=== PATIENT | female | born 1940 | race Caucasian/White ===

== ENCOUNTER 2021-05-23 19:01 | Inpatient (IN) | payer MEDICARE ==
[~2021-05-23] VITALS: Ht 166.3 cm; Wt 116.4 kg
[~2021-05-23 19:01] MED LIST: AMLO5TAB2 PO; ATEN-156 PO; ATR20T PO; ESCT10T PO; HYDR-2889 PO; LEVO500T69 PO; MELO-195 PO; POTA10CA43 PO; PRED5DRO OU; TRIA16.5 NS; TRIA1TAB5 PO; WRF5T PO; ZYMAR OU
[2021-05-23 19:40] LABS: BASOPHILS % (AUTO) 0 % (0-10); EOSINOPHILS # (AUTO) 0.1 10^3/uL (0.0-0.3); EOSINOPHILS % (AUTO) 1 % (0-10); HEMATOCRIT 31 % (35-52); LYMPHOCYTES # (AUTO) 1.1 10^3/uL (1.0-4.0); LYMPHOCYTES % (AUTO) 21 % (12-44); MEAN CORPUSCULAR HEMOGLOBIN 31 pg (25-34); MEAN CORPUSCULAR HGB CONC 33 g/dL (32-36); MEAN CORPUSCULAR VOLUME 96 fL (80-99); MEAN PLATELET VOLUME 9.5 fL (9.0-12.2); MONOCYTES # (AUTO) 0.6 10^3/uL (0.0-1.0); MONOCYTES % (AUTO) 11 % (0-12); NEUTROPHILS # (AUTO) 3.5 10^3/uL (1.8-7.8); NEUTROPHILS % (AUTO) 66 % (42-75); PLATELET COUNT 172 10^3/uL (130-400); WHITE BLOOD COUNT 5.2 10^3/uL (4.3-11.0)
[2021-05-23 19:45] LABS: ALBUMIN 3.6 GM/DL (3.2-4.5); POTASSIUM 3.6 MMOL/L (3.6-5.0)
[2021-05-23] MEDS ORDERED: ASPIRIN 81 MG CHEW (CHILDREN'S ASA) PO ONE (19:45)
[2021-05-23 19:47] LABS: CALCIUM 8.9 MG/DL (8.5-10.1)
--- NOTE | 2021-05-23 19:47 | ED General ---
General Chief Complaint: Cardiac/General Problems Nursing Triage Note: TO ED [facility]IA [facility] FROM HOME. PT STATES SHE IS WEAK, CANNOT GET UP BY HERSELF. Source of Information: Patient Exam Limitations: No Limitations History of Present Illness Date Seen by Provider: May 23, 2021 Time Seen by Provider: 19:45 Initial Comments to ER by EMS from home at her daughter's house where she is currently residing with general weakness, bowel and bladder incontinence. Daughter is unable to take care of her at home. She is from [facility], just moved to the area to stay with her daughter. Was recently at [facility] emergency room and had a questionable diagnosis of new onset A. fib. Timing/Duration: 1 Week Severity: Moderate Associated Systoms: Denies Symptoms Allergies and Home Medications Allergies Coded Allergies: Penicillins (Verified Allergy, Unknown, 05/23/21) procaine (Verified Allergy, Unknown, 05/23/21) Patient Home Medication List Home Medication List Reviewed: Yes Amlodipine Besylate (Amlodipine Besylate) 5 Mg Tablet, 5 MG PO DAILY, (Reported) Entered as Reported by: KIM STRONG on 07/03/101702 Atenolol (Tenormin) 50 Mg Tablet, 50 MG PO DAILY, (Reported) Entered as Reported by: KIM STRONG on 07/03/101702 Atorvastatin (Lipitor 20MG) 20 Mg Tablet, 1 EACH PO DAILY, (Reported) Entered as Reported by: KIM STRONG on 07/03/101702 Escitalopram Oxalate (Lexapro) 10 Mg Tablet, 1 EACH PO DAILY, (Reported) Entered as Reported by: KIM STRONG on 07/03/101702 Hydrocodone Bit/Acetaminophen (Hydrocodon-Acetaminoph 7.5-500) 1 Each Tablet, 1 EACH PO Q6H PRN, (Reported) Entered as Reported by: KIM STRONG on 07/03/101702 Levofloxacin (Levaquin 500 Mg) 500 Mg Tab, 1 EACH PO DAILY, (Reported) Entered as Reported by: QUIRINO VASQUEZ on 07/09/10 101 Meloxicam (Meloxicam) 15 Mg Tablet, 1 EACH PO DAILY, (Reported) Entered as Reported by: KIM STRONG on 07/03/101702 Potassium Chloride (Potassium Chloride) 10 Meq Capsule.sa, 10 MEQ PO DAILY, (Reported) Entered as Reported by: KIM STRONG on 07/03/101702 Prednisolone Acetate (Rx-Pred Forte 1%) 5 Ml Drops.susp, 5 ML OU DAILY PRN, (Reported) Entered as Reported by: KIM STRONG on 07/03/101702 Triamcinolone Acetonide (Nasacort Aq) 16.5 Gm [place], 55 MCG NS DAILY PRN, ( Reported) Entered as Reported by: KIM STRONG on 07/03/101702 Triamterene/Hydrochlorothiazid (Triamterene-Hctz 75-50 Mg Tab) 1 Each Tablet, 1 EACH PO DAILY, (Reported) Entered as Reported by: KIM STRONG on 07/03/101702 Warfarin Sod (Coumadin 5 Mg) 5 Mg Tab, 5 MG PO DAILY, (Reported) Entered as Reported by: QUIRINO VASQUEZ on 07/09/10 1012 Review of Systems Review of Systems Constitutional: see HPI, other (Obese, incontinent of both bowel and bladder within her brief. She is in normal sinus rhythm on telemetry here rate of 68 blood pressure 180/74. 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 oz. [phone]; BMI Method: General Appearance: No Apparent Distress, WD/WN, Chronically ill, Obese HEENT: PERRL/EOMI Neck: Full Range of Motion, Normal Inspection Respiratory: No Accessory Muscle Use, No Respiratory Distress Cardiovascular: Regular Rate, Rhythm, Normal Peripheral Pulses Gastrointestinal: Normal Bowel Sounds, Non Tender, Soft Extremity: Normal Capillary Refill, Normal Inspection Neurologic/Psychiatric: Alert, Oriented x3 Skin: Normal Color, Warm/Dry, Ecchymosis (multiple ecchymoses to bilat forearms) Progress/Results/Core Measures Suspected Sepsis SIRS Temperature: Pulse: 80 Respiratory Rate: 16 Laboratory Tests 05/23/21 19:12: White Blood Count 5.2 Blood Pressure 198 /92 Mean: 127 Laboratory Tests 05/23/21 19:12: Creatinine 0.74, INR Comment 9.4*H, Platelet Count 172, Total Bilirubin 0.7 Results/Orders Lab Results Laboratory Tests Test 05/23/21 19:12 05/23/21 19:38 05/23/21 19:50 Range/Units White Blood Count 5.2 4.3-11.0 10^3/uL Red Blood Count 3.21 L 3.80-5.11 10^6/uL Hemoglobin 10.0 L 11.5-16.0 g/dL Hematocrit 31 L 35-52 % Mean Corpuscular Volume 96 80-99 fL Mean Corpuscular Hemoglobin 31 25-34 pg Mean Corpuscular Hemoglobin Concent 33 32-36 g/dL Red Cell Distribution Width 12.8 10.0-14.5 % Platelet Count 172 130-400 10^3/uL Mean Platelet Volume 9.5 9.0-12.2 fL Immature Granulocyte % (Auto) 1 % Neutrophils (%) (Auto) 66 42-75 % Lymphocytes (%) (Auto) 21 12-44 % Monocytes (%) (Auto) 11 0-12 % Eosinophils (%) (Auto) 1 0-10 % Basophils (%) (Auto) 0 0-10 % Neutrophils # (Auto) 3.5 1.8-7.8 10^3/uL Lymphocytes # (Auto) 1.1 1.0-4.0 10^3/uL Monocytes # (Auto) 0.6 0.0-1.0 10^3/uL Eosinophils # (Auto) 0.1 0.0-0.3 10^3/uL Basophils # (Auto) 0.0 0.0-0.1 10^3/uL Immature Granulocyte # (Auto) 0.0 0.0-0.1 10^3/uL Prothrombin Time 76.1 *H 12.2-14.7 SEC INR Comment 9.4 *H 0.8-1.4 Activated Partial Thromboplast Time 114 *H 24-35 SEC Sodium Level 141 135-145 MMOL/L Potassium Level 3.6 3.6-5.0 MMOL/L Chloride Level 106 98-107 MMOL/L Carbon Dioxide Level 23 21-32 MMOL/L Anion Gap 12 5-14 MMOL/L Blood Urea Nitrogen 12 7-18 MG/DL Creatinine 0.74 0.60-1.30 MG/DL Estimat Glomerular Filtration Rate 82 BUN/Creatinine Ratio 16 Glucose Level 116 H 70-105 MG/DL Calcium Level 8.9 8.5-10.1 MG/DL Corrected Calcium 9.2 8.5-10.1 MG/DL Magnesium Level 1.7 1.6-2.4 MG/DL Total Bilirubin 0.7 0.1-1.0 MG/DL Aspartate Amino Transf (AST/SGOT) 25 5-34 U/L Alanine Aminotransferase (ALT/SGPT) 32 0-55 U/L Alkaline Phosphatase 55 40-136 U/L Myoglobin 56.7 10.0-92.0 NG/ML Troponin I < 0.028 <0.028 NG/ML B-Type Natriuretic Peptide 75.7 <100.0 PG/ML Total Protein 6.1 L 6.4-8.2 GM/DL Albumin 3.6 3.2-4.5 GM/DL Urine Color YELLOW Urine Clarity CLOUDY Urine pH 6.0 5-9 Urine Specific [place] 1.025 H 1.016-1.022 Urine Protein NEGATIVE NEGATIVE Urine Glucose (UA) NEGATIVE NEGATIVE Urine Ketones NEGATIVE NEGATIVE Urine Nitrite POSITIVE H NEGATIVE Urine Bilirubin NEGATIVE NEGATIVE Urine Urobilinogen 0.2 < = 1.0 MG/DL Urine Leukocyte Esterase 1+ H NEGATIVE Urine RBC (Auto) TRACE-I H NEGATIVE Urine RBC 0-2 /HPF Urine WBC 5-10 H /HPF Urine Squamous Epithelial Cells NONE /HPF Urine Renal Epithelial Cells NONE /HPF Urine Crystals NONE /LPF Urine Bacteria LARGE H /HPF Urine Casts NONE /LPF Urine Mucus NEGATIVE /LPF Urine Culture Indicated YES Influenza Type A (RT-PCR) Not Detected Not Detecte Influenza Type B (RT-PCR) Not Detected Not Detecte SARS-CoV-2 RNA (RT-PCR) Not Detected Not Detecte My Orders Orders - [facility] [employer] Cbc With Automated Diff (05/23/21 19:31) Magnesium (05/23/21 19:31) Chest 1 View, Ap/Pa Only (05/23/21 19:31) Ekg Tracing (05/23/21 19:31) Comprehensive Metabolic Panel (05/23/21 19:31) Myoglobin Serum (05/23/21 19:31) Protime With Inr (05/23/21 19:31) Partial Thromboplastin Time (05/23/21 19:31) O2 (05/23/21 19:31) Monitor-Rhythm Ecg Trace Only (05/23/21 19:31) Lipid Panel (05/24/21 06:00) Ed Iv/Invasive Line Start (05/23/21 19:31) Bnp [place] (05/23/21 19:31) Troponin I [place] (05/23/21 19:31) Aspirin Chewable Tablet (Baby Aspirin Ch (05/23/21 19:45) Ua Culture If Indicated (05/23/21 19:47) Straight Cath (Urinary) (05/23/21 19:47) Covid 19 Inhouse Test (05/23/21 19:47) Influenza A And B By Pcr (05/23/21 19:47) Urine Culture (05/23/21 19:38) Ceftriaxone 1 Gm Pre-Mix (Rocephin 1 Gm (05/23/21 20:15) Phytonadione Oral Solution (Mephyton Ora (05/23/21 21:00) Medications Given in ED Current Medications Medications Dose Ordered Sig/[place] Route Start Time Stop Time Status Last Admin Dose Admin Aspirin 324 mg ONCE ONCE PO 05/23/21 19:45 05/23/21 19:47 DC 05/23/21 19:51 324 MG Ceftriaxone Sodium/Dextrose 50 ml @ 100 mls/hr ONCE ONCE IV 05/23/21 20:15 05/23/21 20:44 DC 05/23/21 20:33 100 MLS/HR Vital Signs/I&O 05/23/21 19:08 Temp 36.5 Pulse 80 Resp 16 B/P (MAP) 198/92 (127) Pulse Ox 96 O2 Delivery Room Air Capillary Refill : Less Than 3 Seconds Blood Pressure Mean: 127 Departure Impression Primary Impression: UTI (urinary tract infection) Additional Impression: General weakness Disposition: ADMITTED INPATIENT Condition: Stable Admissions Decision to Admit Reason: Admit from ER (General) Decision to Admit/Date: May 23, 2021 Time/Decision to Admit Time: 20:07 Departure-Patient Inst. Referrals: NU DU MD (PCP/Family) Primary Care Physician CH[facility] RED APRN May 23, 2021 19:46
[2021-05-23 19:48] LABS: TOTAL PROTEIN 6.1 GM/DL (6.4-8.2)
[2021-05-23 19:50] LABS: BILIRUBIN,TOTAL 0.7 MG/DL (0.1-1.0)
[2021-05-23 19:51] LABS: CREATININE SERUM 0.74 MG/DL (0.60-1.30)
[2021-05-23 19:54] LABS: BILIRUBIN,URINE NEGATIVE (NEGATIVE); CLARITY,URINE CLOUDY; COLOR,URINE YELLOW; GLUCOSE, URINE (UA) NEGATIVE (NEGATIVE); KETONES,URINE NEGATIVE (NEGATIVE); LEUKOCYTE ESTERASE ,URINE 1+ (NEGATIVE); NITRITE,URINE POSITIVE (NEGATIVE); PROTEIN,URINE NEGATIVE (NEGATIVE)
[2021-05-23 19:55] LABS: MAGNESIUM 1.7 MG/DL (1.6-2.4); PROTHROMBIN TIME PATIENT 76.1 SEC (12.2-14.7)
[2021-05-23 19:56] LABS: INR 9.4 (0.8-1.4)
[2021-05-23 20:04] LABS: BACTERIA,URINE LARGE /HPF; RBC,URINE 0-2 /HPF
--- NOTE | 2021-05-23 20:13 | Diagnostic Imaging Report ---
INDICATION: Weakness. COMPARISON: 11/04/2014. EXAMINATION: Single view of the chest. FINDINGS: Lordotic projection obscuring some detail. There is no infiltrate, pneumothorax or effusion. There is some density in the upper chest region which is likely normal vascular structures. The heart size is normal. Osseous structures are age-appropriate. IMPRESSION: Limited but unremarkable chest. Dictated by: Dictated on workstation # [id number]
[2021-05-23] MEDS ORDERED: cefTRIAXone 1 GM PRE-MIX 50 ML IV ONE (20:15)
[2021-05-23] MEDS ORDERED: VITAMIN K 1 MG/ML ORAL SOLN 1 ML SYRINGE PO ONE (21:00)
[2021-05-23 22:05] VITALS: BP 191/76
[2021-05-23] MEDS ORDERED: CATHETER FLUSH 10 ML SYR IV PRN (23:00)
[2021-05-23 23:27] VITALS: BP 148/79
[2021-05-24 03:51] VITALS: BP 132/71
[2021-05-24] MEDS: CATHETER FLUSH 10 ML SYR IV SCH ×3 (05:22→19:33)
[2021-05-24 06:13] LABS: BASOPHILS % (AUTO) 0 % (0-10); EOSINOPHILS # (AUTO) 0.1 10^3/uL (0.0-0.3); EOSINOPHILS % (AUTO) 1 % (0-10); HEMATOCRIT 26 % (35-52); HEMOGLOBIN 8.6 g/dL (11.5-16.0); LYMPHOCYTES # (AUTO) 0.7 10^3/uL (1.0-4.0); LYMPHOCYTES % (AUTO) 13 % (12-44); MEAN CORPUSCULAR HEMOGLOBIN 32 pg (25-34); MEAN CORPUSCULAR HGB CONC 34 g/dL (32-36); MEAN CORPUSCULAR VOLUME 95 fL (80-99); MEAN PLATELET VOLUME 9.6 fL (9.0-12.2); MONOCYTES # (AUTO) 0.6 10^3/uL (0.0-1.0); MONOCYTES % (AUTO) 11 % (0-12); NEUTROPHILS # (AUTO) 4.3 10^3/uL (1.8-7.8); NEUTROPHILS % (AUTO) 75 % (42-75); PLATELET COUNT 157 10^3/uL (130-400); WHITE BLOOD COUNT 5.8 10^3/uL (4.3-11.0)
[2021-05-24 06:31] LABS: POTASSIUM 3.8 MMOL/L (3.6-5.0)
[2021-05-24 06:32] LABS: CALCIUM 8.4 MG/DL (8.5-10.1)
[2021-05-24 06:37] LABS: CREATININE SERUM 0.68 MG/DL (0.60-1.30); INR 7.4 (0.8-1.4); PROTHROMBIN TIME PATIENT 63.2 SEC (12.2-14.7)
[2021-05-24 07:57] VITALS: BP 124/57
--- NOTE | 2021-05-24 08:59 | Physical Therapy Evaluation ---
PT Evaluation-General Medical Diagnosis Admission Date May 23, 2021 at 20:50 Medical Diagnosis: Weakness/UTI Onset Date: May 19, 2021 Therapy Diagnosis Therapy Diagnosis: Weakness, debility Height/Weight Height (Feet): 5 Height (Inches): 7.00 Weight (Pounds): 300 Precautions Precautions/Isolations: Fall Prevention, Standard Precautions Referral Physician: Shyanne Reason for Referral: Evaluation/Treatment Medical History Additional Medical History Obesity Current History Patient was brought to ER via her daughter. Patient went to ER in [place] but sent her home but patient was declining and her daughter brought her [facility]. Reviewed History: Yes Social History Home: Single Level Current Living Status: Alone Entry Into Home: Ramp Prior Prior Level of Function SCALE: Activities may be completed with or without assistive devices. 9-Zdowwrnzhz-nenagza completes the activity by him/herself with no assistance from a helper. 5-Set-up or Clean-up Assistance-helper sets up or cleans up; patient completes activity. [place] assists only prior to or following the activity. 4-Supervision or Touching Assistance-helper provides verbal cues and/or touching/steadying and/or contact guard assistance as patient completes activity. Assistance may be provided throughout the activity or intermittently. 3-Partial/Moderate Assistance-helper does LESS THAN HALF the effort. [place] lifts, holds or supports trunk or limbs, but provides less than half the effort. 2-Substantial/Maximal Assistance-helper does MORE THAN HALF the effort. [place] l ifts or holds trunk or limbs and provides more than half the effort. 9-Aeywsrnlt-aoypfl does ALL the effort. Patient does none of the effort to complete the activity. Or, the assistance of 2 or more helpers is required for the patient to complete the activity. If activity was not attempted, code reason: 7-Patient Refused. 9-Not Applicable-not attempted and the patient did not perform the activity before the current illness, exacerbation or injury. 10-Not Attempted due to Environmental Limitations-(lack of equipment, weather restraints, etc.). 88-Not Attempted due to Medical Conditions or Safety Concerns. Bed Mobility: 6 Transfers (B,C,W/C): 6 Gait: 6 Indoor Mobility (Ambulation): Independent Prior Devices Use: Walker Patient reported that she slept in her lift chair at home and used the lift function to help her get up from the chair. Patient reports that the head of her bed also lifts up and she uses it to help her get out of bed. PT Evaluation-Current Subjective Patient presented laying in bed with daughter sitting beside her. Patient reports that she has not got out of bed in a couple days and wants to attempt to get up. Objective Patient Orientation: Person, Confused ROM/Strength ROM Lower Extremities WFL, decreased due to obesity Strength Lower Extremities 4/5 strength bilaterally grossly Sensory Vision: Functional Hearing: Functional Transfers Lying to Sitting/Side of Bed(Q: 3 Sit to Stand (QC): 3 Chair/Jbs-fc-Ivrfd Xfer(QC): 3 Patient required min/mod assist for all transfers. Patient required multiple cues to perform transfers safely and correctly Gait Does the Patient Walk?: Yes Mode of Locomotion: Walk Anticipated Mode of Locomotion: Walk Distance: 5 steps Gait Assistive Device: FWW Comments/Gait Description Patient ambulated 5 steps with min-mod assistance from EOB to recliner. Patient required cues to push the walker forward while ambulating. Balance Sitting Static: Normal Sitting Dynamic: Normal Standing Static: Fair Standing Dynamic: Poor Assessment/Needs Patient completed ambulation and bed mobility with min-mod assist. Patient reported that she was very tired after transferring to the chair. Patient is very confused about the order of events that brought her to the hospital and why she needs to move. Patient reports that she wants to go back to living at home. Patient requires skilled therapy to return gain strength and endurance to return to prior level of function. 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 Half-Way Goals PT Half-Way Goals Time Frame: Jun 02, 2021 Roll Left & Right (QC): 6 Sit to Lying (QC): 6 Lying-Sitting on Side/Bed(QC): 6 Sit to Stand (QC): 6 Chair/Rwt-va-Avvlv Xfer(QC): 6 Toilet Transfer (QC): 6 Does the Patient Walk: Yes Walk 10 feet (QC): 6 Walk 50ft with 2 Turns (QC): 6 Walk 150 ft (QC): 6 PT Plan Problem List Problem List: Activity Tolerance, Functional Strength, Safety, Balance, Gait, Transfer, Bed Mobility, ROM Treatment/Plan Treatment Plan: Continue Plan of Care Treatment Plan: Bed Mobility, Education, Functional Activity Max, Functional Strength, Gait, Safety, Therapeutic Exercise, Transfers Treatment Duration: Jun 02, 2021 Frequency: 6 times per week Estimated Hrs Per Day: .25 hour per day Time/GCodes Time In: 755 Time Out: 812 Total Billed Treatment Time: 17 [facility] JAB[facility] TAP[facility] May 24, 2021 08:59
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
[2021-05-24 11:59] VITALS: BP 121/56
--- NOTE | 2021-05-24 12:43 | History & Physical-Hospitalist ---
SUE REID A MED STUDENT 05/24/21 1242: History of Present Illness HPI/Chief Complaint This is an 81 yo female who presented with weakness, confusion and urinary incontinence for the last week. Pt has past medical hx of HTN, DVT and Afib. Pt reports she lives at home alone and on Friday she was taken to [place] ED for weakness and confusion. She was sent home, but continued to have worsening confusion and urinary incontinence, so she sought treatment at ED. Pt states she has had some urinary frequency and burning with urination for the past week. Pt reports she takes warfarin, but is unsure of why she takes this. She is unaware of having Afib. Pt denies fever, chills, fatigue, headache, blurry vision, cough, dyspnea, chest pain, palpitations, N/V/D, dizziness or fainting. Pt reports her daughter helps her at home and she denies any recent falls. She has complaints of pain in her hands and forearms where she has extensive bruising. Source: patient Date Seen 05/24/21 Time Seen by a Provider: 07:50 Attending Physician Francois Kimble MD PCP Da Thompson MD Referring Physician Date of Admission May 23, 2021 at 20:50 Home Medications & Allergies Home Medications Reviewed patient Home Medication Reconciliation performed by pharmacy medication reconciliations pet care technician and/or nursing. Patients Allergies have been reviewed. Allergies Allergies Coded Allergies Penicillins (Verified Allergy, Unknown, 05/23/21) procaine (Verified Allergy, Unknown, 05/23/21) Past Jnolybk-Beiniy-Zrzbpu Hx Patient Social History Tobacco Use?: No Smoking Status: Never a Smoker Smokeless Tobacco Frequency: Never a User Use of E-Cig and/or Vaping dev: No Substance use?: No Alcohol Use?: No Pt feels they are or have been: No Current Status status: No status: No Advance Directives: Unable to obtain Communicates: Verbally Primary Language: Martiniquais Preferred Spoken Language: Martiniquais Is interpretation needed?: No Past Medical History Atrial Fibrillation, Deep Vein Thrombosis, Hypertension Rheumatoid Arthritis Review of Systems Constitutional: No chills, No dizziness, No fever EENTM: No blurred vision, No double vision Respiratory: No cough, No dyspnea on exertion Cardiovascular: No chest pain, No palpitations Gastrointestinal: No abdominal pain, No constipation, No diarrhea, No nausea, No vomiting Genitourinary: dysuria, frequency Musculoskeletal: No joint pain, No joint swelling, No muscle stiffness Skin: no symptoms reported, other (bruising on arms) Physical Exam Physical Exam Vital Signs Vital Signs - First Documented 05/23/21 19:08 Temp 36.5 Pulse 80 Resp 16 B/P (MAP) 198/92 (127) Pulse Ox 96 O2 Delivery Room Air Capillary Refill : Less Than 3 Seconds Height, Weight, BMI Height: 5'7.00" Weight: 300lbs. oz. 136.566637fx; 54.88 BMI Method: General Appearance: No Apparent Distress, Obese HEENT: PERRL/EOMI Respiratory: Chest Non Tender, Lungs Clear, Normal Breath Sounds Cardiovascular: Regular Rate, Rhythm, Systolic Murmur Gastrointestinal: Normal Bowel Sounds, Non Tender, Soft Extremity: Normal Capillary Refill, Pedal Edema (trace pitting edema in LE bilaterally) Neurologic/Psychiatric: Alert, Oriented x3 Skin: Warm/Dry, Ecchymosis (bilateral hands and forearms) Results Results/Procedures Labs Laboratory Tests 05/23/21 19:12 05/24/21 05:50 Patient resulted labs reviewed. Assessment/Plan Admission Diagnosis UTI and supratherapeutic INR Reason for Inpatient Admission: UTI and supratherapeutic INR Assessment and Plan Supratherapeutic INR UTI Anemia Hx of DVT Afib HTN Weakness and AMS Supratherapeutic INR -Currently 7.4 -Hold warfarin -Vit K 2.5mg given orally -Will continue to monitor as there is no active bleeding UTI -Ceftriaxone started, will switch to Nitrofurantoin -Culture pending Anemia -Likely dilutional as platelets decreased as well Hx of DVT Afib HTN -Controlled Weakness and AMS -PT/OT ordered -Pt will likely need facility placement upon d/c to regain strength as she lives at home alone Clinical Quality Measures AMI/AHF: ASA po Prior to arrival: No TRISTEN ALANIS MD 05/24/21 2025: History of Present Illness Exam Limitations: no limitations Time Seen by a Provider: 11:05 Past Wkjlvcu-Fenrah-Vkjxri Hx Family Medical History No Pertinent Family Hx Physical Exam Physical Exam General Appearance: No Apparent Distress, Obese HEENT: PERRL/EOMI, Pharynx Normal Neck: Normal Inspection, Supple Respiratory: Lungs Clear, Normal Breath Sounds, No Respiratory Distress Cardiovascular: Regular Rate, Rhythm, Systolic Murmur Gastrointestinal: Normal Bowel Sounds, Non Tender, Soft Extremity: Normal Capillary Refill, Normal Inspection, Pedal Edema (trace pitting edema in LE bilaterally) Neurologic/Psychiatric: Alert, Oriented x3 Skin: Warm/Dry, Ecchymosis (bilateral hands and forearms) Results Results/Procedures Imaging: Reviewed Imaging Report Assessment/Plan Admission Diagnosis Admission Status: Inpatient Order (span 2 midnights) Reason for Inpatient Admission: IV antibiotics Assessment and Plan Admitted with UTI. Continue Rocephin, await culture results. INR remains elevated, continue to monitor. PT/OT, may need rehab vs skilled therapy on discharge. Diagnosis/Problems Diagnosis/Problems (1) UTI (urinary tract infection) Status: Acute (2) Supratherapeutic INR Status: Acute (3) General weakness Status: Acute Supervisory-Addendum Brief Verification & Attestation Participated in pt care: history, MDM, physical Personally performed: exam, history, MDM, supervision of care Care discussed with: Medical Student Procedures: n/a Results interpretation: Verified all documentation A medical student performed and documented this service in my presence. I reviewed and verified all information documented by the medical student and made modifications to such information, when appropriate. I personally performed the physical exam and medical decision making. SUE REID MED STUDENT May 24, 2021 12:42 TRISTEN ALANIS MD May 24, 2021 17:45
[2021-05-24 15:30] VITALS: BP 106/49
[2021-05-24] MEDS ORDERED: LOVA20TA2 PO (16:22)
[2021-05-24] MEDS ORDERED: OXYB10TA29 PO (16:22)
[2021-05-24] MEDS ORDERED: GABA300C PO (16:22)
[2021-05-24] MEDS ORDERED: DULO60CA59 PO (16:22)
[2021-05-24] MEDS ORDERED: LOSA100T57 PO (16:22)
[2021-05-24] MEDS ORDERED: WRF5T PO (16:22)
[2021-05-24] MEDS ORDERED: NFBIOT1000 PO (16:23)
[2021-05-24] MEDS ORDERED: VITA1TAB17 PO (16:23)
[2021-05-24] MEDS ORDERED: VIT1TABL26 PO (16:23)
[2021-05-24] MEDS ORDERED: KRIL1CAP35 PO (16:23)
[2021-05-24] MEDS ORDERED: UBID100C44 PO (16:23)
[2021-05-24] MEDS ORDERED: FOLI1TAB33 PO (16:23)
[2021-05-24] MEDS ORDERED: CHOL20003 PO (16:23)
[2021-05-24 20:00] VITALS: BP 158/63
[2021-05-24] MEDS ORDERED: cefTRIAXone 1 GM IV (PRE-MIX) 50 ML IV SCH (21:00)
[2021-05-24 23:32] VITALS: BP 138/75
[2021-05-25 03:55] VITALS: BP 143/75
[2021-05-25] MEDS: CATHETER FLUSH 10 ML SYR IV SCH (05:19)
[2021-05-25 06:19] LABS: HEMOGLOBIN 7.5 g/dL (11.5-16.0)
[2021-05-25 06:32] LABS: INR 2.6 (0.8-1.4); PROTHROMBIN TIME PATIENT 28.1 SEC (12.2-14.7)
[2021-05-25 08:00] VITALS: BP 161/69
--- NOTE | 2021-05-25 09:26 | Physical Therapy Daily Note ---
PT Daily Note-Current Subjective Patient presented laying in bed. Patient seemed to be confused and continues to talk about all of the bruises she has on her arms. Mental Status Patient Orientation: Person, Time Transfers SCALE: Activities may be completed with or without assistive devices. 7-Osjjcljwgr-yihozap completes the activity by him/herself with no assistance from a helper. 5-Set-up or Clean-up Assistance-helper sets up or cleans up; patient completes activity. [place] assists only prior to or following the activity. 4-Supervision or Touching Assistance-helper provides verbal cues and/or touching/steadying and/or contact guard assistance as patient completes activity. Assistance may be provided throughout the activity or intermittently. 3-Partial/Moderate Assistance-helper does LESS THAN HALF the effort. [place] lifts, holds or supports trunk or limbs, but provides less than half the effort. 2-Substantial/Maximal Assistance-helper does MORE THAN HALF the effort. [place] lifts or holds trunk or limbs and provides more than half the effort. 7-Gcbsebfqi-weoati does ALL the effort. Patient does none of the effort to complete the activity. Or, the assistance of 2 or more helpers is required for the patient to complete the activity. If activity was not attempted, code reason: 7-Patient Refused. 9-Not Applicable-not attempted and the patient did not perform the activity before the current illness, exacerbation or injury. 10-Not Attempted due to Environmental Limitations-(lack of equipment, weather restraints, etc.). 88-Not Attempted due to Medical Conditions or Safety Concerns. Lying to Sitting/Side of Bed(Q: 3 Sit to Stand (QC): 3 Chair/Rtx-gn-Uanpo Xfer(QC): 3 Patient required min/mod for all transfers. Patient did not sit safely in chair and did not lower herself slowly in the chair. Patient was reminded about how unsafe sitting like that is. Gait Training Does the Patient Walk?: Yes Distance: 75' Walk 10 feet (QC): 3 Walk 50 ft with 2 Turns(QC): 3 Gait Assistive Device: FWW Patient required mod assist with FWW for ambulation. Patient required cues for safety to stay within her walker while ambulating but continued to not stand within her walker. Assessment Patient required min/mod assist for all transfers and min assist for ambulation with FWW. Patient safety awareness was not good due to standing to sit transfer. Patient required frequent cues for safety during ambulation, and transfers. PT Processing Manager Goals Halfway Goals PT Halfway Goals Time Frame: Jun 02, 2021 Roll Left & Right (QC): 6 Sit to Lying (QC): 6 Lying-Sitting on Side/Bed(QC): 6 Sit to Stand (QC): 6 Chair/Sdi-hq-Ndcex Xfer(QC): 6 Toilet Transfer (QC): 6 Does the Patient Walk: Yes Walk 10 feet (QC): 6 Walk 50ft with 2 Turns (QC): 6 Walk 150 ft (QC): 6 PT Plan Problem List Problem List: Activity Tolerance, Functional Strength, Safety, Balance, Gait, Transfer, Bed Mobility, ROM Treatment/Plan Treatment Plan: Continue Plan of Care Treatment Plan: Bed Mobility, Education, Functional Activity Max, Functional Strength, Gait, Safety, Therapeutic Exercise, Transfers Treatment Duration: Jun 02, 2021 Frequency: 6 times per week Estimated Hrs Per Day: .25 hour per day Time/GCodes Time In: 805 Time Out: 819 Total Billed Treatment Time: 14 Total Billed Treatment 1 Visit FA 14 min JABIER TAPIA PT May 25, 2021 09:26
[2021-05-25 12:00] VITALS: BP 149/84
--- NOTE | 2021-05-25 12:45 | Discharge Summary ---
JEANETTESUE A MED STUDENT 05/25/21 1245: Diagnosis/Chief Complaint Date of Admission May 23, 2021 at 20:50 Date of Discharge 05/25/2021 Discharge Date: May 25, 2021 Admission Diagnosis Supratherapeutic INR and UTI Primary Care Da Thompson MD Discharge Diagnosis Supratherapeutic INR and UTI (1) UTI (urinary tract infection) Status: Acute Assessment & Plan: Will switch Ceftriaxone to Nitrofurantoin (2) Supratherapeutic INR Status: Acute Assessment & Plan: INR improving at 2.4 today. Pt will need to f/u with PCP within one week for repeat labs Will restart Warfarin at lower dose than taking prior to admission (3) General weakness Status: Acute Assessment & Plan: D/C to rehabilitation facility to regain strength and assisted living placement after that Discharge Summary Discharge Physical Exam Allergies: Coded Allergies: Penicillins (Verified Allergy, Unknown, 05/23/21) procaine (Verified Allergy, Unknown, 05/23/21) Vitals & I&Os Vital Signs Date Time Temp Pulse Resp B/P (MAP) Pulse Ox O2 Delivery O2 Flow Rate FiO2 05/25/21 08:00 36.6 74 16 161/69 (99) 92 Room Air General Appearance: No Apparent Distress, Obese HEENT: PERRL/EOMI Respiratory: Chest Non Tender, Normal Breath Sounds Cardiovascular: Regular Rate, Rhythm, Systolic Murmur Gastrointestinal: Normal Bowel Sounds, Non Tender, Soft Extremity: Normal Capillary Refill, Pedal Edema (1+ pitting bilaterally) Skin: Warm/Dry, Ecchymosis (bilateral forearms and hands) Neurologic/Psychiatric: Alert, Oriented x3 Hospital Course This is an 81 yo female who presented with weakness, confusion and urinary incontinence for the last week. Pt has past medical hx of HTN, DVT and Afib. Pt reported she lives at home alone and on Friday she was taken to [place] ED for weakness and confusion. She was sent home, but continued to have worsening confusion and urinary incontinence, so she sought treatment at ED. Pt stated she has had some urinary frequency and burning with urination for the past week. Pt also reported she takes warfarin, but is unsure of why she takes this. She was unaware of having Afib. Pt was found to have UTI and supratherapeutic INR of 7.4, so she was admitted to general medical floor. Vit K 2.5mg oral was given and INR came down to 2.6. Ceftriaxone was started for UTI. Pt reports no fever, chills, SOA, cough, chest pain, palpitations, urinary frequency or burning, N/V/D or abdominal pain. PT/OT evaluation was performed and it was determined that patient would benefit from placement in rehabilitation facility upon d/c. Pt reported that she lived at home alone prior to hospital admission, but her daughter would come help her once a week. Pt is aware of plan to place in [facility] and agrees that it is whats best for her. Labs (last 24 hrs) Laboratory Tests 05/25/21 06:10: Hemoglobin 7.5L, Hematocrit 23L, Prothrombin Time 28.1H, INR Comment 2.6H 05/25/21 06:20: Microbiology 05/23/21 Urine Culture - Final, Complete Escherichia coli Patient resulted labs reviewed. Pending Labs Laboratory Tests 05/25/21 06:10: Hemoglobin 7.5, Hematocrit 23, Prothrombin Time 28.1, INR Comment 2.6 05/25/21 06:20: Iron Level [Pending], Total Iron Binding Capacity [Pending], Unsaturated Iron Binding Capacity [Pending], Transferrin % Saturation [Pending], Ferritin [Pe nding], Vitamin B12 Level [Pending], Folate [Pending] Imaging: Reviewed Imaging Report Discharge Home Medications: Active Scripts Active Reported Vitamin D3 (Cholecalciferol (Vitamin D3)) 50 Mcg Capsule 50 Mcg PO HS Ocuvite with Lutein Tablet (Vit A,C & E/Lutein/Minerals) 1 Each Tablet 1 Each PO HS Megared Letts[place]-3 Krill 350 mg (Krill/Om-3/Dha/Epa/Phospho/Ast) 1 Each Capsule 1 Each PO HS Co Q-10 (Ubidecarenone) 100 Mg Capsule 100 Mg PO HS Biotin 1,000 Mcg Tablet 1,000 Mcg PO HS Vitamin B Complex 1 Each Tablet 1 Each PO HS Folic Acid 1 Mg Tablet 1 Mg PO BID Duloxetine HCl 60 Mg Capsule.dr 60 Mg PO BID Oxybutynin Chloride ER (Oxybutynin Chloride) 10 Mg Tab.er.24 10 Mg PO HS Losartan Potassium 100 Mg Tablet 100 Mg PO HS Jantoven (Warfarin Sodium) Unknown Strength Tablet Unknown Dose PO DAILY Lovastatin 20 Mg Tablet 20 Mg PO HS Neurontin (Gabapentin) 300 Mg Capsule 300 Mg PO TID Instructions to patient/family Please see electronic discharge instructions given to patient. Clinical Quality Measures AMI/AHF: ASA po Prior to arrival: No TRISTEN ALANIS MD 05/25/21 1608: Diagnosis/Chief Complaint Discharge Time: 13:30 Discharge Diagnosis (1) UTI (urinary tract infection) Status: Acute (2) Supratherapeutic INR Status: Acute (3) General weakness Status: Acute (4) Anemia Status: Acute Discharge Summary Discharge Physical Exam Allergies: Coded Allergies: Penicillins (Verified Allergy, Unknown, 05/23/21) procaine (Verified Allergy, Unknown, 05/23/21) Hospital Course Admitted with UTI and supratherpeutic INR. Started on Rocephin for UTI and transitioned to Macrobid once sensitivities returned. She was given a small dose of Vitamin K and her INR improved. She was restarted on a lower dose of Coumadin. She had anemia and had iron, B12, and folate labs pending at the time of discharge. She did not have any evidence of bleeding. She was debilitated and was discharged to the inpatient rehab unit for ongoing therapy needs. Discussion & Recommendations Discharge Planning: >30 minutes discharge planning Supervisory-Addendum Brief Verification & Attestation Participated in pt care: history, MDM, physical Personally performed: exam, history, MDM, supervision of care Care discussed with: Medical Student Procedures: n/a Results interpretation: Verified all documentation A medical student performed and documented this service in my presence. I reviewed and verified all information documented by the medical student and made modifications to such information, when appropriate. I personally performed the physical exam and medical decision making. SUE REID A MED STUDENT May 25, 2021 12:45 TRISTEN ALANIS MD May 25, 2021 16:08
[2021-05-25] MEDS ORDERED: ACETAMINOPHEN 325 MG TABLET PO PRN (13:15)
[2021-05-25] MEDS ORDERED: ONDANSETRON 4 MG (ZOFRAN) ORAL DISSOLVE TAB PO PRN (13:15)
[2021-05-25] MEDS ORDERED: polyethylene glycoL POWDER 17 GM (MIRALAX) PACK PO PRN (13:15)
[2021-05-25] MEDS ORDERED: ANTACID SUSP 30 ML UDC (MYLANTA) PO PRN (13:15)
[2021-05-25] MEDS ORDERED: ONDANSETRON 4 MG/2 ML (SDV) Z0FRAN IV PRN (13:15)
[2021-05-25] MEDS ORDERED: NITROFURANTOIN 100 MG (MACROBID) CAPSULE PO NR (13:15)
[2021-05-25] MEDS ORDERED: MELATONIN 3 MG TABLET PO PRN (13:15)
[2021-05-25] MEDS ORDERED: UPAD15TA PO (16:39)
[2021-05-25] MEDS ORDERED: warFARin 3 MG (COUMADIN) TAB PO SCH (18:00)
[2021-05-25] MEDS ORDERED: DOCUSATE SODIUM 100 MG (COLACE) CAP PO SCH (21:00)
[2021-05-25] MEDS ORDERED: DULoxetine 30 MG (CYMBALTA) CAP PO SCH (21:00)
[2021-05-25] MEDS ORDERED: GABAPENTIN 300 MG (NEURONTIN) CAP PO SCH (21:00)
[2021-05-25] MEDS ORDERED: SENNOSIDES 8.6 MG (SENOKOT) TAB PO SCH (21:00)
[2021-05-25] MEDS ORDERED: LOSARTAN 100 MG (COZAAR) TABLET PO SCH (21:00)
[2021-05-25] MEDS ORDERED: NITROFURANTOIN 100 MG (MACROBID) CAPSULE PO SCH (21:00)
[2021-05-25] MEDS ORDERED: OXYBUTYNIN (DITROPAN) 5 MG TAB PO SCH ×2 (21:00)
== END 2021-05-25 13:53 | DRG 690 ==
LOC: EDUNIT# 19:01 → ER 19:02 → 4TH 20:50
PROVIDERS: ADMIT Internal Medicine; ATTEND Internal Medicine
DX: N39.0 Urinary tract infection, site not specified (principal); R79.1 Abnormal coagulation profile; I48.91 Unspecified atrial fibrillation; Z20.822 Contact with and (suspected) exposure to COVID-19; R32 Unspecified urinary incontinence; I10 Essential (primary) hypertension; Z86.718 Personal history of other venous thrombosis and embolism; D64.9 Anemia, unspecified; R53.1 Weakness; R41.82 Altered mental status, unspecified
CPT/HCPCS: 36415; 71045; 80048; 80053; 80061; 81000; 82607; 82728; 82746; 83540; 83550; 83735; 83874; 83880; 84484; 85014; 85018; 85025; 85610; 85730; 87077; 87088; 87186; 87636; 93005; 93041

== ENCOUNTER 2021-05-25 12:03 | Inpatient (IN) | payer MEDICARE ==
[~2021-05-25] VITALS: Ht 170.2 cm; Wt 134.2 kg
[~2021-05-25 12:03] MED LIST changes: +CHOL20003 PO; +DULO60CA59 PO; +FOLI1TAB33 PO; +GABA300C PO; +KRIL1CAP35 PO; +LOSA100T57 PO; +LOVA20TA2 PO; +NFBIOT1000 PO; +OXYB10TA29 PO; +UBID100C44 PO; +VIT1TABL26 PO; +VITA1TAB17 PO
[2021-05-25] MEDS ORDERED: BISACODYL 10 MG SUPP (DULCOLAX) PR PRN (14:45)
[2021-05-25] MEDS ORDERED: DOCUSATE SODIUM 100 MG (COLACE) CAP PO PRN (14:45)
[2021-05-25] MEDS ORDERED: ONDANSETRON 4 MG (ZOFRAN) ORAL DISSOLVE TAB PO PRN ×2 (14:45→18:30)
[2021-05-25] MEDS ORDERED: diphenhydrAMINE 25 MG TAB (BENADRYL) PO PRN (14:45)
[2021-05-25] MEDS ORDERED: LACTULOSE SYRUP 10GM/15ML (ENULOSE) 30ML UDC PO PRN (14:45)
[2021-05-25] MEDS ORDERED: MELATONIN 3 MG TABLET PO PRN ×2 (14:45→18:30)
[2021-05-25] MEDS ORDERED: guaiFENesin/CODEINE (ROBITUSSIN AC) 10ML UDC PO PRN (14:45)
[2021-05-25] MEDS ORDERED: LOPERAMIDE 2 MG (IMODIUM) TABLET PO PRN (14:45)
[2021-05-25] MEDS ORDERED: ACETAMINOPHEN 325 MG TABLET PO PRN (14:45)
[2021-05-25] MEDS ORDERED: FLEET ENEMA ADULT 1 EA BTL PR PRN (14:45)
[2021-05-25] MEDS ORDERED: ALPRAZolam 0.25 MG (XANAX) TAB PO PRN (14:45)
--- NOTE | 2021-05-25 15:02 | Physical Therapy Evaluation ---
PT Evaluation-General Medical Diagnosis Admission Date May 25, 2021 at 13:30 Medical Diagnosis: Weakness/UTI Onset Date: May 19, 2021 Therapy Diagnosis Therapy Diagnosis: impaired mobility, strength, endurance Height/Weight Height (Feet): 5 Height (Inches): 7.00 Weight (Pounds): 300 Referral Physician: Tonya Dumont DO Reason for Referral: Evaluation/Treatment Medical History Additional Medical History Past Medical History Atrial Fibrillation, Deep Vein Thrombosis, Hypertension Rheumatoid Arthritis Reviewed History: Yes Social History Home: Single Level Current Living Status: Alone Entry Into Home: Ramp Prior Prior Level of Function SCALE: Activities may be completed with or without assistive devices. 3-Yxlmoftryk-oufuhuy completes the activity by him/herself with no assistance from a helper. 5-Set-up or Clean-up Assistance-helper sets up or cleans up; patient completes activity. [place] assists only prior to or following the activity. 4-Supervision or Touching Assistance-helper provides verbal cues and/or touching/steadying and/or contact guard assistance as patient completes activity. Assistance may be provided throughout the activity or intermittently. 3-Partial/Moderate Assistance-helper does LESS THAN HALF the effort. [place] lifts, holds or supports trunk or limbs, but provides less than half the effort. 2-Substantial/Maximal Assistance-helper does MORE THAN HALF the effort. [place] lifts or holds trunk or limbs and provides more than half the effort. 7-Ozwfeojzr-uojizx does ALL the effort. Patient does none of the effort to complete the activity. Or, the assistance of 2 or more helpers is required for the patient to complete the activity. If activity was not attempted, code reason: 7-Patient Refused. 9-Not Applicable-not attempted and the patient did not perform the activity before the current illness, exacerbation or injury. 10-Not Attempted due to Environmental Limitations-(lack of equipment, weather restraints, etc.). 88-Not Attempted due to Medical Conditions or Safety Concerns. Bed Mobility: 6 Transfers (B,C,W/C): 6 Gait: 6 Indoor Mobility (Ambulation): Independent Prior Devices Use: Walker Patient reported that she slept in her lift chair at home and used the lift function to help her get up from the chair PT Evaluation-Current Subjective Patient in recliner pre tx, agrees to PT, states she has some minor back pain. Will be co-treating with OT due to poor patient mobility, strength, endurance, severe debility, coordinate UE and LE with activity, safety and reduce risk of falls. Pt/Family Goals to be independent at home Objective Patient Orientation: Person, Place, Situation ROM/Strength ROM Lower Extremities Patient has limited knee flexion bilaterally to about 70 degrees Strength Lower Extremities grossly 3+/5 BLE Sensory Vision: Wears Glasses Hearing: Functional Sensation Right Lower Extremit: Intact Sensation Left Lower Extremity: Intact Transfers Roll Left & Right (QC): 1 Sit to Lying (QC): 1 Lying to Sitting/Side of Bed(Q: 1 Sit to Stand (QC): 1 Chair/Vhg-tv-Mrkwn Xfer(QC): 1 Toilet Transfer (QC): 1 Car Transfer (QC): 88 Patient performs rolling and supine <-> with dependence, dependent for transfers and car transfer and sit <-> stand. Patient requires assist of 2 for all aspects of bed mobility and transfers. She has knee flexion limitations making sit to stand very difficult. Gait Does the Patient Walk?: Yes Mode of Locomotion: Both Anticipated Mode of Locomotion: Both Walk 10 feet (QC): 88 Walk 50 ft with 2 Turns(QC): 88 Walk 150 ft (QC): 88 Walking 10ft/uneven surface-QC: 88 Distance: 5' Gait Assistive Device: FWW Comments/Gait Description Patient can ambulate 5' with a rolling walker with min assist, she needs assist to help guide the walker and careful cues for safety and positioning Wheelchair Training Does the Pt Use a Wheelchair?: Yes Wheel 50 ft with 2 turns (QC): 1 Wheel 150 ft (QC): 1 Stairs 1 Step (curb) (QC): 88 4 Steps (QC): 88 12 Steps (QC): 88 Balance Sitting Static: Good Sitting Dynamic: Good Standing Static: Poor Standing Dynamic: Poor Picking up an Object (QC): 88 Treatment PT performed bed mobility and transfers, ambulation, LE strengthening supine BLE x20 (AP, QS, HS, SAQ, GS, hip abd/add, SLR), positioning and safety during bathing and dressing, OT performed bathing and dressing, UE positioning and safety during activity, cleaning patient BM and assisting nurse with positioning during wound dressing Assessment/Needs Patient in bed post tx with nurse call, phone, tray, all needs met. Patient has impaired mobility, strength, endurance. Patient at this time needs assist of 2 for bed mobility and transfers. Rehab Potential: Guarded PT Short Term Goals Short Term Goals Time Frame: Jun 01, 2021 Roll Left & Right: 3 Sit to lyin Lying to sitting on side of be: 3 Sit to stand: 3 Chair/tvn-hw-wjlff transfer: 3 Walk 10 feet: 3 Walk 50 feet with two turns: 3 PT Asbestos Brake Lining Finisher Helper Goals Asbestos Brake Lining Finisher Helper Goals PT Halfway Goals Time Frame: Jun 15, 2021 Roll Left & Right (QC): 4 Sit to Lying (QC): 4 Lying-Sitting on Side/Bed(QC): 4 Sit to Stand (QC): 4 Chair/Esb-bl-Eegyq Xfer(QC): 4 Toilet Transfer (QC): 4 Car Transfer (QC): 3 Does the Patient Walk: Yes Walk 10 feet (QC): 4 Walk 50ft with 2 Turns (QC): 4 Walk 150 ft (QC): 4 Walking 10ft on Uneven Surface: 4 1 Step (curb) (QC): 4 4 Steps (QC): 88 12 Steps (QC): 88 Picking up an Object (QC): 4 Wheel 50 feet with 2 turns (QC: 4 Wheel 150 feet: 4 PT Plan Problem List Problem List: Activity Tolerance, Functional Strength, Safety, Balance, Gait, Transfer, Bed Mobility, ROM Treatment/Plan Treatment Plan: Continue Plan of Care Treatment Plan: Bed Mobility, Education, Functional Activity Max, Functional Strength, Group Therapy, Gait, Safety, Therapeutic Exercise, Transfers Treatment Duration: Jun 01, 2021 Frequency: At least 5 of 7 days/Wk (IRF) Estimated Hrs Per Day: 1.5 hours per day Patient and/or Family Agrees t: Yes Safety Risks/Education Patient Education: Gait Training, Transfer Techniques, Correct Positioning, W/C Management, Safety Issues Teaching Recipient: Patient Teaching Methods: Demonstration, Discussion Response to Teaching: Reinforcement Needed Discharge Recommendations Plan Patient will perform bed mobility and transfer training, balance and endurance training, functional strengthening, stair training, gait training, and education, to improve functional mobility and independence at home. Therapy Discharge Recommendati: 24 Hour Supervision Time/GCodes Time In: 1330 Time Out: 1510 Total Billed Treatment Time: 90 Total Billed Treatment 1 visit EVM 10' EX 15' FA 65' PT eval from [id number], OT eval from [id number], co-treat from [id number] MARTITA MARK PT May 25, 2021 15:02
--- NOTE | 2021-05-25 15:03 | Occupational Therapy Eval ---
OT Evaluation-General/PLF Medical Diagnosis Admission Date May 25, 2021 at 13:30 Medical Diagnosis: weakness/uti Onset Date: May 19, 2021 Therapy Diagnosis Therapy Diagnosis: Reduced adl status, weakness, UE rom, balance Height/Weight Height (Feet): 5 Height (Inches): 7.00 Weight (Pounds): 300 Precautions Precautions/Isolations: Fall Prevention, Standard Precautions Referral Physician: Julia Referral Reason: Evaluation/Treatment Medical History Additional Medical History Obesity, UTI Current History Pt presents to ER with increased weakness and bowel/bladder incontinence. Diagnosed with UTI, generalized weakness and supratherapeutic INR. Reviewed History: Yes Social History Home: Single Level Current Living Status: Alone Entry Into Home: Ramp Per patient, she lives alone in a single story home with ramp entrance. She states she was indep with adls, yet according to daughter pt requires assist with all adls. Her daughter reports pt usually sits in her lift chair and will urinate/defecate all over self. Per patient she was using a cane but also owns a walker. Pt and daughter report that the plan is for her to return to the daughters home post d/c. ADL-Prior Level of Function SCALE: Activities may be completed with or without assistive devices. 5-Frqwkzmzol-ycjazlr completes the activity by him/herself with no assistance from a helper. 5-Set-up or Clean-up Assistance-helper sets up or cleans up; patient completes activity. [place] assists only prior to or following the activity. 4-Supervision or Touching Assistance-helper provides verbal cues and/or touching/steadying and/or contact guard assistance as patient completes activity. Assistance may be provided throughout the activity or intermittently. 3-Partial/Moderate Assistance-helper does LESS THAN HALF the effort. [place] lifts, holds or supports trunk or limbs, but provides less than half the effort. 2-Substantial/Maximal Assistance-helper does MORE THAN HALF the effort. [place] lifts or holds trunk or limbs and provides more than half the effort. 7-Qkudnmlrz-zlezhb does ALL the effort. Patient does none of the effort to complete the activity. Or, the assistance of 2 or more helpers is required for the patient to complete the activity. If activity was not attempted, code reason: 7-Patient Refused. 9-Not Applicable-not attempted and the patient did not perform the activity before the current illness, exacerbation or injury. 10-Not Attempted due to Environmental Limitations-(lack of equipment, weather restraints, etc.). 88-Not Attempted due to Medical Conditions or Safety Concerns. Self Care: Needed Some Help Functional Cognition: Needed Some Help DME/Equipment: Bath Bench, Grab Bars, Tub/Shower Drive Self: No OT Current Status Subjective Pt reports pain in neck as 8/10. Co-treat with PT for part of session due to needing 2 skilled clinicians to progress mobility and adls. Appearance Left supine in bed, all needs within reach at therapy departure. Mental Status/Objective Patient Orientation: Person, Confused Attachments: IV Current Glasses/Contacts: Yes Hearing Aids: No Dentures/Partials: No Hand Dominance: Right Upper Extremity ROM Bilateral shoulder AROM ~90 degrees. AAROM: ~110 degrees. Elbow-distally WNL Upper Extremity Strength not tested due to c/o neck/arm pain ADL-Treatment Eating (QC): 4 Oral Hygiene (QC): 4 Shower/Bathe Self (QC): 1 Upper Body Dressing (QC): 1 Lower Body Dressing (QC): 1 On/Off Footwear (QC): 1 Toileting Hygiene (QC): 1 Pt sitting in recliner at therapy arrival. Dep x2 to stand from low surface. Once upright, LE's very shaky. Appears to have bilateral knee instability. Pt only able to ambulate ~5 feet during session with max a x2. Sponge bath performed at bed level. Dependent to wash sarath area, buttocks, under bilateral arms, under breasts, feet, below knees, and under abdominal pannus. Pt able to wash chest, stomach, upper thighs, and arms. Pt with multiple open wounds and skin irritation under pannus, groin, axillas, and buttocks. RN notified and dressings applied as pt was in sidelying. Max a to roll R/L in bed. Pt able to doff socks with extra effort and sliding foot across floor as she sat in w/c. Dependent to re-don. Pt only able to reach just below knees in sitting and likely requires assist to thread feet into LB clothing. Dependent to stand and manage clothing over hips. New gown donned with max a to thread BUE's due to pain and limited shoulder ROM. Family to bring in clothing this weekend. Pt requires step by step cues for all transfers. Education OT Patient Education: Correct positioning, Modified ADL techniques, Purpose of tx/functional activities, Reviewed precautions, Rehab process, Safety issues, Transfer techniques Teaching Recipient: Patient Teaching Methods: Demonstration, Discussion Response to Teaching: Verbalize Understanding, Unable to Return Demonstration, Reinforcement Needed OT Short Term Goals Short Term Goals Time Frame: Jun 02, 2021 Eatin Oral hygiene: 5 Toileting hygiene: 2 Shower/bathe self: 2 Upper body dressin Lower body dressin Putting on/taking off footwear: 2 OT Pattern Perforating Machine Operator Goals Detention Goals Time Frame: Jun 23, 2021 Eating (QC): 6 Oral Hygiene (QC): 5 Toileting Hygiene (QC): 4 Shower/Bathe Self (QC): 3 Upper Body Dressing (QC): 4 Lower Body Dressing (QC): 4 On/Off Footwear (QC): 3 1=Demonstrate adherence to instructed precautions during ADL tasks. 2=Patient will verbalize/demonstrate understanding of assistive devices/modifications for ADL. 3=Patient will improve strength/tolerance for activity to enable patient to perform ADL's. OT Education/Plan Problem List/Assessment Assessment: Decreased Activ Tolerance, Decreased Safety Aware, Decreased UE Strength, Dependent Transfers, Impaired Bed Mobility, Impaired Cognition, Impaired Funct Balance, Impaired I ADL's, Impaired Self-Care Skills, Restricted Funct UE ROM Discharge Recommendations Plan/Recommendations: Continue POC Therapy Discharge Recommendati: Scheduled Assistance, Assisted Living, Homemaker Support, Post Acute OT Treatment Plan/Plan of Care Treatment,Training & Education: Yes Patient would benefit from OT for education, treatment and training to promote independence in ADL's, mobility, safety and/or upper extremity function for ADL's. Plan of Care: ADL Retraining, Functional Mobility, Group Exercise/Act as Ind, UE Funct Exercise/Act Treatment Duration: Jun 23, 2021 Frequency: At least 5 of 7 days/Wk (IRF) Estimated Hrs Per Day: 1.5 hours per day Agreement: Yes Time/GCodes Start Time: 13:40 Stop Time: 15:10 Total Time Billed (hr/min): 90 Billed Treatment Time 1 visit EVH (10 min) ADL x3 (45 min) FA x2 (35 min) Monie Delcid OT May 25, 2021 15:03
[2021-05-25] MEDS ORDERED: FLU QUAD HIGH DOSE 240 MCG/0.7 ML 2021-22 (FLUZONE) IM ONE (15:30)
[2021-05-25] MEDS ORDERED: UPAD15TA PO (16:39)
--- NOTE | 2021-05-25 18:20 | PM&R Post Admission Assessment ---
PM&R HP Date of Visit: May 25, 2021 Time of Visit: 14:00 History of Present Illness Chief Complaint: Debility HPI: This is a patient of Dr. Thompson who presents to the Inpatient Rehab following a fall. She has become quite debilitated. The goal will be to rehab and gain strength and then go live with her daughter. Checked meds and labs and the patient reports her bowels are moving. We will work hard to get her back to baseline. [facility] course: This is an 81 yo female who presented with weakness, confusion and urinary incontinence for the last week. Pt has past medical hx of HTN, DVT and Afib. Pt reported she lives at home alone and on Friday she was taken to [facility] for weakness and confusion. She was sent home, but continued to have worsening confusion and urinary incontinence, so she sought treatment at ED. Pt stated she has had some urinary frequency and burning with urination for the past week. Pt also reported she takes warfarin, but is unsure of why she takes this. She was unaware of having Afib. Pt was found to have UTI and supratherapeutic INR of 7.4, so she was admitted to general medical floor. Vit K 2.5mg oral was given and INR came down to 2.6. Ceftriaxone was started for UTI. Pt reports no fever, chills, SOA, cough, chest pain, palpitations, urinary frequency or burning, N/V/D or abdominal pain. PT/OT evaluation was performed and it was determined that patient would benefit from placement in rehabilitation facility upon d/c. Pt reported that she lived at home alone prior to hospital admission, but her daughter would come help her once a week. Pt is aware of plan to place in facility and agrees that it is whats best for her. Past Mnqxjvk-Sfyrfp-Ebgpwl Hx Past Med/Social Hx: Reviewed Nursing Past Med/Soc Hx, Reviewed and Corrections made Patient Social History Marrital Status: single Employed/Student: retired Alcohol Use: Denies Use Smoking Status: Never a Smoker Past Medical History Cardiac: Atrial Fibrillation, Deep Vein Thrombosis, Hypertension Neurological: Dementia Reproductive: Yes Genitourinary: Bladder Infection Musculoskeletal: Rheumatoid Arthritis Family History No Pertinent Family Hx Prior Level of Function Bed Mobility: 6 Transfers: 6 Gait: 6 Indoor Mobility (Ambulation): Independent Prior Devices Use: Walker Self Care: Needed Some Help Functional Cognition: Needed Some Help Drive Self: No Current Level of Fuctioning Roll Left to Right: 1 Sit to Lyin Lying to Sitting/Side of Bed: 1 Sit to Stand: 1 Chair/Gxq-jv-Ubdub Xfer: 1 Car Transfer: 88 Does the Patient Walk: Yes Mode of Locomotion: Both Anticipated Mode of Locomotion: Both Walk 10 feet: 88 Walk 50 ft with 2 Turns: 88 Walk 150 ft: 88 Walking 10ft on uneven surface: 88 Gait Assistive Device: FWW Does the Pt Use a Wheelchair: Yes Wheel 50 ft with 2 turns: 1 Wheel 150 ft: 1 1 Step (curb): 88 4 Steps: 88 12 Steps: 88 Picking up an Object: 88 Eatin Oral Hygiene: 4 Shower/Bathe Self: 1 Upper Body Dressin Lower Body Dressin On/Off Footwear: 1 Toileting Hygiene: 1 PM&R Allergy/Meds/Data Review Allergies Coded Allergies: Penicillins (Verified Allergy, Unknown, 05/23/21) procaine (Verified Allergy, Unknown, 05/23/21) Home Medications Scheduled Biotin (Biotin), 1,000 MCG PO HS, (Reported) Cholecalciferol (Vitamin D3) (Vitamin D3), 50 MCG PO HS, (Reported) Duloxetine HCl (Duloxetine HCl), 60 MG PO BID, (Reported) Folic Acid (Folic Acid), 1 MG PO BID, (Reported) Gabapentin (Neurontin), 300 MG PO TID, (Reported) Krill/Om-3/Dha/Epa/Phospho/Ast (Megared [place]-3 Krill 350 mg), 1 EACH PO HS, (Reported) Losartan Potassium (Losartan Potassium), 100 MG PO HS, (Reported) Lovastatin (Lovastatin), 20 MG PO HS, (Reported) Oxybutynin Chloride (Oxybutynin Chloride ER), 10 MG PO HS, (Reported) Ubidecarenone (Co Q-10), 100 MG PO HS, (Reported) Upadacitinib (Rinvoq ER), 15 MG PO HS Vit A,C & E/Lutein/Minerals (Ocuvite with Lutein Tablet), 1 EACH PO HS, (Reported) Vitamin B Complex (Vitamin B Complex), 1 EACH PO HS, (Reported) Warfarin Sodium (Jantoven), Unknown Dose PO DAILY, (Reported) Discontinued Medications Amlodipine Besylate (Amlodipine Besylate), 5 MG PO DAILY, (Reported) Discontinued Reason: No Longer Taking Atenolol (Tenormin), 50 MG PO DAILY, (Reported) Discontinued Reason: No Longer Taking Atorvastatin (Lipitor 20MG), 1 EACH PO DAILY, (Reported) Discontinued Reason: No Longer Taking Escitalopram Oxalate (Lexapro), 1 EACH PO DAILY, (Reported) Discontinued Reason: No Longer Taking Hydrocodone Bit/Acetaminophen (Hydrocodon-Acetaminoph 7.5-500), 1 EACH PO Q6H PRN, (Reported) Discontinued Reason: No Longer Taking Levofloxacin (Levaquin 500 Mg), 1 EACH PO DAILY, (Reported) Discontinued Reason: No Longer Taking Meloxicam (Meloxicam), 1 EACH PO DAILY, (Reported) Discontinued Reason: No Longer Taking Potassium Chloride (Potassium Chloride), 10 MEQ PO DAILY, (Reported) Discontinued Reason: No Longer Taking Prednisolone Acetate (Rx-Pred Forte 1%), 5 ML OU DAILY PRN, (Reported) Discontinued Reason: No Longer Taking Triamcinolone Acetonide (Nasacort Aq), 55 MCG NS DAILY PRN, (Reported) Discontinued Reason: No Longer Taking Triamterene/Hydrochlorothiazid (Triamterene-Hctz 75-50 Mg Tab), 1 EACH PO DAILY, (Reported) Discontinued Reason: No Longer Taking Warfarin Sod (Coumadin 5 Mg), 5 MG PO DAILY, (Reported) Discontinued Reason: No Longer Taking Current Medications Current Medications Reviewed Review of Systems Constitutional: see HPI, malaise, weakness EENTM: no symptoms reported Respiratory: dyspnea on exertion Cardiovascular: no symptoms reported Gastrointestinal: no symptoms reported Genitourinary: dysuria Musculoskeletal: back pain, joint pain Skin: no symptoms reported Psychiatric/Neurological: Anxiety, Depressed All Other Systems Reviewed Negative Unless Noted: Yes Physical Exam Physical Exam Vital Signs Vital Signs - First Documented 05/25/21 17:29 O2 Delivery Room Air Capillary Refill : Height, Weight, BMI Height: 5'7.00" Weight: 300lbs. oz. [id number]; 46.60 BMI Method: General Appearance: No Apparent Distress, WD/WN, Anxious, Chronically ill, Obese Eyes: Bilateral Eye Normal Inspection, Bilateral Eye PERRL HEENT: PERRL/EOMI, Normal ENT Inspection, Pharynx Normal Neck: Full Range of Motion, Normal Inspection, Non Tender, Supple, Carotid Bruit Respiratory: Chest Non Tender, Lungs Clear, Normal Breath Sounds, No Accessory Muscle Use, No Respiratory Distress Cardiovascular: Regular Rate, Rhythm, No Edema, No Gallop, No JVD, No Murmur, Normal Peripheral Pulses Gastrointestinal: Normal Bowel Sounds, No Organomegaly, No Pulsatile Mass, Non Tender, Soft Back: Normal Inspection, No CVA Tenderness, No Vertebral Tenderness Extremity: Normal Capillary Refill, Normal Inspection, Normal Range of Motion, Non Tender, No Calf Tenderness, No Pedal Edema Neurologic/Psychiatric: Alert, Oriented x3, No Motor/Sensory Deficits, Normal Mood/Affect, Abnormal Gait, Disoriented, Motor Weakness (Generalized) Skin: Normal Color, Warm/Dry Lymphatic: No Adenopathy PM&R Medical Assessment & Plan REHAB/MEDICAL ASSESSMENT AND PLAN: REHAB IMPAIRMENT GROUP: Debility ETIOLOGIC DIAGNOSIS: Debility The comorbidities that impact the patients function and/or functional outcome by: Morbid obesity BMI 46, dementia, UTI, incontinence REHAB PLAN: The patient is being admitted to our comprehensive inpatient rehabilitation facility and can tolerate the intensity of service consisting of at least: 180 minutes of therapy a day, 5 out of 7 days a week Rehab treatment will consist of: PT and OT will focus on regaining enough function with use of assistive devices to return to independent living to live with her daughter The patient/family has a good understanding of our discharge process and will benefit from an interdisciplinary inpatient rehabilitation program. The patient has potential to make improvement and is in need of at least two of the following multidisciplinary therapies including but not limited to physical, occupational, speech, and prosthetics and orthotics. Additionally the patient will need services from respiratory, nutritional services, wound care, psychology, etc. (Customize this to each patient). Given the patients complex condition and risk of further medical complications, rehabilitation services cannot be safely or effectively provided at a lower level of care such as a fpc facility. BARRIERS TO DISCHARGE: Obesity and cognitive deficit ESTIMATED LOS: 10 days DISPOSITION: Home with daughter RELEVANT CHANGES SINCE PREADMISSION SCREENING: I have compared the patients medical and functional status at the time of the preadmission screening and there are: No changes PROGNOSIS: Fair REHABILITATION GOALS: 1. PT and OT will focus on regaining enough function with use of assistive devices to return to independent living to live with her daughter All the above goals were reviewed with the patient and he/she is in agreement. By signing this document, I acknowledge that I have personally performed a full physical examination on this patient within 24 hours of admission to this inpatient rehabilitation facility and have determined the patient to be able to tolerate the above course of treatment at an intensive level for a reasonable period of time. I will be completing a detailed individualized Plan of Care for this patient by day #4 of the patients stay based upon the Preadmission Screen, the Post-Admission Evaluation, and the therapy evaluations. Admission Dx/Comorbidities: (1) General weakness Status: Acute ICD Codes: R53.1 - Weakness (2) BMI 45.0-49.9, adult ICD Codes: Z68.42 - Body mass index [BMI] 45.0-49.9, adult (3) Lobo catheter in place ICD Codes: Z97.8 - Presence of other specified devices (4) Atrial fibrillation ICD Codes: I48.91 - Unspecified atrial fibrillation (5) Warfarin anticoagulation ICD Codes: Z79.01 - snf (current) use of anticoagulants (6) Confusion ICD Codes: R41.0 - Disorientation, unspecified (7) Supratherapeutic INR Status: Acute ICD Codes: R79.1 - Abnormal coagulation profile (8) UTI (urinary tract infection) Status: Acute ICD Codes: N39.0 - Urinary tract infection, site not specified (9) Anemia Status: Acute ICD Codes: D64.9 - Anemia, unspecified Assessment/Plan Assessment and Plan Assess & Plan/Chief Complaint Assessment: Debility BMI 46 Supra therapeutic INR UTI Lobo catheter Urinary incontinence Atrial fibrillation? DVT? Plan: Supportive care UTI treatment DC Lobo catheter Aggressive rehab TAMARA DE LEON DO May 25, 2021 18:20
[2021-05-25] MEDS ORDERED: polyethylene glycoL POWDER 17 GM (MIRALAX) PACK PO PRN (18:30)
[2021-05-25] MEDS ORDERED: ONDANSETRON 4 MG/2 ML (SDV) Z0FRAN IV PRN (18:30)
[2021-05-25] MEDS ORDERED: ANTACID SUSP 30 ML UDC (MYLANTA) PO PRN (18:30)
[2021-05-25] MEDS: warFARin 3 MG (COUMADIN) TAB PO SCH (19:29)
[2021-05-25 20:02] VITALS: BP 175/70
[2021-05-25] MEDS: DULoxetine 30 MG (CYMBALTA) CAP PO SCH (20:13)
[2021-05-25] MEDS: OXYBUTYNIN (DITROPAN) 5 MG TAB PO SCH (20:13)
[2021-05-25] MEDS: GABAPENTIN 300 MG (NEURONTIN) CAP PO SCH (20:13)
[2021-05-25] MEDS: ACETAMINOPHEN 325 MG TABLET PO PRN (20:13)
[2021-05-25] MEDS: LOSARTAN 100 MG (COZAAR) TABLET PO SCH (20:14)
[2021-05-25] MEDS: DOCUSATE SODIUM 100 MG (COLACE) CAP PO SCH (20:17)
[2021-05-25] MEDS: SENNOSIDES 8.6 MG (SENOKOT) TAB PO SCH (20:17)
[2021-05-25] MEDS: polyethylene glycoL POWDER 17 GM (MIRALAX) PACK PO SCH (20:17)
[2021-05-25] MEDS: NITROFURANTOIN 100 MG (MACROBID) CAPSULE PO SCH (20:17)
[2021-05-25] MEDS: MICONAZOLE 2% POWDER (DESENEX AF) 90 GM TOP SCH (20:18)
[2021-05-25] MEDS ORDERED: DOCUSATE SODIUM 100 MG (COLACE) CAP PO SCH (21:00)
[2021-05-25] MEDS ORDERED: SENNA W/DOCUSATE (SENOKOT S) TABLET PO SCH (21:00)
[2021-05-25] MEDS: CATHETER FLUSH 10 ML SYR IV SCH (21:02)
[2021-05-26] MEDS: CATHETER FLUSH 10 ML SYR IV SCH ×3 (06:26→20:50)
--- NOTE | 2021-05-26 06:57 | PM&R Progress Note ---
Subjective HPI/CC On Admission Date Seen by Provider: May 26, 2021 Time Seen by Provider: 13:00 Subjective/Events-last exam 05/26/2021: Patient settling in well Daughter at bedside Dysphagia reported so we will consult Dr. SANCHEZ for EGD with dilatation Checked meds and labs Incontinence is an issue because it is constant INR 1.9 Review of Systems General: Fatigue, Malaise Genitourinary: Incontinence Objective Exam Vital Signs Vital Signs Date Time Temp Pulse Resp B/P (MAP) Pulse Ox O2 Delivery O2 Flow Rate FiO2 05/26/21 21:20 Room Air 05/26/21 19:46 37.0 73 20 173/65 (101) 96 Capillary Refill : General Appearance: No Apparent Distress, WD/WN, Anxious, Chronically ill, Obese HEENT: PERRL/EOMI, Normal ENT Inspection, Pharynx Normal Neck: Full Range of Motion, Normal Inspection, Non Tender, Supple, Carotid Bruit Respiratory: Chest Non Tender, Lungs Clear, Normal Breath Sounds, No Accessory Muscle Use, No Respiratory Distress Cardiovascular: Regular Rate, Rhythm, No Edema, No Gallop, No JVD, No Murmur, Normal Peripheral Pulses Gastrointestinal: Normal Bowel Sounds, No Organomegaly, No Pulsatile Mass, Non Tender, Soft Back: Normal Inspection, No CVA Tenderness, No Vertebral Tenderness Extremity: Normal Capillary Refill, Normal Inspection, Normal Range of Motion, Non Tender, No Calf Tenderness, No Pedal Edema Neurologic/Psychiatric: Alert, Oriented x3, No Motor/Sensory Deficits, Normal Mood/Affect, Abnormal Gait, Disoriented, Motor Weakness (Generalized) Skin: Normal Color, Warm/Dry Lymphatic: No Adenopathy Results/Procedures Lab Patient resulted labs reviewed. FIM Transfers Therapy Code Descriptions/Definitions Functional [place] Measure: 0=Not Assessed/NA 4=Minimal Assistance 1=Total Assistance 5=Supervision or Setup 2=Maximal Assistance 6=Modified [place] 3=Moderate Assistance 7=Complete IndependenceSCALE: Activities may be completed with or without assistive devices. 8-Pekpsdaprn-gsiounk completes the activity by him/herself with no assistance from a helper. 5-Set-up or Clean-up Assistance-helper sets up or cleans up; patient completes activity. [place] assists only prior to or following the activity. 4-Supervision or Touching Assistance-helper provides verbal cues and/or touching/steadying and/or contact guard assistance as patient completes activity. Assistance may be provided throughout the activity or intermittently. 3-Partial/Moderate Assistance-helper does LESS THAN HALF the effort. [place] lifts, holds or supports trunk or limbs, but provides less than half the effort. 2-Substantial/Maximal Assistance-helper does MORE THAN HALF the effort. [place] lifts or holds trunk or limbs and provides more than half the effort. 0-Gettjwqjs-rakrlz does ALL the effort. Patient does none of the effort to complete the activity. Or, the assistance of 2 or more helpers is required for the patient to complete the activity. If activity was not attempted, code reason: 7-Patient Refused. 9-Not Applicable-not attempted and the patient did not perform the activity before the current illness, exacerbation or injury. 10-Not Attempted due to Environmental Limitations-(lack of equipment, weather restraints, etc.). 88-Not Attempted due to Medical Conditions or Safety Concerns. Roll Left to Right (QC): 1 Sit to Lying (QC): 1 Sit to Stand (QC): 1 Chair/Gtp-wr-Yorqi Xfer(QC): 1 Car Transfer (QC): 88 Gait Training Does the Patient Walk?: Yes Walk 10 feet (QC): 88 Walk 50 ft with 2 Turns(QC): 88 Walk 150 ft (QC): 88 Walking 10ft/uneven surface-QC: 88 Gait Assistive Device: FWW Wheelchair Training Does the Pt Use a Wheelchair?: Yes Wheel 50 ft with 2 turns (QC): 1 Wheel 150 ft (QC): 1 Stair Training 1 Step (curb) (QC): 88 4 Steps (QC): 88 12 Steps (QC): 88 Balance Picking up an Object (QC): 88 ADL-Treatment Eating (QC): 4 Oral Hygiene (QC): 4 Shower/Bathe Self (QC): 1 Upper Body Dressing (QC): 1 Lower Body Dressing (QC): 1 On/Off Footwear (QC): 1 Toileting Hygiene (QC): 1 Assessment/Plan Assessment and Plan Assess & Plan/Chief Complaint Assessment: Debility BMI 46 Supratherapeutic INR UTI completed treatment Lobo catheter discontinued now Urinary incontinence Atrial fibrillation? DVT? Dysphagia Urinary incontinence Plan: Supportive care UTI treatment DC Lobo catheter Aggressive rehab 05/26/2021: Aggressive rehab Incontinence care Maintain Coumadin EGD with dilatation (1) General weakness Status: Acute (2) BMI 45.0-49.9, adult (3) Lobo catheter in place (4) Atrial fibrillation (5) Warfarin anticoagulation (6) Confusion (7) Supratherapeutic INR Status: Acute (8) UTI (urinary tract infection) Status: Acute (9) Anemia Status: Acute TAMARA DE LEON DO May 26, 2021 06:57
--- NOTE | 2021-05-26 06:57 | Individualized Plan of Care ---
Individualized Plan of Care Rehab Nursing IPOC Order Admission Date May 25, 2021 at 13:30 Current Orders Orders Admission Arrival Bed Request (05/25/21 14:23) Admission Order(Inpt,Obs,Sdc) (05/25/21 14:43) Vital Signs: Per Unit Policy ( 08,16,00 (05/25/21 14:43) [place] (05/25/21 14:43) Sequential Compression Device (05/25/21 14:43) Cardroom Attendant-Inpt Rehab Con (05/25/21 14:43) Rehab Nursing Orders-Ipoc (05/25/21 14:43) Physical Therapy Rehab Orders (05/25/21 14:43) Occupational Therapy Rehab Ord (05/25/21 14:43) Speech Therapy Rehab Orders (05/25/21 14:43) Cbc With Automated Diff (05/26/21 06:00) Comprehensive Metabolic Panel (05/26/21 06:00) Precautions (Aru) (05/25/21 14:43) Weekly Weight WEEK (05/25/21 14:43) Rehab-Intensity Of Therapy (05/25/21 14:43) Initiate Admission Nursing Pro .admission (05/25/21 14:43) Alprazolam Tablet (Xanax Tablet) (05/25/21 14:45) Calcium Carbonate Chew Tablet (Antacid C (05/25/21 14:45) Diphenhydramine Tablet (Benadryl Tablet) (05/25/21 14:45) Docusate Sodium Capsule (Colace Capsule) (05/25/21 21:00) Docusate Sodium Capsule (Colace Capsule) (05/25/21 14:45) Bisacodyl Suppository (Dulcolax Supposit (05/25/21 14:45) Lactulose Oral Solution (Enulose Oral So (05/25/21 14:45) Na Phos/Na Biphos Enema (Fleet Enema Orion (05/25/21 14:45) Guaifenesin/Codeine Syrup (Robitussin Ac (05/25/21 14:45) Loperamide Tablet (Imodium Tablet) (05/25/21 14:45) Melatonin Tablet (Melatonin Tablet) (05/25/21 14:45) Polyethylene Glycol Powder Pkt (Miralax (05/25/21 21:00) Ondansetron Oral Dissolve Tab (Zofran (05/25/21 14:45) Senna S Tablet (Senokot S Tablet) (05/25/21 21:00) Acetaminophen Tablet/Caplet (Tylenol T (05/25/21 14:45) Code/Resuscitation (05/25/21 14:43) Sequential Compression Device ONCE (05/25/21 14:43) Miconazole 2% Powder (Phytoplex Af 2% Po (05/25/21 21:00) Flu Quad High Dose [id number] (Fluzone Hi (05/25/21 15:30) Code/Resuscitation (05/25/21 18:19) Cho 60g/M 3snack (16-2000 Carlos) (05/25/21 Dinner) Docusate Sodium Capsule (Colace Capsule) (05/25/21 21:00) Duloxetine Capsule (Cymbalta Capsule) (05/25/21 21:00) Gabapentin Capsule/Tablet (Neurontin Cap (05/25/21 21:00) Losartan Tablet (Cozaar Tablet) (05/25/21 21:00) Melatonin Tablet (Melatonin Tablet) (05/25/21 18:30) Polyethylene Glycol Powder Pkt (Miralax (05/25/21 18:30) Antacid Suspension (Mylanta Suspension (05/25/21 18:30) Nitrofurantoin Capsule,Macro (Macrobid C (05/25/21 21:00) Oxybutynin Tablet (Ditropan Tablet) (05/25/21 21:00) Sennosides Tablet (Senokot Tablet) (05/25/21 21:00) Sodium Chloride Flush (Catheter Flush Sy (05/25/21 22:00) Acetaminophen Tablet/Caplet (Tylenol T (05/25/21 18:30) Ondansetron Injection (Zofran Injectio (05/25/21 18:30) Ondansetron Oral Dissolve Tab (Zofran (05/25/21 18:30) Protime With Inr (05/26/21 06:00) Warfarin Tablet (Coumadin Tablet) (05/25/21 18:45) Iron Test (Fe) (05/26/21 09:13) Iron Sucrose Injection (Venofer Injectio (05/26/21 09:15) Patient Visit (05/25/21 ) Pt Eval Moderate Complexity (05/25/21 ) Exercise Therap, Ea 15 Min (05/25/21 ) Functional Activities, Ea 15 (05/25/21 ) Patient Visit (05/26/21 ) Exercise Therap, Ea 15 Min (05/26/21 ) Consult General Surgery (05/26/21 13:27) Consent-Obtain Consent For (05/26/21 16:01) Preop Checklist (05/26/21 16:01) Nothing By Mouth (05/28/21 Breakfast) Anesthesia Consult (05/27/21 11:00) Rehab Nursing Orders: Ongoing Assess. of Cognitive Status, Ongoing Assess. of Function Status, Bladder Management, Bladder Scan, Bladder Training, Bowel Management, Bowel Training, Disease Management & Educaiton, DVT Prophylaxis, Fall Prevention, Fluid/Electrolyte/Nutrition Mgmt, Infection Prevention, Medication Management & Education, Management of Risks & Complications, Management of Skin Intergrity, Nutrition Management, Pain Management, Patient/Family Support, Safety Management Intensity of Therapy to be met Patient to be seen: Min.3h per day/5 of 7d PT IPOC Problem List: Activity Tolerance, Functional Strength, Safety, Balance, Gait, Transfer, Bed Mobility, ROM Treatment Plan: Continue Plan of Care Bed Mobility, Education, Functional Activity Max, Functional Strength, Group Therapy, Gait, Safety, Therapeutic Exercise, Transfers Treatment Duration: Jun 01, 2021 Frequency: At least 5 of 7 days/Wk (IRF) Estimated Hrs Per Day: 1.5 hours per day OT IPOC Problems: Decreased Activ Tolerance, Decreased Safety Aware, Decreased UE Strength, Dependent Transfers, Impaired Bed Mobility, Impaired Cognition, Impaired Funct Balance, Impaired I ADL's, Impaired Self-Care Skills, Restricted Funct UE ROM OT Treatment, Training and Edu: Yes Plan of Care: ADL Retraining, Functional Mobility, Group Exercise/Act as Ind, UE Funct Exercise/Act Treatment Duration: Jun 23, 2021 Frequency: At least 5 of 7 days/Wk (IRF) Estimated Hrs Per Day: 1.[address] IPOC Speech Therapy Treatment Plan: Continue Plan of Care Treatment Duration: May 25, 2021 Frequency: Modified Program (IRF) Estimated Hrs Per Day: Other Cardroom Attendant/Case Mgmt Cardroom Attendant/Case Managemen: Discharge Planning Dietitian/Arterial Embalmer Dietitian/Arterial Embalmer to monitor nutritional status and make changes and/or recommendations as needed and work with speech pathology on dietary upgrades as the occur. Physician IPOC Medical Issues being managed closely and that require the 24 hour availability of a physician: Recent fall with supratherapeutic INR and continued debility will require close monitoring for any decompensation signs Medical Issues: Bowel/Bladder Function, DVT Prophylaxis, Falls Precautions, Fluid/Electrolyte/Nutrition Balance, Infection Protection, Pain Management Brief Synthesis of Preadmission Screen, Post-Admission Evaluation, and Therapy Evaluations: PT and OT will focus on regaining function in order to return to independent living with the use of assistive devices and work on fall risk prevention Medical Prognosis: Fair Anticipated Length of Stay: 7 days TAMARA DE LEON DO May 26, 2021 06:57
[2021-05-26 07:00] LABS: BASOPHILS % (AUTO) 0 % (0-10); EOSINOPHILS # (AUTO) 0.1 10^3/uL (0.0-0.3); EOSINOPHILS % (AUTO) 3 % (0-10); HEMATOCRIT 22 % (35-52); HEMOGLOBIN 7.3 g/dL (11.5-16.0); LYMPHOCYTES # (AUTO) 1.1 10^3/uL (1.0-4.0); LYMPHOCYTES % (AUTO) 28 % (12-44); MEAN CORPUSCULAR HEMOGLOBIN 32 pg (25-34); MEAN CORPUSCULAR HGB CONC 33 g/dL (32-36); MEAN CORPUSCULAR VOLUME 96 fL (80-99); MEAN PLATELET VOLUME 9.7 fL (9.0-12.2); MONOCYTES # (AUTO) 0.5 10^3/uL (0.0-1.0); MONOCYTES % (AUTO) 12 % (0-12); NEUTROPHILS # (AUTO) 2.1 10^3/uL (1.8-7.8); NEUTROPHILS % (AUTO) 54 % (42-75); PLATELET COUNT 141 10^3/uL (130-400)
[2021-05-26 07:09] LABS: POTASSIUM 3.6 MMOL/L (3.6-5.0)
[2021-05-26 07:11] LABS: CALCIUM 8.4 MG/DL (8.5-10.1); INR 1.9 (0.8-1.4); PROTHROMBIN TIME PATIENT 22.6 SEC (12.2-14.7)
[2021-05-26 07:12] LABS: TOTAL PROTEIN 5.4 GM/DL (6.4-8.2)
[2021-05-26 07:16] LABS: CREATININE SERUM 0.65 MG/DL (0.60-1.30)
[2021-05-26 08:00] VITALS: BP 140/61
--- NOTE | 2021-05-26 09:01 | Physical Therapy Daily Note ---
PT Daily Note-Current Subjective Pt in bed upon arrival and agrees to tx. Pt has no reports of pain at this time Mental Status Patient Orientation: Person, Confused, Place, Time Transfers SCALE: Activities may be completed with or without assistive devices. 7-Fqlqweicdv-dizgwtg completes the activity by him/herself with no assistance from a helper. 5-Set-up or Clean-up Assistance-helper sets up or cleans up; patient completes activity. [place] assists only prior to or following the activity. 4-Supervision or Touching Assistance-helper provides verbal cues and/or touching/steadying and/or contact guard assistance as patient completes activity. Assistance may be provided throughout the activity or intermittently. 3-Partial/Moderate Assistance-helper does LESS THAN HALF the effort. [place] lifts, holds or supports trunk or limbs, but provides less than half the effort. 2-Substantial/Maximal Assistance-helper does MORE THAN HALF the effort. [place] lifts or holds trunk or limbs and provides more than half the effort. 2-Jytopnxlb-bfcuqr does ALL the effort. Patient does none of the effort to complete the activity. Or, the assistance of 2 or more helpers is required for the patient to complete the activity. If activity was not attempted, code reason: 7-Patient Refused. 9-Not Applicable-not attempted and the patient did not perform the activity before the current illness, exacerbation or injury. 10-Not Attempted due to Environmental Limitations-(lack of equipment, weather restraints, etc.). 88-Not Attempted due to Medical Conditions or Safety Concerns. Exercises Supine Ex: Ankle pumps, Quad Set, Heel Slides, Short Arc Quads, Straight leg raise, Hip abd/add Supine Reps: 10 Treatments Pt completes supine exercises x10 on B LE. Remains in bed with all needs met and call light in hand Assessment Current Status: Fair Progress Pt required frequent breaks d/t weakness and fatigue. Pt confused and repeatedly stated she forgot how many reps of each exercise she has completed PT Short Term Goals Short Term Goals Time Frame: Jun 01, 2021 Roll Left & Right: 3 Sit to lyin Lying to sitting on side of be: 3 Sit to stand: 3 Chair/uxy-ns-nvqxn transfer: 3 Walk 10 feet: 3 Walk 50 feet with two turns: 3 PT Certified [employer] Goals Certified [employer] Goals PT Jail Goals Time Frame: Jun 15, 2021 Roll Left & Right (QC): 4 Sit to Lying (QC): 4 Lying-Sitting on Side/Bed(QC): 4 Sit to Stand (QC): 4 Chair/Cla-fb-Dlwkt Xfer(QC): 4 Toilet Transfer (QC): 4 Car Transfer (QC): 3 Does the Patient Walk: Yes Walk 10 feet (QC): 4 Walk 50ft with 2 Turns (QC): 4 Walk 150 ft (QC): 4 Walking 10ft on Uneven Surface: 4 1 Step (curb) (QC): 4 4 Steps (QC): 88 12 Steps (QC): 88 Picking up an Object (QC): 4 Wheel 50 feet with 2 turns (QC: 4 Wheel 150 feet: 4 PT Plan Treatment/Plan Treatment Plan: Continue Plan of Care Treatment Plan: Bed Mobility, Education, Functional Activity Max, Functional Strength, Group Therapy, Gait, Safety, Therapeutic Exercise, Transfers Treatment Duration: Jun 01, 2021 Frequency: At least 5 of 7 days/Wk (IRF) Estimated Hrs Per Day: 1.5 hours per day Patient and/or Family Agrees t: Yes Time/GCodes Time In: 840 Time Out: 852 Total Billed Treatment Time: 12 Total Billed Treatment 1, EX ZOYAJUAN [employer] ACTIVITIES CLERK May 26, 2021 09:01
[2021-05-26] MEDS: SENNOSIDES 8.6 MG (SENOKOT) TAB PO SCH ×2 (09:21→20:55)
[2021-05-26] MEDS: DOCUSATE SODIUM 100 MG (COLACE) CAP PO SCH ×2 (09:21→20:50)
[2021-05-26] MEDS: polyethylene glycoL POWDER 17 GM (MIRALAX) PACK PO SCH ×2 (09:21→20:51)
[2021-05-26] MEDS: DULoxetine 30 MG (CYMBALTA) CAP PO SCH ×2 (09:22→20:52)
[2021-05-26] MEDS: OXYBUTYNIN (DITROPAN) 5 MG TAB PO SCH ×2 (09:22→20:54)
[2021-05-26] MEDS: GABAPENTIN 300 MG (NEURONTIN) CAP PO SCH ×3 (09:22→20:52)
[2021-05-26] MEDS: NITROFURANTOIN 100 MG (MACROBID) CAPSULE PO SCH ×2 (09:22→20:52)
[2021-05-26] MEDS: IRON SUCROSE 200 MG/10 ML (VENOFER) VIAL IV SCH (09:26)
[2021-05-26] MEDS: MICONAZOLE 2% POWDER (DESENEX AF) 90 GM TOP SCH ×2 (09:28→20:56)
--- NOTE | 2021-05-26 16:20 | CONSULTATION REPORT ---
DATE OF SERVICE: 05/26/2021 ADMITTING PHYSICIAN: Dr. Dumont. HISTORY OF PRESENT ILLNESS: The patient is an 81-year-old female, who had issues with weakness, confusion as well as urinary incontinence for the past several weeks. She also does have an extensive past medical history including morbid obesity, hypertension, history of DVT as well as atrial fibrillation. She is also on Coumadin and was found to be supratherapeutic and also found to have urinary tract infection. She has a poor functional capacity due to her body habitus and she was admitted to inpatient rehabilitation. The patient reports that she has had issues with gastroesophageal reflux disease, which has worsened in the past and this has also progressed to dysphagia for some types of solids. When this does occur, she does have regurgitation. She does not report any hematemesis nor coffee ground emesis. She does not know of any red blood per rectum nor any dark tarry stools. No fever, chills, and no recent inadvertent weight loss. PAST MEDICAL HISTORY: Atrial fibrillation, history of deep vein thrombosis, hypertension, dementia, chronic urinary tract infection, and rheumatoid arthritis. PAST SURGICAL HISTORY: Unknown. ALLERGIES: PENICILLIN and PROCAINE. MEDICATIONS: Amlodipine 5 mg daily, atenolol 50 mg daily, atorvastatin 20 mg daily, escitalopram daily, hydrocodone p.r.n., levofloxacin 500 mg daily, meloxicam daily, potassium 10 mEq daily, prednisolone eyedrops p.r.n., triamcinolone acetonide 55 mcg daily p.r.n., triamterene/hydrochlorothiazide 75/50 mg daily, and Coumadin 5 mg daily. SOCIAL HISTORY: Negative smoke and negative alcohol. FAMILY HISTORY: Noncontributory. REVIEW OF SYSTEMS: This is a well-nourished female, currently in no acute distress. She is not experiencing any shortness of breath or difficulty breathing. No chest pain, palpitations or diaphoresis. Dysphagia for some types of solids and with this, she does have intermittent episodes of regurgitation. No hematemesis and no coffee ground emesis. She does also have stool incontinence; however, does not know of any red blood per rectum nor any dark tarry stools. She also does not report any fever, chills, no recent inadvertent weight loss. PHYSICAL EXAMINATION: VITAL SIGNS: Temperature 36.2, blood pressure 140/61, pulse 64, respirations 18, and pulse ox 94% on room air. CHEST: A few scattered rales and rhonchi bilaterally. HEART: Regular, no murmurs. EXTREMITIES: +1/3 bilateral lower extremity edema and negative Homans sign. HEENT: No scleral icterus. NECK: No cervical lymphadenopathy. ABDOMEN: Soft and nondistended. There is mild discomfort upon deep palpation in the epigastric region. No peritoneal signs. No hernias. LABORATORY DATA: WBC 4.0, hemoglobin 7.3, hematocrit 22, and platelets 141. BUN 10 and creatinine 0.65. INR 1.9. ASSESSMENT AND PLAN: An 81-year-old female with weakness, fatigue, confusion and urinary tract infection as well as extensive past medical history including hypertension, history of DVT, and atrial fibrillation with a supratherapeutic INR. Due to her body habitus and ambulatory status, she was placed in the acute rehabilitation unit. Due to her gastroesophageal reflux disease and worsening symptoms to dysphagia, we will proceed with an EGD as well as biopsies on this admission as well as a possible balloon dilatation. Job ID: [id number] DocumentID: [id number] Dictated Date: 05/26/2021 16:02:53 Production Lead Date: 05/26/2021 16:18:29 Dictated By: SAMANTHA SANCHEZ MD
[2021-05-26] MEDS: warFARin 3 MG (COUMADIN) TAB PO SCH (17:40)
[2021-05-26 19:46] VITALS: BP 173/65
[2021-05-26] MEDS: CALCIUM CARBONATE 500 MG (TUMS) TAB.CHEW PO PRN ×2 (20:34→20:52)
[2021-05-26] MEDS: ACETAMINOPHEN 325 MG TABLET PO PRN ×3 (20:34→21:04)
[2021-05-26] MEDS: LOSARTAN 100 MG (COZAAR) TABLET PO SCH (20:54)
[2021-05-27] MEDS: CATHETER FLUSH 10 ML SYR IV SCH ×3 (06:14→20:29)
--- NOTE | 2021-05-27 07:07 | PM&R Progress Note ---
Subjective HPI/CC On Admission Date Seen by Provider: May 27, 2021 Time Seen by Provider: 13:00 Subjective/Events-last exam 05/27/2021: Patient doing about the same Requires two-person transfer to side of bed Unsure if she is clinically capable of regaining enough function to go to daughter's house EGD will be performed tomorrow due to dysphagia Appreciate Dr. SANCHEZ Urine is very dark 05/26/2021: Patient settling in well Daughter at bedside Dysphagia reported so we will consult Dr. SANCHEZ for EGD with dilatation Checked meds and labs Incontinence is an issue because it is constant INR 1.9 Review of Systems General: Fatigue, Malaise Musculoskeletal: arm pain, leg pain Objective Exam Vital Signs Vital Signs Date Time Temp Pulse Resp B/P (MAP) Pulse Ox O2 Delivery O2 Flow Rate FiO2 05/27/21 20:50 Room Air 05/27/21 19:29 36.6 71 20 187/68 (107) 98 Capillary Refill : General Appearance: No Apparent Distress, WD/WN, Anxious, Chronically ill, Obese HEENT: PERRL/EOMI, Normal ENT Inspection, Pharynx Normal Neck: Full Range of Motion, Normal Inspection, Non Tender, Supple, Carotid Bruit Respiratory: Chest Non Tender, Lungs Clear, Normal Breath Sounds, No Accessory Muscle Use, No Respiratory Distress Cardiovascular: Regular Rate, Rhythm, No Edema, No Gallop, No JVD, No Murmur, Normal Peripheral Pulses Gastrointestinal: Normal Bowel Sounds, No Organomegaly, No Pulsatile Mass, Non Tender, Soft Back: Normal Inspection, No CVA Tenderness, No Vertebral Tenderness Extremity: Normal Capillary Refill, Normal Inspection, Normal Range of Motion, Non Tender, No Calf Tenderness, No Pedal Edema Neurologic/Psychiatric: Alert, Oriented x3, No Motor/Sensory Deficits, Normal Mood/Affect, Abnormal Gait, Disoriented, Motor Weakness (Generalized) Skin: Normal Color, Warm/Dry Lymphatic: No Adenopathy Results/Procedures Lab Patient resulted labs reviewed. FIM Transfers Therapy Code Descriptions/Definitions Functional [place] Measure: 0=Not Assessed/NA 4=Minimal Assistance 1=Total Assistance 5=Supervision or Setup 2=Maximal Assistance 6=Modified [place] 3=Moderate Assistance 7=Complete IndependenceSCALE: Activities may be completed with or without assistive devices. 7-Bprkzpsfnq-yjszofq completes the activity by him/herself with no assistance from a helper. 5-Set-up or Clean-up Assistance-helper sets up or cleans up; patient completes activity. [place] assists only prior to or following the activity. 4-Supervision or Touching Assistance-helper provides verbal cues and/or touching/steadying and/or contact guard assistance as patient completes activity. Assistance may be provided throughout the activity or intermittently. 3-Partial/Moderate Assistance-helper does LESS THAN HALF the effort. [place] lifts, holds or supports trunk or limbs, but provides less than half the effort. 2-Substantial/Maximal Assistance-helper does MORE THAN HALF the effort. [place] lifts or holds trunk or limbs and provides more than half the effort. 1-Aibfbdmlx-hqmqgf does ALL the effort. Patient does none of the effort to complete the activity. Or, the assistance of 2 or more helpers is required for the patient to complete the activity. If activity was not attempted, code reason: 7-Patient Refused. 9-Not Applicable-not attempted and the patient did not perform the activity before the current illness, exacerbation or injury. 10-Not Attempted due to Environmental Limitations-(lack of equipment, weather restraints, etc.). 88-Not Attempted due to Medical Conditions or Safety Concerns. Roll Left to Right (QC): 1 Sit to Lying (QC): 1 Sit to Stand (QC): 1 Chair/Cts-iy-Ffuaw Xfer(QC): 1 Car Transfer (QC): 88 Gait Training Does the Patient Walk?: Yes Walk 10 feet (QC): 88 Walk 50 ft with 2 Turns(QC): 88 Walk 150 ft (QC): 88 Walking 10ft/uneven surface-QC: 88 Gait Assistive Device: FWW Wheelchair Training Does the Pt Use a Wheelchair?: Yes Wheel 50 ft with 2 turns (QC): 1 Wheel 150 ft (QC): 1 Stair Training 1 Step (curb) (QC): 88 4 Steps (QC): 88 12 Steps (QC): 88 Balance Picking up an Object (QC): 88 ADL-Treatment Eating (QC): 4 Oral Hygiene (QC): 4 Shower/Bathe Self (QC): 1 Upper Body Dressing (QC): 1 Lower Body Dressing (QC): 1 On/Off Footwear (QC): 1 Toileting Hygiene (QC): 1 Assessment/Plan Assessment and Plan Assess & Plan/Chief Complaint Assessment: Debility BMI 46 Supratherapeutic INR UTI completed treatment Lobo catheter discontinued now Urinary incontinence Atrial fibrillation? DVT? Dysphagia Urinary incontinence Plan: Supportive care UTI treatment DC Lobo catheter Aggressive rehab 05/26/2021: Aggressive rehab Incontinence care Maintain Coumadin EGD with dilatation 05/27/2021: EGD tomorrow Supportive care (1) General weakness Status: Acute (2) BMI 45.0-49.9, adult (3) Lobo catheter in place (4) Atrial fibrillation (5) Warfarin anticoagulation (6) Confusion (7) Supratherapeutic INR Status: Acute (8) UTI (urinary tract infection) Status: Acute (9) Anemia Status: Acute TAMARA DE LEON DO May 27, 2021 07:07
[2021-05-27 08:00] VITALS: BP 133/65
[2021-05-27] MEDS: OXYBUTYNIN (DITROPAN) 5 MG TAB PO SCH ×2 (08:55→20:17)
[2021-05-27] MEDS: GABAPENTIN 300 MG (NEURONTIN) CAP PO SCH ×3 (08:55→20:17)
[2021-05-27] MEDS: DOCUSATE SODIUM 100 MG (COLACE) CAP PO SCH ×2 (08:55→20:19)
[2021-05-27] MEDS: NITROFURANTOIN 100 MG (MACROBID) CAPSULE PO SCH ×2 (08:55→20:17)
[2021-05-27] MEDS: SENNOSIDES 8.6 MG (SENOKOT) TAB PO SCH ×2 (08:55→20:20)
[2021-05-27] MEDS: polyethylene glycoL POWDER 17 GM (MIRALAX) PACK PO SCH ×2 (08:56→20:19)
[2021-05-27] MEDS: MICONAZOLE 2% POWDER (DESENEX AF) 90 GM TOP SCH ×2 (08:56→20:20)
--- NOTE | 2021-05-27 09:00 | Progress Note ---
Subjective Date Seen by a Provider: May 27, 2021 Time Seen by a Provider: 08:20 Subjective/Events-last exam Patient seen with Dr. Marquez. Patient reports doing well. Lying in bed resting. Denies any issues. Objective Exam Vital Signs Date Time Temp Pulse Resp B/P (MAP) Pulse Ox O2 Delivery O2 Flow Rate FiO2 05/26/21 21:20 Room Air 05/26/21 19:46 37.0 73 20 173/65 (101) 96 Room Air 05/26/21 09:00 Room Air Capillary Refill : General Appearance: No Apparent Distress, WD/WN, Obese Neck: Normal Inspection, Supple Respiratory: No Accessory Muscle Use, No Respiratory Distress Cardiovascular: Regular Rate, Rhythm, No Edema Gastrointestinal: normal bowel sounds, non tender, soft Extremity: Normal Capillary Refill, Normal Inspection Neurologic/Psychiatric: Alert, Oriented x3 Skin: Normal Color, Warm/Dry, Other (Multiple bruising over upper extremitites) Assessment/Plan Assessment/Plan Assess & Plan/Chief Complaint An 81 year old female with anemia, weakness, fatigue, confusion, UTI VSS Continue with PT/OT rehab May proceed with clear liquid diet in AM tomorrow and then NPO Will proceed with scheduling the patient for EGD tomorrow CAMPBELL SCHUMACHER APRN May 27, 2021 09:00
[2021-05-27] MEDS: DULoxetine 30 MG (CYMBALTA) CAP PO SCH ×2 (09:10→20:16)
[2021-05-27] MEDS: ACETAMINOPHEN 325 MG TABLET PO PRN ×2 (09:10→19:26)
--- NOTE | 2021-05-27 16:04 | Progress Note-Pre Operative ---
Pre-Operative Progress Note H&P Reviewed The H&P was reviewed, patient examined and no changes noted. Date Seen by Provider: May 27, 2021 Time Seen by Provider: 17:00 Date H&P Reviewed: May 27, 2021 Time H&P Reviewed: 17:00 Pre-Operative Diagnosis: anemia, GERD SAMANTHA SANCHEZ MD May 27, 2021 16:04
[2021-05-27] MEDS: warFARin 3 MG (COUMADIN) TAB PO SCH (17:28)
[2021-05-27 19:29] VITALS: BP 187/68
[2021-05-27] MEDS: RINVOQ 15 MG PO SCH (20:14)
[2021-05-27] MEDS: LOSARTAN 100 MG (COZAAR) TABLET PO SCH (20:15)
[2021-05-27] MEDS ORDERED: PATIENT MAY USE OWN MED,SINGLE MED PO SCH (21:00)
[2021-05-28] MEDS: CATHETER FLUSH 10 ML SYR IV SCH ×3 (05:40→21:30)
--- NOTE | 2021-05-28 05:41 | PM&R Progress Note ---
Subjective HPI/CC On Admission Date Seen by Provider: May 28, 2021 Time Seen by Provider: 09:00 Subjective/Events-last exam 05/28/2021: Pt is doing pretty well Midline will be placed for Venofer EGD will be done today at 2 PM Bowels moved 05/24/21 05/27/2021: Patient doing about the same Requires two-person transfer to side of bed Unsure if she is clinically capable of regaining enough function to go to [facility]'s house EGD will be performed tomorrow due to dysphagia Appreciate Dr. SANCHEZ Urine is very dark 05/26/2021: Patient settling in well Daughter at bedside Dysphagia reported so we will consult Dr. SANCHEZ for EGD with dilatation Checked meds and labs Incontinence is an issue because it is constant INR 1.9 Review of Systems General: Fatigue, Malaise Objective Exam Vital Signs Vital Signs Date Time Temp Pulse Resp B/P (MAP) Pulse Ox O2 Delivery O2 Flow Rate FiO2 05/28/21 21:00 Room Air 05/28/21 19:54 36.8 67 16 129/73 (91) 97 Capillary Refill : General Appearance: No Apparent Distress, WD/WN, Anxious, Chronically ill, Obese HEENT: PERRL/EOMI, Normal ENT Inspection, Pharynx Normal Neck: Full Range of Motion, Normal Inspection, Non Tender, Supple, Carotid Bruit Respiratory: Chest Non Tender, Lungs Clear, Normal Breath Sounds, No Accessory Muscle Use, No Respiratory Distress Cardiovascular: Regular Rate, Rhythm, No Edema, No Gallop, No JVD, No Murmur, Normal Peripheral Pulses Gastrointestinal: Normal Bowel Sounds, No Organomegaly, No Pulsatile Mass, Non Tender, Soft Back: Normal Inspection, No CVA Tenderness, No Vertebral Tenderness Extremity: Normal Capillary Refill, Normal Inspection, Normal Range of Motion, Non Tender, No Calf Tenderness, No Pedal Edema Neurologic/Psychiatric: Alert, Oriented x3, No Motor/Sensory Deficits, Normal Mood/Affect, Abnormal Gait, Disoriented, Motor Weakness (Generalized) Skin: Normal Color, Warm/Dry Lymphatic: No Adenopathy Results/Procedures Lab Laboratory Tests 05/28/21 06:20 Patient resulted labs reviewed. FIM Transfers Therapy Code Descriptions/Definitions Functional [place] Measure: 0=Not Assessed/NA 4=Minimal Assistance 1=Total Assistance 5=Supervision or Setup 2=Maximal Assistance 6=Modified [place] 3=Moderate Assistance 7=Complete IndependenceSCALE: Activities may be completed with or without assistive devices. 3-Nryoqhsdiv-mnpgkbp completes the activity by him/herself with no assistance from a helper. 5-Set-up or Clean-up Assistance-helper sets up or cleans up; patient completes activity. [place] assists only prior to or following the activity. 4-Supervision or Touching Assistance-helper provides verbal cues and/or touching/steadying and/or contact guard assistance as patient completes activity. Assistance may be provided throughout the activity or intermittently. 3-Partial/Moderate Assistance-helper does LESS THAN HALF the effort. [place] lifts, holds or supports trunk or limbs, but provides less than half the effort. 2-Substantial/Maximal Assistance-helper does MORE THAN HALF the effort. [place] lifts or holds trunk or limbs and provides more than half the effort. 3-Qhixrsyac-zmcmxf does ALL the effort. Patient does none of the effort to complete the activity. Or, the assistance of 2 or more helpers is required for the patient to complete the activity. If activity was not attempted, code reason: 7-Patient Refused. 9-Not Applicable-not attempted and the patient did not perform the activity before the current illness, exacerbation or injury. 10-Not Attempted due to Environmental Limitations-(lack of equipment, weather restraints, etc.). 88-Not Attempted due to Medical Conditions or Safety Concerns. Roll Left to Right (QC): 1 Sit to Lying (QC): 1 Sit to Stand (QC): 1 Chair/Vcs-xu-Kafrb Xfer(QC): 1 Car Transfer (QC): 88 Gait Training Does the Patient Walk?: Yes Walk 10 feet (QC): 88 Walk 50 ft with 2 Turns(QC): 88 Walk 150 ft (QC): 88 Walking 10ft/uneven surface-QC: 88 Gait Assistive Device: FWW Wheelchair Training Does the Pt Use a Wheelchair?: Yes Wheel 50 ft with 2 turns (QC): 1 Wheel 150 ft (QC): 1 Stair Training 1 Step (curb) (QC): 88 4 Steps (QC): 88 12 Steps (QC): 88 Balance Picking up an Object (QC): 88 ADL-Treatment Eating (QC): 4 Oral Hygiene (QC): 4 Shower/Bathe Self (QC): 1 Upper Body Dressing (QC): 1 Lower Body Dressing (QC): 1 On/Off Footwear (QC): 1 Toileting Hygiene (QC): 1 Assessment/Plan Assessment and Plan Assess & Plan/Chief Complaint Assessment: Debility BMI 46 Supratherapeutic INR UTI completed treatment Lobo catheter discontinued now Urinary incontinence Atrial fibrillation? DVT? Dysphagia Urinary incontinence Antral ulcer on EGD with recent bleed Plan: Supportive care UTI treatment DC Lobo catheter Aggressive rehab 05/26/2021: Aggressive rehab Incontinence care Maintain Coumadin EGD with dilatation 05/27/2021: EGD tomorrow Supportive care 05/28/2021: Appreciate Dr. SANCHEZ Monitor closely (1) General weakness Status: Acute (2) BMI 45.0-49.9, adult (3) Lobo catheter in place (4) Atrial fibrillation (5) Warfarin anticoagulation (6) Confusion (7) Supratherapeutic INR Status: Acute (8) UTI (urinary tract infection) Status: Acute (9) Anemia Status: Acute TAMARA DE LEON DO May 28, 2021 05:41
[2021-05-28 06:42] LABS: BASOPHILS % (AUTO) 1 % (0-10); EOSINOPHILS # (AUTO) 0.1 10^3/uL (0.0-0.3); EOSINOPHILS % (AUTO) 4 % (0-10); HEMATOCRIT 22 % (35-52); HEMOGLOBIN 7.3 g/dL (11.5-16.0); LYMPHOCYTES % (AUTO) 29 % (12-44); MEAN CORPUSCULAR HEMOGLOBIN 31 pg (25-34); MEAN CORPUSCULAR HGB CONC 33 g/dL (32-36); MEAN CORPUSCULAR VOLUME 96 fL (80-99); MEAN PLATELET VOLUME 9.8 fL (9.0-12.2); MONOCYTES # (AUTO) 0.5 10^3/uL (0.0-1.0); MONOCYTES % (AUTO) 14 % (0-12); NEUTROPHILS # (AUTO) 1.7 10^3/uL (1.8-7.8); NEUTROPHILS % (AUTO) 48 % (42-75); PLATELET COUNT 171 10^3/uL (130-400); WHITE BLOOD COUNT 3.6 10^3/uL (4.3-11.0)
[2021-05-28 06:52] LABS: INR 1.4 (0.8-1.4); PROTHROMBIN TIME PATIENT 17.3 SEC (12.2-14.7)
[2021-05-28 07:11] LABS: BILIRUBIN,TOTAL 1.2 MG/DL (0.1-1.0); CALCIUM 8.4 MG/DL (8.5-10.1); CREATININE SERUM 0.71 MG/DL (0.60-1.30); POTASSIUM 3.7 MMOL/L (3.6-5.0); TOTAL PROTEIN 5.4 GM/DL (6.4-8.2)
[2021-05-28] MEDS: DULoxetine 30 MG (CYMBALTA) CAP PO SCH ×2 (07:30→21:29)
[2021-05-28] MEDS: IRON SUCROSE 200 MG/10 ML (VENOFER) VIAL IV SCH (07:30)
[2021-05-28] MEDS: GABAPENTIN 300 MG (NEURONTIN) CAP PO SCH ×3 (07:30→21:29)
[2021-05-28] MEDS: OXYBUTYNIN (DITROPAN) 5 MG TAB PO SCH ×2 (07:30→21:29)
[2021-05-28] MEDS: NITROFURANTOIN 100 MG (MACROBID) CAPSULE PO SCH ×2 (07:30→21:29)
[2021-05-28] MEDS: MICONAZOLE 2% POWDER (DESENEX AF) 90 GM TOP SCH ×2 (07:31→21:31)
[2021-05-28] MEDS: ACETAMINOPHEN 325 MG TABLET PO PRN ×2 (07:32→21:30)
[2021-05-28 07:46] VITALS: BP 166/71
[2021-05-28] MEDS: SENNOSIDES 8.6 MG (SENOKOT) TAB PO SCH ×2 (08:01→21:29)
[2021-05-28] MEDS: DOCUSATE SODIUM 100 MG (COLACE) CAP PO SCH ×2 (08:01→21:29)
[2021-05-28] MEDS: polyethylene glycoL POWDER 17 GM (MIRALAX) PACK PO SCH ×2 (08:01→21:46)
--- NOTE | 2021-05-28 08:59 | Physical Therapy Daily Note ---
PT Daily Note-Current Subjective Patient in bed pre tx, agrees to PT,has no complaints of pain, will be co- treating with OT due to poor patient mobility, strength, endurance, severe debility, coordinate UE and LE with activity, safety and reduce risk of falls. Patient has a purewick, she cannot remove it herself, nurse is in room and she does it. Appearance Patient in WC post tx, will continue with OT Mental Status Patient Orientation: Person, Place, Situation Transfers SCALE: Activities may be completed with or without assistive devices. 8-Riwfpalkar-xahrxom completes the activity by him/herself with no assistance from a helper. 5-Set-up or Clean-up Assistance-helper sets up or cleans up; patient completes activity. [place] assists only prior to or following the activity. 4-Supervision or Touching Assistance-helper provides verbal cues and/or touching/steadying and/or contact guard assistance as patient completes activity. Assistance may be provided throughout the activity or intermittently. 3-Partial/Moderate Assistance-helper does LESS THAN HALF the effort. [place] lifts, holds or supports trunk or limbs, but provides less than half the effort. 2-Substantial/Maximal Assistance-helper does MORE THAN HALF the effort. [place] lifts or holds trunk or limbs and provides more than half the effort. 3-Pyweaomrq-dksggl does ALL the effort. Patient does none of the effort to complete the activity. Or, the assistance of 2 or more helpers is required for the patient to complete the activity. If activity was not attempted, code reason: 7-Patient Refused. 9-Not Applicable-not attempted and the patient did not perform the activity before the current illness, exacerbation or injury. 10-Not Attempted due to Environmental Limitations-(lack of equipment, weather restraints, etc.). 88-Not Attempted due to Medical Conditions or Safety Concerns. Roll Left & Right (QC): 3 Lying to Sitting/Side of Bed(Q: 3 (mod assist) Sit to Stand (QC): 1 Chair/Mlq-zf-Pzgmj Xfer(QC): 3 Patient needs assist of 2 people to stand from lower surfaces and assist of 1 to stand from higher surfaces. Patient also dresses from level, PT assists with standing and positioning. Wheelchair Training Does the Pt Use a Wheelchair?: Yes Wheel 50 ft with 2 turns (QC): 3 Wheel 150 ft (QC): 3 Type of Wheelchair: Manual 150' Exercises Seated Therapy Exercises: Ankle pumps, Long arc quads, Hip flexion, Hip abd/add Seated Reps: 20 Treatments PT performed bed mobility and transfers, WC mobility, standing and positioning during dressing, OT performed dressing, UE positioning and safety during activity. Assessment Current Status: Poor Progress poor motivation PT Short Term Goals Short Term Goals Time Frame: Jun 01, 2021 Roll Left & Right: 3 Sit to lyin Lying to sitting on side of be: 3 Sit to stand: 3 Chair/ppd-jz-okwby transfer: 3 Walk 10 feet: 3 Walk 50 feet with two turns: 3 PT Residential Goals Residential Goals PT Residential Goals Time Frame: Jun 15, 2021 Roll Left & Right (QC): 4 Sit to Lying (QC): 4 Lying-Sitting on Side/Bed(QC): 4 Sit to Stand (QC): 4 Chair/Rmy-bz-Xgqwp Xfer(QC): 4 Toilet Transfer (QC): 4 Car Transfer (QC): 3 Does the Patient Walk: Yes Walk 10 feet (QC): 4 Walk 50ft with 2 Turns (QC): 4 Walk 150 ft (QC): 4 Walking 10ft on Uneven Surface: 4 1 Step (curb) (QC): 4 4 Steps (QC): 88 12 Steps (QC): 88 Picking up an Object (QC): 4 Wheel 50 feet with 2 turns (QC: 4 Wheel 150 feet: 4 PT Plan Problem List Problem List: Activity Tolerance, Functional Strength, Safety, Balance, Gait, Transfer, Bed Mobility, ROM Treatment/Plan Treatment Plan: Continue Plan of Care Treatment Plan: Bed Mobility, Education, Functional Activity Max, Functional Strength, Group Therapy, Gait, Safety, Therapeutic Exercise, Transfers Treatment Duration: Jun 01, 2021 Frequency: At least 5 of 7 days/Wk (IRF) Estimated Hrs Per Day: 1.5 hours per day Patient and/or Family Agrees t: Yes Safety Risks/Education Patient Education: Transfer Techniques, Correct Positioning, W/C Management, Safety Issues Teaching Recipient: Patient Teaching Methods: Demonstration, Discussion Response to Teaching: Reinforcement Needed Time/GCodes Time In: 0800 Time Out: 0900 Total Billed Treatment Time: 60 Total Billed Treatment 1 visit EX 15' FA 45' co-treated from [id number] MARTITA MARK PT May 28, 2021 08:59
--- NOTE | 2021-05-28 09:40 | Occupational Ther Daily Note ---
OT Current Status-Daily Note Subjective Pt rates pain as 5/10 in bilateral arms (from bruises) Mental Status/Objective Patient Orientation: Person, Confused Attachments: IV ADL-Treatment Therapy Code Descriptions/Definitions Functional [place] Measure: 0=Not Assessed/NA 4=Minimal Assistance 1=Total Assistance 5=Supervision or Setup 2=Maximal Assistance 6=Modified [place] 3=Moderate Assistance 7=Complete IndependenceSCALE: Activities may be completed with or without assistive devices. 4-Fwlsosxnul-khhthxg completes the activity by him/herself with no assistance from a helper. 5-Set-up or Clean-up Assistance-helper sets up or cleans up; patient completes activity. [place] assists only prior to or following the activity. 4-Supervision or Touching Assistance-helper provides verbal cues and/or touching /steadying and/or contact guard assistance as patient completes activity. Assistance may be provided throughout the activity or intermittently. 3-Partial/Moderate Assistance-helper does LESS THAN HALF the effort. [place] lifts, holds or supports trunk or limbs, but provides less than half the effort. 2-Substantial/Maximal Assistance-helper does MORE THAN HALF the effort. [place] lifts or holds trunk or limbs and provides more than half the effort. 8-Mcczgxbtd-wlwexz does ALL the effort. Patient does none of the effort to complete the activity. Or, the assistance of 2 or more helpers is required for the patient to complete the activity. If activity was not attempted, code reason: 7-Patient Refused. 9-Not Applicable-not attempted and the patient did not perform the activity before the current illness, exacerbation or injury. 10-Not Attempted due to Environmental Limitations-(lack of equipment, weather restraints, etc.). 88-Not Attempted due to Medical Conditions or Safety Concerns. Oral Hygiene (QC): 5 Upper Body Dressing (QC): 2 Lower Body Dressing (QC): 1 On/Off Footwear: 1 Toileting Hygiene (QC): 1 Toilet Transfer (QC): 1 Clothing donned seated in w/c. Pt unable to reach feet after multiple attempts. OT introduced and instructed pt on use of medical language specialist. Mod verbal and tactile cues for preferred use. Dependent x2 to stand from low surface. Incontinent of bowels. Dependent for sarath care and clothing management in standing. Pt unable to come to full upright, often rests arms on walker. Cues for upright posture. Pt able to initiate threading UE's into sleeves but requires assist to bring up over elbow. Due to limited shoulder ROM, assist needed to pull shirt over head and pull down around back of torso. Pt sat at sink to complete grooming tasks with set up assist. Other Treatment Pt performed 1 sit<>stand and 3 partial sit<>stands with heavy reliance on grab bar and max lifting assist. Simple 1 step cues for correct placement of hands/feet and sequencing order. Audible crepitus with all transfers. Fatigues with limited activity and requires rest in between each standing/partial standing bout. OT wheeled pt to therapy gym in w/c. She performed shoulder pulleys x3 with goal to improve ROM. R shoulder slightly better than Left. R ~120 degrees, L ~90 degrees. Education OT Patient Education: Correct positioning, Energy conservation, Exercise program, Modified ADL techniques, Progress toward Goal/Update tx plan, Purpose of tx/functional activities, Rehab process, Safety issues, Transfer techniques, Use of adapted equipment Teaching Recipient: Patient Teaching Methods: Demonstration, Discussion Response to Teaching: Verbalize Understanding, Reinforcement Needed OT Short Term Goals Short Term Goals Time Frame: Jun 02, 2021 Eatin Oral hygiene: 5 Toileting hygiene: 2 Shower/bathe self: 2 Upper body dressin Lower body dressin Putting on/taking off footwear: 2 OT Top Coater Goals Detention Goals Time Frame: Jun 23, 2021 Eating (QC): 6 Oral Hygiene (QC): 5 Toileting Hygiene (QC): 4 Shower/Bathe Self (QC): 3 Upper Body Dressing (QC): 4 Lower Body Dressing (QC): 4 On/Off Footwear (QC): 3 1=Demonstrate adherence to instructed precautions during ADL tasks. 2=Patient will verbalize/demonstrate understanding of assistive devices/modifications for ADL. 3=Patient will improve strength/tolerance for activity to enable patient to perform ADL's. OT Education/Plan Problem List/Assessment Assessment: Decreased Activ Tolerance, Decreased Safety Aware, Decreased UE Strength, Dependent Transfers, Impaired Bed Mobility, Impaired Cognition, Impaired Funct Balance, Impaired Self-Care Skills, Restricted Funct UE ROM Discharge Recommendations Plan/Recommendations: Continue POC Therapy Discharge Recommendati: Scheduled Assistance, Bath Aide, Homemaker Support, Post Acute OT Treatment Plan/Plan of Care Treatment,Training & Education: Yes Patient would benefit from OT for education, treatment and training to promote independence in ADL's, mobility, safety and/or upper extremity function for ADL's. Plan of Care: ADL Retraining, Functional Mobility, Group Exercise/Act as Ind, UE Funct Exercise/Act Treatment Duration: Jun 23, 2021 Frequency: At least 5 of 7 days/Wk (IRF) Estimated Hrs Per Day: 1.5 hours per day Agreement: Yes Rehab Potential: Guarded Time/GCodes Start Time: 08:30 Stop Time: 09:45 Total Time Billed (hr/min): 75 Billed Treatment Time 1 visit ADL x3 (45 min) FA x2 (30 min) Monie Delcid OT May 28, 2021 09:40
--- NOTE | 2021-05-28 11:40 | Physical Therapy Daily Note ---
PT Daily Note-Current Subjective Patient in bed pre tx, agrees to PT, has no complaints of pain at rest. Appearance Patient in bed post tx with nurse call, phone, tray, all needs met. Mental Status Patient Orientation: Person, Place, Situation Transfers SCALE: Activities may be completed with or without assistive devices. 1-Fkymzyudac-skeogkh completes the activity by him/herself with no assistance from a helper. 5-Set-up or Clean-up Assistance-helper sets up or cleans up; patient completes activity. [place] assists only prior to or following the activity. 4-Supervision or Touching Assistance-helper provides verbal cues and/or touch ing/steadying and/or contact guard assistance as patient completes activity. Assistance may be provided throughout the activity or intermittently. 3-Partial/Moderate Assistance-helper does LESS THAN HALF the effort. [place] lifts, holds or supports trunk or limbs, but provides less than half the effort. 2-Substantial/Maximal Assistance-helper does MORE THAN HALF the effort. [place] lifts or holds trunk or limbs and provides more than half the effort. 1-Tnkntannp-ouopyt does ALL the effort. Patient does none of the effort to complete the activity. Or, the assistance of 2 or more helpers is required for the patient to complete the activity. If activity was not attempted, code reason: 7-Patient Refused. 9-Not Applicable-not attempted and the patient did not perform the activity before the current illness, exacerbation or injury. 10-Not Attempted due to Environmental Limitations-(lack of equipment, weather restraints, etc.). 88-Not Attempted due to Medical Conditions or Safety Concerns. Exercises Supine Ex: Ankle pumps, Quad Set, Glut sets, Heel Slides, Short Arc Quads, Straight leg raise, Hip abd/add Supine Reps: 20 (AAROM with SLR) Treatments LE strengthening Assessment Current Status: Poor Progress poor motivation, patient needed several rest breaks PT Short Term Goals Short Term Goals Time Frame: Jun 01, 2021 Roll Left & Right: 3 Sit to lyin Lying to sitting on side of be: 3 Sit to stand: 3 Chair/gfl-qp-bpkng transfer: 3 Walk 10 feet: 3 Walk 50 feet with two turns: 3 PT Jail Goals Shot Examiner Goals PT Shot Examiner Goals Time Frame: Jun 15, 2021 Roll Left & Right (QC): 4 Sit to Lying (QC): 4 Lying-Sitting on Side/Bed(QC): 4 Sit to Stand (QC): 4 Chair/Ajm-by-Wdqbm Xfer(QC): 4 Toilet Transfer (QC): 4 Car Transfer (QC): 3 Does the Patient Walk: Yes Walk 10 feet (QC): 4 Walk 50ft with 2 Turns (QC): 4 Walk 150 ft (QC): 4 Walking 10ft on Uneven Surface: 4 1 Step (curb) (QC): 4 4 Steps (QC): 88 12 Steps (QC): 88 Picking up an Object (QC): 4 Wheel 50 feet with 2 turns (QC: 4 Wheel 150 feet: 4 PT Plan Problem List Problem List: Activity Tolerance, Functional Strength, Safety, Balance, Gait, Transfer, Bed Mobility, ROM Treatment/Plan Treatment Plan: Continue Plan of Care Treatment Plan: Bed Mobility, Education, Functional Activity Max, Functional Strength, Group Therapy, Gait, Safety, Therapeutic Exercise, Transfers Treatment Duration: Jun 01, 2021 Frequency: At least 5 of 7 days/Wk (IRF) Estimated Hrs Per Day: 1.5 hours per day Patient and/or Family Agrees t: Yes Safety Risks/Education Patient Education: Correct Positioning, Safety Issues Teaching Recipient: Patient Teaching Methods: Demonstration, Discussion Response to Teaching: Reinforcement Needed Time/GCodes Time In: 1125 Time Out: 1140 Total Billed Treatment Time: 15 Total Billed Treatment 1 visit EX MARTITA EARLY PT May 28, 2021 11:40
--- NOTE | 2021-05-28 12:03 | ST Cognitive Linguistic Eval ---
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 Tonya Dumont Reason for Referral: Evaluation/Treatment Medical History Current History The patient is an 81 year-old female with a past medical history of atrial fibrillation, HTN, dementia, rheumatoid arthritis, and chronic UTI, who was admitted to [facility] with a diagnosis of weakness, UTI, and confusion. Reviewed History: Yes Social History Current Living Status: Alone Speech PLF-Current Status Prior Level of Function The patient reported she completed tasks independently (at her home, alone) prior to admission. The patient did report the use of a walker and wheelchair. Subjective The patient was seated upright in her wheelchair upon entrance to the room. The patient greeted the clinician appropriately and was agreeable to participation in the cognitive linguistic evaluation. The patient denied recent changes or concerns with her speech, language, or cognition. Language Eval: Auditory Comprehends Simple Yes/No Ques: Functional Indent/Objects Multiple [place]: Functional Ident/Pics in Multiple [place]: Functional Follows 1-Step Commands: Functional Follows Complex Directions: Functional Follows General Conversations: Functional Language Eval: Verbal Language Completes Spontaneous Greeting: Functional Produces Auto, Serial Info: Functional Imitates Simple Words/Phrases: Functional Word Finding: Mild Requests Basic Needs: Functional States Basic Personal Info: Functional Expresses Complex Ideas: Mild Language Evaluation: Reading Follows Simple Written Direct: Functional Language Evaluation: Writing Writes to Simple Dictation: Functional Cognitive Patient Orientation The patient was independently oriented to self, location, month, day of week, date, and year. Objective Cognitive Domain Attention: Mild Memory: Mild Problem Solving: Mild Executive Functions: Mild Visuospatial Skills: WNL Clock Drawing Severity Rating: WNL Objective Formal/Standardized Tests [place] Mental Status ([facility]) Results The patient completed the UMS with a result of + which correlated to "mild neurocognitive disorder." Oral Motor/Speech Production The patient did not present with dysarthria or apraxia of speech. The patient remained 100% intelligible in known and unknown contexts. Impression The patient is an 81 year old female, who presents with a diagnosis of a mild neurocognitive impairment. The patient displayed difficulties in word-finding and delayed recall. Speech Patient Assess Expression of Ideas/Wants: Exhibits (3) Understanding Verbal Content: Usually Understands (3) Brief Interview-Mental Status: Yes Repetition of Three Words: Three (3) Temporal Orientation: Year: Correct (3) Temporal Orientation: Month: Accurate within 5 days(2) Temporal Orientation: Day: Correct (1) Recall : Wear to say "Sock": Yes, no cue required (2) Recall : Color: Yes, no cue required (2) Recall : Bed: Yes,after cueing (1) Memory/Recall Ability: Current season, That he or she is in a hsp/hsp unit Speech Short Term Goals Short Term Goals Short Term Goals 1. The patient will demonstrated 90% accuracy with functional memory and executive functioning tasks with mild clinician verbal cueing. Speech Teaching Assistant Goals Teaching Assistant Goals 1. The patient will demonstrate increased cognitive linguistic skills for safe return to the least restricted environment. Speech-Plan Patient/Family Goals Patient/Family Goals: The patient wishes to return home independently. Treatment Plan Speech Therapy Treatment Plan: Continue Plan of Care Treatment Duration: May 25, 2021 Frequency: 4 times per week (Four to five times per week.) Estimated Hrs Per Day: .5 hour per day Rehab Potential: Guarded Pt/Family Agrees to Plan: Yes Safety Risks/Education Teaching Recipient: Patient Teaching Methods: Discussion Response to Teaching: Verbalize Understanding, Reinforcement Needed Education Topics Provided: MOSESUMS Results, Plan of Care, Role of Speech Language Pathology Time Speech Therapy Time In: 10:00 Speech Therapy Time Out: 10:30 Total Billed Time: 30 Billed Treatment Time 1, ANEUDY FATIMA ELIZABETH ST May 28, 2021 12:03
--- NOTE | 2021-05-28 15:13 | Progress Note-Post Operative ---
Post-Operative Progess Note Surgeon (s)/Law Office Assistant (s) Surgeon SAMANTHA SANCHEZ MD Law Office Assistant: none Pre-Operative Diagnosis anemia, GERD Post-Operative Diagnosis reflux esophagitis(b-c), moderate HH(3cm), mod gastritis with antral ulcer and overlying clot. Procedure & Operative Findings Date of Procedure 05/28/21 Procedure Performed/Findings EGD with bx. Anesthesia Type mac Estimated Blood Loss Estimated blood loss (mL): minimal Specimens/Packing Specimens Removed ge jxn, antral ulcer SAMANTHA SANCHEZ MD May 28, 2021 15:13
[2021-05-28 15:49] VITALS: BP 151/67
[2021-05-28] MEDS: warFARin 3 MG (COUMADIN) TAB PO SCH (18:07)
[2021-05-28 19:54] VITALS: BP 129/73
[2021-05-28] MEDS: LOSARTAN 100 MG (COZAAR) TABLET PO SCH (21:29)
[2021-05-28] MEDS: PANTOPRAZOLE 40 MG (PROTONIX) VIAL IV SCH (21:30)
[2021-05-28] MEDS: RINVOQ 15 MG PO SCH (21:31)
--- NOTE | 2021-05-28 23:05 | OPERATIVE REPORT ---
DATE OF SERVICE: 05/28/2021 ADMITTING PHYSICIAN: Dr. Dumont. PREOPERATIVE DIAGNOSES: Dysphagia, gastroesophageal reflux disease. POSTOPERATIVE DIAGNOSES: Mild to moderate amount of phlegm in the hypopharyngeal region consistent with incomplete swallowing, reflux esophagitis between Brawley stage II and III, moderate size hiatal hernia 3 cm in size, antral ulcer with overlying fibrin clot, no active bleeding. No distal obstructions. PROCEDURE: EGD with biopsy. SURGEON: Samantha Sanchez MD. ANESTHESIA: Monitored anesthesia care. ESTIMATED BLOOD LOSS: Minimal. FINDINGS: Mild to moderate amount of phlegm in the hypopharyngeal region consistent with incomplete swallowing, reflux esophagitis between Brawley stage II and III, moderate size hiatal hernia 3 cm in size, antral ulcer with overlying fibrin clot, no active bleeding. No distal obstructions. DISPOSITION: The patient tolerated the procedure well. INDICATIONS: The patient is an 81-year-old female, who has had a longstanding issues with weakness, confusion and urinary incontinence for the past several weeks to months. She has an extensive past medical history including morbid obesity, hypertension, history of DVT as well as atrial fibrillation. She was on Coumadin and found to be supratherapeutic and also found to have urinary tract infection and also has a very poor functional capacity and is in acute inpatient rehabilitation. She was also found to be anemic and states that she also does have issues with dysphagia. DESCRIPTION OF PROCEDURE: The patient was brought to the endoscopy suite, laid in the left lateral decubitus position. After adequate IV pain and sedative medications and monitored anesthesia care, the mouthpiece was applied. The endoscope was then placed in the mouth, visualizing the pharynx and hypopharyngeal region. Vocal cords, epiglottis and vallecula identified and appeared to be normal. At the level of the hypopharynx, there was a thick phlegm as well as small food particulate matter, likely indicating some level of weakening swallowing function. The endoscope was then gently abated esophageal opening and esophagus insufflated. The endoscope was then advanced to the first, second, and third portion of esophagus at the level of the GE junction, a reflux esophagitis between Brawley grade B to C identified. There were no strictures identified. A biopsy was taken with forceps with visualization of good hemostasis. The endoscope was then advanced in the stomach and endoscope retroflexed, visualizing a moderate size hiatal hernia approximately 3 cm in size. There was a moderate severity gastritis with a gastric antral ulcer approximately 5 mm in size with an overlying fibrin clot, no active bleeding. A biopsy was taken of the edge of the ulcer with forceps with visualization of good hemostasis. The endoscope was then advanced to the pylorus and the first and second portion of the duodenum, which appeared normal with no distal obstructions. The endoscope was then slowly withdrawn while taking a second look and suctioning of residual air with no additional findings. The patient tolerated the procedure well. We will recommend the necessary lifestyle and dietary accommodation including small and more frequent meals, avoiding to eating at night as well as head elevation while lying supine. She also needs to avoid caffeinated beverages, spicy, greasy and acidic foods. We will also start her on Protonix 40 mg daily. Job ID: [id number] DocumentID: [id number] Dictated Date: 05/28/2021 15:19:18 Wire Loop Machine Operator Date: 05/28/2021 23:05:24 Dictated By: SAMANTHA SANCHEZ MD
--- NOTE | 2021-05-29 06:51 | PM&R Progress Note ---
Subjective HPI/CC On Admission Date Seen by Provider: May 29, 2021 Time Seen by Provider: 09:00 Subjective/Events-last exam 05/29/2021: Pt doing a lot better Midline in the right arm Flu vaccine was given EGD showed ulcer IV iron infusion maintained Warfarin restarted 05/28/2021: Pt is doing pretty well Midline will be placed for Venofer EGD will be done today at 2 PM Bowels moved 05/24/21 05/27/2021: Patient doing about the same Requires two-person transfer to side of bed Unsure if she is clinically capable of regaining enough function to go to daughter's house EGD will be performed tomorrow due to dysphagia Appreciate Dr. SANCHEZ Urine is very dark 05/26/2021: Patient settling in well Daughter at bedside Dysphagia reported so we will consult Dr. SANCHEZ for EGD with dilatation Checked meds and labs Incontinence is an issue because it is constant INR 1.9 Review of Systems General: Fatigue, Malaise Objective Exam Vital Signs Vital Signs Date Time Temp Pulse Resp B/P (MAP) Pulse Ox O2 Delivery O2 Flow Rate FiO2 05/29/21 21:00 Room Air 05/29/21 20:00 36.4 60 18 155/64 (94) 97 Capillary Refill : General Appearance: No Apparent Distress, WD/WN, Anxious, Chronically ill, Obese HEENT: PERRL/EOMI, Normal ENT Inspection, Pharynx Normal Neck: Full Range of Motion, Normal Inspection, Non Tender, Supple, Carotid Bruit Respiratory: Chest Non Tender, Lungs Clear, Normal Breath Sounds, No Accessory Muscle Use, No Respiratory Distress Cardiovascular: Regular Rate, Rhythm, No Edema, No Gallop, No JVD, No Murmur, Normal Peripheral Pulses Gastrointestinal: Normal Bowel Sounds, No Organomegaly, No Pulsatile Mass, Non Tender, Soft Back: Normal Inspection, No CVA Tenderness, No Vertebral Tenderness Extremity: Normal Capillary Refill, Normal Inspection, Normal Range of Motion, Non Tender, No Calf Tenderness, No Pedal Edema Neurologic/Psychiatric: Alert, Oriented x3, No Motor/Sensory Deficits, Normal Mood/Affect, Abnormal Gait, Disoriented, Motor Weakness (Generalized) Skin: Normal Color, Warm/Dry Lymphatic: No Adenopathy Results/Procedures Lab Patient resulted labs reviewed. FIM Transfers Therapy Code Descriptions/Definitions Functional [place] Measure: 0=Not Assessed/NA 4=Minimal Assistance 1=Total Assistance 5=Supervision or Setup 2=Maximal Assistance 6=Modified [place] 3=Moderate Assistance 7=Complete IndependenceSCALE: Activities may be completed with or without assistive devices. 2-Bzdupfphqw-tidtawl completes the activity by him/herself with no assistance from a helper. 5-Set-up or Clean-up Assistance-helper sets up or cleans up; patient completes activity. [place] assists only prior to or following the activity. 4-Supervision or Touching Assistance-helper provides verbal cues and/or to uching/steadying and/or contact guard assistance as patient completes activity. Assistance may be provided throughout the activity or intermittently. 3-Partial/Moderate Assistance-helper does LESS THAN HALF the effort. [place] lifts, holds or supports trunk or limbs, but provides less than half the effort. 2-Substantial/Maximal Assistance-helper does MORE THAN HALF the effort. [place] lifts or holds trunk or limbs and provides more than half the effort. 3-Atmffxmuv-xeqrjo does ALL the effort. Patient does none of the effort to complete the activity. Or, the assistance of 2 or more helpers is required for the patient to complete the activity. If activity was not attempted, code reason: 7-Patient Refused. 9-Not Applicable-not attempted and the patient did not perform the activity before the current illness, exacerbation or injury. 10-Not Attempted due to Environmental Limitations-(lack of equipment, weather restraints, etc.). 88-Not Attempted due to Medical Conditions or Safety Concerns. Roll Left to Right (QC): 3 Sit to Lying (QC): 1 Sit to Stand (QC): 1 Chair/Zyp-lh-Thzvk Xfer(QC): 3 Car Transfer (QC): 88 Gait Training Does the Patient Walk?: Yes Walk 10 feet (QC): 88 Walk 50 ft with 2 Turns(QC): 88 Walk 150 ft (QC): 88 Walking 10ft/uneven surface-QC: 88 Gait Assistive Device: FWW Wheelchair Training Does the Pt Use a Wheelchair?: Yes Wheel 50 ft with 2 turns (QC): 3 Wheel 150 ft (QC): 3 Type of Wheelchair: Manual Stair Training 1 Step (curb) (QC): 88 4 Steps (QC): 88 12 Steps (QC): 88 Balance Picking up an Object (QC): 88 ADL-Treatment Eating (QC): 4 Oral Hygiene (QC): 5 Shower/Bathe Self (QC): 1 Upper Body Dressing (QC): 2 Lower Body Dressing (QC): 1 On/Off Footwear (QC): 1 Toileting Hygiene (QC): 1 Toilet Transfer (QC): 1 Assessment/Plan Assessment and Plan Assess & Plan/Chief Complaint Assessment: Debility BMI 46 Supratherapeutic INR UTI completed treatment Lobo catheter discontinued now Urinary incontinence Atrial fibrillation? DVT? Dysphagia Urinary incontinence Antral ulcer on EGD with recent bleed Acute blood loss anemia with severe iron deficiency Plan: Supportive care UTI treatment DC Lobo catheter Aggressive rehab 05/26/2021: Aggressive rehab Incontinence care Maintain Coumadin EGD with dilatation 05/27/2021: EGD tomorrow Supportive care 05/28/2021: Appreciate Dr. SANCHEZ Monitor closely 05/29/2021: Iron infusions Supportive care (1) General weakness Status: Acute (2) BMI 45.0-49.9, adult (3) Lobo catheter in place (4) Atrial fibrillation (5) Warfarin anticoagulation (6) Confusion (7) Supratherapeutic INR Status: Acute (8) UTI (urinary tract infection) Status: Acute (9) Anemia Status: Acute TAMARA DE LEON DO May 29, 2021 06:51
[2021-05-29] MEDS: CATHETER FLUSH 10 ML SYR IV SCH ×3 (07:08→22:55)
[2021-05-29] MEDS: PANTOPRAZOLE 40 MG (PROTONIX) VIAL IV SCH ×2 (07:47→22:54)
[2021-05-29] MEDS: ACETAMINOPHEN 325 MG TABLET PO PRN ×3 (07:47→22:56)
[2021-05-29] MEDS: SENNOSIDES 8.6 MG (SENOKOT) TAB PO SCH ×2 (07:48→23:10)
[2021-05-29] MEDS: DOCUSATE SODIUM 100 MG (COLACE) CAP PO SCH ×2 (07:48→22:55)
[2021-05-29] MEDS: MICONAZOLE 2% POWDER (DESENEX AF) 90 GM TOP SCH ×2 (07:48→22:56)
[2021-05-29] MEDS: NITROFURANTOIN 100 MG (MACROBID) CAPSULE PO SCH ×2 (07:48→22:56)
[2021-05-29] MEDS: OXYBUTYNIN (DITROPAN) 5 MG TAB PO SCH ×2 (07:48→22:55)
[2021-05-29] MEDS: GABAPENTIN 300 MG (NEURONTIN) CAP PO SCH ×3 (07:48→22:56)
[2021-05-29] MEDS: DULoxetine 30 MG (CYMBALTA) CAP PO SCH ×2 (07:48→22:55)
[2021-05-29 07:57] VITALS: BP 144/61
[2021-05-29] MEDS: polyethylene glycoL POWDER 17 GM (MIRALAX) PACK PO SCH ×2 (08:00→23:09)
--- NOTE | 2021-05-29 08:59 | Physical Therapy Daily Note ---
PT Daily Note-Current Subjective Patient in bed pre tx, agrees to PT, has unrated pain where her bruises are on her arms. Will be co-treating with OT due to poor patient mobility, strength, endurance, severe debility, coordinate UE and LE during activity, safety and reduce risk of falls. Appearance Patient in recliner post tx to continue with OT. Mental Status Patient Orientation: Person, Place, Situation Transfers SCALE: Activities may be completed with or without assistive devices. 8-Ahvqortjeg-flbmfly completes the activity by him/herself with no assistance from a helper. 5-Set-up or Clean-up Assistance-helper sets up or cleans up; patient completes activity. [place] assists only prior to or following the activity. 4-Supervision or Touching Assistance-helper provides verbal cues and/or touching/steadying and/or contact guard assistance as patient completes activity. Assistance may be provided throughout the activity or intermittently. 3-Partial/Moderate Assistance-helper does LESS THAN HALF the effort. [place] lifts, holds or supports trunk or limbs, but provides less than half the effort. 2-Substantial/Maximal Assistance-helper does MORE THAN HALF the effort. [place] lifts or holds trunk or limbs and provides more than half the effort. 9-Echwpdrwi-eloosf does ALL the effort. Patient does none of the effort to complete the activity. Or, the assistance of 2 or more helpers is required for the patient to complete the activity. If activity was not attempted, code reason: 7-Patient Refused. 9-Not Applicable-not attempted and the patient did not perform the activity before the current illness, exacerbation or injury. 10-Not Attempted due to Environmental Limitations-(lack of equipment, weather restraints, etc.). 88-Not Attempted due to Medical Conditions or Safety Concerns. Roll Left & Right (QC): 3 Lying to Sitting/Side of Bed(Q: 3 Sit to Stand (QC): 3 Chair/Lbj-to-Fdzxv Xfer(QC): 3 Patient sits to the side of the bed with mod assist, stands using a rolling walker with min assist (from an elevated bed), and transfers to shower chair (this whole process is very slow, takes about 15 min). Taken to shower room, showers, taken back to room and transfers to electric lift recliner, finishes dressing, has to stand again to get her brief up and sits back down. Treatments PT performed bed mobility and transfers, standing, positioning and safety during activity, OT performed dressing, bathing, UE positioning and safety during activity. Assessment Current Status: Poor Progress Patient has poor motivation, doesn't participate with full effort PT Short Term Goals Short Term Goals Time Frame: Jun 01, 2021 Roll Left & Right: 3 Sit to lyin Lying to sitting on side of be: 3 Sit to stand: 3 Chair/tvn-de-irfui transfer: 3 Walk 10 feet: 3 Walk 50 feet with two turns: 3 PT Crm Architect Goals Correction Goals PT Correction Goals Time Frame: Jun 15, 2021 Roll Left & Right (QC): 4 Sit to Lying (QC): 4 Lying-Sitting on Side/Bed(QC): 4 Sit to Stand (QC): 4 Chair/Aqy-th-Noeog Xfer(QC): 4 Toilet Transfer (QC): 4 Car Transfer (QC): 3 Does the Patient Walk: Yes Walk 10 feet (QC): 4 Walk 50ft with 2 Turns (QC): 4 Walk 150 ft (QC): 4 Walking 10ft on Uneven Surface: 4 1 Step (curb) (QC): 4 4 Steps (QC): 88 12 Steps (QC): 88 Picking up an Object (QC): 4 Wheel 50 feet with 2 turns (QC: 4 Wheel 150 feet: 4 PT Plan Problem List Problem List: Activity Tolerance, Functional Strength, Safety, Balance, Gait, Transfer, Bed Mobility, ROM Treatment/Plan Treatment Plan: Continue Plan of Care Treatment Plan: Bed Mobility, Education, Functional Activity Max, Functional Strength, Group Therapy, Gait, Safety, Therapeutic Exercise, Transfers Treatment Duration: Jun 01, 2021 Frequency: At least 5 of 7 days/Wk (IRF) Estimated Hrs Per Day: 1.5 hours per day Patient and/or Family Agrees t: Yes Safety Risks/Education Patient Education: Transfer Techniques, Correct Positioning, Safety Issues Teaching Recipient: Patient Teaching Methods: Demonstration, Discussion Response to Teaching: Reinforcement Needed Time/GCodes Time In: 0800 Time Out: 0900 Total Billed Treatment Time: 60 Total Billed Treatment 1 visit FA 60' co-treated from [id number] MARTITA MARK PT May 29, 2021 08:59
--- NOTE | 2021-05-29 09:32 | Occupational Ther Daily Note ---
OT Current Status-Daily Note Subjective Reports pain from bruises along bilateral UE's. Appearance Left sitting in recliner, all needs within reach. Mental Status/Objective Patient Orientation: Person, Confused, Place Attachments: IV ADL-Treatment Therapy Code Descriptions/Definitions Functional [place] Measure: 0=Not Assessed/NA 4=Minimal Assistance 1=Total Assistance 5=Supervision or Setup 2=Maximal Assistance 6=Modified [place] 3=Moderate Assistance 7=Complete IndependenceSCALE: Activities may be completed with or without assistive devices. 3-Vkwvndzxlp-ruvxkxk completes the activity by him/herself with no assistance from a helper. 5-Set-up or Clean-up Assistance-helper sets up or cleans up; patient completes activity. [place] assists only prior to or following the activity. 4-Supervision or Touching Assistance-helper provides verbal cues and/or touching/steadying and/or contact guard assistance as patient completes activity. Assistance may be provided throughout the activity or intermittently. 3-Partial/Moderate Assistance-helper does LESS THAN HALF the effort. [place] lifts, holds or supports trunk or limbs, but provides less than half the effort. 2-Substantial/Maximal Assistance-helper does MORE THAN HALF the effort. [place] lifts or holds trunk or limbs and provides more than half the effort. 5-Bvixxiyih-fvdpmr does ALL the effort. Patient does none of the effort to complete the activity. Or, the assistance of 2 or more helpers is required for the patient to complete the activity. If activity was not attempted, code reason: 7-Patient Refused. 9-Not Applicable-not attempted and the patient did not perform the activity before the current illness, exacerbation or injury. 10-Not Attempted due to Environmental Limitations-(lack of equipment, weather restraints, etc.). 88-Not Attempted due to Medical Conditions or Safety Concerns. Oral Hygiene (QC): 5 Shower/Bathe Self (QC): 2 Upper Body Dressing (QC): 2 Lower Body Dressing (QC): 1 On/Off Footwear: 1 Toileting Hygiene (QC): 1 Toilet Transfer (QC): 2 Shower performed; 100% completed in sitting. Little effort from patient, requires cues and assist to initiate all steps. After cues, pt able to wash breasts, stomach, upper thighs, and bilateral arms. OT issued and instructed pt on use of LHS to assist in reaching below knees and bilateral axillas. Mod A still needed for thoroughness. Assist also required to wash under bilateral breast and abdominal pannus as well as sarath area and buttocks. Clothing tasks completed seated in recliner. Min a to bring nightgown over head due to limited shoulder rom. Mod-max a required to bring sleeves past elbows. Extra time, cues and min a to thread BLE's into brief with use of multi disciplined language analyst. Mod a to stand (with lift recliner). Once upright, min a for balance. Assist of 2nd person to assist with clothing management as pt relies heavily on BUE support on walker. Other Treatment Audible crepitus and extra time to extend hips/trunk with all transfers. Pt completed AAROM-PROM exercises and gentle stretching; heavy focus on shoulders to improve ROM needed for functional tasks. Initially pt only able to complete 90 degrees (shoulder flexion) bilaterally. At end of treatment pt improves to ~120 degrees bilaterally, L slightly weaker than Right. Education OT Patient Education: Correct positioning, Energy conservation, Exercise program, Modified ADL techniques, Progress toward Goal/Update tx plan, Purpose of tx/functional activities, Reviewed precautions, Rehab process, Safety issues, Transfer techniques, Use of adapted equipment, W/C management Teaching Recipient: Patient Teaching Methods: Demonstration, Discussion Response to Teaching: Verbalize Understanding, Unable to Return Demonstration, Reinforcement Needed OT Short Term Goals Short Term Goals Time Frame: Jun 02, 2021 Eatin Oral hygiene: 5 Toileting hygiene: 2 Shower/bathe self: 2 Upper body dressin Lower body dressin Putting on/taking off footwear: 2 OT Halfway Goals Halfway Goals Time Frame: Jun 23, 2021 Eating (QC): 6 Oral Hygiene (QC): 5 Toileting Hygiene (QC): 4 Shower/Bathe Self (QC): 3 Upper Body Dressing (QC): 4 Lower Body Dressing (QC): 4 On/Off Footwear (QC): 3 1=Demonstrate adherence to instructed precautions during ADL tasks. 2=Patient will verbalize/demonstrate understanding of assistive devic es/modifications for ADL. 3=Patient will improve strength/tolerance for activity to enable patient to perform ADL's. OT Education/Plan Problem List/Assessment Assessment: Decreased Activ Tolerance, Decreased Safety Aware, Decreased UE Strength, Dependent Transfers, Impaired Bed Mobility, Impaired Cognition, Impaired Funct Balance, Impaired I ADL's, Impaired Self-Care Skills, Restricted Funct UE ROM Discharge Recommendations Plan/Recommendations: Continue POC Equpiment Recommendations-D/C: Toilet Riser with Rails, Information Security, Sock Aide Treatment Plan/Plan of Care Treatment,Training & Education: Yes Patient would benefit from OT for education, treatment and training to promote independence in ADL's, mobility, safety and/or upper extremity function for ADL 's. Plan of Care: ADL Retraining, Functional Mobility, Group Exercise/Act as Ind, UE Funct Exercise/Act Treatment Duration: Jun 23, 2021 Frequency: At least 5 of 7 days/Wk (IRF) Estimated Hrs Per Day: 1.5 hours per day Agreement: Yes Rehab Potential: Guarded Time/GCodes Start Time: 08:15 Stop Time: 09:30 Total Time Billed (hr/min): 75 Billed Treatment Time 1 visit ADL x3 (50 min) EX x2 (25 min) Monie Delcid OT May 29, 2021 09:32
--- NOTE | 2021-05-29 11:31 | Physical Therapy Daily Note ---
PT Daily Note-Current Subjective Patient in recliner pre tx, agrees to PT, has no complaints of pain at rest. Appearance Patient in recliner post tx with nurse call, phone, tray, all needs met. Mental Status Patient Orientation: Person, Place, Situation Transfers SCALE: Activities may be completed with or without assistive devices. 1-Vgoqgiiovh-vvhjtan completes the activity by him/herself with no assistance from a helper. 5-Set-up or Clean-up Assistance-helper sets up or cleans up; patient completes activity. [place] assists only prior to or following the activity. 4-Supervision or Touching Assistance-helper provides verbal cues and/or touching/steadying and/or contact guard assistance as patient completes activity. Assistance may be provided throughout the activity or intermittently. 3-Partial/Moderate Assistance-helper does LESS THAN HALF the effort. [place] lifts, holds or supports trunk or limbs, but provides less than half the effort. 2-Substantial/Maximal Assistance-helper does MORE THAN HALF the effort. [place] lifts or holds trunk or limbs and provides more than half the effort. 7-Uygrzaeiw-yrpogp does ALL the effort. Patient does none of the effort to complete the activity. Or, the assistance of 2 or more helpers is required for the patient to complete the activity. If activity was not attempted, code reason: 7-Patient Refused. 9-Not Applicable-not attempted and the patient did not perform the activity before the current illness, exacerbation or injury. 10-Not Attempted due to Environmental Limitations-(lack of equipment, weather restraints, etc.). 88-Not Attempted due to Medical Conditions or Safety Concerns. Exercises Supine Ex: Ankle pumps, Quad Set, Glut sets, Heel Slides, Short Arc Quads, Straight leg raise (AAROM), Hip abd/add Supine Reps: 20 (done in recliner with legs elevated) Treatments LE strengthening Assessment Current Status: Poor Progress improved performance with LE exercise PT Short Term Goals Short Term Goals Time Frame: Jun 01, 2021 Roll Left & Right: 3 Sit to lyin Lying to sitting on side of be: 3 Sit to stand: 3 Chair/rxp-yd-drtpi transfer: 3 Walk 10 feet: 3 Walk 50 feet with two turns: 3 PT Teacher Visually Impaired Goals Teacher Visually Impaired Goals PT Teacher Visually Impaired Goals Time Frame: Jun 15, 2021 Roll Left & Right (QC): 4 Sit to Lying (QC): 4 Lying-Sitting on Side/Bed(QC): 4 Sit to Stand (QC): 4 Chair/Udg-xy-Xxtws Xfer(QC): 4 Toilet Transfer (QC): 4 Car Transfer (QC): 3 Does the Patient Walk: Yes Walk 10 feet (QC): 4 Walk 50ft with 2 Turns (QC): 4 Walk 150 ft (QC): 4 Walking 10ft on Uneven Surface: 4 1 Step (curb) (QC): 4 4 Steps (QC): 88 12 Steps (QC): 88 Picking up an Object (QC): 4 Wheel 50 feet with 2 turns (QC: 4 Wheel 150 feet: 4 PT Plan Problem List Problem List: Activity Tolerance, Functional Strength, Safety, Balance, Gait, Transfer, Bed Mobility, ROM Treatment/Plan Treatment Plan: Continue Plan of Care Treatment Plan: Bed Mobility, Education, Functional Activity Max, Functional Strength, Group Therapy, Gait, Safety, Therapeutic Exercise, Transfers Treatment Duration: Jun 01, 2021 Frequency: At least 5 of 7 days/Wk (IRF) Estimated Hrs Per Day: 1.5 hours per day Patient and/or Family Agrees t: Yes Safety Risks/Education Patient Education: Correct Positioning, Safety Issues Teaching Recipient: Patient Teaching Methods: Demonstration, Discussion Response to Teaching: Reinforcement Needed Time/GCodes Time In: 1115 Time Out: 1130 Total Billed Treatment Time: 15 Total Billed Treatment 1 visit EX 15' MARTITA MARK PT May 29, 2021 11:31
--- NOTE | 2021-05-29 12:53 | Speech Therapy Daily Note ---
Speech Daily Progress Note Subjective Date Seen by Provider: May 29, 2021 Time Seen by Provider: 10:00 The patient was seated upright in recliner, sleeping upon entrance. The patient woke with a verbal greeting from the clinician and was agreeable to participation in the cognitive linguistic treatment session. Objective - Orientation: The patient was independently oriented to month, day of the week, date, year, and location. - Problem Solving: The patient was provided basic problem solving cards and was requested to identify "What's wrong?" The patient displayed 100% accuracy, independently. Assessment Assessment Current Status: Good Progress Treatment Plan Continue Plan of Care Speech Short Term Goals Short Term Goals Short Term Goals 1. The patient will demonstrated 90% accuracy with functional memory and executive functioning tasks with mild clinician verbal cueing. Speech Belt Maker Goals Snf Goals 1. The patient will demonstrate increased cognitive linguistic skills for safe return to the least restricted environment. Speech-Plan Treatment Plan Speech Therapy Treatment Plan: Continue Plan of Care Treatment Duration: May 25, 2021 Frequency: 4 times per week (Four to five times per week.) Estimated Hrs Per Day: .5 hour per day Rehab Potential: Guarded Pt/Family Agrees to Plan: Yes Safety Risks/Education Teaching Recipient: Patient Teaching Methods: Discussion Response to Teaching: Verbalize Understanding Education Topics Provided: Plan of Care, Goals of Skilled Speech Language Pathology Time Speech Therapy Time In: 10:00 Speech Therapy Time Out: 10:30 Total Billed Time: 30 Billed Treatment Time ANEUDY Del Toro [facility] May 29, 2021 12:53
[2021-05-29] MEDS: warFARin 3 MG (COUMADIN) TAB PO SCH (18:05)
[2021-05-29 20:00] VITALS: BP 155/64
[2021-05-29] MEDS: LOSARTAN 100 MG (COZAAR) TABLET PO SCH (22:55)
[2021-05-29] MEDS: RINVOQ 15 MG PO SCH (22:57)
--- NOTE | 2021-05-30 05:57 | PM&R Progress Note ---
Subjective HPI/CC On Admission Date Seen by Provider: May 30, 2021 Time Seen by Provider: 09:00 Subjective/Events-last exam 05/30/2021: Pt doing about the same Coumadin restarted Walking with therapy on the parallel bars Allevyn on her buttocks Set for discharge to her daughters house 05/29/2021: Pt doing a lot better Midline in the right arm Flu vaccine was given EGD showed ulcer IV iron infusion maintained Warfarin restarted 05/28/2021: Pt is doing pretty well Midline will be placed for Venofer EGD will be done today at 2 PM Bowels moved 05/24/21 05/27/2021: Patient doing about the same Requires two-person transfer to side of bed Unsure if she is clinically capable of regaining enough function to go to daughter's house EGD will be performed tomorrow due to dysphagia Appreciate Dr. SANCHEZ Urine is very dark 05/26/2021: Patient settling in well Daughter at bedside Dysphagia reported so we will consult Dr. SANHCEZ for EGD with dilatation Checked meds and labs Incontinence is an issue because it is constant INR 1.9 Review of Systems General: Fatigue Neurological: Weakness Objective Exam Vital Signs Vital Signs Date Time Temp Pulse Resp B/P (MAP) Pulse Ox O2 Delivery O2 Flow Rate FiO2 05/30/21 20:05 Room Air 05/30/21 20:02 36.4 59 20 169/95 (119) 95 Capillary Refill : General Appearance: No Apparent Distress, WD/WN, Anxious, Chronically ill, Obese HEENT: PERRL/EOMI, Normal ENT Inspection, Pharynx Normal Neck: Full Range of Motion, Normal Inspection, Non Tender, Supple, Carotid Bruit Respiratory: Chest Non Tender, Lungs Clear, Normal Breath Sounds, No Accessory Muscle Use, No Respiratory Distress Cardiovascular: Regular Rate, Rhythm, No Edema, No Gallop, No JVD, No Murmur, Normal Peripheral Pulses Gastrointestinal: Normal Bowel Sounds, No Organomegaly, No Pulsatile Mass, Non Tender, Soft Back: Normal Inspection, No CVA Tenderness, No Vertebral Tenderness Extremity: Normal Capillary Refill, Normal Inspection, Normal Range of Motion, Non Tender, No Calf Tenderness, No Pedal Edema Neurologic/Psychiatric: Alert, Oriented x3, No Motor/Sensory Deficits, Normal Mood/Affect, Abnormal Gait, Disoriented, Motor Weakness (Generalized) Skin: Normal Color, Warm/Dry Lymphatic: No Adenopathy Results/Procedures Lab Patient resulted labs reviewed. FIM Transfers Therapy Code Descriptions/Definitions Functional [place] Measure: 0=Not Assessed/NA 4=Minimal Assistance 1=Total Assistance 5=Supervision or Setup 2=Maximal Assistance 6=Modified [place] 3=Moderate Assistance 7=Complete IndependenceSCALE: Activities may be completed with or without assistive devices. 0-Shpllluqbd-ptsltuh completes the activity by him/herself with no assistance from a helper. 5-Set-up or Clean-up Assistance-helper sets up or cleans up; patient completes activity. [place] assists only prior to or following the activity. 4-Supervision or Touching Assistance-helper provides verbal cues and/or touching/steadying and/or contact guard assistance as patient completes activity. Assistance may be provided throughout the activity or intermittently. 3-Partial/Moderate Assistance-helper does LESS THAN HALF the effort. [place] lifts, holds or supports trunk or limbs, but provides less than half the effort. 2-Substantial/Maximal Assistance-helper does MORE THAN HALF the effort. [place] lifts or holds trunk or limbs and provides more than half the effort. 5-Uilxibzft-updogr does ALL the effort. Patient does none of the effort to complete the activity. Or, the assistance of 2 or more helpers is required for the patient to complete the activity. If activity was not attempted, code reason: 7-Patient Refused. 9-Not Applicable-not attempted and the patient did not perform the activity before the current illness, exacerbation or injury. 10-Not Attempted due to Environmental Limitations-(lack of equipment, weather restraints, etc.). 88-Not Attempted due to Medical Conditions or Safety Concerns. Roll Left to Right (QC): 3 Sit to Lying (QC): 1 Sit to Stand (QC): 3 Chair/Edk-bq-Ikdme Xfer(QC): 3 Car Transfer (QC): 88 Gait Training Does the Patient Walk?: Yes Walk 10 feet (QC): 88 Walk 50 ft with 2 Turns(QC): 88 Walk 150 ft (QC): 88 Walking 10ft/uneven surface-QC: 88 Gait Assistive Device: FWW Wheelchair Training Does the Pt Use a Wheelchair?: Yes Wheel 50 ft with 2 turns (QC): 3 Wheel 150 ft (QC): 3 Type of Wheelchair: Manual Stair Training 1 Step (curb) (QC): 88 4 Steps (QC): 88 12 Steps (QC): 88 Balance Picking up an Object (QC): 88 ADL-Treatment Eating (QC): 4 Oral Hygiene (QC): 5 Shower/Bathe Self (QC): 2 Upper Body Dressing (QC): 2 Lower Body Dressing (QC): 1 On/Off Footwear (QC): 1 Toileting Hygiene (QC): 1 Toilet Transfer (QC): 2 Assessment/Plan Assessment and Plan Assess & Plan/Chief Complaint Assessment: Debility BMI 46 Supratherapeutic INR UTI completed treatment Lobo catheter discontinued now Urinary incontinence Atrial fibrillation? DVT? Dysphagia Urinary incontinence Antral ulcer on EGD with recent bleed Acute blood loss anemia with severe iron deficiency Plan: Supportive care UTI treatment DC Lobo catheter Aggressive rehab 05/26/2021: Aggressive rehab Incontinence care Maintain Coumadin EGD with dilatation 05/27/2021: EGD tomorrow Supportive care 05/28/2021: Appreciate Dr. SANCHEZ Monitor closely 05/29/2021: Iron infusions Supportive care 05/30/2021: Iron infusions Supportive care (1) General weakness Status: Acute (2) BMI 45.0-49.9, adult (3) Lobo catheter in place (4) Atrial fibrillation (5) Warfarin anticoagulation (6) Confusion (7) Supratherapeutic INR Status: Acute (8) UTI (urinary tract infection) Status: Acute (9) Anemia Status: Acute TAMARA DE LEON DO May 30, 2021 05:57
[2021-05-30] MEDS: CATHETER FLUSH 10 ML SYR IV SCH ×3 (06:49→20:07)
[2021-05-30 07:47] VITALS: BP 139/63
[2021-05-30] MEDS: PANTOPRAZOLE 40 MG (PROTONIX) VIAL IV SCH ×2 (08:07→20:03)
[2021-05-30] MEDS: NITROFURANTOIN 100 MG (MACROBID) CAPSULE PO SCH (08:07)
[2021-05-30] MEDS: GABAPENTIN 300 MG (NEURONTIN) CAP PO SCH ×3 (08:07→20:05)
[2021-05-30] MEDS: DOCUSATE SODIUM 100 MG (COLACE) CAP PO SCH ×2 (08:07→20:05)
[2021-05-30] MEDS: DULoxetine 30 MG (CYMBALTA) CAP PO SCH ×2 (08:07→20:06)
[2021-05-30] MEDS: OXYBUTYNIN (DITROPAN) 5 MG TAB PO SCH ×2 (08:07→20:05)
[2021-05-30] MEDS: SENNOSIDES 8.6 MG (SENOKOT) TAB PO SCH ×2 (08:07→21:23)
[2021-05-30] MEDS: IRON SUCROSE 200 MG/10 ML (VENOFER) VIAL IV SCH (08:07)
[2021-05-30] MEDS: polyethylene glycoL POWDER 17 GM (MIRALAX) PACK PO SCH ×2 (08:08→21:23)
[2021-05-30] MEDS: ACETAMINOPHEN 325 MG TABLET PO PRN ×3 (08:08→20:06)
[2021-05-30] MEDS: MICONAZOLE 2% POWDER (DESENEX AF) 90 GM TOP SCH ×2 (08:09→20:06)
--- NOTE | 2021-05-30 09:00 | Occupational Ther Daily Note ---
OT Current Status-Daily Note Subjective Pt reports pain in bilateral UE's as 5/10. RN notified and pain meds given during session. Co-treat with PT for part of session ([id number]) due to need of 2 skilled clinicians to progress mobility and adls Appearance Pt left sitting in chair with physical therapy present in room. Mental Status/Objective Patient Orientation: Person, Confused, Place Attachments: IV ADL-Treatment Therapy Code Descriptions/Definitions Functional [place] Measure: 0=Not Assessed/NA 4=Minimal Assistance 1=Total Assistance 5=Supervision or Setup 2=Maximal Assistance 6=Modified [place] 3=Moderate Assistance 7=Complete IndependenceSCALE: Activities may be completed with or without assistive devices. 1-Tevlexrefd-kwopyuj completes the activity by him/herself with no assistance from a helper. 5-Set-up or Clean-up Assistance-helper sets up or cleans up; patient completes activity. [place] assists only prior to or following the activity. 4-Supervision or Touching Assistance-helper provides verbal cues and/or touching/steadying and/or contact guard assistance as patient completes activity. Assistance may be provided throughout the activity or intermittently. 3-Partial/Moderate Assistance-helper does LESS THAN HALF the effort. [place] lifts, holds or supports trunk or limbs, but provides less than half the effort. 2-Substantial/Maximal Assistance-helper does MORE THAN HALF the effort. [place] lifts or holds trunk or limbs and provides more than half the effort. 2-Dfaocanev-xbwyqu does ALL the effort. Patient does none of the effort to complete the activity. Or, the assistance of 2 or more helpers is required for the patient to complete the activity. If activity was not attempted, code reason: 7-Patient Refused. 9-Not Applicable-not attempted and the patient did not perform the activity before the current illness, exacerbation or injury. 10-Not Attempted due to Environmental Limitations-(lack of equipment, weather restraints, etc.). 88-Not Attempted due to Medical Conditions or Safety Concerns. Oral Hygiene (QC): 5 Upper Body Dressing (QC): 3 Lower Body Dressing (QC): 1 On/Off Footwear: 4 Toileting Hygiene (QC): 1 Partial sponge bath with wet wipes performed seated in chair. Assist to lift BUE's in order for patient to wash axillas. Mod a required for thoroughness. Post Cues to recline back in chair, pt was able to lift and wash abdominal pannus as well as front sarath area. LE's not addressed this date. Mod verbal cues and min a on preferred master data analyst use when threading BLE's into brief. Pt did not utilize master data analyst when threading feet into pants, extra time only. Mod a x2 to stand from low surface. Min a for balance once standing, tactile and verbal cues for upright posture and correct placement of hands on walker. Pt has tendency to lean over walker with hands on front rail. Pt able to partially assist with pulling pants up in front as second person managed clothing up in back and around hips. Mod-max a to don shirt as she required assist with threading sleeves over elbows and bringing overhead. With set up and extra time, she was able to slide feet into slip on shoes. Mod a to stand from elevated lift chair. Simple 1 step cues needed for all transfers and ensuring pt turns completely before sitting. Grooming tasks completed seated in w/c, set up assist. Other Treatment Pt propelled w/c ~20 feet with significant amount of time and breaks. Max cues for improved propulsion and placement of hands. At times, HOHA needed as pt unable to comprehend visual and verbal cues. Poor carryover with cues throughout session. Sit<>ruby engineer parallel bars x3, mod a from elevated chair height. Longest standing time ~15 seconds. Cues for upright posture as pt often resting on Left elbow. Audible crepitus with all transfers. Education OT Patient Education: Correct positioning, Disease process, Energy conservation, Modified ADL techniques, Progress toward Goal/Update tx plan, Purpose of tx/functional activities, Safety issues, Transfer techniques, Use of adapted equipment, W/C management Teaching Recipient: Patient Teaching Methods: Demonstration, Discussion Response to Teaching: Verbalize Understanding, Unable to Comprehend, Reinforcement Needed OT Short Term Goals Short Term Goals Time Frame: Jun 02, 2021 Eatin Oral hygiene: 5 Toileting hygiene: 2 Shower/bathe self: 2 Upper body dressin Lower body dressin Putting on/taking off footwear: 2 OT Design Cell Engineer Goals Design Cell Engineer Goals Time Frame: Jun 23, 2021 Eating (QC): 6 Oral Hygiene (QC): 5 Toileting Hygiene (QC): 4 Shower/Bathe Self (QC): 3 Upper Body Dressing (QC): 4 Lower Body Dressing (QC): 4 On/Off Footwear (QC): 3 1=Demonstrate adherence to instructed precautions during ADL tasks. 2=Patient will verbalize/demonstrate understanding of assistive devices/modifications for ADL. 3=Patient will improve strength/tolerance for activity to enable patient to perform ADL's. OT Education/Plan Problem List/Assessment Assessment: Decreased Activ Tolerance, Decreased Safety Aware, Decreased UE Strength, Dependent Transfers, Impaired Cognition, Impaired Funct Balance, Impaired I ADL's, Impaired Self-Care Skills, Restricted Funct UE ROM Discharge Recommendations Plan/Recommendations: Continue POC Therapy Discharge Recommendati: Scheduled Assistance, Bath Aide, Homemaker Support, Post Acute OT Equpiment Recommendations-D/C: Merchandise Planning Manager Treatment Plan/Plan of Care Treatment,Training & Education: Yes Patient would benefit from OT for education, treatment and training to promote independence in ADL's, mobility, safety and/or upper extremity function for ADL's. Plan of Care: ADL Retraining, Functional Mobility, Group Exercise/Act as Ind, UE Funct Exercise/Act Treatment Duration: Jun 23, 2021 Frequency: At least 5 of 7 days/Wk (IRF) Estimated Hrs Per Day: 1.5 hours per day Agreement: Yes Rehab Potential: Guarded Time/GCodes Start Time: 07:45 Stop Time: 09:00 Total Time Billed (hr/min): 75 Billed Treatment Time 1 visit ADL x3 (45 min) FA x2 (30 min) Monie Delcid OT May 30, 2021 09:00
--- NOTE | 2021-05-30 09:29 | Physical Therapy Daily Note ---
PT Daily Note-Current Subjective Pt reports pain in bilateral UE's as 5/10. RN notified and pain meds given during session. Co-treat with PT for part of session ([id number]) due to need of 2 skilled clinicians to progress mobility and ADLs. Pain Numeric Pain Scale: 5-Moderate Pain Location: Right, Left Location Body Site: Knee Pain Description: Ache, Chronic Mental Status Patient Orientation: Person, Place Transfers SCALE: Activities may be completed with or without assistive devices. 0-Aivpueyzsv-rxcanfi completes the activity by him/herself with no assistance from a helper. 5-Set-up or Clean-up Assistance-helper sets up or cleans up; patient completes activity. [place] assists only prior to or following the activity. 4-Supervision or Touching Assistance-helper provides verbal cues and/or touching/steadying and/or contact guard assistance as patient completes activity. Assistance may be provided throughout the activity or intermittently. 3-Partial/Moderate Assistance-helper does LESS THAN HALF the effort. [place] lifts, holds or supports trunk or limbs, but provides less than half the effort. 2-Substantial/Maximal Assistance-helper does MORE THAN HALF the effort. [place] lifts or holds trunk or limbs and provides more than half the effort. 1-Walcqumpi-uxvghy does ALL the effort. Patient does none of the effort to complete the activity. Or, the assistance of 2 or more helpers is required for the patient to complete the activity. If activity was not attempted, code reason: 7-Patient Refused. 9-Not Applicable-not attempted and the patient did not perform the activity before the current illness, exacerbation or injury. 10-Not Attempted due to Environmental Limitations-(lack of equipment, weather restraints, etc.). 88-Not Attempted due to Medical Conditions or Safety Concerns. Sit to Stand (QC): 3 Weight Bearing Full Weight Bearing Full Weight Bearing Wheelchair Training Does the Pt Use a Wheelchair?: Yes Wheel 50 ft with 2 turns (QC): 4 Type of Wheelchair: Manual Exercises Seated Therapy Exercises: Ankle pumps, Long arc quads, Hip flexion, Glut set Seated Reps: 15 Treatments Pt did not utilize crystal lapper when threading feet into pants, extra time only. Mod a x2 to stand from low surface. Min a for balance once standing, tactile and verbal cues for upright posture and correct placement of hands on walker. Pt has tendency to lean over walker with hands on front rail. Pt able to partially assist with pulling pants up in front as second person managed clothing up in back and around hips. Mod-max a to don shirt as she required assist with threading sleeves over elbows and bringing overhead. With set up and extra time, she was able to slide feet into slip on shoes. Mod a to stand from elevated lift chair. Simple 1 step cues needed for all transfers and ensuring pt turns completely before sitting. Grooming tasks completed seated in w/c, set up assist . Pt propels WCH in hallway with VC and TC for correction of right drifting. Pt stands at //bars x2 for 10-15 sec. each. Pt returns to room and TF back to recliner to rest. Pt given written HEP for Supine & Seated EX and they were reviewed. Pt resting at end of tx with all needs met, call light in hand. Assessment Current Status: Fair Progress Weakness and discomfort in B knees limits pt. PT Short Term Goals Short Term Goals Time Frame: Jun 01, 2021 Roll Left & Right: 3 Sit to lyin Lying to sitting on side of be: 3 Sit to stand: 3 Chair/eje-rt-mmfat transfer: 3 Walk 10 feet: 3 Walk 50 feet with two turns: 3 PT Mcfp Goals Neckties Painter Goals PT Mcfp Goals Time Frame: Jun 15, 2021 Roll Left & Right (QC): 4 Sit to Lying (QC): 4 Lying-Sitting on Side/Bed(QC): 4 Sit to Stand (QC): 4 Chair/Qtc-wd-Msqzw Xfer(QC): 4 Toilet Transfer (QC): 4 Car Transfer (QC): 3 Does the Patient Walk: Yes Walk 10 feet (QC): 4 Walk 50ft with 2 Turns (QC): 4 Walk 150 ft (QC): 4 Walking 10ft on Uneven Surface: 4 1 Step (curb) (QC): 4 4 Steps (QC): 88 12 Steps (QC): 88 Picking up an Object (QC): 4 Wheel 50 feet with 2 turns (QC: 4 Wheel 150 feet: 4 PT Plan Problem List Problem List: Activity Tolerance, Functional Strength, Safety, Transfer Treatment/Plan Treatment Plan: Continue Plan of Care Treatment Plan: Bed Mobility, Education, Functional Activity Max, Functional Strength, Group Therapy, Gait, Safety, Therapeutic Exercise, Transfers Treatment Duration: Jun 01, 2021 Frequency: At least 5 of 7 days/Wk (IRF) Estimated Hrs Per Day: 1.5 hours per day Patient and/or Family Agrees t: Yes Safety Risks/Education Patient Education: Transfer Techniques, Correct Positioning, W/C Management, Safety Issues Teaching Recipient: Patient Teaching Methods: Demonstration, Discussion Response to Teaching: Verbalize Understanding, Return Demonstration Time/GCodes Time In: 800 Time Out: 915 Total Billed Treatment Time: 75 Total Billed Treatment Co-treat w/OT for 60m (800-900) 1, FA x2 (30m), WCH (20m) & EX x2 (25m) ALONDRA HENNESSY PTA May 30, 2021 09:29
--- NOTE | 2021-05-30 11:02 | Speech Therapy Daily Note ---
Speech Daily Progress Note Subjective Date Seen by Provider: May 30, 2021 Time Seen by Provider: 10:00 The patient was seated upright in her recliner, awake and alert upon entrance by the clinician. The patient greeted the clinician appropriately and was agreeable to participation in the cognitive linguistic treatment session. Prior to the session, the physician, staff, and clinician discussed the patient's current diet consistency (dysphagia three with thin liquids). It appears the patient was placed on the diet following the prior EGD (one day earlier) with recommendations to upgrade to a regular consistency if appropriate. The clinician agreed to visit with the patient regarding her diet consistency and received approval from the physician to complete the bedside swallowing evaluation if necessary. Objective - Orientation: The patient remains independently oriented to self, location, month, day of week, date, and year. - Telling Time: The patient was provided an analog clock (which she stated she uses at home) and asked to state the time to the clinician. The patient displayed high accuracy with the task, completing the task with 80% accuracy, independently. The clinician and patient discussed the patient's current diet consistency and the clinician's ability to re-assess her oropharyngeal swallowing function for possible advancement to a regular diet consistency. The differences between the dysphagia three and the regular diet consistency were additionally discussed. Per patient, she remains more comfortable on the dysphagia three diet consistency. The patient reported the globus sensation and reflux episodes occur more frequently with solid consistencies. The patient reported she enjoys additional sauces and gravies which she feels aids PO items in pharyngeal clearance. The patient politely declined a swallowing evaluation on this date and wishes to remain on a dysphagia three with thin liquid diet consistency. Swallowing strategies were discussed and shared by the clinician which included small bites and sips, alternating solid and liquid consistencies on a 1:1 ratio, remaining upright following PO intake for a minimum of thirty minutes, and providing additional sauces and gravies to items when able. Assessment Assessment Current Status: Good Progress Treatment Plan Continue Plan of Care Speech Short Term Goals Short Term Goals Short Term Goals 1. The patient will demonstrated 90% accuracy with functional memory and executive functioning tasks with mild clinician verbal cueing. Speech Fci Goals Fci Goals 1. The patient will demonstrate increased cognitive linguistic skills for safe return to the least restricted environment. Speech-Plan Treatment Plan Speech Therapy Treatment Plan: Continue Plan of Care Treatment Duration: May 25, 2021 Frequency: 4 times per week (Four to five times per week.) Estimated Hrs Per Day: .5 hour per day Rehab Potential: Guarded Pt/Family Agrees to Plan: Yes Safety Risks/Education Teaching Recipient: Patient Teaching Methods: Discussion Response to Teaching: Verbalize Understanding Education Topics Provided: Safe Swallowing Strategies, Plan of Care Time Speech Therapy Time In: 10:00 Speech Therapy Time Out: 10:30 Total Billed Time: 30 Billed Treatment Time 1, JESSICA PALM May 30, 2021 11:02
[2021-05-30] MEDS: warFARin 3 MG (COUMADIN) TAB PO SCH (17:47)
[2021-05-30 20:02] VITALS: BP 169/95
[2021-05-30] MEDS: LOSARTAN 100 MG (COZAAR) TABLET PO SCH (20:05)
[2021-05-30] MEDS: RINVOQ 15 MG PO SCH (21:22)
--- NOTE | 2021-05-31 06:02 | PM&R Progress Note ---
Subjective HPI/CC On Admission Date Seen by Provider: May 31, 2021 Time Seen by Provider: 10:00 Subjective/Events-last exam 05/31/2021: Patient doing better Shoulder surgery from working on parallel bars Increase Coumadin dosing due to subtherapeutic Due to patient's obesity will make it difficult for transfers for her to go home 05/30/2021: Pt doing about the same Coumadin restarted Walking with therapy on the parallel bars Allevyn on her buttocks Set for discharge to her daughters house 05/29/2021: Pt doing a lot better Midline in the right arm Flu vaccine was given EGD showed ulcer IV iron infusion maintained Warfarin restarted 05/28/2021: Pt is doing pretty well Midline will be placed for Venofer EGD will be done today at 2 PM Bowels moved 05/24/21 05/27/2021: Patient doing about the same Requires two-person transfer to side of bed Unsure if she is clinically capable of regaining enough function to go to daughter's house EGD will be performed tomorrow due to dysphagia Appreciate Dr. SANCHEZ Urine is very dark 05/26/2021: Patient settling in well Daughter at bedside Dysphagia reported so we will consult Dr. SANCHEZ for EGD with dilatation Checked meds and labs Incontinence is an issue because it is constant INR 1.9 Review of Systems General: Fatigue, Malaise Objective Exam Vital Signs Vital Signs Date Time Temp Pulse Resp B/P (MAP) Pulse Ox O2 Delivery O2 Flow Rate FiO2 05/31/21 21:03 Room Air 05/31/21 19:39 37.0 67 16 111/70 (84) 93 Capillary Refill : General Appearance: No Apparent Distress, WD/WN, Anxious, Chronically ill, Obese HEENT: PERRL/EOMI, Normal ENT Inspection, Pharynx Normal Neck: Full Range of Motion, Normal Inspection, Non Tender, Supple, Carotid Bruit Respiratory: Chest Non Tender, Lungs Clear, Normal Breath Sounds, No Accessory Muscle Use, No Respiratory Distress Cardiovascular: Regular Rate, Rhythm, No Edema, No Gallop, No JVD, No Murmur, Normal Peripheral Pulses Gastrointestinal: Normal Bowel Sounds, No Organomegaly, No Pulsatile Mass, Non Tender, Soft Back: Normal Inspection, No CVA Tenderness, No Vertebral Tenderness Extremity: Normal Capillary Refill, Normal Inspection, Normal Range of Motion, Non Tender, No Calf Tenderness, No Pedal Edema Neurologic/Psychiatric: Alert, Oriented x3, No Motor/Sensory Deficits, Normal Mood/Affect, Abnormal Gait, Disoriented, Motor Weakness (Generalized) Skin: Normal Color, Warm/Dry Lymphatic: No Adenopathy Results/Procedures Lab Laboratory Tests 05/31/21 06:00 Patient resulted labs reviewed. FIM Transfers Therapy Code Descriptions/Definitions Functional [place] Measure: 0=Not Assessed/NA 4=Minimal Assistance 1=Total Assistance 5=Supervision or Setup 2=Maximal Assistance 6=Modified [place] 3=Moderate Assistance 7=Complete IndependenceSCALE: Activities may be completed with or without assistive devices. 3-Rsfhcwcqkk-slnvxgo completes the activity by him/herself with no assistance from a helper. 5-Set-up or Clean-up Assistance-helper sets up or cleans up; patient completes activity. [place] assists only prior to or following the activity. 4-Supervision or Touching Assistance-helper provides verbal cues and/or touching/steadying and/or contact guard assistance as patient completes activity. Assistance may be provided throughout the activity or intermittently. 3-Partial/Moderate Assistance-helper does LESS THAN HALF the effort. [place] lifts, holds or supports trunk or limbs, but provides less than half the effort. 2-Substantial/Maximal Assistance-helper does MORE THAN HALF the effort. [place] lifts or holds trunk or limbs and provides more than half the effort. 8-Gevbgicpm-hsuseh does ALL the effort. Patient does none of the effort to complete the activity. Or, the assistance of 2 or more helpers is required for the patient to complete the activity. If activity was not attempted, code reason: 7-Patient Refused. 9-Not Applicable-not attempted and the patient did not perform the activity before the current illness, exacerbation or injury. 10-Not Attempted due to Environmental Limitations-(lack of equipment, weather restraints, etc.). 88-Not Attempted due to Medical Conditions or Safety Concerns. Roll Left to Right (QC): 3 Sit to Lying (QC): 1 Sit to Stand (QC): 3 Chair/Lyg-ig-Qfnlx Xfer(QC): 3 Car Transfer (QC): 88 Gait Training Does the Patient Walk?: Yes Walk 10 feet (QC): 88 Walk 50 ft with 2 Turns(QC): 88 Walk 150 ft (QC): 88 Walking 10ft/uneven surface-QC: 88 Gait Assistive Device: FWW Wheelchair Training Does the Pt Use a Wheelchair?: Yes Wheel 50 ft with 2 turns (QC): 4 Wheel 150 ft (QC): 3 Type of Wheelchair: Manual Stair Training 1 Step (curb) (QC): 88 4 Steps (QC): 88 12 Steps (QC): 88 Balance Picking up an Object (QC): 88 ADL-Treatment Eating (QC): 4 Oral Hygiene (QC): 5 Shower/Bathe Self (QC): 2 Upper Body Dressing (QC): 3 Lower Body Dressing (QC): 1 On/Off Footwear (QC): 4 Toileting Hygiene (QC): 1 Toilet Transfer (QC): 2 Assessment/Plan Assessment and Plan Assess & Plan/Chief Complaint Assessment: Debility BMI 46 Supratherapeutic INR UTI completed treatment Lobo catheter discontinued now Urinary incontinence Atrial fibrillation? DVT? Dysphagia Urinary incontinence Antral ulcer on EGD with recent bleed Acute blood loss anemia with severe iron deficiency Plan: Supportive care UTI treatment DC Lobo catheter Aggressive rehab 05/26/2021: Aggressive rehab Incontinence care Maintain Coumadin EGD with dilatation 05/27/2021: EGD tomorrow Supportive care 05/28/2021: Appreciate Dr. SANCHEZ Monitor closely 05/29/2021: Iron infusions Supportive care 05/30/2021: Iron infusions Supportive care 05/31/2021: Monitor blood pressure Supportive care (1) General weakness Status: Acute (2) BMI 45.0-49.9, adult (3) Lobo catheter in place (4) Atrial fibrillation (5) Warfarin anticoagulation (6) Confusion (7) Supratherapeutic INR Status: Acute (8) UTI (urinary tract infection) Status: Acute (9) Anemia Status: Acute TAMARA DE LEON DO May 31, 2021 06:02
[2021-05-31] MEDS: CATHETER FLUSH 10 ML SYR IV SCH ×3 (06:04→20:10)
[2021-05-31 06:15] LABS: BASOPHILS % (AUTO) 0 % (0-10); EOSINOPHILS # (AUTO) 0.1 10^3/uL (0.0-0.3); EOSINOPHILS % (AUTO) 2 % (0-10); HEMATOCRIT 27 % (35-52); HEMOGLOBIN 8.7 g/dL (11.5-16.0); LYMPHOCYTES # (AUTO) 0.3 10^3/uL (1.0-4.0); LYMPHOCYTES % (AUTO) 8 % (12-44); MEAN CORPUSCULAR HEMOGLOBIN 32 pg (25-34); MEAN CORPUSCULAR HGB CONC 32 g/dL (32-36); MEAN CORPUSCULAR VOLUME 99 fL (80-99); MEAN PLATELET VOLUME 9.8 fL (9.0-12.2); MONOCYTES # (AUTO) 0.5 10^3/uL (0.0-1.0); MONOCYTES % (AUTO) 12 % (0-12); NEUTROPHILS # (AUTO) 3.1 10^3/uL (1.8-7.8); NEUTROPHILS % (AUTO) 75 % (42-75); PLATELET COUNT 135 10^3/uL (130-400); WHITE BLOOD COUNT 4.1 10^3/uL (4.3-11.0)
[2021-05-31 06:29] LABS: ALBUMIN 3.1 GM/DL (3.2-4.5)
[2021-05-31 06:30] LABS: POTASSIUM 4.1 MMOL/L (3.6-5.0)
[2021-05-31 06:31] LABS: CALCIUM 8.3 MG/DL (8.5-10.1)
[2021-05-31 06:32] LABS: TOTAL PROTEIN 5.1 GM/DL (6.4-8.2)
[2021-05-31 06:33] LABS: INR 1.5 (0.8-1.4); PROTHROMBIN TIME PATIENT 18.7 SEC (12.2-14.7)
[2021-05-31 06:34] LABS: BILIRUBIN,TOTAL 1.1 MG/DL (0.1-1.0)
[2021-05-31 06:36] LABS: CREATININE SERUM 0.74 MG/DL (0.60-1.30)
[2021-05-31 08:00] VITALS: BP 138/89
--- NOTE | 2021-05-31 09:24 | Physical Therapy Daily Note ---
PT Daily Note-Current Subjective Patient in recliner pre tx, agrees to PT, has no pain at rest but has pain in both shoulders and knees during activity due to arthritis. Will be co-treating with OT due to poor patient mobility, strength, endurance, severe debility, coordinate UE and LE during activity, safety and reduce risk of falls. Appearance Patient in recliner post tx with nurse call, will continue for a bit with OT. Mental Status Patient Orientation: Person, Place, Situation Transfers SCALE: Activities may be completed with or without assistive devices. 3-Mbfboefflh-dzbdiwf completes the activity by him/herself with no assistance from a helper. 5-Set-up or Clean-up Assistance-helper sets up or cleans up; patient completes activity. [place] assists only prior to or following the activity. 4-Supervision or Touching Assistance-helper provides verbal cues and/or touching/steadying and/or contact guard assistance as patient completes activity. Assistance may be provided throughout the activity or intermittently. 3-Partial/Moderate Assistance-helper does LESS THAN HALF the effort. [place] lifts, holds or supports trunk or limbs, but provides less than half the effort. 2-Substantial/Maximal Assistance-helper does MORE THAN HALF the effort. [place] lifts or holds trunk or limbs and provides more than half the effort. 3-Ttkfpckhd-lszonz does ALL the effort. Patient does none of the effort to complete the activity. Or, the assistance of 2 or more helpers is required for the patient to complete the activity. If activity was not attempted, code reason: 7-Patient Refused. 9-Not Applicable-not attempted and the patient did not perform the activity before the current illness, exacerbation or injury. 10-Not Attempted due to Environmental Limitations-(lack of equipment, weather restraints, etc.). 88-Not Attempted due to Medical Conditions or Safety Concerns. Sit to Stand (QC): 1 Chair/Ubo-lr-Iobra Xfer(QC): 3 Patient dresses in the recliner, dependent for pants, min assist for shirt. Patient has to stand a couple of times to get her pants on, patient is not able to assist with this. When done patient stands (from elevated lift chair) and transfers to . Propels to therapy gym. After getting back to her room she is a dependent stand and then transfer back to recliner. Weight Bearing Full Weight Bearing Full Weight Bearing Gait Training Distance: 10' Walk 10 feet (QC): 3 Gait Assistive Device: FWW WC follow, antalgic, needs cues to keep walker close, steps inches at a time Wheelchair Training Does the Pt Use a Wheelchair?: Yes Wheel 50 ft with 2 turns (QC): 3 Type of Wheelchair: Manual 50'x2, min assist, patient is only able to propel WC a few inches at a time Exercises Patient attempts to stand 3 times in parallel bars and is only able to stand once for about 10 seconds Treatments PT performed transfers, ambulation, WC mobility, standing, OT performed dressing, ADL's, UE positioning and safety during activity Assessment Current Status: Poor Progress, Regressing Patient had declined in functional mobility. She has poor motivation, needs cues on how to position with every aspect of mobility, has no initiative. PT Short Term Goals Short Term Goals Time Frame: Jun 01, 2021 Roll Left & Right: 3 Sit to lyin Lying to sitting on side of be: 3 Sit to stand: 3 Chair/jpx-zc-jxlcw transfer: 3 Walk 10 feet: 3 Walk 50 feet with two turns: 3 PT Direct Mail Coordinator Goals Direct Mail Coordinator Goals PT Senior Living Goals Time Frame: Jun 15, 2021 Roll Left & Right (QC): 4 Sit to Lying (QC): 4 Lying-Sitting on Side/Bed(QC): 4 Sit to Stand (QC): 4 Chair/Tvm-vg-Dsqgd Xfer(QC): 4 Toilet Transfer (QC): 4 Car Transfer (QC): 3 Does the Patient Walk: Yes Walk 10 feet (QC): 4 Walk 50ft with 2 Turns (QC): 4 Walk 150 ft (QC): 4 Walking 10ft on Uneven Surface: 4 1 Step (curb) (QC): 4 4 Steps (QC): 88 12 Steps (QC): 88 Picking up an Object (QC): 4 Wheel 50 feet with 2 turns (QC: 4 Wheel 150 feet: 4 PT Plan Problem List Problem List: Activity Tolerance, Functional Strength, Safety, Balance, Gait, Transfer, Bed Mobility, ROM Treatment/Plan Treatment Plan: Continue Plan of Care Treatment Plan: Bed Mobility, Education, Functional Activity Max, Functional Strength, Group Therapy, Gait, Safety, Therapeutic Exercise, Transfers Treatment Duration: Jun 01, 2021 Frequency: At least 5 of 7 days/Wk (IRF) Estimated Hrs Per Day: 1.5 hours per day Patient and/or Family Agrees t: Yes Safety Risks/Education Patient Education: Gait Training, Transfer Techniques, Correct Positioning, W/C Management, Safety Issues Teaching Recipient: Patient Teaching Methods: Demonstration, Discussion Response to Teaching: Reinforcement Needed Time/GCodes Time In: 0800 Time Out: 914 Total Billed Treatment Time: 75 Total Billed Treatment 1 visit FA 75' co-treated with OT from [id number] MARTITA MARK PT May 31, 2021 09:24
[2021-05-31] MEDS: DULoxetine 30 MG (CYMBALTA) CAP PO SCH ×2 (09:39→20:09)
[2021-05-31] MEDS: DOCUSATE SODIUM 100 MG (COLACE) CAP PO SCH ×2 (09:39→20:55)
[2021-05-31] MEDS: GABAPENTIN 300 MG (NEURONTIN) CAP PO SCH ×3 (09:39→20:09)
[2021-05-31] MEDS: SENNOSIDES 8.6 MG (SENOKOT) TAB PO SCH ×2 (09:39→20:55)
[2021-05-31] MEDS: OXYBUTYNIN (DITROPAN) 5 MG TAB PO SCH ×2 (09:39→20:09)
[2021-05-31] MEDS: PANTOPRAZOLE 40 MG (PROTONIX) VIAL IV SCH ×2 (09:39→20:08)
[2021-05-31] MEDS: MICONAZOLE 2% POWDER (DESENEX AF) 90 GM TOP SCH ×2 (09:40→19:37)
--- NOTE | 2021-05-31 09:44 | Occupational Ther Daily Note ---
OT Current Status-Daily Note Subjective Pt often making excuses on why she cannot perform. Poor insight into reason for therapy. Will be co-treating with PT due to poor patient mobility, strength, endurance, severe debility, safety and to reduce risk of falls. Appearance Left sitting in chair, all needs within reach, RN notified. Mental Status/Objective Patient Orientation: Person, Confused Attachments: IV ADL-Treatment Therapy Code Descriptions/Definitions Functional [place] Measure: 0=Not Assessed/NA 4=Minimal Assistance 1=Total Assistance 5=Supervision or Setup 2=Maximal Assistance 6=Modified [place] 3=Moderate Assistance 7=Complete IndependenceSCALE: Activities may be completed with or without assistive devices. 9-Ndzhicvego-cfkndpu completes the activity by him/herself with no assistance from a helper. 5-Set-up or Clean-up Assistance-helper sets up or cleans up; patient completes activity. [place] assists only prior to or following the activity. 4-Supervision or Touching Assistance-helper provides verbal cues and/or touch ing/steadying and/or contact guard assistance as patient completes activity. Assistance may be provided throughout the activity or intermittently. 3-Partial/Moderate Assistance-helper does LESS THAN HALF the effort. [place] lifts, holds or supports trunk or limbs, but provides less than half the effort. 2-Substantial/Maximal Assistance-helper does MORE THAN HALF the effort. [place] lifts or holds trunk or limbs and provides more than half the effort. 9-Laftdkyfi-dxbcsx does ALL the effort. Patient does none of the effort to complete the activity. Or, the assistance of 2 or more helpers is required for the patient to complete the activity. If activity was not attempted, code reason: 7-Patient Refused. 9-Not Applicable-not attempted and the patient did not perform the activity before the current illness, exacerbation or injury. 10-Not Attempted due to Environmental Limitations-(lack of equipment, weather restraints, etc.). 88-Not Attempted due to Medical Conditions or Safety Concerns. Oral Hygiene (QC): 5 Upper Body Dressing (QC): 3 Lower Body Dressing (QC): 2 On/Off Footwear: 3 Pt sitting in lift chair at OT arrival. Pants already donned. Phy therapy reports pt required assist with all steps and needs to stand multiple times in order to complete clothing management. OT instructed pt on compensatory technique to don shirt after multiple failed attempts to bring over her head. With cues and extra time, pt was able to bring shirt over head first and then slide arms into sleeves. Assist needed to candy puller shoulders and down in back. Grooming tasks completed seated in w/c with set up assist. Other Treatment Education on pushing self during therapy times as pt is continuing to decline. Discussion on discharge and that pt will need to be able to stand on own in order to return home or to daughters house. She has poor insight into abilities and often makes excuses during therapy. While in parallel bars, Patient attempts to stand x3. She came to full upright once for ~10 seconds. Max a to stand from elevated surface this date. Dependent x2 from low surface. Once upright, pt can maintain balance with min A, but only for a short time. She requires step by step directions with all transfers and she will often ask for clarification on what the next step is; no initiation. She propelled w/c throughout unit with significant amount of time and breaks. Pt often questions why she needs to work on propelling a w/c as she does not normally use one. Max cues for improved propulsion and placement of hands. At times, HOHA needed as pt unable to comprehend visual and verbal cues. Poor carryover with cues throughout session. S Education OT Patient Education: Correct positioning, Energy conservation, Modified ADL techniques, Progress toward Goal/Update tx plan, Purpose of tx/functional activities, Rehab process, Safety issues, Transfer techniques, W/C management Teaching Recipient: Patient Teaching Methods: Demonstration, Discussion Response to Teaching: Unable to Return Demonstration, Unable to Comprehend, Reinforcement Needed OT Short Term Goals Short Term Goals Time Frame: Jun 02, 2021 Eatin Oral hygiene: 5 Toileting hygiene: 2 Shower/bathe self: 2 Upper body dressin Lower body dressin Putting on/taking off footwear: 2 OT Longterm Goals Funding Analyst Goals Time Frame: Jun 23, 2021 Eating (QC): 6 Oral Hygiene (QC): 5 Toileting Hygiene (QC): 4 Shower/Bathe Self (QC): 3 Upper Body Dressing (QC): 4 Lower Body Dressing (QC): 4 On/Off Footwear (QC): 3 1=Demonstrate adherence to instructed precautions during ADL tasks. 2=Patient will verbalize/demonstrate understanding of assistive devices/modifications for ADL. 3=Patient will improve strength/tolerance for activity to enable patient to perform ADL's. OT Education/Plan Problem List/Assessment Assessment: Decreased Activ Tolerance, Decreased Safety Aware, Decreased UE Strength, Dependent Transfers, Impaired Cognition, Impaired Funct Balance, Impaired I ADL's, Impaired Self-Care Skills, Restricted Funct UE ROM Discharge Recommendations Plan/Recommendations: Continue POC Therapy Discharge Recommendati: Post Acute OT Treatment Plan/Plan of Care Treatment,Training & Education: Yes Patient would benefit from OT for education, treatment and training to promote independence in ADL's, mobility, safety and/or upper extremity function for ADL's. Plan of Care: ADL Retraining, Functional Mobility, Group Exercise/Act as Ind, UE Funct Exercise/Act Treatment Duration: Jun 23, 2021 Frequency: At least 5 of 7 days/Wk (IRF) Estimated Hrs Per Day: 1.5 hours per day Agreement: Yes Rehab Potential: Guarded Time/GCodes Start Time: 08:15 Stop Time: 09:30 Total Time Billed (hr/min): 75 Billed Treatment Time 1 visit ADL x2 (30 min) FA x3 (45 min) Monie Delcid OT May 31, 2021 09:44
[2021-05-31] MEDS: polyethylene glycoL POWDER 17 GM (MIRALAX) PACK PO SCH ×2 (10:14→20:55)
--- NOTE | 2021-05-31 10:44 | Speech Therapy Daily Note ---
Speech Daily Progress Note Subjective Date Seen by Provider: May 31, 2021 Time Seen by Provider: 10:00 The patient was seated upright in her chair, awake and alert upon entrance by the clinician. The patient greeted the clinician appropriately and was agreeable to participation in the skilled treatment session. Objective - Orientation: The patient remains independently oriented to self, location, month, day of week, date, and year. - Solving Daily Math Problems: The patient was provided functional math problems throughout the treatment session. The patient displayed 70% accuracy with mild clinician verbal cueing. The patient and the clinician discussed barriers for a safe discharge to her home environment or home with her daughter in [place]. The patient continues to lack awareness of current deficits in correlation to mobility in her home environment. Per patient, she is unable to bathe herself at the hospital but is able to bathe herself at home. The patient stated the difference is the location of her grab bars at home versus the hospital, however, the patient does not correlate her inability to consistently support herself standing as a barrier (the patient recently stated she had a difficult time transferring from wheelchair to walker during her physical therapy on this date). Continued conversations and discussions would be appropriate in attempts to bridge the gap between the patient's current abilities and the possible barriers they may bring to an independent discharge. Assessment Assessment Current Status: Good Progress Treatment Plan Continue Plan of Care Speech Short Term Goals Short Term Goals Short Term Goals 1. The patient will demonstrated 90% accuracy with functional memory and executive functioning tasks with mild clinician verbal cueing. Speech Alf Goals Alf Goals 1. The patient will demonstrate increased cognitive linguistic skills for safe return to the least restricted environment. Speech-Plan Treatment Plan Speech Therapy Treatment Plan: Continue Plan of Care Treatment Duration: May 25, 2021 Frequency: 4 times per week (Four to five times per week.) Estimated Hrs Per Day: .5 hour per day Rehab Potential: Guarded Pt/Family Agrees to Plan: Yes Safety Risks/Education Teaching Recipient: Patient Teaching Methods: Discussion Response to Teaching: Reinforcement Needed Education Topics Provided: Barriers to Safe Discharge Time Speech Therapy Time In: 10:00 Speech Therapy Time Out: 10:30 Total Billed Time: 30 Billed Treatment Time Alverto ANEUDY Kaila JESSICA GALLEGOS May 31, 2021 10:44
[2021-05-31] MEDS: ACETAMINOPHEN 325 MG TABLET PO PRN ×2 (16:23→20:09)
[2021-05-31] MEDS: warFARin 5 MG (COUMADIN) TAB PO SCH (17:57)
[2021-05-31] MEDS ORDERED: warFARin 3 MG (COUMADIN) TAB PO SCH (18:00)
[2021-05-31] MEDS: DICLOFENAC 1% GEL 100 GM (VOLTAREN) TUBE TOP SCH (19:37)
[2021-05-31 19:39] VITALS: BP 111/70
[2021-05-31] MEDS: LOSARTAN 100 MG (COZAAR) TABLET PO SCH (20:08)
[2021-05-31] MEDS: RINVOQ 15 MG PO SCH (20:08)
--- NOTE | 2021-06-01 05:41 | PM&R Progress Note ---
Subjective HPI/CC On Admission Date Seen by Provider: Jun 01, 2021 Time Seen by Provider: 11:00 Subjective/Events-last exam 06/01/21: Pt doing about the same TID Voltaren will be given to help with her neck pain Overall very poor prognosis usp Very weak 05/31/2021: Patient doing better Shoulder surgery from working on parallel bars Increase Coumadin dosing due to subtherapeutic Due to patient's obesity will make it difficult for transfers for her to go home 05/30/2021: Pt doing about the same Coumadin restarted Walking with therapy on the parallel bars Allevyn on her buttocks Set for discharge to her daughters house 05/29/2021: Pt doing a lot better Midline in the right arm Flu vaccine was given EGD showed ulcer IV iron infusion maintained Warfarin restarted 05/28/2021: Pt is doing pretty well Midline will be placed for Venofer EGD will be done today at 2 PM Bowels moved 05/24/21 05/27/2021: Patient doing about the same Requires two-person transfer to side of bed Unsure if she is clinically capable of regaining enough function to go to [facility] EGD will be performed tomorrow due to dysphagia Appreciate Dr. SANCHEZ Urine is very dark 05/26/2021: Patient settling in well Daughter at bedside Dysphagia reported so we will consult Dr. SANCHEZ for EGD with dilatation Checked meds and labs Incontinence is an issue because it is constant INR 1.9 Review of Systems General: Fatigue, Malaise Musculoskeletal: neck pain, back pain Objective Exam Vital Signs Vital Signs Date Time Temp Pulse Resp B/P (MAP) Pulse Ox O2 Delivery O2 Flow Rate FiO2 06/01/21 21:00 Room Air 06/01/21 20:34 36.2 69 17 125/77 (93) 96 Capillary Refill : General Appearance: No Apparent Distress, WD/WN, Anxious, Chronically ill, Obese HEENT: PERRL/EOMI, Normal ENT Inspection, Pharynx Normal Neck: Full Range of Motion, Normal Inspection, Non Tender, Supple, Carotid Bruit Respiratory: Chest Non Tender, Lungs Clear, Normal Breath Sounds, No Accessory Muscle Use, No Respiratory Distress Cardiovascular: Regular Rate, Rhythm, No Edema, No Gallop, No JVD, No Murmur, Normal Peripheral Pulses Gastrointestinal: Normal Bowel Sounds, No Organomegaly, No Pulsatile Mass, Non Tender, Soft Back: Normal Inspection, No CVA Tenderness, No Vertebral Tenderness Extremity: Normal Capillary Refill, Normal Inspection, Normal Range of Motion, Non Tender, No Calf Tenderness, No Pedal Edema Neurologic/Psychiatric: Alert, Oriented x3, No Motor/Sensory Deficits, Normal Mood/Affect, Abnormal Gait, Disoriented, Motor Weakness (Generalized) Skin: Normal Color, Warm/Dry Lymphatic: No Adenopathy Results/Procedures Lab Patient resulted labs reviewed. FIM Transfers Therapy Code Descriptions/Definitions Functional [place] Measure: 0=Not Assessed/NA 4=Minimal Assistance 1=Total Assistance 5=Supervision or Setup 2=Maximal Assistance 6=Modified [place] 3=Moderate Assistance 7=Complete IndependenceSCALE: Activities may be completed with or without assistive devices. 1-Splbipisjt-vknwdrl completes the activity by him/herself with no assistance from a helper. 5-Set-up or Clean-up Assistance-helper sets up or cleans up; patient completes activity. [place] assists only prior to or following the activity. 4-Supervision or Touching Assistance-helper provides verbal cues and/or touching/steadying and/or contact guard assistance as patient completes a ctivity. Assistance may be provided throughout the activity or intermittently. 3-Partial/Moderate Assistance-helper does LESS THAN HALF the effort. [place] lifts, holds or supports trunk or limbs, but provides less than half the effort. 2-Substantial/Maximal Assistance-helper does MORE THAN HALF the effort. [place] lifts or holds trunk or limbs and provides more than half the effort. 5-Pjohyyqrm-iemkjs does ALL the effort. Patient does none of the effort to complete the activity. Or, the assistance of 2 or more helpers is required for the patient to complete the activity. If activity was not attempted, code reason: 7-Patient Refused. 9-Not Applicable-not attempted and the patient did not perform the activity before the current illness, exacerbation or injury. 10-Not Attempted due to Environmental Limitations-(lack of equipment, weather restraints, etc.). 88-Not Attempted due to Medical Conditions or Safety Concerns. Roll Left to Right (QC): 3 Sit to Lying (QC): 1 Sit to Stand (QC): 1 Chair/Mdg-wi-Riuoz Xfer(QC): 3 Car Transfer (QC): 88 Gait Training Does the Patient Walk?: Yes Distance: 10' Walk 10 feet (QC): 3 Walk 50 ft with 2 Turns(QC): 88 Walk 150 ft (QC): 88 Walking 10ft/uneven surface-QC: 88 Gait Assistive Device: FWW Wheelchair Training Does the Pt Use a Wheelchair?: Yes Wheel 50 ft with 2 turns (QC): 3 Wheel 150 ft (QC): 3 Type of Wheelchair: Manual Stair Training 1 Step (curb) (QC): 88 4 Steps (QC): 88 12 Steps (QC): 88 Balance Picking up an Object (QC): 88 ADL-Treatment Eating (QC): 4 Oral Hygiene (QC): 5 Shower/Bathe Self (QC): 2 Upper Body Dressing (QC): 3 Lower Body Dressing (QC): 2 On/Off Footwear (QC): 3 Toileting Hygiene (QC): 1 Toilet Transfer (QC): 2 Assessment/Plan Assessment and Plan Assess & Plan/Chief Complaint Assessment: Debility BMI 46 Supratherapeutic INR UTI completed treatment Lobo catheter discontinued now Urinary incontinence Atrial fibrillation? DVT? Dysphagia Urinary incontinence Antral ulcer on EGD with recent bleed Acute blood loss anemia with severe iron deficiency Plan: Supportive care UTI treatment DC Lobo catheter Aggressive rehab 05/26/2021: Aggressive rehab Incontinence care Maintain Coumadin EGD with dilatation 05/27/2021: EGD tomorrow Supportive care 05/28/2021: Appreciate Dr. SANCHEZ Monitor closely 05/29/2021: Iron infusions Supportive care 05/30/2021: Iron infusions Supportive care 05/31/2021: Monitor blood pressure Supportive care 06/01/21: Monitor INR (1) General weakness Status: Acute (2) BMI 45.0-49.9, adult (3) Lobo catheter in place (4) Atrial fibrillation (5) Warfarin anticoagulation (6) Confusion (7) Supratherapeutic INR Status: Acute (8) UTI (urinary tract infection) Status: Acute (9) Anemia Status: Acute TAMARA DE LEON DO Jun 01, 2021 05:41
[2021-06-01] MEDS: CATHETER FLUSH 10 ML SYR IV SCH ×3 (06:26→21:24)
[2021-06-01 08:06] VITALS: BP 158/67
--- NOTE | 2021-06-01 08:45 | Physical Therapy Daily Note ---
PT Daily Note-Current Subjective Patient in bed pre tx, agrees to PT, has no complaints of pain at rest. Will be co-treating with OT due to poor patient mobility, strength, endurance, severe debility and pain with movement, coordinate UE and LE with activity, safety and reduce risk of falls. Appearance Patient in recliner post tx with nurse call, phone, tray, all needs met. Mental Status Patient Orientation: Person, Place, Situation Transfers SCALE: Activities may be completed with or without assistive devices. 3-Gtnafdpqbr-ymgyvej completes the activity by him/herself with no assistance from a helper. 5-Set-up or Clean-up Assistance-helper sets up or cleans up; patient completes activity. [place] assists only prior to or following the activity. 4-Supervision or Touching Assistance-helper provides verbal cues and/or touching/steadying and/or contact guard assistance as patient completes activity. Assistance may be provided throughout the activity or intermittently. 3-Partial/Moderate Assistance-helper does LESS THAN HALF the effort. [place] lifts, holds or supports trunk or limbs, but provides less than half the effort. 2-Substantial/Maximal Assistance-helper does MORE THAN HALF the effort. [place] lifts or holds trunk or limbs and provides more than half the effort. 9-Qtbavjkwd-olxtna does ALL the effort. Patient does none of the effort to complete the activity. Or, the assistance of 2 or more helpers is required for the patient to complete the activity. If activity was not attempted, code reason: 7-Patient Refused. 9-Not Applicable-not attempted and the patient did not perform the activity before the current illness, exacerbation or injury. 10-Not Attempted due to Environmental Limitations-(lack of equipment, weather restraints, etc.). 88-Not Attempted due to Medical Conditions or Safety Concerns. Roll Left & Right (QC): 4 Lying to Sitting/Side of Bed(Q: 3 Sit to Stand (QC): 1 Chair/Slv-as-Lwocb Xfer(QC): 3 Patient sits to the side of the bed with min assist, can stand from elevated bed with min assist and take a few steps to the recliner and sits for bathing. Patient bathes and has to stand a couple of times from the recliner for cleaning her backside and for dressing. Patient stands twice from an elevated lift chair and needs assist of 2 to do and max assist for cleaning and dressing. Very hard to stand the last time. Weight Bearing Full Weight Bearing Full Weight Bearing Treatments PT performed bed mobility and transfers, ambulation, standing during dressing and bathing, positioning during dressing and bathing, OT performed dressing and bathing, UE positioning and safety during activity Assessment Current Status: Poor Progress continues poor motivation, knee pain is limiting PT Short Term Goals Short Term Goals Time Frame: Jun 01, 2021 Roll Left & Right: 3 Sit to lyin Lying to sitting on side of be: 3 Sit to stand: 3 Chair/rqf-lo-hjyfe transfer: 3 Walk 10 feet: 3 Walk 50 feet with two turns: 3 PT Correction Goals Dress Shoe Inspector Goals PT Dress Shoe Inspector Goals Time Frame: Jun 15, 2021 Roll Left & Right (QC): 4 Sit to Lying (QC): 4 Lying-Sitting on Side/Bed(QC): 4 Sit to Stand (QC): 4 Chair/Prn-sv-Hvhzk Xfer(QC): 4 Toilet Transfer (QC): 4 Car Transfer (QC): 3 Does the Patient Walk: Yes Walk 10 feet (QC): 4 Walk 50ft with 2 Turns (QC): 4 Walk 150 ft (QC): 4 Walking 10ft on Uneven Surface: 4 1 Step (curb) (QC): 4 4 Steps (QC): 88 12 Steps (QC): 88 Picking up an Object (QC): 4 Wheel 50 feet with 2 turns (QC: 4 Wheel 150 feet: 4 PT Plan Problem List Problem List: Activity Tolerance, Functional Strength, Safety, Balance, Gait, Transfer, Bed Mobility, ROM Treatment/Plan Treatment Plan: Continue Plan of Care Treatment Plan: Bed Mobility, Education, Functional Activity Max, Functional Strength, Group Therapy, Gait, Safety, Therapeutic Exercise, Transfers Treatment Duration: Jun 01, 2021 Frequency: At least 5 of 7 days/Wk (IRF) Estimated Hrs Per Day: 1.5 hours per day Patient and/or Family Agrees t: Yes Safety Risks/Education Patient Education: Gait Training, Transfer Techniques, Correct Positioning, Safety Issues Teaching Recipient: Patient Teaching Methods: Demonstration, Discussion Response to Teaching: Reinforcement Needed Time/GCodes Time In: 0800 Time Out: 0845 Total Billed Treatment Time: 45 Total Billed Treatment 1 visit FA 45' co-treated for 45' MARTITA MARK PT Jun 01, 2021 08:45
[2021-06-01] MEDS: PANTOPRAZOLE 40 MG (PROTONIX) VIAL IV SCH ×2 (08:49→21:22)
[2021-06-01] MEDS: IRON SUCROSE 200 MG/10 ML (VENOFER) VIAL IV SCH (08:49)
[2021-06-01] MEDS: SENNOSIDES 8.6 MG (SENOKOT) TAB PO SCH ×2 (08:50→21:00)
[2021-06-01] MEDS: DULoxetine 30 MG (CYMBALTA) CAP PO SCH ×2 (08:50→21:21)
[2021-06-01] MEDS: polyethylene glycoL POWDER 17 GM (MIRALAX) PACK PO SCH ×2 (08:50→21:00)
[2021-06-01] MEDS: DOCUSATE SODIUM 100 MG (COLACE) CAP PO SCH ×2 (08:50→21:00)
[2021-06-01] MEDS: OXYBUTYNIN (DITROPAN) 5 MG TAB PO SCH ×2 (08:50→21:21)
[2021-06-01] MEDS: GABAPENTIN 300 MG (NEURONTIN) CAP PO SCH ×3 (08:50→21:21)
[2021-06-01] MEDS: DICLOFENAC 1% GEL 100 GM (VOLTAREN) TUBE TOP SCH ×3 (08:51→21:22)
[2021-06-01] MEDS: MICONAZOLE 2% POWDER (DESENEX AF) 90 GM TOP SCH ×2 (08:51→21:23)
--- NOTE | 2021-06-01 08:53 | Occupational Ther Daily Note ---
OT Current Status-Daily Note Subjective Pt supine in bed. Pt agreeable to OT tx. Mental Status/Objective Patient Orientation: Person, Place, Situation ADL-Treatment Therapy Code Descriptions/Definitions Functional [place] Measure: 0=Not Assessed/NA 4=Minimal Assistance 1=Total Assistance 5=Supervision or Setup 2=Maximal Assistance 6=Modified [place] 3=Moderate Assistance 7=Complete IndependenceSCALE: Activities may be completed with or without assistive devices. 7-Cojlzcdenb-aoitiqt completes the activity by him/herself with no assistance from a helper. 5-Set-up or Clean-up Assistance-helper sets up or cleans up; patient completes activity. [place] assists only prior to or following the activity. 4-Supervision or Touching Assistance-helper provides verbal cues and/or touching/steadying and/or contact guard assistance as patient completes activity. Assistance may be provided throughout the activity or intermittently. 3-Partial/Moderate Assistance-helper does LESS THAN HALF the effort. [place] lifts, holds or supports trunk or limbs, but provides less than half the effort. 2-Substantial/Maximal Assistance-helper does MORE THAN HALF the effort. [place] lifts or holds trunk or limbs and provides more than half the effort. 8-Ptsowisih-zeyumi does ALL the effort. Patient does none of the effort to complete the activity. Or, the assistance of 2 or more helpers is required for the patient to complete the activity. If activity was not attempted, code reason: 7-Patient Refused. 9-Not Applicable-not attempted and the patient did not perform the activity before the current illness, exacerbation or injury. 10-Not Attempted due to Environmental Limitations-(lack of equipment, weather restraints, etc.). 88-Not Attempted due to Medical Conditions or Safety Concerns. Bathing Location: L Arm, R Arm, L Upper Leg, R Upper Leg, L Lower Leg (including foot) (Pt used long handled sponge to clean), R Lower Leg (including foot) (Pt used long handled sponge to clean), Chest, Abdomen, Buttocks (min A needed for thoroughness ), Perineal Area Shower/Bathe Self (QC): 1 (Assist x2 in stand. Pt able to wash UEs/LEs and periarea seated, assistance with buttocks.) Upper Body Dressing (QC): 3 (min A needed to pull down shirt in back ) Lower Body Dressing (QC): 1 (Assist x2 in stand for pant hike. Pt required min A to thread pants/brief, assistance wtih pant hike.) On/Off Footwear: 4 (SBA, verbal cue for sock aide) Other Treatment OT/PT cotreat due to skill of 2 clinicians required which a occupational therapist rehab manager could not perform in order to coordinate UE/LEs, decrease fall risk, and due to pt's limitations in strength, mobility, activity tolerance. OT focused on UE placement, cues for sequencing and safety, and ADLs, PT focused on LE placement, gross overall movements, transfers and mobility. Pt supine in bed. Pt sat EOB then transitioned to FWW. Functional mobility to recliner, then Pt doffed shirt and socks, AE. Pt completed sponge bath, min A needed to thoroughly clean buttocks while standing (assist x2 in stand), Pt used long handled sponge to clean BLE, verbal cues needed for sequencing. Pt donned socks, briefs, pants and shirt, AE, min A to thread feet through briefs and pants and to pull up shirt, briefs and pants in the back while standing (assist x2). Pt in recliner, call light in reach and all needs met. supine to sit min A, stand from elevated bed min A, stand from elevated lift chair assist x2. Pt had difficulty standing the last time. Education OT Patient Education: Correct positioning, Energy conservation, Modified ADL techniques, Progress toward Goal/Update tx plan, Purpose of tx/functional activities, Rehab process, Use of adapted equipment Teaching Recipient: Patient Teaching Methods: Demonstration, Discussion Response to Teaching: Verbalize Understanding, Return Demonstration OT Short Term Goals Short Term Goals Time Frame: Jun 02, 2021 Eatin Oral hygiene: 5 Toileting hygiene: 2 Shower/bathe self: 2 Upper body dressin Lower body dressin Putting on/taking off footwear: 2 OT Detention Goals Marketing Ambassador Goals Time Frame: Jun 23, 2021 Eating (QC): 6 Oral Hygiene (QC): 5 Toileting Hygiene (QC): 4 Shower/Bathe Self (QC): 3 Upper Body Dressing (QC): 4 Lower Body Dressing (QC): 4 On/Off Footwear (QC): 3 1=Demonstrate adherence to instructed precautions during ADL tasks. 2=Patient will verbalize/demonstrate understanding of assistive devices/modifications for ADL. 3=Patient will improve strength/tolerance for activity to enable patient to perform ADL's. OT Education/Plan Problem List/Assessment Assessment: Decreased Activ Tolerance, Decreased UE Strength, Impaired Funct Balance, Impaired I ADL's, Impaired Self-Care Skills Discharge Recommendations Plan/Recommendations: Continue POC Treatment Plan/Plan of Care Patient would benefit from OT for education, treatment and training to promote independence in ADL's, mobility, safety and/or upper extremity function for ADL's. Plan of Care: ADL Retraining, Functional Mobility, Group Exercise/Act as Ind, UE Funct Exercise/Act Treatment Duration: Jun 23, 2021 Frequency: At least 5 of 7 days/Wk (IRF) Estimated Hrs Per Day: 1.5 hours per day Agreement: Yes Rehab Potential: Guarded Time/GCodes Start Time: 08:00 Stop Time: 08:45 Total Time Billed (hr/min): 45 Billed Treatment Time [place] (45) 1, ADL 3 (45) NEFTALI PEÑALOZA OT Jun 01, 2021 08:53
--- NOTE | 2021-06-01 10:36 | Speech Therapy Daily Note ---
Speech Daily Progress Note Subjective Date Seen by Provider: Jun 01, 2021 Time Seen by Provider: 09:45 The patient was seated upright in her recliner upon entrance to the room. The patient greeted the clinician appropriately and was agreeable to participation in the cognitive linguistic treatment session. Objective - Orientation: The patient remains independently oriented to self, location, month, day of the week, date, and year. - The patient remains able to fluently communicate her wants and needs, however, provided limited participation to improve her own wants and needs. The patient requested to be repositioned in her recliner. The clinician and the RN assisted the patient and provided the patient with options to stand and help in the repositioning or be repositioned with maximum assistance from the clinician and RN. The patient stated her "ankles really aren't that good" and did not wish to stand and be an active participant. The patient was repositioned by the RN and the clinician upright in the recliner. The patient reported increased comfort following. - The clinician and patient completed a problem solving activity in attempts to locate a prescription savings card online for a current prescription. The patient was able to complete the sequencing necessary to locate the site. The information was written for the patient by the clinician and provided on a piece of paper as the patient requested. Assessment Assessment Current Status: Good Progress Treatment Plan Continue Plan of Care Speech Short Term Goals Short Term Goals Short Term Goals 1. The patient will demonstrated 90% accuracy with functional memory and executive functioning tasks with mild clinician verbal cueing. Speech Galley Stripper Goals Galley Stripper Goals 1. The patient will demonstrate increased cognitive linguistic skills for safe return to the least restricted environment. Speech-Plan Treatment Plan Speech Therapy Treatment Plan: Continue Plan of Care Treatment Duration: May 25, 2021 Frequency: 4 times per week (Four to five times per week.) Estimated Hrs Per Day: .5 hour per day Rehab Potential: Guarded Safety Risks/Education Teaching Recipient: Patient Teaching Methods: Discussion Response to Teaching: Verbalize Understanding Education Topics Provided: Plan of Care Time Speech Therapy Time In: 09:45 Speech Therapy Time Out: 10:15 Total Billed Time: 30 Billed Treatment Time ANEUDY Del Toro [facility] Jun 01, 2021 10:36
--- NOTE | 2021-06-01 13:36 | Occupational Ther Daily Note ---
OT Current Status-Daily Note Subjective Pt in recliner. Pt's daughter in room for family training. Pt agreeable to OT tx. Pt's daughter indicates pt needs to be able to get up, transfer herself, and toilet herself independently. Pt's daughter expressed concerns about being unable to care for pt at discharge. Mental Status/Objective Patient Orientation: Person, Place, Situation Attachments: IV ADL-Treatment Therapy Code Descriptions/Definitions Functional [place] Measure: 0=Not Assessed/NA 4=Minimal Assistance 1=Total Assistance 5=Supervision or Setup 2=Maximal Assistance 6=Modified [place] 3=Moderate Assistance 7=Complete IndependenceSCALE: Activities may be completed with or without assistive devices. 7-Divltbgfpt-leoclad completes the activity by him/herself with no assistance from a helper. 5-Set-up or Clean-up Assistance-helper sets up or cleans up; patient completes activity. [place] assists only prior to or following the activity. 4-Supervision or Touching Assistance-helper provides verbal cues and/or touching/steadying and/or contact guard assistance as patient completes activity. Assistance may be provided throughout the activity or intermittently. 3-Partial/Moderate Assistance-helper does LESS THAN HALF the effort. [place] lifts, holds or supports trunk or limbs, but provides less than half the effort. 2-Substantial/Maximal Assistance-helper does MORE THAN HALF the effort. [place] lifts or holds trunk or limbs and provides more than half the effort. 6-Pepqoueez-tijqzq does ALL the effort. Patient does none of the effort to complete the activity. Or, the assistance of 2 or more helpers is required for the patient to complete the activity. If activity was not attempted, code reason: 7-Patient Refused. 9-Not Applicable-not attempted and the patient did not perform the activity before the current illness, exacerbation or injury. 10-Not Attempted due to Environmental Limitations-(lack of equipment, weather restraints, etc.). 88-Not Attempted due to Medical Conditions or Safety Concerns. Other Treatment OT/PT cotreat due to skill of 2 clinicians required which a clinical rehabilitation coordinator could not perform in order to coordinate UE/LEs, decrease fall risk, and due to pt's limitations in strength, mobility, activity tolerance. OT focused on UE placement, cues for sequencing and safety, and ADL performance, PT focused on LE placement, gross overall movements, transfers and mobility. Pt in recliner. Pt transitioned to FWW, min A from raised lift chair, functional mobility 5 ft to w/c. Pt was taken to therapy gym, pt completed x2 sit to stands in the parallel bars, 20 secs each, mod A, verbal cues needed to move back in the w/c until she felt the back of it. Pt was taken back to room, transitioned from w/c to FWW, max A then to recliner. Pt's daughter was educated on patient safety when going home, transfers from recliner to FWW and w/c. OT also educated pt's daughter on assistance required with ADLs, including 2 person assistance to manage pants up. Pt's daughter expressed concerns about pt returning home, and feels like pt would just sit in soiled clothing throughout the day. Daughter requests to talk to clinical social work aide post tx. Pt in recliner, call light in reach and all needs met. Education OT Patient Education: Correct positioning, Energy conservation, Modified ADL techniques, Progress toward Goal/Update tx plan, Purpose of tx/functional activities, Rehab process Teaching Recipient: Patient, Family (daughter) Teaching Methods: Demonstration, Discussion Response to Teaching: Verbalize Understanding, Return Demonstration, Reinforcement Needed OT Short Term Goals Short Term Goals Time Frame: Jun 02, 2021 Eatin Oral hygiene: 5 Toileting hygiene: 2 Shower/bathe self: 2 Upper body dressin Lower body dressin Putting on/taking off footwear: 2 OT Detention Goals Regional Office Coordinator Goals Time Frame: Jun 23, 2021 Eating (QC): 6 Oral Hygiene (QC): 5 Toileting Hygiene (QC): 4 Shower/Bathe Self (QC): 3 Upper Body Dressing (QC): 4 Lower Body Dressing (QC): 4 On/Off Footwear (QC): 3 1=Demonstrate adherence to instructed precautions during ADL tasks. 2=Patient will verbalize/demonstrate understanding of assistive devices/modifications for ADL. 3=Patient will improve strength/tolerance for activity to enable patient to perform ADL's. OT Education/Plan Problem List/Assessment Assessment: Decreased Activ Tolerance, Decreased UE Strength, Impaired Funct Balance, Impaired I ADL's, Impaired Self-Care Skills Discharge Recommendations Plan/Recommendations: Continue POC Treatment Plan/Plan of Care Patient would benefit from OT for education, treatment and training to promote independence in ADL's, mobility, safety and/or upper extremity function for ADL's. Plan of Care: ADL Retraining, Functional Mobility, Group Exercise/Act as Ind, UE Funct Exercise/Act Treatment Duration: Jun 23, 2021 Frequency: At least 5 of 7 days/Wk (IRF) Estimated Hrs Per Day: 1.5 hours per day Agreement: Yes Rehab Potential: Guarded Time/GCodes Start Time: 13:05 Stop Time: 13:35 Total Time Billed (hr/min): 30 Billed Treatment Time 1, FA 2 (30) NEFTALI PEÑALOZA OT Jun 01, 2021 13:36
--- NOTE | 2021-06-01 13:36 | Physical Therapy Daily Note ---
PT Daily Note-Current Subjective Patient in recliner pre tx, agrees to PT, has no pain at rest but has arthritis pain in knees and shoulders with movement. Will be co-treating with OT due to poor patient mobility, strength, endurance, severe debility and pain during activity, coordinate UE and LE during activity, safety and reduce risk of falls. Patient's daughter is here to see how much assist patient needs for mobility. Appearance Patient in recliner post tx with nurse call, phone, tray, all needs met. Mental Status Patient Orientation: Person, Place, Situation Transfers SCALE: Activities may be completed with or without assistive devices. 6-Kblorziswf-shmzdsg completes the activity by him/herself with no assistance from a helper. 5-Set-up or Clean-up Assistance-helper sets up or cleans up; patient completes activity. [place] assists only prior to or following the activity. 4-Supervision or Touching Assistance-helper provides verbal cues and/or touching/steadying and/or contact guard assistance as patient completes activity. Assistance may be provided throughout the activity or intermittently. 3-Partial/Moderate Assistance-helper does LESS THAN HALF the effort. [place] lifts, holds or supports trunk or limbs, but provides less than half the effort. 2-Substantial/Maximal Assistance-helper does MORE THAN HALF the effort. [place] lifts or holds trunk or limbs and provides more than half the effort. 5-Azbcesaew-tmvafo does ALL the effort. Patient does none of the effort to complete the activity. Or, the assistance of 2 or more helpers is required for the patient to complete the activity. If activity was not attempted, code reason: 7-Patient Refused. 9-Not Applicable-not attempted and the patient did not perform the activity before the current illness, exacerbation or injury. 10-Not Attempted due to Environmental Limitations-(lack of equipment, weather restraints, etc.). 88-Not Attempted due to Medical Conditions or Safety Concerns. Sit to Stand (QC): 2 Chair/Fxk-wb-Ogvnf Xfer(QC): 3 Min assist to stand from raised lift chair and patient ambulates about 5' before needing to sit down, sits in WC, taken to therapy gym and patient stands x2 in parallel bars with mod assist and stands for about 20 sec each time. Patient is taken back to her room and stands from WC with max assist and transfers back to recliner. Weight Bearing Full Weight Bearing Full Weight Bearing Treatments PT performs transfers, ambulation, standing, OT performed UE positioning and safety during activity, educated patient and family about patient needs as far as dressing and toileting. Assessment Current Status: Poor Progress overall patient has declined in functional mobility PT Short Term Goals Short Term Goals Time Frame: Jun 01, 2021 Roll Left & Right: 3 Sit to lyin Lying to sitting on side of be: 3 Sit to stand: 3 Chair/ejw-ue-eegyu transfer: 3 Walk 10 feet: 3 Walk 50 feet with two turns: 3 PT Diversified Crops Farmer Goals Diversified Crops Farmer Goals PT Senior Care Goals Time Frame: Jun 15, 2021 Roll Left & Right (QC): 4 Sit to Lying (QC): 4 Lying-Sitting on Side/Bed(QC): 4 Sit to Stand (QC): 4 Chair/Tcv-zf-Hlpfi Xfer(QC): 4 Toilet Transfer (QC): 4 Car Transfer (QC): 3 Does the Patient Walk: Yes Walk 10 feet (QC): 4 Walk 50ft with 2 Turns (QC): 4 Walk 150 ft (QC): 4 Walking 10ft on Uneven Surface: 4 1 Step (curb) (QC): 4 4 Steps (QC): 88 12 Steps (QC): 88 Picking up an Object (QC): 4 Wheel 50 feet with 2 turns (QC: 4 Wheel 150 feet: 4 PT Plan Problem List Problem List: Activity Tolerance, Functional Strength, Safety, Balance, Gait, Transfer, Bed Mobility, ROM Treatment/Plan Treatment Plan: Continue Plan of Care Treatment Plan: Bed Mobility, Education, Functional Activity Max, Functional Strength, Group Therapy, Gait, Safety, Therapeutic Exercise, Transfers Treatment Duration: Jun 01, 2021 Frequency: At least 5 of 7 days/Wk (IRF) Estimated Hrs Per Day: 1.5 hours per day Patient and/or Family Agrees t: Yes Safety Risks/Education Patient Education: Gait Training, Transfer Techniques, Correct Positioning, Safety Issues Teaching Recipient: Patient Teaching Methods: Demonstration, Discussion Response to Teaching: Reinforcement Needed Time/GCodes Time In: 1305 Time Out: 1335 Total Billed Treatment Time: 30 Total Billed Treatment 1 visit FA 30' co-treated for 30' MARTITA MARK PT Jun 01, 2021 13:36
[2021-06-01] MEDS: warFARin 5 MG (COUMADIN) TAB PO SCH (17:49)
[2021-06-01 20:34] VITALS: BP 125/77
[2021-06-01] MEDS: RINVOQ 15 MG PO SCH (21:00)
[2021-06-01] MEDS: LOSARTAN 100 MG (COZAAR) TABLET PO SCH (21:21)
[2021-06-01] MEDS: ACETAMINOPHEN 325 MG TABLET PO PRN (21:21)
--- NOTE | 2021-06-02 05:42 | PM&R Progress Note ---
Subjective HPI/CC On Admission Date Seen by Provider: Jun 02, 2021 Time Seen by Provider: 11:30 Subjective/Events-last exam 06/02/21: No major changes INR improved but not therapeutic yet Sit to stand will be attempted Presumed in need of NH due to increased BMI and difficulty transferring 06/01/21: Pt doing about the same TID Voltaren will be given to help with her neck pain Overall very poor prognosis halfway Very weak 05/31/2021: Patient doing better Shoulder surgery from working on parallel [place] Increase Coumadin dosing due to subtherapeutic Due to patient's obesity will make it difficult for transfers for her to go home 05/30/2021: Pt doing about the same Coumadin restarted Walking with therapy on the parallel bars Allevyn on her buttocks Set for discharge to her daughters house 05/29/2021: Pt doing a lot better Midline in the right arm Flu vaccine was given EGD showed ulcer IV iron infusion maintained Warfarin restarted 05/28/2021: Pt is doing pretty well Midline will be placed for Venofer EGD will be done today at 2 PM Bowels moved 05/24/21 05/27/2021: Patient doing about the same Requires two-person transfer to side of bed Unsure if she is clinically capable of regaining enough function to go to daughter's house EGD will be performed tomorrow due to dysphagia Appreciate Dr. SANCHEZ Urine is very dark 05/26/2021: Patient settling in well Daughter at bedside Dysphagia reported so we will consult Dr. SANCHEZ for EGD with dilatation Checked meds and labs Incontinence is an issue because it is constant INR 1.9 Review of Systems General: Fatigue, Malaise Objective Exam Vital Signs Vital Signs Date Time Temp Pulse Resp B/P (MAP) Pulse Ox O2 Delivery O2 Flow Rate FiO2 06/02/21 20:50 97 Room Air 06/02/21 19:08 36.4 65 16 155/71 (99) Capillary Refill : General Appearance: No Apparent Distress, WD/WN, Anxious, Chronically ill, Obese HEENT: PERRL/EOMI, Normal ENT Inspection, Pharynx Normal Neck: Full Range of Motion, Normal Inspection, Non Tender, Supple, Carotid Bruit Respiratory: Chest Non Tender, Lungs Clear, Normal Breath Sounds, No Accessory Muscle Use, No Respiratory Distress Cardiovascular: Regular Rate, Rhythm, No Edema, No Gallop, No JVD, No Murmur, Normal Peripheral Pulses Gastrointestinal: Normal Bowel Sounds, No Organomegaly, No Pulsatile Mass, Non Tender, Soft Back: Normal Inspection, No CVA Tenderness, No Vertebral Tenderness Extremity: Normal Capillary Refill, Normal Inspection, Normal Range of Motion, Non Tender, No Calf Tenderness, No Pedal Edema Neurologic/Psychiatric: Alert, Oriented x3, No Motor/Sensory Deficits, Normal Mood/Affect, Abnormal Gait, Disoriented, Motor Weakness (Generalized) Skin: Normal Color, Warm/Dry Lymphatic: No Adenopathy Results/Procedures Lab Patient resulted labs reviewed. FIM Transfers Therapy Code Descriptions/Definitions Functional [place] Measure: 0=Not Assessed/NA 4=Minimal Assistance 1=Total Assistance 5=Supervision or Setup 2=Maximal Assistance 6=Modified [place] 3=Moderate Assistance 7=Complete IndependenceSCALE: Activities may be completed with or without assistive devices. 5-Zewkrahqwe-npmcanp completes the activity by him/herself with no assistance from a helper. 5-Set-up or Clean-up Assistance-helper sets up or cleans up; patient completes activity. [place] assists only prior to or following the activity. 4-Supervision or Touching Assistance-helper provides verbal cues and/or touching/steadying and/or contact guard assistance as patient completes activity. Assistance may be provided throughout the activity or intermittently. 3-Partial/Moderate Assistance-helper does LESS THAN HALF the effort. [place] lifts, holds or supports trunk or limbs, but provides less than half the effort. 2-Substantial/Maximal Assistance-helper does MORE THAN HALF the effort. [place] lifts or holds trunk or limbs and provides more than half the effort. 6-Fazkpbmit-xckpge does ALL the effort. Patient does none of the effort to complete the activity. Or, the assistance of 2 or more helpers is required for the patient to complete the activity. If activity was not attempted, code reason: 7-Patient Refused. 9-Not Applicable-not attempted and the patient did not perform the activity before the current illness, exacerbation or injury. 10-Not Attempted due to Environmental Limitations-(lack of equipment, weather restraints, etc.). 88-Not Attempted due to Medical Conditions or Safety Concerns. Roll Left to Right (QC): 4 Sit to Lying (QC): 1 Sit to Stand (QC): 2 Chair/Ips-rp-Rnlgw Xfer(QC): 3 Car Transfer (QC): 88 Gait Training Does the Patient Walk?: Yes Distance: 10' Walk 10 feet (QC): 3 Walk 50 ft with 2 Turns(QC): 88 Walk 150 ft (QC): 88 Walking 10ft/uneven surface-QC: 88 Gait Assistive Device: FWW Wheelchair Training Does the Pt Use a Wheelchair?: Yes Wheel 50 ft with 2 turns (QC): 3 Wheel 150 ft (QC): 3 Type of Wheelchair: Manual Stair Training 1 Step (curb) (QC): 88 4 Steps (QC): 88 12 Steps (QC): 88 Balance Picking up an Object (QC): 88 ADL-Treatment Eating (QC): 4 Oral Hygiene (QC): 5 Bathing Location: L Arm, R Arm, L Upper Leg, R Upper Leg, L Lower Leg (includi ng foot) (Pt used long handled sponge to clean), R Lower Leg (including foot) (Pt used long handled sponge to clean), Chest, Abdomen, Buttocks (min A needed for thoroughness ), Perineal Area Shower/Bathe Self (QC): 1 (Assist x2 in stand. Pt able to wash UEs/LEs and periarea seated, assistance with buttocks.) Upper Body Dressing (QC): 3 (min A needed to pull down shirt in back ) Lower Body Dressing (QC): 1 (Assist x2 in stand for pant hike. Pt required min A to thread pants/brief, assistance wtih pant hike.) On/Off Footwear (QC): 4 (SBA, verbal cue for sock aide) Toileting Hygiene (QC): 1 Toilet Transfer (QC): 2 Assessment/Plan Assessment and Plan Assess & Plan/Chief Complaint Assessment: Debility BMI 46 Supratherapeutic INR UTI completed treatment Lobo catheter discontinued now Urinary incontinence Atrial fibrillation? DVT? Dysphagia Urinary incontinence Antral ulcer on EGD with recent bleed Acute blood loss anemia with severe iron deficiency Plan: Supportive care UTI treatment DC Lobo catheter Aggressive rehab 05/26/2021: Aggressive rehab Incontinence care Maintain Coumadin EGD with dilatation 05/27/2021: EGD tomorrow Supportive care 05/28/2021: Appreciate Dr. SANCHEZ Monitor closely 05/29/2021: Iron infusions Supportive care 05/30/2021: Iron infusions Supportive care 05/31/2021: Monitor blood pressure Supportive care 06/01/21: Monitor INR 06/02/21: Monitor INR (1) General weakness Status: Acute (2) BMI 45.0-49.9, adult (3) Lobo catheter in place (4) Atrial fibrillation (5) Warfarin anticoagulation (6) Confusion (7) Supratherapeutic INR Status: Acute (8) UTI (urinary tract infection) Status: Acute (9) Anemia Status: Acute TAMARA DE LEON DO Jun 02, 2021 05:42
[2021-06-02] MEDS: CATHETER FLUSH 10 ML SYR IV SCH ×3 (06:35→20:21)
[2021-06-02 06:57] LABS: INR 1.8 (0.8-1.4)
[2021-06-02] MEDS: GABAPENTIN 300 MG (NEURONTIN) CAP PO SCH ×3 (07:30→20:08)
[2021-06-02] MEDS: PANTOPRAZOLE 40 MG (PROTONIX) VIAL IV SCH ×2 (07:30→20:20)
[2021-06-02] MEDS: OXYBUTYNIN (DITROPAN) 5 MG TAB PO SCH ×2 (07:30→20:08)
[2021-06-02] MEDS: DICLOFENAC 1% GEL 100 GM (VOLTAREN) TUBE TOP SCH ×3 (07:31→20:12)
[2021-06-02] MEDS: MICONAZOLE 2% POWDER (DESENEX AF) 90 GM TOP SCH ×2 (07:31→20:11)
[2021-06-02] MEDS: DULoxetine 30 MG (CYMBALTA) CAP PO SCH ×2 (07:31→20:08)
[2021-06-02 07:32] VITALS: BP 141/64
[2021-06-02] MEDS: polyethylene glycoL POWDER 17 GM (MIRALAX) PACK PO SCH ×2 (09:28→20:08)
[2021-06-02] MEDS: DOCUSATE SODIUM 100 MG (COLACE) CAP PO SCH ×2 (09:28→20:08)
[2021-06-02] MEDS: SENNOSIDES 8.6 MG (SENOKOT) TAB PO SCH ×2 (09:28→20:08)
--- NOTE | 2021-06-02 10:43 | Physical Therapy Daily Note ---
PT Daily Note-Current Subjective Pt. in bed, agrees to LE exercises and up in recliner. Pt.c/o weakness and pain in left lower leg where bruising is Pain Numeric Pain Scale: 4 Location: Left Location Body Site: Calf Pain Description: Ache Mental Status Patient Orientation: Person, Place Transfers SCALE: Activities may be completed with or without assistive devices. 6-Hjpgedxtpb-kmemmef completes the activity by him/herself with no assistance from a helper. 5-Set-up or Clean-up Assistance-helper sets up or cleans up; patient completes activity. [place] assists only prior to or following the activity. 4-Supervision or Touching Assistance-helper provides verbal cues and/or touching/steadying and/or contact guard assistance as patient completes activity. Assistance may be provided throughout the activity or intermittently. 3-Partial/Moderate Assistance-helper does LESS THAN HALF the effort. [place] lifts, holds or supports trunk or limbs, but provides less than half the effort. 2-Substantial/Maximal Assistance-helper does MORE THAN HALF the effort. [place] lifts or holds trunk or limbs and provides more than half the effort. 1-Zajrinnuc-ibwtdr does ALL the effort. Patient does none of the effort to complete the activity. Or, the assistance of 2 or more helpers is required for the patient to complete the activity. If activity was not attempted, code reason: 7-Patient Refused. 9-Not Applicable-not attempted and the patient did not perform the activity before the current illness, exacerbation or injury. 10-Not Attempted due to Environmental Limitations-(lack of equipment, weather restraints, etc.). 88-Not Attempted due to Medical Conditions or Safety Concerns. Roll Left & Right (QC): 3 Lying to Sitting/Side of Bed(Q: 3 Sit to Stand (QC): 3 Chair/Xxw-jm-Zkhih Xfer(QC): 3 pt. stood with mod assist, with recliner positioned for 90 deg TRF pt. froze afer on her feet and needed Mod to MAX assist to move her bottom and feet toward chair stating "are you going to carry me over there"? "are you going to count to 3"? Weight Bearing Full Weight Bearing Full Weight Bearing Exercises Seated Therapy Exercises: Ankle pumps, Sit to stand, Long arc quads Seated Reps: 5 Treatments bed mob, TRF, seated therex, up in sift recliner after Rx with call barber at hand, communication with nursing regarding pts. TRF status, pt. currently in air bed which makes TRFs difficult in and out, nursing changed bed to std hosp bed while pt. is up in recliner. this may make TRFs easier with more stable surface to TRF from and to. sit to stand lift brought to assist nursing to get pt back to bed if needed as PT will be gone for the day and pt, desires to stay up for now Assessment Current Status: Fair Progress dependent for bed mob and TRFs PT Short Term Goals Short Term Goals Time Frame: Jun 01, 2021 Roll Left & Right: 3 Sit to lyin Lying to sitting on side of be: 3 Sit to stand: 3 Chair/tzd-gq-lpgem transfer: 3 Walk 10 feet: 3 Walk 50 feet with two turns: 3 PT Correction Goals Correction Goals PT Carpenter Rough Goals Time Frame: Jun 15, 2021 Roll Left & Right (QC): 4 Sit to Lying (QC): 4 Lying-Sitting on Side/Bed(QC): 4 Sit to Stand (QC): 4 Chair/Vwc-he-Cwnyn Xfer(QC): 4 Toilet Transfer (QC): 4 Car Transfer (QC): 3 Does the Patient Walk: Yes Walk 10 feet (QC): 4 Walk 50ft with 2 Turns (QC): 4 Walk 150 ft (QC): 4 Walking 10ft on Uneven Surface: 4 1 Step (curb) (QC): 4 4 Steps (QC): 88 12 Steps (QC): 88 Picking up an Object (QC): 4 Wheel 50 feet with 2 turns (QC: 4 Wheel 150 feet: 4 PT Plan Treatment/Plan Treatment Plan: Continue Plan of Care Treatment Plan: Bed Mobility, Education, Functional Activity Max, Functional Strength, Group Therapy, Gait, Safety, Therapeutic Exercise, Transfers Treatment Duration: Jun 01, 2021 Frequency: At least 5 of 7 days/Wk (IRF) Estimated Hrs Per Day: 1.5 hours per day Patient and/or Family Agrees t: Yes Safety Risks/Education Patient Education: Transfer Techniques, Correct Positioning, Safety Issues Teaching Recipient: Patient Teaching Methods: Demonstration, Discussion Response to Teaching: Unable to Return Demonstration, Reinforcement Needed Time/GCodes Time In: 820 Time Out: 845 Total Billed Treatment Time: 25 Total Billed Treatment 1,EX10m,FA15m [place] [employer] Jun 02, 2021 10:43
[2021-06-02] MEDS: ACETAMINOPHEN 325 MG TABLET PO PRN (12:15)
[2021-06-02] MEDS: warFARin 5 MG (COUMADIN) TAB PO SCH (17:50)
[2021-06-02 19:08] VITALS: BP 155/71
[2021-06-02] MEDS: LOSARTAN 100 MG (COZAAR) TABLET PO SCH (20:08)
[2021-06-02] MEDS: RINVOQ 15 MG PO SCH (20:10)
[2021-06-03] MEDS: CATHETER FLUSH 10 ML SYR IV SCH ×3 (05:26→20:40)
--- NOTE | 2021-06-03 06:44 | PM&R Progress Note ---
Subjective HPI/CC On Admission Date Seen by Provider: Jun 03, 2021 Time Seen by Provider: 13:00 Subjective/Events-last exam 06/03/2021: Patient doing pretty well Trying to sit to stand to help her transfers Voiding issues discussed and checked UA no evidence of infection but held D[place] Checking labs tomorrow 06/02/21: No major changes INR improved but not therapeutic yet Sit to stand will be attempted Presumed in need of NH due to increased BMI and difficulty transferring 06/01/21: Pt doing about the same TID Voltaren will be given to help with her neck pain Overall very poor prognosis residential Very weak 05/31/2021: Patient doing better Shoulder surgery from working on parallel bars Increase Coumadin dosing due to subtherapeutic Due to patient's obesity will make it difficult for transfers for her to go home 05/30/2021: Pt doing about the same Coumadin restarted Walking with therapy on the parallel bars Allevyn on her buttocks Set for discharge to her daughters house 05/29/2021: Pt doing a lot better Midline in the right arm Flu vaccine was given EGD showed ulcer IV iron infusion maintained Warfarin restarted 05/28/2021: Pt is doing pretty well Midline will be placed for Venofer EGD will be done today at 2 PM Bowels moved 05/24/21 05/27/2021: Patient doing about the same Requires two-person transfer to side of bed Unsure if she is clinically capable of regaining enough function to go to daughter's house EGD will be performed tomorrow due to dysphagia Appreciate Dr. SANCHEZ Urine is very dark 05/26/2021: Patient settling in well Daughter at bedside Dysphagia reported so we will consult Dr. SANCHEZ for EGD with dilatation Checked meds and labs Incontinence is an issue because it is constant INR 1.9 Review of Systems General: Fatigue, Malaise Objective Exam Vital Signs Vital Signs Date Time Temp Pulse Resp B/P (MAP) Pulse Ox O2 Delivery O2 Flow Rate FiO2 06/03/21 20:13 96 Room Air 06/03/21 19:30 36.3 71 16 147/62 (90) Capillary Refill : General Appearance: No Apparent Distress, WD/WN, Anxious, Chronically ill, Obese HEENT: PERRL/EOMI, Normal ENT Inspection, Pharynx Normal Neck: Full Range of Motion, Normal Inspection, Non Tender, Supple, Carotid Bruit Respiratory: Chest Non Tender, Lungs Clear, Normal Breath Sounds, No Accessory Muscle Use, No Respiratory Distress Cardiovascular: Regular Rate, Rhythm, No Edema, No Gallop, No JVD, No Murmur, Normal Peripheral Pulses Gastrointestinal: Normal Bowel Sounds, No Organomegaly, No Pulsatile Mass, Non Tender, Soft Back: Normal Inspection, No CVA Tenderness, No Vertebral Tenderness Extremity: Normal Capillary Refill, Normal Inspection, Normal Range of Motion, Non Tender, No Calf Tenderness, No Pedal Edema Neurologic/Psychiatric: Alert, Oriented x3, No Motor/Sensory Deficits, Normal Mood/Affect, Abnormal Gait, Disoriented, Motor Weakness (Generalized) Skin: Normal Color, Warm/Dry Lymphatic: No Adenopathy Results/Procedures Lab Patient resulted labs reviewed. FIM Transfers Therapy Code Descriptions/Definitions Functional [place] Measure: 0=Not Assessed/NA 4=Minimal Assistance 1=Total Assistance 5=Supervision or Setup 2=Maximal Assistance 6=Modified [place] 3=Moderate Assistance 7=Complete IndependenceSCALE: Activities may be completed with or without assistive devices. 5-Chptdnexmr-csgthci completes the activity by him/herself with no assistance from a helper. 5-Set-up or Clean-up Assistance-helper sets up or cleans up; patient completes activity. [place] assists only prior to or following the activity. 4-Supervision or Touching Assistance-helper provides verbal cues and/or touching/steadying and/or contact guard assistance as patient completes activity. Assistance may be provided throughout the activity or intermittently. 3-Partial/Moderate Assistance-helper does LESS THAN HALF the effort. [place] lifts, holds or supports trunk or limbs, but provides less than half the effort. 2-Substantial/Maximal Assistance-helper does MORE THAN HALF the effort. [place] lifts or holds trunk or limbs and provides more than half the effort. 0-Fcrbotytw-alowdd does ALL the effort. Patient does none of the effort to com plete the activity. Or, the assistance of 2 or more helpers is required for the patient to complete the activity. If activity was not attempted, code reason: 7-Patient Refused. 9-Not Applicable-not attempted and the patient did not perform the activity before the current illness, exacerbation or injury. 10-Not Attempted due to Environmental Limitations-(lack of equipment, weather restraints, etc.). 88-Not Attempted due to Medical Conditions or Safety Concerns. Roll Left to Right (QC): 3 Sit to Lying (QC): 1 Sit to Stand (QC): 3 Chair/Wqu-ab-Bhgwg Xfer(QC): 3 Car Transfer (QC): 88 Gait Training Does the Patient Walk?: Yes Distance: 10' Walk 10 feet (QC): 3 Walk 50 ft with 2 Turns(QC): 88 Walk 150 ft (QC): 88 Walking 10ft/uneven surface-QC: 88 Gait Assistive Device: FWW Wheelchair Training Does the Pt Use a Wheelchair?: Yes Wheel 50 ft with 2 turns (QC): 3 Wheel 150 ft (QC): 3 Type of Wheelchair: Manual Stair Training 1 Step (curb) (QC): 88 4 Steps (QC): 88 12 Steps (QC): 88 Balance Picking up an Object (QC): 88 ADL-Treatment Eating (QC): 4 Oral Hygiene (QC): 5 Bathing Location: L Arm, R Arm, L Upper Leg, R Upper Leg, L Lower Leg (including foot) (Pt used long handled sponge to clean), R Lower Leg (including foot) (Pt used long handled sponge to clean), Chest, Abdomen, Buttocks (min A needed for thoroughness ), Perineal Area Shower/Bathe Self (QC): 1 (Assist x2 in stand. Pt able to wash UEs/LEs and periarea seated, assistance with buttocks.) Upper Body Dressing (QC): 3 (min A needed to pull down shirt in back ) Lower Body Dressing (QC): 1 (Assist x2 in stand for pant hike. Pt required min A to thread pants/brief, assistance wtih pant hike.) On/Off Footwear (QC): 4 (SBA, verbal cue for sock aide) Toileting Hygiene (QC): 1 Toilet Transfer (QC): 2 Assessment/Plan Assessment and Plan Assess & Plan/Chief Complaint Assessment: Debility BMI 46 Supratherapeutic INR UTI completed treatment Lobo catheter discontinued now Urinary incontinence Atrial fibrillation? DVT? Dysphagia Urinary incontinence Antral ulcer on EGD with recent bleed Acute blood loss anemia with severe iron deficiency Plan: Supportive care UTI treatment DC Lobo catheter Aggressive rehab 05/26/2021: Aggressive rehab Incontinence care Maintain Coumadin EGD with dilatation 05/27/2021: EGD tomorrow Supportive care 05/28/2021: Appreciate Dr. SANCHEZ Monitor closely 05/29/2021: Iron infusions Supportive care 05/30/2021: Iron infusions Supportive care 05/31/2021: Monitor blood pressure Supportive care 06/01/21: Monitor INR 06/02/21: Monitor INR 06/03/2021: Supportive care Monitor urinary retention (1) General weakness Status: Acute (2) BMI 45.0-49.9, adult (3) Lobo catheter in place (4) Atrial fibrillation (5) Warfarin anticoagulation (6) Confusion (7) Supratherapeutic INR Status: Acute (8) UTI (urinary tract infection) Status: Acute (9) Anemia Status: Acute TAMARA DE LEON DO Jun 03, 2021 06:44
[2021-06-03 07:30] VITALS: BP 136/62
[2021-06-03] MEDS: GABAPENTIN 300 MG (NEURONTIN) CAP PO SCH ×3 (09:34→20:41)
[2021-06-03] MEDS: DULoxetine 30 MG (CYMBALTA) CAP PO SCH ×2 (09:35→20:41)
[2021-06-03] MEDS: IRON SUCROSE 200 MG/10 ML (VENOFER) VIAL IV SCH (09:35)
[2021-06-03] MEDS: OXYBUTYNIN (DITROPAN) 5 MG TAB PO SCH (09:35)
[2021-06-03] MEDS: PANTOPRAZOLE 40 MG (PROTONIX) VIAL IV SCH ×2 (09:35→20:40)
[2021-06-03] MEDS: MICONAZOLE 2% POWDER (DESENEX AF) 90 GM TOP SCH ×2 (09:37→20:41)
[2021-06-03] MEDS: DOCUSATE SODIUM 100 MG (COLACE) CAP PO SCH ×2 (09:37→20:41)
[2021-06-03] MEDS: SENNOSIDES 8.6 MG (SENOKOT) TAB PO SCH ×2 (09:37→20:41)
[2021-06-03] MEDS: polyethylene glycoL POWDER 17 GM (MIRALAX) PACK PO SCH ×2 (09:37→20:41)
[2021-06-03] MEDS: DICLOFENAC 1% GEL 100 GM (VOLTAREN) TUBE TOP SCH ×3 (09:38→20:40)
[2021-06-03] MEDS: ACETAMINOPHEN 325 MG TABLET PO PRN (10:24)
[2021-06-03] MEDS: warFARin 5 MG (COUMADIN) TAB PO SCH (17:05)
[2021-06-03 19:30] VITALS: BP 147/62
[2021-06-03 20:13] LABS: BILIRUBIN,URINE NEGATIVE (NEGATIVE); CLARITY,URINE CLEAR; COLOR,URINE YELLOW; GLUCOSE, URINE (UA) NEGATIVE (NEGATIVE); KETONES,URINE NEGATIVE (NEGATIVE); LEUKOCYTE ESTERASE ,URINE NEGATIVE (NEGATIVE); NITRITE,URINE NEGATIVE (NEGATIVE); PH,URINE 5.5 (5-9); PROTEIN,URINE NEGATIVE (NEGATIVE)
[2021-06-03 20:27] LABS: WBC,URINE RARE /HPF
[2021-06-03 20:28] LABS: BACTERIA,URINE NEGATIVE /HPF
[2021-06-03] MEDS: LOSARTAN 100 MG (COZAAR) TABLET PO SCH (20:41)
[2021-06-03] MEDS: RINVOQ 15 MG PO SCH (20:42)
[2021-06-04] MEDS: ACETAMINOPHEN 325 MG TABLET PO PRN ×2 (02:05→08:04)
[2021-06-04 06:06] LABS: BASOPHILS % (AUTO) 0 % (0-10); EOSINOPHILS # (AUTO) 0.1 10^3/uL (0.0-0.3); EOSINOPHILS % (AUTO) 3 % (0-10); HEMATOCRIT 26 % (35-52); HEMOGLOBIN 8.2 g/dL (11.5-16.0); LYMPHOCYTES # (AUTO) 0.9 10^3/uL (1.0-4.0); LYMPHOCYTES % (AUTO) 21 % (12-44); MEAN CORPUSCULAR HEMOGLOBIN 32 pg (25-34); MEAN CORPUSCULAR HGB CONC 32 g/dL (32-36); MEAN CORPUSCULAR VOLUME 100 fL (80-99); MONOCYTES # (AUTO) 0.4 10^3/uL (0.0-1.0); MONOCYTES % (AUTO) 9 % (0-12); NEUTROPHILS # (AUTO) 2.8 10^3/uL (1.8-7.8); NEUTROPHILS % (AUTO) 66 % (42-75); PLATELET COUNT 166 10^3/uL (130-400); WHITE BLOOD COUNT 4.2 10^3/uL (4.3-11.0)
[2021-06-04] MEDS: CATHETER FLUSH 10 ML SYR IV SCH ×3 (06:10→20:07)
[2021-06-04 06:14] LABS: INR 2.2 (0.8-1.4); PROTHROMBIN TIME PATIENT 24.5 SEC (12.2-14.7)
--- NOTE | 2021-06-04 06:16 | PM&R Progress Note ---
Subjective HPI/CC On Admission Date Seen by Provider: Jun 04, 2021 Time Seen by Provider: 09:00 Subjective/Events-last exam 06/04/21: Pt still talking about specialized rheumatological medication refill that we al ready addressed several times Pt will need a half-way Feels like she is weaker which I would agree with INR is 2.2 on Coumadin 5 mg at 1800 Checked meds and labs Very slow recovery if any expected 06/03/2021: Patient doing pretty well Trying to sit to stand to help her transfers Voiding issues discussed and checked UA no evidence of infection but held Ditropan Checking labs tomorrow 06/02/21: No major changes INR improved but not therapeutic yet Sit to stand will be attempted Presumed in need of NH due to increased BMI and difficulty transferring 06/01/21: Pt doing about the same TID Voltaren will be given to help with her neck pain 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 05/31/2021: Patient doing better Shoulder surgery from working on [employer] bars Increase Coumadin dosing due to subtherapeutic Due to patient's obesity will make it difficult for transfers for her to go home 05/30/2021: Pt doing about the same Coumadin restarted Walking with therapy on the parallel bars Allevyn on her buttocks Set for discharge to her daughters house 05/29/2021: Pt doing a lot better Midline in the right arm Flu vaccine was given EGD showed ulcer IV iron infusion maintained Warfarin restarted 05/28/2021: Pt is doing pretty well Midline will be placed for Venofer EGD will be done today at 2 PM Bowels moved 05/24/21 05/27/2021: Patient doing about the same Requires two-person transfer to side of bed Unsure if she is clinically capable of regaining enough function to go to [facility] [place] EGD will be performed tomorrow due to dysphagia Appreciate Dr. SANCHEZ Urine is very dark 05/26/2021: Patient settling in well Daughter at bedside Dysphagia reported so we will consult Dr. SANCHEZ for EGD with dilatation Checked meds and labs Incontinence is an issue because it is constant INR 1.9 Review of Systems General: Fatigue, Malaise Musculoskeletal: arm pain, back pain, hand pain, leg pain, foot pain Objective Exam Vital Signs Vital Signs Date Time Temp Pulse Resp B/P (MAP) Pulse Ox O2 Delivery O2 Flow Rate FiO2 06/04/21 20:05 Room Air 06/04/21 20:00 36.8 66 18 144/62 (89) 96 Capillary Refill : General Appearance: No Apparent Distress, WD/WN, Anxious, Chronically ill, Obese HEENT: PERRL/EOMI, Normal ENT Inspection, Pharynx Normal Neck: Full Range of Motion, Normal Inspection, Non Tender, Supple, Carotid Bruit Respiratory: Chest Non Tender, Lungs Clear, Normal Breath Sounds, No Accessory Muscle Use, No Respiratory Distress Cardiovascular: Regular Rate, Rhythm, No Edema, No Gallop, No JVD, No Murmur, Normal Peripheral Pulses Gastrointestinal: Normal Bowel Sounds, No Organomegaly, No Pulsatile Mass, Non Tender, Soft Back: Normal Inspection, No CVA Tenderness, No Vertebral Tenderness Extremity: Normal Capillary Refill, Normal Inspection, Normal Range of Motion, Non Tender, No Calf Tenderness, No Pedal Edema Neurologic/Psychiatric: Alert, Oriented x3, No Motor/Sensory Deficits, Normal Mood/Affect, Abnormal Gait, Disoriented, Motor Weakness (Generalized) Skin: Normal Color, Warm/Dry Lymphatic: No Adenopathy Results/Procedures Lab Laboratory Tests 06/04/21 05:53 Patient resulted labs reviewed. FIM Transfers Therapy Code Descriptions/Definitions Functional [place] Measure: 0=Not Assessed/NA 4=Minimal Assistance 1=Total Assistance 5=Supervision or Setup 2=Maximal Assistance 6=Modified [place] 3=Moderate Assistance 7=Complete IndependenceSCALE: Activities may be completed with or without assistive devices. 9-Ktpabmseho-ijxykog completes the activity by him/herself with no assistance from a helper. 5-Set-up or Clean-up Assistance-helper sets up or cleans up; patient completes activity. Bernard assists only prior to or following the activity. 4-Supervision or Touching Assistance-helper provides verbal cues and/or touching/steadying and/or contact guard assistance as patient completes activity. Assistance may be provided throughout the activity or intermittently. 3-Partial/Moderate Assistance-helper does LESS THAN HALF the effort. Bernard lifts, holds or supports trunk or limbs, but provides less than half the effort. 2-Substantial/Maximal Assistance-helper does MORE THAN HALF the effort. Bernard lifts or holds trunk or limbs and provides more than half the effort. 8-Fwqbrpmqt-xphqmt does ALL the effort. Patient does none of the effort to complete the activity. Or, the assistance of 2 or more helpers is required for the patient to complete the activity. If activity was not attempted, code reason: 7-Patient Refused. 9-Not Applicable-not attempted and the patient did not perform the activity before the current illness, exacerbation or injury. 10-Not Attempted due to Environmental Limitations-(lack of equipment, weather restraints, etc.). 88-Not Attempted due to Medical Conditions or Safety Concerns. Roll Left to Right (QC): 3 Sit to Lying (QC): 1 Sit to Stand (QC): 3 Chair/Zra-ck-Nogqd Xfer(QC): 3 Car Transfer (QC): 88 Gait Training Does the Patient Walk?: Yes Distance: 10' Walk 10 feet (QC): 3 Walk 50 ft with 2 Turns(QC): 88 Walk 150 ft (QC): 88 Walking 10ft/uneven surface-QC: 88 Gait Assistive Device: FWW Wheelchair Training Does the Pt Use a Wheelchair?: Yes Wheel 50 ft with 2 turns (QC): 3 Wheel 150 ft (QC): 3 Type of Wheelchair: Manual Stair Training 1 Step (curb) (QC): 88 4 Steps (QC): 88 12 Steps (QC): 88 Balance Picking up an Object (QC): 88 ADL-Treatment Eating (QC): 4 Oral Hygiene (QC): 5 Bathing Location: L Arm, R Arm, L Upper Leg, R Upper Leg, L Lower Leg (including foot) (Pt used long handled sponge to clean), R Lower Leg (including foot) (Pt used long handled sponge to clean), Chest, Abdomen, Buttocks (min A needed for thoroughness ), Perineal Area Shower/Bathe Self (QC): 1 (Assist x2 in stand. Pt able to wash UEs/LEs and periarea seated, assistance with buttocks.) Upper Body Dressing (QC): 3 (min A needed to pull down shirt in back ) Lower Body Dressing (QC): 1 (Assist x2 in stand for pant hike. Pt required min A to thread pants/brief, assistance wtih pant hike.) On/Off Footwear (QC): 4 (SBA, verbal cue for sock aide) Toileting Hygiene (QC): 1 Toilet Transfer (QC): 2 Assessment/Plan Assessment and Plan Assess & Plan/Chief Complaint Assessment: Debility BMI 46 Supratherapeutic INR UTI completed treatment Lobo catheter discontinued now Urinary incontinence Atrial fibrillation? DVT? Dysphagia Urinary incontinence Antral ulcer on EGD with recent bleed Acute blood loss anemia with severe iron deficiency Plan: Supportive care UTI treatment DC Lobo catheter Aggressive rehab 05/26/2021: Aggressive rehab Incontinence care Maintain Coumadin EGD with dilatation 05/27/2021: EGD tomorrow Supportive care 05/28/2021: Appreciate Dr. SANCHEZ Monitor closely 05/29/2021: Iron infusions Supportive care 05/30/2021: Iron infusions Supportive care 05/31/2021: Monitor blood pressure Supportive care 06/01/21: Monitor INR 06/02/21: Monitor INR 06/03/2021: Supportive care Monitor urinary retention 06/04/21: Monitor closely Discharge tomorrow (1) General weakness Status: Acute (2) BMI 45.0-49.9, adult (3) Lobo catheter in place (4) Atrial fibrillation (5) Warfarin anticoagulation (6) Confusion (7) Supratherapeutic INR Status: Acute (8) UTI (urinary tract infection) Status: Acute (9) Anemia Status: Acute TAMARA DE LEON DO Jun 04, 2021 06:15
[2021-06-04 06:26] LABS: ALBUMIN 3.1 GM/DL (3.2-4.5); CALCIUM 8.4 MG/DL (8.5-10.1); CREATININE SERUM 0.77 MG/DL (0.60-1.30); POTASSIUM 3.9 MMOL/L (3.6-5.0); TOTAL PROTEIN 5.7 GM/DL (6.4-8.2)
[2021-06-04 07:20] VITALS: BP 143/67
[2021-06-04] MEDS: DOCUSATE SODIUM 100 MG (COLACE) CAP PO SCH ×2 (07:53→20:06)
[2021-06-04] MEDS: DULoxetine 30 MG (CYMBALTA) CAP PO SCH ×2 (07:53→20:05)
[2021-06-04] MEDS: GABAPENTIN 300 MG (NEURONTIN) CAP PO SCH ×3 (07:53→20:05)
[2021-06-04] MEDS: PANTOPRAZOLE 40 MG (PROTONIX) VIAL IV SCH ×2 (07:54→20:04)
[2021-06-04] MEDS: polyethylene glycoL POWDER 17 GM (MIRALAX) PACK PO SCH ×2 (07:59→20:07)
[2021-06-04] MEDS: SENNOSIDES 8.6 MG (SENOKOT) TAB PO SCH ×2 (07:59→20:07)
[2021-06-04] MEDS: DICLOFENAC 1% GEL 100 GM (VOLTAREN) TUBE TOP SCH ×3 (08:53→20:06)
[2021-06-04] MEDS: MICONAZOLE 2% POWDER (DESENEX AF) 90 GM TOP SCH ×2 (08:53→20:05)
--- NOTE | 2021-06-04 09:42 | Occupational Ther Daily Note ---
OT Current Status-Daily Note Subjective Pt sitting in recliner when OT entered. Pt agreed to therapy. No c/o pain reported. Mental Status/Objective Patient Orientation: Person, Place, Time, Situation ADL-Treatment OT/PT cotreat due to skill of 2 clinicians required which a rehabilitation physician could not perform in order to coordinate UE/LEs, decrease fall risk, and due to pt's limitations in strength, mobility, activity tolerance. OT focused on UE placement, cues for sequencing and safety, and ADLs, PT focused on LE placement, gross overall movements, transfers and mobility.Pt agreed to complete sponge bath. Pt doffed socks using long handled loom stop checker. Pt doffed gown. After set up of materials required, pt cleansed UB, chest, abdominal while seated in recliner. Pt required long handled sponge to cleanse LB. Pt able to thread BUE through UB dressing, required min A to bring shirt over head due to limited BUE ROM. Pt was able to thread BLE through LB dressing using loom stop checker. Pt required sit-stand lift due to weakness in BLE. While in standing, pt required assist to cleanse buttocks and hike LB dressing. Pt transferred to w/c using sit-stand. Pt propelled self to bathroom sink and completed oral hygiene independently while sitting in w/c. Therapy Code Descriptions/Definitions Functional [place] Measure: 0=Not Assessed/NA 4=Minimal Assistance 1=Total Assistance 5=Supervision or Setup 2=Maximal Assistance 6=Modified [place] 3=Moderate Assistance 7=Complete IndependenceSCALE: Activities may be completed with or without assistive devices. 9-Zvjpygqshv-awiuivb completes the activity by him/herself with no assistance from a helper. 5-Set-up or Clean-up Assistance-helper sets up or cleans up; patient completes activity. [place]ter assists only prior to or following the activity. 4-Supervision or Touching Assistance-helper provides verbal cues and/or touching/steadying and/or contact guard assistance as patient completes activity. Assistance may be provided throughout the activity or intermittently. 3-Partial/Moderate Assistance-helper does LESS THAN HALF the effort. [place]ter lifts, holds or supports trunk or limbs, but provides less than half the effort. 2-Substantial/Maximal Assistance-helper does MORE THAN HALF the effort. [place] lifts or holds trunk or limbs and provides more than half the effort. 8-Jyomkciip-dvpluy does ALL the effort. Patient does none of the effort to complete the activity. Or, the assistance of 2 or more helpers is required for the patient to complete the activity. If activity was not attempted, code reason: 7-Patient Refused. 9-Not Applicable-not attempted and the patient did not perform the activity before the current illness, exacerbation or injury. 10-Not Attempted due to Environmental Limitations-(lack of equipment, weather restraints, etc.). 88-Not Attempted due to Medical Conditions or Safety Concerns. Other Treatment Pt participated in functional w/c mobility task through [employer] for increased independence at home. Pt required frequent resting break throughout task due to fatigue and weakness in BUE and BLUE. Pt completed functional task of using loom stop checker to picker/puller x5 hall bags throughout [employer] while in w/c. Pt tolerated task well. Pt then was taken to therapy gym. Pt completed x3 sit- stands using parallel bars. See PT notes for grading. Pt was taken back to room. Pt required sit-stand lift from w/c to recliner. After session, pt sitting in recliner. All needs met and call light in reach. 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 2=Patient will verbalize/demonstrate understanding of assistive devices /modifications for ADL. 3=Patient will improve strength/tolerance for activity to enable patient to perform ADL's. OT Education/Plan Problem List/Assessment Assessment: Decreased Activ Tolerance, Decreased UE Strength, Impaired Funct Balance, Impaired I ADL's, Impaired Self-Care Skills, Restricted Funct UE ROM Discharge Recommendations Plan/Recommendations: Continue POC Treatment Plan/Plan of Care Patient would benefit from OT for education, treatment and training to promote independence in ADL's, mobility, safety and/or upper extremity function for ADL's. Plan of Care: ADL Retraining, Functional Mobility, Group Exercise/Act as Ind, UE Funct Exercise/Act Treatment Duration: Jun 23, 2021 Frequency: At least 5 of 7 days/Wk (IRF) Estimated Hrs Per Day: 1.5 hours per day Agreement: Yes Rehab Potential: Guarded Time/GCodes Start Time: 08:00 Stop Time: 09:30 Total Time Billed (hr/min): 90 Billed Treatment Time 1 visit- ADL 3 ( 47 mins ) FA 3 (43 mins) Co-treat [phone] TED SMITH Jun 04, 2021 09:42
--- NOTE | 2021-06-04 09:53 | Physical Therapy Daily Note ---
PT Daily Note-Current Subjective Pt sitting in recliner working w/OT upon arrival. Pt agrees to PT/OT co-treat. Pain Numeric Pain Scale: 9 Location: Right, Left Location Body Site: Knee Pain Description: Ache, Dull Comment: Pain in B shoulders & knees Mental Status Patient Orientation: Person, Place Transfers SCALE: Activities may be completed with or without assistive devices. 3-Vyanyngvqh-ulvqlev completes the activity by him/herself with no assistance from a helper. 5-Set-up or Clean-up Assistance-helper sets up or cleans up; patient completes activity. [place] assists only prior to or following the activity. 4-Supervision or Touching Assistance-helper provides verbal cues and/or touching/steadying and/or contact guard assistance as patient completes activ ity. Assistance may be provided throughout the activity or intermittently. 3-Partial/Moderate Assistance-helper does LESS THAN HALF the effort. [place] lifts, holds or supports trunk or limbs, but provides less than half the effort. 2-Substantial/Maximal Assistance-helper does MORE THAN HALF the effort. [place] lifts or holds trunk or limbs and provides more than half the effort. 8-Zqhpqwryt-scnkxn does ALL the effort. Patient does none of the effort to complete the activity. Or, the assistance of 2 or more helpers is required for the patient to complete the activity. If activity was not attempted, code reason: 7-Patient Refused. 9-Not Applicable-not attempted and the patient did not perform the activity before the current illness, exacerbation or injury. 10-Not Attempted due to Environmental Limitations-(lack of equipment, weather restraints, etc.). 88-Not Attempted due to Medical Conditions or Safety Concerns. Sit to Stand (QC): 3 (Mod A at //bars but using Sit to Stand lift otherwise due to weakness and pain in shoulders & knees) Weight Bearing Full Weight Bearing Full Weight Bearing Wheelchair Training Does the Pt Use a Wheelchair?: Yes Wheel 50 ft with 2 turns (QC): 4 Wheel 150 ft (QC): 4 Type of Wheelchair: Manual Exercises Seated Therapy Exercises: Sit to stand Seated Reps: 3 Treatments OT/PT cotreat due to skill of 2 clinicians required which a rehabilitation aide/scheduler could not perform in order to coordinate UE/LEs, decrease fall risk, and due to pt's limitations in strength, mobility, activity tolerance. OT focused on UE placement, cues for sequencing and safety, and ADLs, PT focused on LE placement, gross overall movements, transfers and mobility.Pt agreed to complete sponge bath. Pt doffed socks using long handled chronic disease epidemiologist. Pt doffed gown. After set up of materials required, pt cleansed UB, chest, abdominal while seated in recliner. Pt required long handled sponge to cleanse LB. Pt able to thread BUE through UB dressing, required min A to bring shirt over head due to limited BUE ROM. Pt was able to thread BLE through LB dressing using chronic disease epidemiologist. Pt required sit-stand lift due to weakness in BLE. While in standing, pt required assist to cleanse buttocks and hike LB dressing. Pt transferred to w/c using sit-stand. Pt propelled self to bathroom sink and completed oral hygiene independently while sitting in w/c. Pt participated in functional w/c mobility task through [facility] [employer] for increased independence at home. Pt required frequent resting break throughout task due to fatigue and weakness in BUE and BLUE. Pt completed functional task of using chronic disease epidemiologist to hot die picker x5 hall bags throughout [facility] [employer] while in w/c. Pt tolerated task well. Pt then was taken to therapy gym. Pt completed x3 sit-stands using parallel bars. Pt was taken back to room. Pt required sit-stand lift from w/c to recliner. After session, pt sitting in recliner. All needs met and call light in reach. Assessment Current Status: Fair Progress Pt reports B knee buckling and pain with WB. Pt is able to stand for short duration before having to sit back in [facility]. Pain in B shoulders & knees limit participation in tx. 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 [employer] In [employer] Goals Time Frame: Jun 15, 2021 Roll Left & Right (QC): 4 Sit to Lying (QC): 4 Lying-Sitting on Side/Bed(QC): 4 Sit to Stand (QC): 4 Chair/Usq-dr-Lpfht Xfer(QC): 4 Toilet Transfer (QC): 4 Car Transfer (QC): 3 Does the Patient Walk: Yes Walk 10 feet (QC): 4 Walk 50ft with 2 Turns (QC): 4 Walk 150 ft (QC): 4 Walking 10ft on Uneven Surface: 4 1 Step (curb) (QC): 4 4 Steps (QC): 88 12 Steps (QC): 88 Picking up an Object (QC): 4 Wheel 50 feet with 2 turns (QC: 4 Wheel 150 feet: 4 PT Plan Problem List Problem List: Activity Tolerance, Functional Strength, Safety, Balance, Gait, Transfer Treatment/Plan Treatment Plan: Continue Plan of Care Treatment Plan: Bed Mobility, Education, Functional Activity Max, Functional Strength, Group Therapy, Gait, Safety, Therapeutic Exercise, Transfers Treatment Duration: Jun 01, 2021 Frequency: At least 5 of 7 days/Wk (IRF) Estimated Hrs Per Day: 1.5 hours per day Patient and/or Family Agrees t: Yes Safety Risks/Education Patient Education: Transfer Techniques, Correct Positioning, W/C Management, Safety Issues Teaching Recipient: Patient Teaching Methods: Discussion Response to Teaching: Verbalize Understanding, Reinforcement Needed Time/GCodes Time In: 800 Time Out: 930 Total Billed Treatment Time: 90 Total Billed Treatment Co-treat for 90m 1, FA x2 (30m), [facility] x2 (30m) & EX x2 (30m) ALONDRA HENNESSY PTA Jun 04, 2021 09:53
[2021-06-04] MEDS ORDERED: ACETAMINOPHEN 325 MG TABLET PO SCH (10:00)
--- NOTE | 2021-06-04 11:02 | ST Dysphagia Evaluation ---
Speech Evaluation-General Medical Diagnosis Weakness/Uti Onset Date: May 19, 2021 Therapy Diagnosis Therapy Diagnosis: Mild Pharyngeal Dysphagia Precautions Precautions: Fall, Aspiration Precautions/Isolations: Standard Precautions Referral Referring Physician: Dr. Tonya Dumont Reason for Referral: Evaluation/Treatment Medical History Current History The patient is an 81 year-old female with a past medical history of atrial fibrillation, HTN, dementia, rheumatoid arthritis, and chronic UTI, who was admitted to [facility] with a diagnosis of weakness, UTI, and confusion. The patient has received cognitive linguistic treatment from speech pathology during her stay in acute rehabilitation. Recently, a treating RN noted the patient was experiencing difficulty swallowing, therefore, a clinical bedside swallowing evaluation was ordered by the physician. Reviewed History: Yes Social History Current Living Status: Alone Speech PLF/Current-Dysphagia Prior Level of Function The patient reported she consumed soft soft consistencies and thin liquids prior to admission. Subjective The patient was seated upright in her recliner upon entrance to her room by the clinician. The patient greeted the clinician and was agreeable to participation in the clinical bedside swallowing evaluation. The clinician and the patient have discussed the patient's oropharyngeal swallowing function during prior sessions and on today's date. The patient reported (and continues to report) a globus sensation in the mid-chest region following the swallow with dry solid consistencies. Additionally, the patient reports "things tend to stack up and then come out with lots and phlegm and stuf f" following the swallow with dry solid consistencies. Following the prior discussion, the clinician agreed the patient should remain on the dysphagia three consistency diet with thin liquids as recommended following the EGD (EGD results below). Upon a chart review, it appears the patient was advanced to a regular diet consistency with thin liquids. Per patient, her swallowing diff iculty throughout the weekend occurred on dry solids. EGD: "Mild to moderate amount of phlegm in the hypopharyngeal region consistent with incomplete swallowing, reflux esophagitis between [place] stage II and III, moderate size hiatal hernia 3 cm in size, antral ulcer with overlying fibrin clot, no active bleeding. No distal obstructions." CXR: 05/23/21: Limited but unremarkable chest. Cognitive Status Patient Orientation: Person, Place, Time, Situation Oral Motor Skills Dentition: Natural Current Food Consistancy: Regular, Thin Liquids Ability to Follow Directions: Excellent Oral Expression Ability: No Impairment Voice Voice Phonatory-Based Quality: Normal Voice Pitch: Normal Voice Loudness: Normal Face Facial Symmetry: Symmetrical Oral-Facial Assessment Oral-Facial Dentition: Normal Labial Seal Description: Normal Smile: Normal Puff Cheeks: Normal Lingual Protrusion: Normal Lingual ROM: Normal Lingual Strength: Normal Volitional Dry Swallow: Yes Voluntary Cough: Yes Can Clear Throat Volitionally: Yes Productive Cough: Yes Productive Throat Clear: Yes Dysphagia Evaluation Consistencies Presented: Thin Liquid, Mechanical Soft, Pureed Dietary Recommendations: Mechanical Soft Liquid Recommendations: Thin Recommendations: - Dysphagia three consistency diet with thin liquids, as tolerated. - Fully upright and alert for PO intake. - Small, single bites and sips, only. - Alternate bites and sips on a 1:1 ratio. - Provide additional sauces, gravies, etc. when available to avoid problematic dry consistencies. - Avoid problematic dry consistencies. - Swallow twice per swallow. - Remain upright for a minimum of 30 minutes following PO intake. - Monitor for s/s of suspected aspiration with PO intake. If demonstrated, contact speech pathology. - Speech pathology to provide dysphagia treatment and diet consistency tolerance follow up four to five times per day. The recommendations were discussed extensively with the patient and the treating RN following the evaluation. Swallowing Precautions: Alternate Liquids/Solids, Double Swallow, Small Bites and Sips, Sitting 90 Degrees 30 Post Intake Dysphagia Evaluation Summary The patient was provided thin liquid via straw, puree, and jan crackers coated in puree (mechanical soft). Overt s/s of suspected aspiration were not demonstrated with any consistency tested. The patient's vocal quality remained consistently clear following the swallow. The patient denied the presence of odynophagia or a globus sensation with any trial presented. Speech Short Term Goals Short Term Goals Short Term Goals 1. The patient will demonstrated 90% accuracy with functional memory and executive functioning tasks with mild clinician verbal cueing. 2. The patient will demonstrate safe swallowing techniques with 90% accuracy, independently. Speech Snf Goals Manual Training Teacher Goals 1. The patient will demonstrate increased cognitive linguistic skills for safe return to the least restricted environment. 2. The patient will consume the least restricted diet consistency without s/s of suspected aspiration with 90% accuracy. Speech-Plan Treatment Plan Speech Therapy Treatment Plan: Continue Plan of Care Treatment Duration: May 25, 2021 Frequency: 4 times per week (Four to five times per week.) Estimated Hrs Per Day: .5 hour per day Rehab Potential: Guarded Safety Risks/Education Teaching Recipient: Patient Teaching Methods: Discussion Response to Teaching: Verbalize Understanding, Return Demonstration Education Topics Provided: Safe Swallowing Recommendations, Results of the Evaluation Time Speech Therapy Time In: 09:30 Speech Therapy Time Out: 10:00 Total Billed Time: 30 Billed Treatment Time 1, ALEXANDRA CAMEJO ELIZABETH ST Jun 04, 2021 11:02
--- NOTE | 2021-06-04 13:24 | CONSULTATION REPORT ---
DATE OF SERVICE: 06/04/2021 ATTENDING PHYSICIAN: Dr. Dumont. SUMMARY: An 81-year-old white lady not a great historian, asked for consultation because of a history of wet overactive bladder that was treated with Ditropan XL 10 mg daily and the patient said she was doing well on it. Then, she did not void for many hours, so it was held. No postvoid residual scan was done. IMPRESSION: Neurogenic bladder with urge incontinence, wet overactive bladder, possible retention. RECOMMENDATIONS: First, we will obtain a postvoid residual bladder scan and manage accordingly. The plan was fully explained to the patient and the nurse. Job ID: [id number] DocumentID: [id number] Dictated Date: 06/04/2021 12:44:17 Medical Administrative Date: 06/04/2021 13:24:08 Dictated By: NEHSA HICKMAN MD
[2021-06-04] MEDS: ACETAMINOPHEN 325 MG TABLET PO SCH (16:26)
[2021-06-04] MEDS: warFARin 5 MG (COUMADIN) TAB PO SCH (18:07)
[2021-06-04 20:00] VITALS: BP 144/62
[2021-06-04] MEDS: OXYBUTYNIN (DITROPAN) 5 MG TAB PO SCH (20:04)
[2021-06-04] MEDS: LOSARTAN 100 MG (COZAAR) TABLET PO SCH (20:05)
[2021-06-04] MEDS: RINVOQ 15 MG PO SCH (20:05)
[2021-06-05] MEDS: ACETAMINOPHEN 325 MG TABLET PO SCH ×2 (00:14→08:18)
[2021-06-05] MEDS ORDERED: MICO90PO TOP (05:57)
[2021-06-05] MEDS ORDERED: ACET325T49 PO (05:57)
[2021-06-05] MEDS ORDERED: DULO60CA59 PO (05:57)
[2021-06-05] MEDS ORDERED: NFBIOT1000 PO (05:57)
[2021-06-05] MEDS ORDERED: ALPR.25T PO (05:57)
[2021-06-05] MEDS ORDERED: PANT40TA2 PO (05:57)
[2021-06-05] MEDS ORDERED: DICL100G13 TOP (05:57)
[2021-06-05] MEDS ORDERED: UBID100C44 PO (05:57)
[2021-06-05] MEDS ORDERED: LOSA100T57 PO (05:57)
[2021-06-05] MEDS ORDERED: SNN187T PO (05:57)
[2021-06-05] MEDS ORDERED: WRF5T PO (05:57)
[2021-06-05] MEDS ORDERED: VITA1TAB17 PO (05:57)
[2021-06-05] MEDS ORDERED: FOLI1TAB33 PO (05:57)
[2021-06-05] MEDS: CATHETER FLUSH 10 ML SYR IV SCH (05:57)
[2021-06-05] MEDS ORDERED: LOVA20TA2 PO (05:57)
[2021-06-05] MEDS ORDERED: KRIL1CAP35 PO (05:57)
[2021-06-05] MEDS ORDERED: VIT1TABL26 PO (05:57)
[2021-06-05] MEDS ORDERED: GABA300C PO (05:57)
[2021-06-05] MEDS ORDERED: CHOL20003 PO (05:57)
--- NOTE | 2021-06-05 05:58 | Discharge Inst-Skilled Nursing ---
Discharge Inst-Skilled NF Reconcile Patient Problems Problems Reviewed?: Yes Patient Instructions Patient Problems: Debility Goal: Return to independence Consult/Follow Up/Orders Follow Up Appt.: Dr. Perez in 2 weeks Skilled NF Admit to: Replaced By [facility] Certification (SNF) I certify that SNF services are required to be given on an inpatient basis because of the above named patient's need for [facility] care on a continuing basis for the conditions(s) for which he/she was receiving inpatient hospital services prior to his/her transfer to the SNF. [facility] Facility Order: Nursing Services, Internal Control Specialist-Evaluate & Treat, Physical Therapy-Evaluate & Treat, Speech Language-Evaluate & Treat Oxygen Delivery Method: Room Air Discharge Diet: No Restrictions Resuscitation Status: Full Code New & Resume Previous Orders New Medications: Pantoprazole Sodium (Protonix) 40 Mg Tablet.dr 40 MG PO BID, #60 TAB Acetaminophen (Acetaminophen) 325 Mg Tablet 650 MG PO Q8H, #60 TAB ALPRAZolam (Xanax Tablet) 0.25 Mg Tab 0.25 MG PO Q8H PRN for ANXIETY, #20 TAB Diclofenac Sodium (Diclofenac Sodium) 100 Gm Gel..gram. 0 GM TOP TID, #1 TUBE Miconazole Nitrate (Lotrimin AF) 90 Gm Powder 0 GM TOP BID, #1 EA Sennosides (Senna Lax) 8.6 Mg Tablet 8.6 MG PO BID, #60 TAB Warfarin Sodium (Jantoven) 5 Mg Tablet 5 MG PO DAILY@1800, #30 TAB Continued Medications: Biotin (Biotin) 1,000 Mcg Tablet 1000 MCG PO HS, #30 TAB (This prescription has been renewed) Cholecalciferol (Vitamin D3) (Vitamin D3) 50 Mcg Capsule 50 MCG PO HS, #30 CAP (This prescription has been renewed) Duloxetine HCl (Duloxetine HCl) 60 Mg Capsule.dr 60 MG PO BID, #60 CAP (This prescription has been renewed) Folic Acid (Folic Acid) 1 Mg Tablet 1 MG PO BID, #30 TAB (This prescription has been renewed) Gabapentin (Neurontin) 300 Mg Capsule 300 MG PO TID, #90 CAP (This prescription has been renewed) Krill/Om-3/Dha/Epa/Phospho/Ast (Megared [place]-3 Krill 350 mg) 1 Each Capsule 1 EACH PO HS, #30 CAP (This prescription has been renewed) Losartan Potassium (Losartan Potassium) 100 Mg Tablet 100 MG PO HS, #30 TAB (This prescription has been renewed) Lovastatin (Lovastatin) 20 Mg Tablet 20 MG PO HS, #30 TAB (This prescription has been renewed) Ubidecarenone (Co Q-10) 100 Mg Capsule 100 MG PO HS, #30 CAP (This prescription has been renewed) Upadacitinib (Rinvoq ER) 15 Mg Tab.er.24h 15 MG PO HS for 30 Days, TAB Vit A,C & E/Lutein/Minerals (Ocuvite with Lutein Tablet) 1 Each Tablet 1 EACH PO HS, #30 TAB (This prescription has been renewed) Vitamin B Complex (Vitamin B Complex) 1 Each Tablet 1 EACH PO HS, #30 TAB (This prescription has been renewed) Discontinued Medications: Oxybutynin Chloride (Oxybutynin Chloride ER) 10 Mg Tab.er.24 10 MG PO HS, TAB Warfarin Sodium (Jantoven) Unknown Strength Tablet Unknown Dose PO DAILY, TAB Tonya Dumont Jun 05, 2021 05:57 TONYA DUMONT DO Jun 05, 2021 05:58
--- NOTE | 2021-06-05 05:59 | Discharge Summary ---
Diagnosis/Chief Complaint Date of Admission May 25, 2021 at 13:30 Date of Discharge Discharge Date: Jun 05, 2021 Discharge Diagnosis Assessment: Debility BMI 46 Supratherapeutic INR UTI completed treatment Lobo catheter discontinued now Urinary incontinence Atrial fibrillation? DVT? Dysphagia Urinary incontinence Antral ulcer on EGD with recent bleed Acute blood loss anemia with severe iron deficiency Plan: Supportive care UTI treatment DC Lobo catheter Aggressive rehab 05/26/2021: Aggressive rehab Incontinence care Maintain Coumadin EGD with dilatation 05/27/2021: EGD tomorrow Supportive care 05/28/2021: Appreciate Dr. SANCHEZ Monitor closely 05/29/2021: Iron infusions Supportive care 05/30/2021: Iron infusions Supportive care 05/31/2021: Monitor blood pressure Supportive care 06/01/21: Monitor INR 06/02/21: Monitor INR 06/03/2021: Supportive care Monitor urinary retention 06/04/21: Monitor closely Discharge tomorrow (1) General weakness Status: Acute (2) BMI 45.0-49.9, adult (3) Lobo catheter in place (4) Atrial fibrillation (5) Warfarin anticoagulation (6) Confusion (7) Supratherapeutic INR Status: Acute (8) UTI (urinary tract infection) Status: Acute (9) Anemia Status: Acute Discharge Summary Discharge Physical Examination Allergies: Coded Allergies: Penicillins (Verified Allergy, Unknown, 05/23/21) procaine (Verified Allergy, Unknown, 05/23/21) Vitals & I&Os Vital Signs Date Time Temp Pulse Resp B/P (MAP) Pulse Ox O2 Delivery O2 Flow Rate FiO2 06/05/21 13:45 36.2 62 16 162/63 96 Room Air General Appearance: Alert, Oriented X3, Cooperative Respiratory: Clear to Auscultation Cardiovascular: Regular Rate Hospital Course Was the Problem List Reviewed?: Yes Pt had an uneventful 12 day hospital course in in-patient rehab for severe debility and falls due to her increased BMI. It was very difficult for her to obtain any meaningful recovery; she remains mostly wheelchair bound and requires sit to stand to transfer. 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 Perez. Labs (last 24 hrs) Laboratory Tests 05/26/21 06:43: White Blood Count 4.0L, Red Blood Count 2.32L, Hemoglobin 7.3L, Hematocrit 22L, Mean Corpuscular Volume 96, Mean Corpuscular Hemoglobin 32, Mean Corpuscular Hemoglobin Concent 33, Red Cell Distribution Width 13.1, Platelet Count 141, Mean Platelet Volume 9.7, Immature Granulocyte % (Auto) 3, Neutrophils (%) (Auto) 54, Lymphocytes (%) (Auto) 28, Monocytes (%) (Auto) 12, Eosinophils (%) (Auto) 3, Basophils (%) (Auto) 0, Neutrophils # (Auto) 2.1, Lymphocytes # (Auto) 1.1, Monocytes # (Auto) 0.5, Eosinophils # (Auto) 0.1, Basophils # (Auto) 0.0, Immature Granulocyte # (Auto) 0.1, Prothrombin Time 22.6H, INR Comment 1.9H, Sodium Level 141, Potassium Level 3.6, Chloride Level 109H, Carbon Dioxide Level 23, Anion Gap 9, Blood Urea Nitrogen 10, Creatinine 0.65, Estimat Glomerular Filtration Rate 89, BUN/Creatinine Ratio 15, Glucose Level 104, Calcium Level 8.4L, Corrected Calcium 9.2, Iron Level 63, Total Bilirubin 1.0, Aspartate Amino Transf (AST/SGOT) 20, Alanine Aminotransferase (ALT/SGPT) 22, Alkaline Phosphatase 48, Total Protein 5.4L, Albumin 3.0L 05/28/21 06:20: White Blood Count 3.6L, Red Blood Count 2.33L, Hemoglobin 7.3L, Hematocrit 22L, Mean Corpuscular Volume 96, Mean Corpuscular Hemoglobin 31, Mean Corpuscular He moglobin Concent 33, Red Cell Distribution Width 13.1, Platelet Count 171, Mean Platelet Volume 9.8, Immature Granulocyte % (Auto) 5, Neutrophils (%) (Auto) 48, Lymphocytes (%) (Auto) 29, Monocytes (%) (Auto) 14H, Eosinophils (%) (Auto) 4, Basophils (%) (Auto) 1, Neutrophils # (Auto) 1.7L, Lymphocytes # (Auto) 1.0, Monocytes # (Auto) 0.5, Eosinophils # (Auto) 0.1, Basophils # (Auto) 0.0, Immature Granulocyte # (Auto) 0.2H, Prothrombin Time 17.3H, INR Comment 1.4, Sodium Level 138, Potassium Level 3.7, Chloride Level 108H, Carbon Dioxide Level 23, Anion Gap 7, Blood Urea Nitrogen 11, Creatinine 0.71, Estimat Glomerular Filtration Rate 86, BUN/Creatinine Ratio 15, Glucose Level 97, Calcium Level 8.4L, Corrected Calcium 9.2, Total Bilirubin 1.2H, Aspartate Amino Transf (AST/SGOT) 28, Alanine Aminotransferase (ALT/SGPT) 27, Alkaline Phosphatase 61, Total Protein 5.4L, Albumin 3.0L 05/28/21 11:15: SARS-CoV-2 RNA (RT-PCR) Not Detected 05/31/21 06:00: White Blood Count 4.1L, Red Blood Count 2.74L, Hemoglobin 8.7L, Hematocrit 27L, Mean Corpuscular Volume 99, Mean Corpuscular Hemoglobin 32, Mean Corpuscular Hemoglobin Concent 32, Red Cell Distribution Width 14.2, Platelet Count 135, Mean Platelet Volume 9.8, Immature Granulocyte % (Auto) 3, Neutrophils (%) (Auto) 75, Lymphocytes (%) (Auto) 8L, Monocytes (%) (Auto) 12, Eosinophils (%) (Auto) 2, Basophils (%) (Auto) 0, Neutrophils # (Auto) 3.1, Lymphocytes # (Auto) 0.3L, Monocytes # (Auto) 0.5, Eosinophils # (Auto) 0.1, Basophils # (Auto) 0.0, Immature Granulocyte # (Auto) 0.1, Prothrombin Time 18.7H, INR Comment 1.5H, Sodium Level 139, Potassium Level 4.1, Chloride Level 106, Carbon Dioxide Level 23, Anion Gap 10, Blood Urea Nitrogen 11, Creatinine 0.74, Estimat Glomerular Filtration Rate 82, BUN/Creatinine Ratio 15, Glucose Level 98, Calcium Level 8.3L, Corrected Calcium 9.0, Total Bilirubin 1.1H, Aspartate Amino Transf ( AST/SGOT) 43H, Alanine Aminotransferase (ALT/SGPT) 41, Alkaline Phosphatase 85, Total Protein 5.1L, Albumin 3.1L 06/02/21 06:35: Prothrombin Time 21.0H, INR Comment 1.8H 06/03/21 20:03: Urine Color YELLOW, Urine Clarity CLEAR, Urine pH 5.5, Urine Specific [place] 1.015L, Urine Protein NEGATIVE, Urine Glucose (UA) NEGATIVE, Urine Ketones NEGATIVE, Urine Nitrite NEGATIVE, Urine Bilirubin NEGATIVE, Urine Urobilinogen 0.2, Urine Leukocyte Esterase NEGATIVE, Urine RBC (Auto) NEGATIVE, Urine RBC NONE, Urine WBC RARE, Urine Squamous Epithelial Cells NONE, Urine Renal Epithelial Cells NONE, Urine Crystals NONE, Urine Bacteria NEGATIVE, Urine Casts NONE, Urine Mucus NEGATIVE, Urine Culture Indicated NO 06/04/21 05:53: Prothrombin Time 24.5H, INR Comment 2.2H, White Blood Count 4.2L, Red Blood Count 2.55L, Hemoglobin 8.2L, Hematocrit 26L, Mean Corpuscular Volume 100H, Mean Corpuscular Hemoglobin 32, Mean Corpuscular Hemoglobin Concent 32, Red Cell Distribution Width 16.3H, Platelet Count 166, Mean Platelet Volume 10.0, Immature Granulocyte % (Auto) 1, Neutrophils (%) (Auto) 66, Lymphocytes (%) (Auto) 21, Monocytes (%) (Auto) 9, Eosinophils (%) (Auto) 3, Basophils (%) (Auto) 0, Neutrophils # (Auto) 2.8, Lymphocytes # (Auto) 0.9L, Monocytes # (A uto) 0.4, Eosinophils # (Auto) 0.1, Basophils # (Auto) 0.0, Immature Granulocyte # (Auto) 0.1, Sodium Level 140, Potassium Level 3.9, Chloride Level 111H, Carbon Dioxide Level 21, Anion Gap 8, Blood Urea Nitrogen 14, Creatinine 0.77, Estimat Glomerular Filtration Rate 78, BUN/Creatinine Ratio 18, Glucose Level 97, Calcium Level 8.4L, Corrected Calcium 9.1, Total Bilirubin 1.0, Aspartate Amino Transf (AST/SGOT) 21, Alanine Aminotransferase (ALT/SGPT) 27, Alkaline [place] sphatase 102, Total Protein 5.7L, Albumin 3.1L Pending Labs Laboratory Tests 05/26/21 06:43: White Blood Count 4.0, Red Blood Count 2.32, Hemoglobin 7.3, Hematocrit 22, Mean Corpuscular Volume 96, Mean Corpuscular Hemoglobin 32, Mean Corpuscular Hemoglobin Concent 33, Red Cell Distribution Width 13.1, Platelet Count 141, Mean Platelet Volume 9.7, Immature Granulocyte % (Auto) 3, Neutrophils (%) (Auto) 54, Lymphocytes (%) (Auto) 28, Monocytes (%) (Auto) 12, Eosinophils (%) (Auto) 3, Basophils (%) (Auto) 0, Neutrophils # (Auto) 2.1, Lymphocytes # (Auto) 1.1, Monocytes # (Auto) 0.5, Eosinophils # (Auto) 0.1, Basophils # (Auto) 0.0, Immature Granulocyte # (Auto) 0.1, Prothrombin Time 22.6, INR Comment 1.9, Sodium Level 141, Potassium Level 3.6, Chloride Level 109, Carbon Dioxide Level 23, Anion Gap 9, Blood Urea Nitrogen 10, Creatinine 0.65, Estimat Glomerular Filtration Rate 89, BUN/Creatinine Ratio 15, Glucose Level 104, Calcium Level 8.4, Corrected Calcium 9.2, Iron Level 63, Total Bilirubin 1.0, Aspartate Amino Transf (AST/SGOT) 20, Alanine Aminotransferase (ALT/SGPT) 22, Alkaline Phosphatase 48, Total Protein 5.4, Albumin 3.0 05/28/21 06:20: White Blood Count 3.6, Red Blood Count 2.33, Hemoglobin 7.3, Hematocrit 22, Mean Corpuscular Volume 96, Mean Corpuscular Hemoglobin 31, Mean Corpuscular Hemoglobin Concent 33, Red Cell Distribution Width 13.1, Platelet Count 171, Mean Platelet Volume 9.8, Immature Granulocyte % (Auto) 5, Neutrophils (%) (Auto) 48, Lymphocytes (%) (Auto) 29, Monocytes (%) (Auto) 14, Eosinophils (%) (Auto) 4, Basophils (%) (Auto) 1, Neutrophils # (Auto) 1.7, Lymphocytes # (Auto) 1.0, Monocytes # (Auto) 0.5, Eosinophils # (Auto) 0.1, Basophils # (Auto) 0.0, Immature Granulocyte # (Auto) 0.2, Prothrombin Time 17.3, INR Comment 1.4, Sodium Level 138, Potassium Level 3.7, Chloride Level 108, Carbon Dioxide Level 23, Anion Gap 7, Blood Urea Nitrogen 11, Creatinine 0.71, Estimat Glomerular Filtration Rate 86, BUN/Creatinine Ratio 15, Glucose Level 97, Calcium Level 8.4, Corrected Calcium 9.2, Total Bilirubin 1.2, Aspartate Amino Transf (AST/SGOT) 28, Alanine Aminotransferase (ALT/SGPT) 27, Alkaline Phosphatase 61, Total Protein 5.4, Albumin 3.0 05/28/21 11:15: SARS-CoV-2 RNA (RT-PCR) Not Detected 05/31/21 06:00: White Blood Count 4.1, Red Blood Count 2.74, Hemoglobin 8.7, Hematocrit 27, Mean Corpuscular Volume 99, Mean Corpuscular Hemoglobin 32, Mean Corpuscular Hemoglobin Concent 32, Red Cell Distribution Width 14.2, Platelet Count 135, Mean Platelet Volume 9.8, Immature Granulocyte % (Auto) 3, Neutrophils (%) (Auto) 75, Lymphocytes (%) (Auto) 8, Monocytes (%) (Auto) 12, Eosinophils (%) (Auto) 2, Basophils (%) (Auto) 0, Neutrophils # (Auto) 3.1, Lymphocytes # (Auto) 0.3, Monocytes # (Auto) 0.5, Eosinophils # (Auto) 0.1, Basophils # (Auto) 0.0, Immature Granulocyte # (Auto) 0.1, Prothrombin Time 18.7, INR Comment 1.5, Sodium Level 139, Potassium Level 4.1, Chloride Level 106, Carbon Dioxide Level 23, Anion Gap 10, Blood Urea Nitrogen 11, Creatinine 0.74, Estimat Glomerular Filtration Rate 82, BUN/Creatinine Ratio 15, Glucose Level 98, Calcium Level 8.3, Corrected Calcium 9.0, Total Bilirubin 1.1, Aspartate Amino Transf (AST/SGOT) 43, Alanine Aminotransferase (ALT/SGPT) 41, Alkaline Phosphatase 85, Total Protein 5.1, Albumin 3.1 06/02/21 06:35: Prothrombin Time 21.0, INR Comment 1.8 06/03/21 20:03: Urine Color YELLOW, Urine Clarity CLEAR, Urine pH 5.5, Urine Specific [place] 1.015, Urine Protein NEGATIVE, Urine Glucose (UA) NEGATIVE, Urine Ketones NEGATIVE, Urine Nitrite NEGATIVE, Urine Bilirubin NEGATIVE, Urine Urobilinogen 0.2, Urine Leukocyte Esterase NEGATIVE, Urine RBC (Auto) NEGATIVE, Urine RBC NONE, Urine WBC RARE, Urine Squamous Epithelial Cells NONE, Urine Renal Epithelial Cells NONE, Urine Crystals NONE, Urine Bacteria NEGATIVE, Urine Casts NONE, Urine Mucus NEGATIVE, Urine Culture Indicated NO 06/04/21 05:53: Prothrombin Time 24.5, INR Comment 2.2, White Blood Count 4.2, Red Blood Count 2.55, Hemoglobin 8.2, Hematocrit 26, Mean Corpuscular Volume 100, Mean Corpuscular Hemoglobin 32, Mean Corpuscular Hemoglobin Concent 32, Red Cell Distribution Width 16.3, Platelet Count 166, Mean Platelet Volume 10.0, Immature Granulocyte % (Auto) 1, Neutrophils (%) (Auto) 66, Lymphocytes (%) (Auto) 21, Monocytes (%) (Auto) 9, Eosinophils (%) (Auto) 3, Basophils (%) (Auto) 0, Neutrophils # (Auto) 2.8, Lymphocytes # (Auto) 0.9, Monocytes # (Auto) 0.4, Eosinophils # (Auto) 0.1, Basophils # (Auto) 0.0, Immature Granulocyte # (Auto) 0.1, Sodium Level 140, Potassium Level 3.9, Chloride Level 111, Carbon Dioxide Level 21, Anion Gap 8, Blood Urea Nitrogen 14, Creatinine 0.77, Estimat Glomerular Filtration Rate 78, BUN/Creatinine Ratio 18, Glucose Level 97, Calcium Level 8.4, Corrected Calcium 9.1, Total Bilirubin 1.0, Aspartate Amino Transf (AST/SGOT) 21, Alanine Aminotransferase (ALT/SGPT) 27, Alkaline Phosphatase 102, Total Protein 5.7, Albumin 3.1 Discharge Home Medications: Active Scripts Active Protonix (Pantoprazole Sodium) 40 Mg Tablet.dr 40 Mg PO BID Lotrimin AF (Miconazole Nitrate) 90 Gm Powder 0 Gm TOP BID Senna Lax (Sennosides) 8.6 Mg Tablet 8.6 Mg PO BID Xanax Tablet (Alprazolam) 0.25 Mg Tab 0.25 Mg PO Q8H PRN Acetaminophen 325 Mg Tablet 650 Mg PO Q8H Diclofenac Sodium 100 Gm Gel..gram. 0 Gm TOP TID Jantoven (Warfarin Sodium) 5 Mg Tablet 5 Mg PO DAILY@1800 Vitamin D3 (Cholecalciferol (Vitamin D3)) 50 Mcg Capsule 50 Mcg PO HS Ocuvite with Lutein Tablet (Vit A,C & E/Lutein/Minerals) 1 Each Tablet 1 Each PO HS Megared [place]-3 Krill 350 mg (Krill/Om-3/Dha/Epa/Phospho/Ast) 1 Each Capsule 1 Each PO HS Co Q-10 (Ubidecarenone) 100 Mg Capsule 100 Mg PO HS Biotin 1,000 Mcg Tablet 1,000 Mcg PO HS Vitamin B Complex 1 Each Tablet 1 Each PO HS Folic Acid 1 Mg Tablet 1 Mg PO BID Duloxetine HCl 60 Mg Capsule.dr 60 Mg PO BID Losartan Potassium 100 Mg Tablet 100 Mg PO HS Lovastatin 20 Mg Tablet 20 Mg PO HS Neurontin (Gabapentin) 300 Mg Capsule 300 Mg PO TID Rinvoq ER (Upadacitinib) 15 Mg Tab.er.24h 15 Mg PO HS 30 Days Instructions to patient/family Please see electronic discharge instructions given to patient. Diagnosis/Problems Diagnosis/Problems (1) General weakness Status: Acute (2) BMI 45.0-49.9, adult (3) Lobo catheter in place (4) Atrial fibrillation (5) Warfarin anticoagulation (6) Confusion (7) Supratherapeutic INR Status: Acute (8) UTI (urinary tract infection) Status: Acute (9) Anemia Status: Acute Qualifiers: Qualified Codes: D64.9 - Anemia, unspecified TAMARA DE LEON DO Jun 05, 2021 05:59
[2021-06-05 07:30] VITALS: BP 162/63
[2021-06-05] MEDS: OXYBUTYNIN (DITROPAN) 5 MG TAB PO SCH ×2 (08:18→13:27)
[2021-06-05] MEDS: PANTOPRAZOLE 40 MG (PROTONIX) VIAL IV SCH (08:18)
[2021-06-05] MEDS: GABAPENTIN 300 MG (NEURONTIN) CAP PO SCH ×2 (08:18→13:27)
[2021-06-05] MEDS: DULoxetine 30 MG (CYMBALTA) CAP PO SCH (08:18)
--- NOTE | 2021-06-05 08:21 | Speech Therapy Daily Note ---
Speech Daily Progress Note Subjective Date Seen by Provider: Jun 05, 2021 Time Seen by Provider: 08:10 The patient was seated upright in her recliner, awake and alert upon entrance. The patient greeted the clinician and was agreeable to participation in the skilled treatment session. Objective The patient shared her concerns with the clinician regarding discharge, mostly that she will "not make it home." The clinician provided support while encouraging the patient to continue working towards her personal goals. The patient's swallowing strategies were reviewed and the patient reported comfort and understanding, recalling strategies independently for the clinician. The patient denied s/s of suspected aspiration with her current PO diet consistency recommendations. Expression of Ideas/Wants: Exhibits (3) Understanding Verbal Content: Usually Understands (3) Brief Interview-Mental Status: Yes Repetition of Three Words: Three (3) Temporal Orientation: Year: Correct (3) Temporal Orientation: Month: Accurate within 5 days(2) Temporal Orientation: Day: Correct (1) Recall : Wear to say "Sock": Yes, no cue required (2) Recall : Color: Yes, no cue required (2) Recall : Bed: Yes,after cueing (1) Memory/Recall Ability: Current season, That he or she is in a hsp/hsp unit Treatment Plan Discontinue ST Speech Short Term Goals Short Term Goals Short Term Goals 1. The patient will demonstrated 90% accuracy with functional memory and executive functioning tasks with mild clinician verbal cueing. 2. The patient will demonstrate safe swallowing techniques with 90% accuracy, independently. Speech Detention Goals It Integration Architect Goals 1. The patient will demonstrate increased cognitive linguistic skills for safe return to the least restricted environment. 2. The patient will consume the least restricted diet consistency without s/s of suspected aspiration with 90% accuracy. Speech-Plan Treatment Plan Speech Therapy Treatment Plan: Discontinue ST Treatment Duration: May 25, 2021 Frequency: 4 times per week (Four to five times per week.) Estimated Hrs Per Day: .5 hour per day Rehab Potential: Guarded Pt/Family Agrees to Plan: Yes Safety Risks/Education Teaching Recipient: Patient Teaching Methods: Discussion Response to Teaching: Verbalize Understanding Education Topics Provided: Plan of Care Time Speech Therapy Time In: 08:10 Speech Therapy Time Out: 08:18 Total Billed Time: 8 Billed Treatment Time 1, JESSICA Esquivel Jun 05, 2021 08:21
--- NOTE | 2021-06-05 08:23 | Therapy Team Discharge Summary ---
Therapy Discharge Summary Discharge Recommendations Date of Discharge Occupational Therapy Decreased Activ Tolerance, Decreased UE Strength, Impaired Funct Balance, Impaired I ADL's, Impaired Self-Care Skills, Restricted Funct UE ROM Speech-Language Pathology The patient participated in skilled cognitive and dysphagia therapy throughout her time in the acute rehabilitation unit. The patient frequently required increased encouragement for participation however remained pleasant throughout each skilled session. The patient has improved cognitively and her cognitive and dysphagia goals were met throughout her stay. The patient is currently receiving a dysphagia three with thin liquid diet consistency following a clinical bedside swallowing evaluation on 06/04/21. The patient independently recalled swallowing strategies on this date and denied s/s of suspected aspiration with her current diet consistency recommendations. PT Lumber Handler Goals Lumber Handler Goals PT Lumber Handler Goals Time Frame: Jun 15, 2021 Roll Left to Right (QC): 4 Sit to Lying (QC): 4 Lying-Sitting on Side/Bed(QC): 4 Sit to Stand (QC): 4 Chair/Zjz-bi-Chrgf Xfer(QC): 4 Car Transfer (QC): 3 Does the Patient Walk: Yes Walk 10 feet (QC): 4 Walk 10ft-Uneven Surface(QC): 4 Walk 50ft with 2 Turns (QC): 4 Walk 150 ft (QC): 4 Wheel 50 feet with 2 turns (QC: 4 1 Step (curb) (QC): 4 4 Steps (QC): 88 12 Steps (QC): 88 Picking up an Object (QC): 4 OT Lumber Handler Goals Residential Goals Time Frame: Jun 23, 2021 Eating (FIM): 6 Eating (QC): 6 Oral Hygiene (QC): 5 Shower/Bathe Self (QC): 3 Upper Body Dressing (QC): 4 Lower Body Dressing (QC): 4 On/Off Footwear (QC): 3 Toileting Hygiene (QC): 4 Toilet/Commode Transfer (QC): 4 1=Demonstrate adherence to instructed precautions during ADL tasks. 2=Patient will verbalize/demonstrate understanding of assistive devices /modifications for ADL. 3=Patient will improve strength/tolerance for activity to enable patient to perform ADL's. Speech Lumber Handler Goals Lumber Handler Goals 1. The patient will demonstrate increased cognitive linguistic skills for safe return to the least restricted environment. MET 2. The patient will consume the least restricted diet consistency without s/s of suspected aspiration with 90% accuracy. MET ROSY,JESSICA ST Jun 05, 2021 08:23
[2021-06-05] MEDS: MICONAZOLE 2% POWDER (DESENEX AF) 90 GM TOP SCH (08:47)
[2021-06-05] MEDS: DOCUSATE SODIUM 100 MG (COLACE) CAP PO SCH (08:47)
[2021-06-05] MEDS: DICLOFENAC 1% GEL 100 GM (VOLTAREN) TUBE TOP SCH ×2 (08:47→14:22)
[2021-06-05] MEDS: polyethylene glycoL POWDER 17 GM (MIRALAX) PACK PO SCH (08:47)
[2021-06-05] MEDS: SENNOSIDES 8.6 MG (SENOKOT) TAB PO SCH (08:48)
--- NOTE | 2021-06-05 09:28 | Therapy Team Discharge Summary ---
Therapy Discharge Summary Discharge Recommendations Date of Discharge Occupational Therapy Pt admitted to ARU with debility. At OF, pt required some level of assistance with ADLs per daughter's report, although pt reports she was independent with ADLs. Upon initial evaluation, pt required SBA with eating and oral care, and total assistance with all other ADLs. OT txs focused on increasing BUE strength and activity tolerance, and increasing independence with ADLs and functional mobility. At discharge, pt was independent with eating, set up oral care, min/mod A showering, min A upper body dressing, min/mod A lower body dressing, min A footwear and CGA toileting. Pt made functional progress towards goals, meeting LTGs for eating, oral care, showering, footwear and toileting. Pt discharging from facility on this date, d/c from OT. Decreased Activ Tolerance, Decreased UE Strength, Impaired Funct Balance, Impaired I ADL's, Impaired Self-Care Skills, Restricted Funct UE ROM PT Mcc Goals Mcc Goals PT Mcc Goals Time Frame: Jun 15, 2021 Roll Left to Right (QC): 4 Sit to Lying (QC): 4 Lying-Sitting on Side/Bed(QC): 4 Sit to Stand (QC): 4 Chair/Xsq-up-Erqej Xfer(QC): 4 Car Transfer (QC): 3 Does the Patient Walk: Yes Walk 10 feet (QC): 4 Walk 10ft-Uneven Surface(QC): 4 Walk 50ft with 2 Turns (QC): 4 Walk 150 ft (QC): 4 Wheel 50 feet with 2 turns (QC: 4 1 Step (curb) (QC): 4 4 Steps (QC): 88 12 Steps (QC): 88 Picking up an Object (QC): 4 OT Mcc Goals Mcc Goals Time Frame: Jun 23, 2021 Eating (QC): 6 (met) Oral Hygiene (QC): 5 (met) Shower/Bathe Self (QC): 3 (met) Upper Body Dressing (QC): 4 (not met) Lower Body Dressing (QC): 4 (not met) On/Off Footwear (QC): 3 (met) Toileting Hygiene (QC): 4 (met) Toilet/Commode Transfer (QC): 4 1=Demonstrate adherence to instructed precautions during ADL tasks. 2=Patient will verbalize/demonstrate understanding of assistive devices/modifications for ADL. 3=Patient will improve strength/tolerance for activity to enable patient to perform ADL's. Speech Mcc Goals Sandwich Peddler Goals 1. The patient will demonstrate increased cognitive linguistic skills for safe return to the least restricted environment. MET 2. The patient will consume the least restricted diet consistency without s/s of suspected aspiration with 90% accuracy. MET NEFTALI PEÑALOZA OT Jun 05, 2021 09:28
--- NOTE | 2021-06-05 10:12 | Therapy Team Discharge Summary ---
Therapy Discharge Summary Discharge Recommendations Date of Discharge Physical Therapy Patient came to rehab with Weakness/UTI. Upon evaluation patient performed rolling and supine <-> with dependence, dependent for transfers and car transfer and sit <-> stand, ambulated 5' with a rolling walker with min assist. Patient has been performing bed mobility and transfer training, balance and endurance training, functional strengthening, gait training, and education. Patient has made poor progress and has not met any of her correction goals. Now, patient requires mod assist for supine <-> sit, assist of 2 to stand from lower surfaces and min to mod assist to stand from higher surfaces, transfers with min assist using a rolling walker, can ambulate only about 5' using a rolling walker with min assist, and can propel a manual WC 50-100' with min assist. Patient is being discharged from this facility today and will be discharged from PT at this time. Occupational Therapy Decreased Activ Tolerance, Decreased UE Strength, Impaired Funct Balance, Impaired I ADL's, Impaired Self-Care Skills, Restricted Funct UE ROM PT Fdc Goals Fdc Goals PT Fdc Goals Time Frame: Jun 15, 2021 Roll Left to Right (QC): 4 Sit to Lying (QC): 4 Lying-Sitting on Side/Bed(QC): 4 Sit to Stand (QC): 4 Chair/Eth-jf-Qiqsh Xfer(QC): 4 Car Transfer (QC): 3 Does the Patient Walk: Yes Walk 10 feet (QC): 4 Walk 10ft-Uneven Surface(QC): 4 Walk 50ft with 2 Turns (QC): 4 Walk 150 ft (QC): 4 Wheel 50 feet with 2 turns (QC: 4 1 Step (curb) (QC): 4 4 Steps (QC): 88 12 Steps (QC): 88 Picking up an Object (QC): 4 OT Gas Burner Operator Goals Fdc Goals Time Frame: Jun 23, 2021 Eating (QC): 6 (met) Oral Hygiene (QC): 5 (met) Shower/Bathe Self (QC): 3 (met) Upper Body Dressing (QC): 4 (not met) Lower Body Dressing (QC): 4 (not met) On/Off Footwear (QC): 3 (met) Toileting Hygiene (QC): 4 (met) Toilet/Commode Transfer (QC): 4 1=Demonstrate adherence to instructed precautions during ADL tasks. 2=Patient will verbalize/demonstrate understanding of assistive devices/modifications for ADL. 3=Patient will improve strength/tolerance for activity to enable patient to perform ADL's. Speech Fdc Goals Fdc Goals 1. The patient will demonstrate increased cognitive linguistic skills for safe return to the least restricted environment. MET 2. The patient will consume the least restricted diet consistency without s/s of suspected aspiration with 90% accuracy. MET MARTITA MARK PT Jun 05, 2021 10:11
--- NOTE | 2021-06-05 10:24 | Progress Note - Urology ---
Progress Note-Urology Progress Notes/Assess & Plan Progress/Assessment & Plan NO RETENTION. BACK ON DITROPAN 5 TID Final Diagnosis INCONTINENCE NESHA HICKMAN MD Jun 05, 2021 10:24
[2021-06-05 13:45] VITALS: BP 162/63
== END 2021-06-05 13:45 | DRG 947 ==
PROVIDERS: ADMIT Internal Medicine; ATTEND Internal Medicine
DX: R53.1 Weakness (principal); K25.4 Chronic or unspecified gastric ulcer with hemorrhage; Z68.42 Body mass index [BMI] 45.0-49.9, adult; F05 Delirium due to known physiological condition; D62 Acute posthemorrhagic anemia; R53.81 Other malaise; K29.70 Gastritis, unspecified, without bleeding; N31.9 Neuromuscular dysfunction of bladder, unspecified; Z20.822 Contact with and (suspected) exposure to COVID-19; N39.41 Urge incontinence; N32.81 Overactive bladder; K21.00 Gastro-esophageal reflux disease with esophagitis, without bleeding; E66.01 Morbid (severe) obesity due to excess calories; I48.91 Unspecified atrial fibrillation; K44.9 Diaphragmatic hernia without obstruction or gangrene; F03.90 Unspecified dementia, unspecified severity, without behavioral disturbance, psychotic disturbance, mood disturbance, and anxiety; M06.9 Rheumatoid arthritis, unspecified; R13.10 Dysphagia, unspecified; F32.A Depression, unspecified; I10 Essential (primary) hypertension; Z87.440 Personal history of urinary (tract) infections; Z79.01 Long term (current) use of anticoagulants; Z88.6 Allergy status to analgesic agent; Z88.0 Allergy status to penicillin; Z86.718 Personal history of other venous thrombosis and embolism; Z23 Encounter for immunization
CPT/HCPCS: 36410; 36415; 76937; 80053; 81000; 83540; 85025; 85610; 87636

== ENCOUNTER → 2021-05-28 | Day surgery (SDC) | payer MEDICARE ==
[~2021-05-28] MED LIST changes: +ATROPINE INJ 0.4 MG/ML SDV IV ONE; +LACTATED RINGERS 1,000 ML IV ONE; +LIDOCAINE JELLY 2% 6 ML SYRINGE ONE; +UPAD15TA PO; +proPOfol 200 MG/20 ML (DIPRIVAN) VIAL IV ONE
[2021-05-28 15:15] VITALS: BP 174/72
--- NOTE | 2021-05-28 15:20 | Anesthesia-General Post-Op ---
MAC Patient Condition Mental Status/LOC: Same as Preop Cardiovascular: Satisfactory Nausea/Vomiting: Absent Respiratory: Satisfactory Pain: Controlled Complications: Absent Post Op Complications Complications None Follow Up Care/Instructions Patient Instructions None needed. Anesthesiology Discharge Order Discharge Order Patient is doing well, no complaints, stable vital signs, no apparent adverse anesthesia problems. No complications reported per nursing. HUE MOORE CRNA May 28, 2021 15:20
== END ==
LOC: ENDO 07:50
PROVIDERS: ATTEND Surgery
DX: K21.00 Gastro-esophageal reflux disease with esophagitis, without bleeding (principal); K44.9 Diaphragmatic hernia without obstruction or gangrene; K25.9 Gastric ulcer, unspecified as acute or chronic, without hemorrhage or perforation; E66.01 Morbid (severe) obesity due to excess calories; I10 Essential (primary) hypertension; I48.91 Unspecified atrial fibrillation; N39.0 Urinary tract infection, site not specified; M06.9 Rheumatoid arthritis, unspecified; R41.0 Disorientation, unspecified; K31.A0 Gastric intestinal metaplasia, unspecified; Z86.718 Personal history of other venous thrombosis and embolism; Z79.01 Long term (current) use of anticoagulants; Z79.899 Other long term (current) drug therapy; Z79.891 Long term (current) use of opiate analgesic; Z79.1 Long term (current) use of non-steroidal anti-inflammatories (NSAID)

== ENCOUNTER → 2021-07-16 | Outpatient (CLI) | payer MEDICARE ==
[~2021-07-16] MED LIST changes: +ACET325T49 PO; +ALPR.25T PO; -ATROPINE INJ 0.4 MG/ML SDV IV ONE; +DICL100G13 TOP; -LACTATED RINGERS 1,000 ML IV ONE; -LIDOCAINE JELLY 2% 6 ML SYRINGE ONE; +MICO90PO TOP; +PANT40TA2 PO; +SNN187T PO; -proPOfol 200 MG/20 ML (DIPRIVAN) VIAL IV ONE
== END ==
LOC: CARD 13:30
PROVIDERS: ATTEND Internal Medicine
DX: I08.0 Rheumatic disorders of both mitral and aortic valves (principal)
CPT/HCPCS: 93306

== ENCOUNTER → 2022-10-28 | Outpatient (CLI) | payer MEDICARE ==
[~2022-10-28] MED LIST changes: -LOSA100T57 PO; +LOSA100T58 PO
--- NOTE | 2022-10-28 10:33 | Diagnostic Imaging Report ---
PROCEDURE: CT sinuses without contrast TECHNIQUE: Multiple contiguous axial images were obtained through the sinuses without the use of intravenous contrast. Coronal and sagittal reformations were then performed. Auto Exposure Controls were utilized during the CT exam to meet ALARA standards for radiation dose reduction. INDICATION: Sinusitis. Patient has a history of sinus surgery. No prior studies are available for comparison. The frontal sinuses are clear. Ethmoid air cells are well aerated. There is near complete opacification of the sphenoid sinus. There is some mucosal thickening of the maxillary sinuses bilaterally, greater on the right. The medial wall of the left maxillary sinus has been resected. The ostiomeatal complexes are patent bilaterally. There are mary bullosa bilaterally. No significant nasal septal deviation is seen. Mastoids are well aerated. IMPRESSION: Paranasal sinus mucosal disease, as described. Dictated by: Dictated on workstation # [id number]
== END ==
LOC: RAD 09:02
PROVIDERS: ATTEND Internal Medicine
DX: J01.01 Acute recurrent maxillary sinusitis (principal)
CPT/HCPCS: 70486

== ENCOUNTER 2022-12-25 04:57 | Inpatient (IN) | payer MEDICARE ==
[2022-12-25] VITALS (7 sets, daily range): BP systolic 126–153; BP diastolic 60–71
[~2022-12-25] VITALS: Ht 170.2 cm; Wt 155.9 kg
[~2022-12-25 04:57] MED LIST changes: +SENN-341 PO; -SNN187T PO
--- NOTE | 2022-12-25 05:12 | ED General ---
General Stated Complaint: FEVER Source of Information: Patient, EMS Exam Limitations: Other (?dementia vs fever) (LOU DESIR MD) History of Present Illness Date Seen by Provider: Dec 25, 2022 Time Seen by Provider: 04:59 Initial Comments Patient is an 82-year-old female who presents to the emergency department by EMS from [facility] and re[facility] chief complaint fever. She tells me that she has lived there for about 6 months. She has felt poorly for the last couple of days. Last had Tylenol last evening. Has had a little bit of a cough with phlegm. No nausea vomiting. She states she has a little dysuria and frequency. She is not short of breath, not having any chest or abdominal pain. She denies having any sores on her bottom. She is morbidly obese and likely not very mobile. She tells me she is not a diabetic. She tells me she was shocked that she was sent to the emergency department this morning. She is COVID vaccinated. She cannot recall the last time she was tested. I was told she had a fever of 101 this morning she does seem a little confused and is talking about random cohen bjects. (per review of the medical record she has a history of confusion and has acutally been at [place] for well over a year - even tho she states just about 6 months). Timing/Duration: 1-2 Days Severity: Moderate Associated Systoms: Cough, Fever/Chills, Malaise (LOU DESIR MD) Allergies and Home Medications Allergies Coded Allergies: Penicillins (Verified Allergy, Unknown, 05/23/21) procaine (Verified Allergy, Unknown, 05/23/21) Patient Home Medication List Home Medication List Reviewed: Yes (LOU DESIR MD) ALPRAZolam (Xanax Tablet) 0.25 Mg Tab, 0.25 MG PO Q8H PRN for ANXIETY Prescribed by: TAMARA DE LEON on 06/05/21556 Acetaminophen (Acetaminophen) 325 Mg Tablet, 650 MG PO Q8H Prescribed by: TAMARA DE LEON on 06/05/21556 Biotin (Biotin) 1,000 Mcg Tablet, 1,000 MCG PO HS Prescribed by: TAMARA DE LEON on 06/05/21556 Cholecalciferol (Vitamin D3) (Vitamin D3) 50 Mcg Capsule, 50 MCG PO HS Prescribed by: TAMARA DE LEON on 06/05/21556 Diclofenac Sodium (Diclofenac Sodium) 100 Gm Gel..gram., 0 GM TOP TID Prescribed by: TAMARA DE LEON on 06/05/21556 Duloxetine HCl (Duloxetine HCl) 60 Mg Capsule.dr, 60 MG PO BID Prescribed by: TAMARA DE LEON on 06/05/21556 Folic Acid (Folic Acid) 1 Mg Tablet, 1 MG PO BID Prescribed by: TAMARA DE LEON on 06/05/21556 Gabapentin (Neurontin) 300 Mg Capsule, 300 MG PO TID Prescribed by: TAMARA DE LEON on 06/05/21556 Krill/Om-3/Dha/Epa/Phospho/Ast (Megared [place]-3 Krill 350 mg) 1 Each Capsule, 1 EACH PO HS Prescribed by: TAMRAA DE LEON on 06/05/21556 Losartan Potassium (Losartan Potassium) 100 Mg Tablet, 100 MG PO HS Prescribed by: TAMARA DE LEON on 06/05/21556 Lovastatin (Lovastatin) 20 Mg Tablet, 20 MG PO HS Prescribed by: TAMARA DE LEON on 06/05/21556 Miconazole Nitrate (Lotrimin AF) 90 Gm Powder, 0 GM TOP BID Prescribed by: TAMARA DE LEON on 06/05/21556 Pantoprazole Sodium (Protonix) 40 Mg Tablet.dr, 40 MG PO BID Prescribed by: TAMARA DE LEON on 06/05/21556 Sennosides (Senna Lax) 8.6 Mg Tablet, 8.6 MG PO BID Prescribed by: TAMARA DE LEON on 06/05/21556 Ubidecarenone (Co Q-10) 100 Mg Capsule, 100 MG PO HS Prescribed by: TAMARA DE LEON on 06/05/21556 Upadacitinib (Rinvoq ER) 15 Mg Tab.er.24h, 15 MG PO HS Prescribed by: ZECHARIAH NICHOLSON on 05/25/211638 Vit A,C & E/Lutein/Minerals (Ocuvite with Lutein Tablet) 1 Each Tablet, 1 EACH PO HS Prescribed by: TAMARA DE LEON on 06/05/21556 Vitamin B Complex (Vitamin B Complex) 1 Each Tablet, 1 EACH PO HS Prescribed by: TAMARA DE LEON on 06/05/21 0557 Warfarin Sodium (Jantoven) 5 Mg Tablet, 5 MG PO DAILY@1800 Prescribed by: TAMARA DE LEON on 06/05/21 0557 Review of Systems Review of Systems Constitutional: see HPI, fever, malaise EENTM: no symptoms reported Respiratory: cough, phlegm Cardiovascular: no symptoms reported Gastrointestinal: no symptoms reported Genitourinary: dysuria Musculoskeletal: no symptoms reported Skin: no symptoms reported Psychiatric/Neurological: No Symptoms Reported (LOU DESIR MD) Past Dvjbooy-Lcdghm-Nznclc Hx Immunizations Up To Date First/Initial COVID19 Vaccinat: APR 24 ? (LOU DESIR MD) Past Medical History Surgery/Hospitalization HX: APPY,DETACHED RETNIA (SURGERY) , LEFT ANKLE FUSED. Atrial Fibrillation, Deep Vein Thrombosis, Hypertension Dementia Reproductive Disorders: Yes Bladder Infection Rheumatoid Arthritis (LOU DESIR MD) Family Medical History No Pertinent Family Hx (LOU DESIR MD) Physical Exam Vital Signs Vital Signs - First Documented 12/25/22 04:58 Temp 38.8 Pulse 94 Resp 24 B/P (MAP) 144/80 (101) Pulse Ox 92 O2 Delivery Room Air (BENNY CANALES MD) Vital Signs Capillary Refill : (LOU DESIR MD) Height, Weight, BMI Height: 5'7.00" Weight: 300lbs. oz. 136.885080ul; 46.60 BMI Method: General Appearance: No Apparent Distress, WD/WN, Obese Eyes: Bilateral Eye Normal Inspection, Bilateral Eye PERRL, Bilateral Eye EOMI HEENT: PERRL/EOMI, Moist Mucous Membranes Neck: Normal Inspection Respiratory: Lungs Clear, Normal Breath Sounds, No Accessory Muscle Use, No Respiratory Distress Cardiovascular: Regular Rate, Rhythm, Normal Peripheral Pulses, Other (Brisk capillary refill) Gastrointestinal: Normal Bowel Sounds, Non Tender, Soft Extremity: Normal Inspection, No Pedal Edema Neurologic/Psychiatric: Alert, No Motor/Sensory Deficits, Normal Mood/Affect, workers' compensation mediator II-XII Norm as Tested Skin: Warm/Dry, Pallor (LOU DESIR MD) Focused Exam Lactate Level 12/25/22 05:05: Lactic Acid Level 1.73 (BENNY CANALES MD) Lactic Acid Level Laboratory Tests Test 12/25/22 05:05 Lactic Acid Level 1.73 MMOL/L (0.50-2.00) (BENNY CANALES MD) Progress/Results/Core Measures Suspected Sepsis SIRS Temperature: Pulse: Respiratory Rate: Blood Pressure / Mean: (LOU DESIR MD) Results/Orders Lab Results Laboratory Tests Test 12/25/22 05:05 12/25/22 05:28 Range/Units White Blood Count 3.6 L 4.3-11.0 10^3/uL Red Blood Count 3.46 L 3.80-5.11 10^6/uL Hemoglobin 10.6 L 11.5-16.0 g/dL Hematocrit 32 L 35-52 % Mean Corpuscular Volume 93 80-99 fL Mean Corpuscular Hemoglobin 31 25-34 pg Mean Corpuscular Hemoglobin Concent 33 32-36 g/dL Red Cell Distribution Width 14.3 10.0-14.5 % Platelet Count 167 130-400 10^3/uL Mean Platelet Volume 9.3 9.0-12.2 fL Immature Granulocyte % (Auto) 1 % Neutrophils (%) (Auto) 66 42-75 % Lymphocytes (%) (Auto) 22 12-44 % Monocytes (%) (Auto) 10 0-12 % Eosinophils (%) (Auto) 1 0-10 % Basophils (%) (Auto) 0 0-10 % Neutrophils # (Auto) 2.3 1.8-7.8 10^3/uL Lymphocytes # (Auto) 0.8 L 1.0-4.0 10^3/uL Monocytes # (Auto) 0.4 0.0-1.0 10^3/uL Eosinophils # (Auto) 0.0 0.0-0.3 10^3/uL Basophils # (Auto) 0.0 0.0-0.1 10^3/uL Immature Granulocyte # (Auto) 0.0 0.0-0.1 10^3/uL Prothrombin Time 29.3 H 12.2-14.7 SEC INR Comment 2.8 H 0.8-1.4 Activated Partial Thromboplast Time 43 H 24-35 SEC Sodium Level 137 135-145 MMOL/L Potassium Level 4.2 3.6-5.0 MMOL/L Chloride Level 102 98-107 MMOL/L Carbon Dioxide Level 25 21-32 MMOL/L Anion Gap 10 5-14 MMOL/L Blood Urea Nitrogen 15 7-18 MG/DL Creatinine 0.85 0.60-1.30 MG/DL Estimat Glomerular Filtration Rate 69 BUN/Creatinine Ratio 18 Glucose Level 114 H 70-105 MG/DL Lactic Acid Level 1.73 0.50-2.00 MMOL/L Calcium Level 8.9 8.5-10.1 MG/DL Corrected Calcium 9.2 8.5-10.1 MG/DL Total Bilirubin 1.9 H 0.1-1.0 MG/DL Aspartate Amino Transf (AST/SGOT) 1075 H 5-34 U/L Alanine Aminotransferase (ALT/SGPT) 928 H 0-55 U/L Alkaline Phosphatase 259 H 40-136 U/L Total Protein 6.3 L 6.4-8.2 GM/DL Albumin 3.6 3.2-4.5 GM/DL Influenza Type A (RT-PCR) Not Detected Not Detecte Influenza Type B (RT-PCR) Not Detected Not Detecte SARS-CoV-2 RNA (RT-PCR) Not Detected Not Detecte Urine Color ORANGE Urine Clarity CLOUDY Urine pH 6.0 5-9 Urine Specific Bolt 1.015 L 1.016-1.022 Urine Protein 2+ H NEGATIVE Urine Glucose (UA) NEGATIVE NEGATIVE Urine Ketones NEGATIVE NEGATIVE Urine Nitrite POSITIVE H NEGATIVE Urine Bilirubin 1+ H NEGATIVE Urine Urobilinogen >=8.0 < = 1.0 MG/DL Urine Leukocyte Esterase 2+ H NEGATIVE Urine RBC (Auto) 2+ H NEGATIVE Urine RBC 2-5 H /HPF Urine WBC TNTC H /HPF Urine Squamous Epithelial Cells 0-2 /HPF Urine Crystals NONE /LPF Urine Bacteria LARGE H /HPF Urine Casts NONE /LPF Urine Mucus NEGATIVE /LPF Urine Culture Indicated CULTURE PENDING (BENNY CANALES MD) My Orders Orders - BENNY CANALES MD Ceftriaxone Iv/Im (Ceftriaxone Iv/Im) (12/25/22 07:00) Ns Iv 500 Ml (Sodium Chloride 0.9%) (12/25/22 06:58) Ct Abdomen/Pelvis W (12/25/22 07:10) Ed Admission (Communication) (12/25/22 07:18) (BENNY CANALES MD) Medications Given in ED Current Medications Medications Dose Ordered Sig/[place] Route Start Time Stop Time Status Last Admin Dose Admin Acetaminophen 650 mg ONCE ONCE PO 12/25/22 05:30 12/25/22 05:32 DC 12/25/22 05:20 650 MG Ceftriaxone Sodium 1000 mg/ Sodium Chloride 50 ml @ 100 mls/hr ONCE ONCE IV 12/25/22 07:00 12/25/22 07:29 DC 12/25/22 07:20 100 MLS/HR Iohexol 88 ml ONCE ONCE IV 12/25/22 07:30 12/25/22 07:31 DC 12/25/22 07:58 88 ML Sodium Chloride 100 ml ONCE ONCE IV 12/25/22 07:30 12/25/22 07:31 DC 12/25/22 07:58 80 ML (BENNY CANALES MD) Vital Signs/I&O 12/25/22 12/25/22 04:58 05:20 Temp 38.8 38.8 Pulse 94 Resp 24 B/P (MAP) 144/80 (101) Pulse Ox 92 O2 Delivery Room Air (BENNY CANALES MD) Vital Signs/I&O Capillary Refill : (LOU DESIR MD) Progress Note : Progress Note Received the patient in signout pending her lab work. On my arrival into her room when I evaluated her, she was on 3 L oxygen satting in the low 90s which is new for her. Mental status seems to have cleared up some per family in the room. Labs were significant for slightly low white blood cell count, normal creatinine, normal lactic acid, markedly elevated AST and ALT with the AST just above 1000, elevated total bilirubin at 1.9, elevated alk phos, INR therapeutic. After seeing the liver enzymes, I went and evaluated the patient again, and I did a thorough abdominal exam. She has no abdominal tenderness at all, specifically nothing in the right upper quadrant, and is not complaining of any subjective abdominal pain. Her urinalysis is concerning for infection and was a true clean-catch. She was given ceftriaxone for this. She has grown out E. coli in the past when I reviewed the chart and it was sensitive to cephalosporins. She does have a listed penicillin allergy, she states she cannot remember what this is. On further review of the chart, she has tolerated cefdinir in the past. Give the patient some gentle IV fluids as well. She is not tachycardic, blood pressure is not concerning, lactic acid normal, and overall does not appear septic. I do not believe given her age that she would benefit from 20 cc/kg of IV fluids at this point in time. I contacted Dr. Braga who admit the patient to the [facility] unit with telemetry for further evaluation and management under inpatient status. We will order some imaging to evaluate the liver enzymes as well. (BENNY CANALES MD) Diagnostic Imaging Diagonstic Imaging: Xray (chest) Comments [facility], [place] NAME: NISREENSWETAJerricaANGELI BiiCode REC#: [id number] PT STATUS: REG ER : 1940 PHYSICIAN: LOU DESIR MD ADMIT DATE: 12/25/22/ER Signed Date of Exam:12/25/22 CHEST 1 VIEW, AP/PA ONLY EXAMINATION: Chest radiograph, portable AP view. DATE: 12/25/2022 5:34 AM INDICATION: 82-year-old female, fever. Shortness of breath. COMPARISON: May 23, 2021. FINDINGS: Heart size and mediastinal contours are unchanged. There is no identified pneumothorax. There is no large pleural effusion. There is no identified interval focal airspace consolidation. There is advanced bilateral glenohumeral arthritis. IMPRESSION: 1. No identified acute cardiopulmonary abnormality. Dictated by: Dictated on workstation # [id number] Dict: 12/25/22 0635 Trans: 12/25/2247 [facility] [id number] Interpreted by: TERRELL HATHAWAY MD Electronically signed by: TERRELL HATHAWAY MD 12/25/2247 NAME: ANGELI GOMEZ BiiCode REC#: [id number] PT STATUS: REG ER : 1940 PHYSICIAN: BENNY CANALES MD ADMIT DATE: 12/25/22/ER Draft Date of Exam:12/25/22 CT ABDOMEN/PELVIS W PROCEDURE: CT abdomen and pelvis with contrast. TECHNIQUE: Multiple contiguous axial images were obtained through the abdomen and pelvis after administration of intravenous contrast. Auto Exposure Controls were utilized during the CT exam to meet ALARA standards for radiation dose reduction. All CT scans use one or more of the following dose optimizing techniques: automated exposure control, MA and/or KvP adjustment based on patient size and exam type or iterative reconstruction. INDICATION: Markedly elevated liver function tests as well as fever. No prior studies are available for comparison. FINDINGS: The lung bases are clear. No focal liver mass is identified. Gallbladder is unremarkable. No biliary ductal dilatation is identified. The pancreas and spleen are unremarkable. No adrenal mass is identified. Kidneys are unremarkable. There is no hydronephrosis. Aorta is calcified but nonaneurysmal. Small fat-containing abdominal hernia is noted. Bowel loops are nonobstructed. There is no free fluid or fluid collection in the abdomen or pelvis. Uterus and bladder appear unremarkable. Bony structures are nonacute. IMPRESSION: Unremarkable CT of the abdomen and pelvis with contrast. No acute feature is detected. Dictated on workstation # [id number] Dict: 12/25/22 0804 Trans: 12/25/22 0808 [id number] Interpreted by: LIZET IDALLO MD Electronically signed by: (BENNY CANALES MD) Departure Impression Primary Impression: Respiratory failure Qualified Codes: J96.01 - Acute respiratory failure with hypoxia Additional Impressions: Cystitis Transaminitis Hyperbilirubinemia Disposition: ADMITTED INPATIENT Condition: Stable Admissions Decision to Admit Reason: Admit from ER (General) Decision to Admit/Date: Dec 25, 2022 Time/Decision to Admit Time: 06:55 (BENNY CANALES MD) Departure-Patient Inst. Referrals: MATIAS ARREDONDO DO (PCP/Family) Primary Care Physician LOU DESIR MD Dec 25, 2022 05:12 BENNY CANALES MD Dec 25, 2022 07:09
[2022-12-25 05:27] LABS: BASOPHILS % (AUTO) 0 % (0-10); EOSINOPHILS % (AUTO) 1 % (0-10); HEMATOCRIT 32 % (35-52); HEMOGLOBIN 10.6 g/dL (11.5-16.0); LYMPHOCYTES # (AUTO) 0.8 10^3/uL (1.0-4.0); LYMPHOCYTES % (AUTO) 22 % (12-44); MEAN CORPUSCULAR HEMOGLOBIN 31 pg (25-34); MEAN CORPUSCULAR HGB CONC 33 g/dL (32-36); MEAN CORPUSCULAR VOLUME 93 fL (80-99); MEAN PLATELET VOLUME 9.3 fL (9.0-12.2); MONOCYTES # (AUTO) 0.4 10^3/uL (0.0-1.0); MONOCYTES % (AUTO) 10 % (0-12); NEUTROPHILS # (AUTO) 2.3 10^3/uL (1.8-7.8); NEUTROPHILS % (AUTO) 66 % (42-75); PLATELET COUNT 167 10^3/uL (130-400); WHITE BLOOD COUNT 3.6 10^3/uL (4.3-11.0)
[2022-12-25] MEDS ORDERED: ACETAMINOPHEN 325 MG TABLET PO ONE (05:30)
[2022-12-25 05:31] LABS: ALBUMIN 3.6 GM/DL (3.2-4.5); POTASSIUM 4.2 MMOL/L (3.6-5.0)
[2022-12-25 05:32] LABS: CALCIUM 8.9 MG/DL (8.5-10.1)
[2022-12-25 05:33] LABS: TOTAL PROTEIN 6.3 GM/DL (6.4-8.2)
[2022-12-25 05:34] LABS: INR 2.8 (0.8-1.4); PROTHROMBIN TIME PATIENT 29.3 SEC (12.2-14.7)
[2022-12-25 05:35] LABS: BILIRUBIN,TOTAL 1.9 MG/DL (0.1-1.0)
[2022-12-25 05:37] LABS: CREATININE SERUM 0.85 MG/DL (0.60-1.30)
[2022-12-25 06:34] LABS: CLARITY,URINE CLOUDY; COLOR,URINE ORANGE
[2022-12-25 06:35] LABS: BACTERIA,URINE LARGE /HPF; BILIRUBIN,URINE 1+ (NEGATIVE); GLUCOSE, URINE (UA) NEGATIVE (NEGATIVE); KETONES,URINE NEGATIVE (NEGATIVE); LEUKOCYTE ESTERASE ,URINE 2+ (NEGATIVE); NITRITE,URINE POSITIVE (NEGATIVE); PROTEIN,URINE 2+ (NEGATIVE); SQUAMOUS EPITHELIAL CELL,UR 0-2 /HPF; WBC,URINE TNTC /HPF
--- NOTE | 2022-12-25 06:40 | Diagnostic Imaging Report ---
EXAMINATION: Chest radiograph, portable AP view. DATE: 12/25/2022 5:34 AM INDICATION: 82-year-old female, fever. Shortness of breath. COMPARISON: May 23, 2021. FINDINGS: Heart size and mediastinal contours are unchanged. There is no identified pneumothorax. There is no large pleural effusion. There is no identified interval focal airspace consolidation. There is advanced bilateral glenohumeral arthritis. IMPRESSION: 1. No identified acute cardiopulmonary abnormality. Dictated by: Dictated on workstation # [id number]
[2022-12-25] MEDS ORDERED: NS IV 500 ML 500 ML IV STA (06:58)
[2022-12-25] MEDS ORDERED: cefTRIAXone IV/IM 1,000 MG in NS (IVPB) 50 ML 50 ML IV ONE (07:00)
[2022-12-25] MEDS ORDERED: HOLD METFORMIN - RECEIVED CONTRAST 20 ML VIAL IV SCH (07:30)
[2022-12-25] MEDS ORDERED: IOHEXOL 350 MG/ML 100 ML (OMNIPAQUE 350) VIAL IV ONE (07:30)
[2022-12-25] MEDS ORDERED: NS 100 ML (IVPB) BAG IV ONE (07:30)
--- NOTE | 2022-12-25 08:09 | Diagnostic Imaging Report ---
PROCEDURE: CT abdomen and pelvis with contrast. TECHNIQUE: Multiple contiguous axial images were obtained through the abdomen and pelvis after administration of intravenous contrast. Auto Exposure Controls were utilized during the CT exam to meet ALARA standards for radiation dose reduction. All CT scans use one or more of the following dose optimizing techniques: automated exposure control, MA and/or KvP adjustment based on patient size and exam type or iterative reconstruction. INDICATION: Markedly elevated liver function tests as well as fever. No prior studies are available for comparison. FINDINGS: The lung bases are clear. No focal liver mass is identified. Gallbladder is unremarkable. No biliary ductal dilatation is identified. The pancreas and spleen are unremarkable. No adrenal mass is identified. Kidneys are unremarkable. There is no hydronephrosis. Aorta is calcified but nonaneurysmal. Small fat-containing abdominal hernia is noted. Bowel loops are nonobstructed. There is no free fluid or fluid collection in the abdomen or pelvis. Uterus and bladder appear unremarkable. Bony structures are nonacute. IMPRESSION: Unremarkable CT of the abdomen and pelvis with contrast. No acute feature is detected. Dictated by: Dictated on workstation # [id number]
[2022-12-25] MEDS ORDERED: LOSARTAN 100 MG TABLET PO SCH (09:00)
[2022-12-25] MEDS ORDERED: ONDANSETRON INJECTION 4 MG/2 ML (SDV) IV PRN (09:00)
[2022-12-25] MEDS ORDERED: RT-ALBUTEROL SULF 2.5 MG/3 ML PRE-MIX VIAL INH PRN ×2 (10:00→20:00)
--- NOTE | 2022-12-25 10:54 | History & Physical-Hospitalist ---
TARA HUI 12/25/22 1054: History of Present Illness HPI/Chief Complaint Akosua Koo is an 82 yo F with a history of Afib, DVT, HTN, and RA, here for evaluation of a fever. She lives in a alf and started having a fever 1- 2 days ago. She has a history of frequent UTIs and has been experiencing dysuria for a few weeks as well. Her daughter reported she vomited yesterday evening but hasn't had any repeat episodes since. She is mildly confused but able to answer most questions clearly. She was given an unknown dose of tylenol yesterday at the alf with little improvement of her symptoms. In the ED, her vitals were T 38.8, P 94, RR 24, and BP 144/80 with a WBC of 3.6. She had a lactic acid < 2 and a therapeutic INR (pt on warfarin). She had elevated liver enzymes (AST 1075, ALT 928, and total bilirubin 1.9). Given the suspected cystitis, she is septic and was given 500 ml IV NS and Ceftriaxone. A CXR and CT of abdomen/pelvis were unremarkable. A UA showed orange and cloudy urine, bacteruria, 2+ protein, + nitrite, TNTC WBC, and 2+ leukocyte esterase indicating cystitis. After admission, her vitals were T 36.5, P 70, RR 24, and BP 153/64. Currently, she is not experiencing SOB or n/v/d. She does not report any abdominal tenderness including RUQ. Source: patient, family Exam Limitations: no limitations Date Seen 12/25/22 Time Seen by a Provider: 10:00 Attending Physician Hossein Perez DO PCP Admitting Physician: Kerry Braga MD Attending Physician: Kerry Braga MD Referring Physician Date of Admission Dec 25, 2022 at 08:40 Home Medications & Allergies Home Medications Reviewed patient Home Medication Reconciliation performed by pharmacy medication reconciliations electronic prepress technician and/or nursing. Patients Allergies have been reviewed. Allergies Allergies Coded Allergies Penicillins (Verified Allergy, Unknown, 05/23/21) procaine (Verified Allergy, Unknown, 05/23/21) Past Mknatdo-Ilmanz-Ndcnoh Hx Patient Social History Tobacco Use?: No Smoking Status: Never a Smoker Use of E-Cig and/or Vaping dev: No Substance use?: No Alcohol Use?: No Pt feels they are or have been: No Immunizations Up To Date First/Initial COVID19 Vaccinat: APR 24 ? Second COVID19 Vaccination [place]: MAY 26 Tetanus Booster (TDap): Unknown Hepatitis A: No Hepatitis B: No Current Status status: No status: No Advance Directives: Yes Advance Directive Location: Family to bring in copy Communicates: Verbally Primary Language: Turkmen Preferred Spoken Language: Turkmen Is interpretation needed?: No Implanted or Applied Medical D: None Past Medical History Atrial Fibrillation, Deep Vein Thrombosis, Hypertension Dementia Bladder Infection Rheumatoid Arthritis Family Medical History No Pertinent Family Hx Review of Systems Constitutional: fever EENTM: see HPI Respiratory: no symptoms reported Cardiovascular: no symptoms reported Gastrointestinal: no symptoms reported Genitourinary: see HPI, dysuria, incontinence Skin: no symptoms reported Physical Exam Physical Exam Vital Signs Vital Signs - First Documented 12/25/22 12/25/22 12/25/22 04:58 09:14 09:50 Temp 38.8 Pulse 94 Resp 24 B/P (MAP) 144/80 (101) Pulse Ox 92 O2 Delivery Room Air O2 Flow Rate 2.00 FiO2 28 Capillary Refill : Less Than 3 Seconds Height, Weight, BMI Height: 5'7.00" Weight: 300lbs. oz. 136.358440xd; 53.81 BMI Method: General Appearance: No Apparent Distress, WD/WN, Obese HEENT: PERRL/EOMI, Moist Mucous Membranes Neck: Full Range of Motion Respiratory: Lungs Clear, Normal Breath Sounds, No Respiratory Distress Cardiovascular: Regular Rate, Rhythm, No Gallop, No Murmur, Normal Peripheral Pulses Gastrointestinal: Normal Bowel Sounds, No Organomegaly, Non Tender Extremity: No Non Tender (tenderness of R shoulder with movement); No Calf Tenderness, Pedal Edema Neurologic/Psychiatric: Alert, Oriented x3 (with prompting), Normal Mood/Affect Skin: Normal Color, Warm/Dry, Erythema (mild in intertriginous areas); No Jaundice Results Results/Procedures Labs Laboratory Tests 12/25/22 05:05 Patient resulted labs reviewed. Assessment/Plan Admission Diagnosis Sepsis Cystitis Transaminitis Admission Status: Inpatient Order (span 2 midnights) Reason for Inpatient Admission: sepsis Assessment and Plan Sepsis Cystitis pending culture results continue minimal fluids continue Ceftriaxone monitor for temp and BP Transaminitis Hepatitis panel ordered US gallbladder/liver acetaminophen level ordered RA hold upadacitinib Afib PAF currently sinus - no tx Hx DVT continue warfarin HTN HLD Neuropathy continue home meds Diagnosis/Problems Diagnosis/Problems (1) Sepsis Status: Acute Qualifiers: Sepsis type: sepsis due to unspecified organism Severe sepsis shock status: without septic shock (2) Cystitis Status: Acute (3) Transaminitis Status: Acute (4) Atrial fibrillation (5) HTN (hypertension) Status: Chronic Qualifiers: Hypertension type: primary hypertension Qualified Codes: I10 - Essential (primary) hypertension (6) HLD (hyperlipidemia) Status: Chronic (7) Rheumatoid arthritis Status: Chronic (8) Neuropathy Status: Chronic (9) History of DVT (deep vein thrombosis) Status: Chronic Clinical Quality Measures Sepsis: Within 3hrs of presentation: Admin fluids, Admin 30ml/kg IBW due to BMI>30, Ad min ABX, Blood cultures prior to ABX's, Focus exam, Lactate level KERRY BRAGA MD 12/25/221952: Assessment/Plan Assessment and Plan Patient admitted to the hospital with severe sepsis due to UTI. She was found to have elevated liver enzymes which may very well just be due to sepsis but will get right upper quadrant usg and hepatitis panel. Was also taking tylenol at [place] so will check tylneol level. Abd exam is unremarkable aside from noted obesity a nd limitation due to habitus but she tolerated palpation with not tenderness anywhere in her abd. Will await cultures and continue Rocephin as she previously had UTI with pansenstive e coli and has tolerated cephalosporins in the past despite PCN alergy. Her INR is therapeutic at this time. Will continue warfarin and check INR frequently given transaminitis. Supervisory-Addendum Brief Verification & Attestation Participated in pt care: history, MDM, physical Personally performed: exam, history, MDM, supervision of care Care discussed with: Medical Student Procedures: n/a Results interpretation: Verified all documentation Verification and Attestation of Medical Student E/M Service A medical student performed and documented this service in my presence. I reviewed and verified all information documented by the medical student and made modifications to such information, when appropriate. I personally performed the physical exam and medical decision making. Kerry Braga, Dec 25, 2022,19:47 TARA HUI Dec 25, 2022 10:54 KERRY BRAGA MD Dec 25, 2022 19:53
[2022-12-25] MEDS ORDERED: SENN-234 PO (11:14)
[2022-12-25] MEDS ORDERED: CHOL20002 PO (11:14)
[2022-12-25] MEDS ORDERED: PANT40TA52 PO (11:14)
[2022-12-25] MEDS ORDERED: DULO60CA59 PO (11:14)
[2022-12-25] MEDS ORDERED: FOLI1TAB33 PO (11:14)
[2022-12-25] MEDS ORDERED: NF-ALLE180 PO (11:14)
[2022-12-25] MEDS ORDERED: GABA300C PO (11:14)
[2022-12-25] MEDS ORDERED: KRIL1CAP35 PO (11:14)
[2022-12-25] MEDS ORDERED: UPAD15TA PO (11:14)
[2022-12-25] MEDS ORDERED: VIT1TABL26 PO (11:14)
[2022-12-25] MEDS ORDERED: VITA1TAB17 PO (11:14)
[2022-12-25] MEDS ORDERED: HYDR25TA4 PO (11:14)
[2022-12-25] MEDS ORDERED: DICL100G13 TP (11:14)
[2022-12-25] MEDS ORDERED: ACET-2840 PO (11:14)
[2022-12-25] MEDS ORDERED: LOSA100T58 PO (11:14)
[2022-12-25] MEDS ORDERED: UBID100C17 PO (11:14)
[2022-12-25] MEDS ORDERED: FLUT16SP22 NSEACH (11:14)
[2022-12-25] MEDS ORDERED: LOVA20TA2 PO (11:14)
[2022-12-25] MEDS ORDERED: BIOT1TAB PO (11:32)
[2022-12-25] MEDS ORDERED: ALBU2.5V4 NEB (12:07)
[2022-12-25] MEDS ORDERED: GUAI600T43 PO (12:07)
[2022-12-25] MEDS ORDERED: WARF-48 PO (12:07)
[2022-12-25] MEDS ORDERED: POLY17PO6 PO (12:07)
[2022-12-25] MEDS ORDERED: ACET325T38 PO (12:07)
--- NOTE | 2022-12-25 15:04 | Diagnostic Imaging Report ---
PROCEDURE: US Gallbladder. TECHNIQUE: Multiple real-time grayscale images were obtained over the right upper quadrant in various projections. INDICATION: Elevated liver function tests. FINDINGS: Liver is normal in size, 16 cm. Portal vein is patent and shows normal direction of flow. No discrete liver mass is identified, although study is limited due to patient large body habitus and overlying bowel gas. Gallbladder is without stones or sludge. There is no wall thickening or biliary ductal dilatation. Pancreas, aorta, and IVC were obscured by bowel gas. Right kidney is without calculi or hydronephrosis. There is no ascites. IMPRESSION: Limited study, as described. No gross abnormality is detected. Dictated by: Dictated on workstation # [id number]
[2022-12-25] MEDS: warFARin 5 MG (COUMADIN) TAB PO SCH (18:19)
[2022-12-25] MEDS ORDERED: guaiFENesin 600 MG TABLET PO PRN (20:00)
[2022-12-25 21:35] LABS: HEPATITIS C ANTIBODY C Non-Reactive (Non-Reactive)
[2022-12-26 05:00] VITALS: BP 144/65
[2022-12-26] MEDS: FOLIC ACID 1 MG TAB PO SCH ×2 (05:14→18:04)
[2022-12-26] MEDS: PANTOPRAZOLE 40 MG TABLET PO SCH ×2 (05:14→18:04)
[2022-12-26] MEDS: SENNOSIDES 8.6 MG TABLET PO SCH ×2 (05:14→18:04)
[2022-12-26] MEDS: GABAPENTIN 300 MG CAPSULE PO SCH ×3 (05:17→15:12)
[2022-12-26 05:59] LABS: BASOPHILS % (AUTO) 0 % (0-10); EOSINOPHILS # (AUTO) 0.1 10^3/uL (0.0-0.3); EOSINOPHILS % (AUTO) 2 % (0-10); HEMATOCRIT 30 % (35-52); LYMPHOCYTES # (AUTO) 0.7 10^3/uL (1.0-4.0); LYMPHOCYTES % (AUTO) 15 % (12-44); MEAN CORPUSCULAR HEMOGLOBIN 31 pg (25-34); MEAN CORPUSCULAR HGB CONC 34 g/dL (32-36); MEAN CORPUSCULAR VOLUME 91 fL (80-99); MEAN PLATELET VOLUME 9.2 fL (9.0-12.2); MONOCYTES # (AUTO) 0.4 10^3/uL (0.0-1.0); MONOCYTES % (AUTO) 9 % (0-12); NEUTROPHILS # (AUTO) 3.2 10^3/uL (1.8-7.8); NEUTROPHILS % (AUTO) 72 % (42-75); PLATELET COUNT 143 10^3/uL (130-400); WHITE BLOOD COUNT 4.5 10^3/uL (4.3-11.0)
[2022-12-26] MEDS ORDERED: DICLOFENAC 1% GEL 100 GM TUBE TP SCH (06:00)
[2022-12-26 06:07] LABS: ALBUMIN 3.2 GM/DL (3.2-4.5); POTASSIUM 3.7 MMOL/L (3.6-5.0)
[2022-12-26 06:08] LABS: CALCIUM 8.7 MG/DL (8.5-10.1)
[2022-12-26 06:10] LABS: TOTAL PROTEIN 6.1 GM/DL (6.4-8.2)
[2022-12-26 06:11] LABS: BILIRUBIN,TOTAL 1.2 MG/DL (0.1-1.0)
[2022-12-26 06:13] LABS: CREATININE SERUM 0.74 MG/DL (0.60-1.30)
[2022-12-26 07:08] VITALS: BP 125/64
[2022-12-26] MEDS: LORATADINE 10 MG TABLET PO SCH (08:14)
[2022-12-26] MEDS: cefTRIAXone 1 GM/NS 50 ML IVPB IV SCH ×2 (08:14)
[2022-12-26] MEDS: FLUTICASONE NASAL SPRAY (120 SPRAYS) NS SCH (08:14)
[2022-12-26] MEDS: DICLOFENAC 1% GEL 50 GM TUBE TP SCH ×2 (09:38→14:15)
[2022-12-26 11:12] VITALS: BP 123/49
--- NOTE | 2022-12-26 11:37 | Progress Note - Hospitalist ---
TARA HUI 12/26/22 1137: Subjective HPI/CC On Admission Date Seen by Provider: Dec 26, 2022 Time Seen by Provider: 10:45 Akosua Koo is an 82 yo F with a history of Afib, DVT, HTN, and RA, here for evaluation of a fever. She lives in a shelter and started having a fever 1- 2 days ago. She has a history of frequent UTIs and has been experiencing dysuria for a few weeks as well. Her daughter reported she vomited yesterday evening but hasn't had any repeat episodes since. She is mildly confused but able to answer most questions clearly. She was given an unknown dose of tylenol yesterday at the shelter with little improvement of her symptoms. In the ED, her vitals were T 38.8, P 94, RR 24, and BP 144/80 with a WBC of 3.6. She had a lactic acid < 2 and a therapeutic INR (pt on warfarin). She had elevated liver enzymes (AST 1075, ALT 928, and total bilirubin 1.9). Given the suspected cystitis, she is septic and was given 500 ml IV NS and Ceftriaxone. A CXR and CT of abdomen/pelvis were unremarkable. A UA showed orange and cloudy urine, bacteruria, 2+ protein, + nitrite, TNTC WBC, and 2+ leukocyte esterase indicating cystitis. After admission, her vitals were T 36.5, P 70, RR 24, and BP 153/64. Currently, she is not experiencing SOB or n/v/d. She does not report any abdominal tenderness including RUQ. Gallbladder US was unremarkable. Pt reports feeling better today. She is still confused per daughter. Vital signs are now stable. Focused Exam Lactate Level 12/25/22 05:05: Lactic Acid Level 1.73 Objective Exam Vital Signs Vital Signs Date Time Temp Pulse Resp B/P (MAP) Pulse Ox O2 Delivery O2 Flow Rate FiO2 12/26/22 11:12 36.1 64 16 123/49 (73) Nasal Cannula 3.00 12/26/22 07:08 96 12/25/22 09:50 28 Capillary Refill : Less Than 3 Seconds General Appearance: No Apparent Distress, WD/WN, Obese HEENT: PERRL/EOMI Neck: Full Range of Motion Respiratory: Lungs Clear, Normal Breath Sounds, No Respiratory Distress Cardiovascular: Regular Rate, Rhythm, No Gallop, No JVD, No Murmur, Normal Peripheral Pulses Gastrointestinal: Normal Bowel Sounds Extremity: Normal Capillary Refill Neurologic/Psychiatric: Alert, Oriented x3 Skin: Normal Color, Warm/Dry Results/Procedures Lab Laboratory Tests 12/26/22 05:40 Patient resulted labs reviewed. Assessment/Plan Assessment and Plan Assess & Plan/Chief Complaint Sepsis Cystitis Urine culture grew E. coli, pending sensitivity continue Ceftriaxone monitor temp and BP Transaminitis Hepatitis panel and acetaminophen negative US gallbladder/liver unremarkable monitor liver enzymes for downward trend repeat INR tomorrow to confirm therapeutic RA hold upadacitinib decrease gabapentin due to grogginess Afib PAF currently sinus - no tx Hx DVT continue warfarin HTN HLD continue home meds Diagnosis/Problems Diagnosis/Problems (1) Sepsis Status: Acute Qualifiers: (2) Cystitis Status: Acute (3) Transaminitis Status: Acute (4) Atrial fibrillation (5) HTN (hypertension) Status: Chronic Qualifiers: Qualified Codes: I10 - Essential (primary) hypertension (6) HLD (hyperlipidemia) Status: Chronic (7) Rheumatoid arthritis Status: Chronic (8) History of DVT (deep vein thrombosis) Status: Chronic KERRY SPENCER MD 12/26/22 1548: Assessment/Plan Assessment and Plan Assess & Plan/Chief Complaint Doing better today. In chair. Daughter reports concern about her sluggish mentation still though patient thinks she is doing much better. Discussed plan to await urine culture results and sensitivities. We will continue her antibiotics. Liver enzymes are much better today. Supervisory-Addendum Brief Verification & Attestation Participated in pt care: history, MDM, physical Personally performed: exam, history, MDM, supervision of care Care discussed with: Medical Student Procedures: n/a Results interpretation: Verified all documentation Verification and Attestation of Medical Student E/M Service A medical student performed and documented this service in my presence. I reviewed and verified all information documented by the medical student and made modifications to such information, when appropriate. I personally performed the physical exam and medical decision making. Kerry Spencer, Dec 26, 2022,15:48 TARA HUI Dec 26, 2022 11:37 KERRY SPENCER MD Dec 26, 2022 15:48
[2022-12-26 15:40] VITALS: BP 130/62
[2022-12-26] MEDS ORDERED: warFARin 5 MG (COUMADIN) TAB PO SCH (17:00)
[2022-12-26] MEDS: DULoxetine 30 MG CAPSULE PO SCH (18:04)
[2022-12-26] MEDS: LOSARTAN 100 MG TABLET PO SCH (18:04)
[2022-12-26] MEDS: warFARin 5 MG (COUMADIN) TAB PO SCH (18:04)
[2022-12-26 19:59] VITALS: BP 188/72
[2022-12-27] VITALS (7 sets, daily range): BP systolic 140–176; BP diastolic 58–80
[2022-12-27 05:31] LABS: HEMATOCRIT 30 % (35-52); MEAN CORPUSCULAR HEMOGLOBIN 31 pg (25-34); MEAN CORPUSCULAR HGB CONC 33 g/dL (32-36); MEAN CORPUSCULAR VOLUME 92 fL (80-99); MEAN PLATELET VOLUME 9.2 fL (9.0-12.2); PLATELET COUNT 149 10^3/uL (130-400); WHITE BLOOD COUNT 5.4 10^3/uL (4.3-11.0)
[2022-12-27 05:44] LABS: INR 2.8 (0.8-1.4)
[2022-12-27 05:49] LABS: POTASSIUM 3.6 MMOL/L (3.6-5.0)
[2022-12-27 05:50] LABS: CALCIUM 8.6 MG/DL (8.5-10.1)
[2022-12-27 05:55] LABS: CREATININE SERUM 0.75 MG/DL (0.60-1.30)
[2022-12-27] MEDS: DICLOFENAC 1% GEL 50 GM TUBE TP SCH ×3 (06:05→14:06)
[2022-12-27] MEDS: FOLIC ACID 1 MG TAB PO SCH ×2 (06:06→18:26)
[2022-12-27] MEDS: PANTOPRAZOLE 40 MG TABLET PO SCH ×2 (06:06→18:25)
[2022-12-27] MEDS: GABAPENTIN 300 MG CAPSULE PO SCH (06:06)
[2022-12-27] MEDS: SENNOSIDES 8.6 MG TABLET PO SCH ×2 (06:06→18:26)
[2022-12-27] MEDS: LORATADINE 10 MG TABLET PO SCH (08:14)
[2022-12-27] MEDS: cefTRIAXone 1 GM/NS 50 ML IVPB IV SCH ×2 (08:14)
[2022-12-27] MEDS: FLUTICASONE NASAL SPRAY (120 SPRAYS) NS SCH (08:56)
[2022-12-27 09:54] LABS: TOTAL PROTEIN 5.9 GM/DL (6.4-8.2)
[2022-12-27 09:56] LABS: BILIRUBIN,TOTAL 0.8 MG/DL (0.1-1.0)
[2022-12-27 09:59] LABS: BILIRUBIN,DIRECT 0.4 MG/DL (0.0-0.3); BILIRUBIN,INDIRECT 0.4 MG/DL
[2022-12-27] MEDS: GABAPENTIN 100 MG CAPSULE PO SCH ×2 (10:15→13:23)
--- NOTE | 2022-12-27 11:21 | Progress Note - Hospitalist ---
TARA HUI 12/27/22 1121: Subjective HPI/CC On Admission Date Seen by Provider: Dec 27, 2022 Time Seen by Provider: 10:15 Akosua Koo is an 82 yo F with a history of Afib, DVT, HTN, and RA, here for evaluation of a fever. She lives in a shelter and started having a fever 1- 2 days ago. She has a history of frequent UTIs and has been experiencing dysuria for a few weeks as well. Her daughter reported she vomited yesterday evening but hasn't had any repeat episodes since. She is mildly confused but able to answer most questions clearly. She was given an unknown dose of tylenol yesterday at the shelter with little improvement of her symptoms. In the ED, her vitals were T 38.8, P 94, RR 24, and BP 144/80 with a WBC of 3.6. She had a lactic acid < 2 and a therapeutic INR (pt on warfarin). She had elevated liver enzymes (AST 1075, ALT 928, and total bilirubin 1.9). Given the suspected cystitis, she is septic and was given 500 ml IV NS and Ceftriaxone. A CXR and CT of abdomen/pelvis were unremarkable. A UA showed orange and cloudy urine, bacteruria, 2+ protein, + nitrite, TNTC WBC, and 2+ leukocyte esterase indicating cystitis. After admission, her vitals were T 36.5, P 70, RR 24, and BP 153/64. Currently, she is not experiencing SOB or n/v/d. She does not report any abdominal tenderness including RUQ. Gallbladder US was unremarkable. Pt reports feeling better today. She is less confused per daughter. Vital signs are now stable. Focused Exam Lactate Level 12/25/22 05:05: Lactic Acid Level 1.73 Objective Exam Vital Signs Vital Signs Date Time Temp Pulse Resp B/P (MAP) Pulse Ox O2 Delivery O2 Flow Rate FiO2 12/27/22 08:08 36.5 67 17 140/70 (93) 96 Nasal Cannula 1.00 12/25/22 09:50 28 Capillary Refill : Less Than 3 Seconds General Appearance: No Apparent Distress, WD/WN, Obese HEENT: PERRL/EOMI, Other (maxillary and frontal sinus tenderness) Neck: Full Range of Motion Respiratory: Lungs Clear, Normal Breath Sounds, No Respiratory Distress Cardiovascular: Regular Rate, Rhythm, No JVD, No Murmur, Normal Peripheral Pulses Gastrointestinal: Normal Bowel Sounds Extremity: Pedal Edema (2+) Neurologic/Psychiatric: Alert, Oriented x3, Normal Mood/Affect Skin: Normal Color, Warm/Dry, Ecchymosis (scattered on arms) Results/Procedures Lab Laboratory Tests 12/27/22 05:19 Patient resulted labs reviewed. Assessment/Plan Assessment and Plan Assess & Plan/Chief Complaint Sepsis Cystitis Urine culture grew E. coli, pending sensitivity continue Ceftriaxone improving Transaminitis monitor liver enzymes for downward trend INR therapeutic, monitor daily RA hold upadacitinib gabapentin decreased to 200 mg QD Afib Hx DVT PAF currently sinus continue warfarin HTN HLD continue home meds Diagnosis/Problems Diagnosis/Problems (1) Sepsis Status: Acute Qualifiers: (2) Cystitis Status: Acute (3) Transaminitis Status: Acute (4) Atrial fibrillation (5) HTN (hypertension) Status: Chronic Qualifiers: Qualified Codes: I10 - Essential (primary) hypertension (6) HLD (hyperlipidemia) Status: Chronic (7) Rheumatoid arthritis Status: Chronic (8) History of DVT (deep vein thrombosis) Status: Chronic KERRY BRAGA MD 12/27/22 194: Assessment/Plan Assessment and Plan Assess & Plan/Chief Complaint Patient reports feeling better today. Daughter at bedside and think mentation is better than yesterday. Patient did get confused for a second regarding where she was but quickly oriented to her location and just called the hospital by [facility] name ([facility] Discussed plan to continue current IV abx given her history of recurrent urinary tract infections and that we don't have culture results back yet. Liver enzymes continue to improve. Supervisory-Addendum Brief Verification & Attestation Participated in pt care: history, MDM, physical Personally performed: exam, history, MDM, supervision of care Care discussed with: Medical Student Procedures: n/a Results interpretation: Verified all documentation Verification and Attestation of Medical Student E/M Service A medical student performed and documented this service in my presence. I reviewed and verified all information documented by the medical student and made modifications to such information, when appropriate. I personally performed the physical exam and medical decision making. Kerry Braga, Dec 27, 2022,19:43 TARA HUI Dec 27, 2022 11:21 KERRY BRAGA MD Dec 27, 2022 19:46
[2022-12-27] MEDS: DULoxetine 30 MG CAPSULE PO SCH (18:25)
[2022-12-27] MEDS: LOSARTAN 100 MG TABLET PO SCH (18:25)
[2022-12-27] MEDS: warFARin 5 MG (COUMADIN) TAB PO SCH (18:26)
[2022-12-27] MEDS ORDERED: hydrALAZINE INJECTION 20 MG/ML VIAL IV PRN (21:15)
[2022-12-27] MEDS: PHENAZOPYRIDINE 100 MG TABLET PO SCH (21:43)
[2022-12-28] VITALS (9 sets, daily range): BP systolic 122–192; BP diastolic 59–79
[2022-12-28] MEDS: FOLIC ACID 1 MG TAB PO SCH ×2 (05:01→18:15)
[2022-12-28] MEDS: SENNOSIDES 8.6 MG TABLET PO SCH ×2 (05:01→18:15)
[2022-12-28] MEDS: PANTOPRAZOLE 40 MG TABLET PO SCH ×2 (05:02→18:15)
[2022-12-28] MEDS: DICLOFENAC 1% GEL 50 GM TUBE TP SCH ×3 (05:02→13:54)
[2022-12-28] MEDS: GABAPENTIN 100 MG CAPSULE PO SCH ×3 (05:02→13:49)
[2022-12-28 05:49] LABS: HEMATOCRIT 30 % (35-52); MEAN CORPUSCULAR HEMOGLOBIN 30 pg (25-34); MEAN CORPUSCULAR HGB CONC 33 g/dL (32-36); MEAN CORPUSCULAR VOLUME 91 fL (80-99); MEAN PLATELET VOLUME 9.3 fL (9.0-12.2); PLATELET COUNT 150 10^3/uL (130-400); WHITE BLOOD COUNT 5.4 10^3/uL (4.3-11.0)
[2022-12-28 06:05] LABS: POTASSIUM 3.5 MMOL/L (3.6-5.0)
[2022-12-28 06:07] LABS: CALCIUM 8.5 MG/DL (8.5-10.1)
[2022-12-28 06:09] LABS: INR 2.7 (0.8-1.4); PROTHROMBIN TIME PATIENT 28.5 SEC (12.2-14.7)
[2022-12-28 06:11] LABS: CREATININE SERUM 0.75 MG/DL (0.60-1.30)
[2022-12-28] MEDS: cefTRIAXone 1 GM/NS 50 ML IVPB IV SCH ×2 (07:57)
[2022-12-28] MEDS: FLUTICASONE NASAL SPRAY (120 SPRAYS) NS SCH (09:08)
[2022-12-28] MEDS: LORATADINE 10 MG TABLET PO SCH (09:08)
[2022-12-28] MEDS: PHENAZOPYRIDINE 100 MG TABLET PO SCH ×3 (09:10→18:21)
[2022-12-28] MEDS ORDERED: POTASSIUM CHLORIDE 20 MEQ TABLET PO NR (10:30)
--- NOTE | 2022-12-28 12:06 | Progress Note - Hospitalist ---
TARA HUI 12/28/22 1206: Subjective HPI/CC On Admission Date Seen by Provider: Dec 28, 2022 Time Seen by Provider: 10:15 Akosua Koo is an 82 yo F with a history of Afib, DVT, HTN, and RA, here for evaluation of a fever. [facility] a [facility] and started having a fever 1- 2 days ago. She has a history of frequent UTIs and has been experiencing dysuria for a few weeks as well. Her daughter reported she vomited yesterday evening but hasn't had any repeat episodes since. She is mildly confused but able to answer most questions clearly. She was [facility] with little improvement of her symptoms. In the ED, her vitals were T 38.8, P 94, RR 24, and BP 144/80 with a WBC of 3.6. She had a lactic acid < 2 and a therapeutic INR (pt on warfarin). She had elevated liver enzymes (AST 1075, ALT 928, and total bilirubin 1.9). Given the suspected cystitis, she is septic and was given 500 ml IV NS and Ceftriaxone. A CXR and CT of abdomen/pelvis were unremarkable. A UA showed orange and cloudy urine, bacteruria, 2+ protein, + nitrite, TNTC WBC, and 2+ leukocyte esterase indicating cystitis. After admission, her vitals were T 36.5, P 70, RR 24, and BP 153/64. Currently, she is not experiencing SOB or n/v/d. She does not report any abdominal tenderness including RUQ. Gallbladder US was unremarkable. Pt reports feeling better today. She is less confused per daughter. Vital signs are now stable. Objective Exam Vital Signs Vital Signs Date Time Temp Pulse Resp B/P (MAP) Pulse Ox O2 Delivery O2 Flow Rate FiO2 12/28/22 11:21 36.3 62 17 153/69 (97) 95 Room Air 12/28/22 08:00 1.00 12/25/22 09:50 28 Capillary Refill : Less Than 3 Seconds General Appearance: No Apparent Distress, WD/WN, Obese HEENT: PERRL/EOMI Neck: Full Range of Motion Respiratory: Lungs Clear, Normal Breath Sounds, No Respiratory Distress Cardiovascular: Regular Rate, Rhythm, No JVD, Normal Peripheral Pulses Gastrointestinal: Normal Bowel Sounds Extremity: No Calf Tenderness, Pedal Edema (2+) Neurologic/Psychiatric: Alert, Oriented x3, Normal Mood/Affect Skin: Normal Color, Warm/Dry Results/Procedures Lab Laboratory Tests 12/28/22 05:24 Patient resulted labs reviewed. Assessment/Plan Assessment and Plan Assess & Plan/Chief Complaint Sepsis Cystitis E. coli confirmed sensitive to ceftriaxone continue Ceftriaxone improving Transaminitis monitor liver enzymes for downward trend INR therapeutic, monitor daily RA hold upadacitinib gabapentin decreased to 200 mg QD Afib Hx DVT PAF currently sinus continue warfarin HTN HLD continue home meds Diagnosis/Problems Diagnosis/Problems (1) Sepsis Status: Acute Qualifiers: (2) Cystitis Status: Acute (3) Transaminitis Status: Acute (4) Atrial fibrillation (5) HTN (hypertension) Status: Chronic Qualifiers: Qualified Codes: I10 - Essential (primary) hypertension (6) HLD (hyperlipidemia) Status: Chronic (7) Rheumatoid arthritis Status: Chronic (8) History of DVT (deep vein thrombosis) Status: Chronic KERRY SPENCER MD 12/28/22 1614: Assessment/Plan Assessment and Plan Assess & Plan/Chief Complaint Pt reports feeling better today. No specific complaints. Had some dysuria last night that is improving. Mentation improved but still here and there. Daughter states she's about 50% of her baseline but was near 10-20% on arrival. COntinue abx. Coughing up some sputum and has history of chronic sinusitis so will get a culture there. If any new fevers will broaden coverage but right now urine culture with e coli sensitive to rocephin. Try to wean oxygen as able. Supervisory-Addendum Brief Verification & Attestation Participated in pt care: history, MDM, physical Personally performed: exam, history, MDM, supervision of care Care discussed with: Medical Student Procedures: n/a Results interpretation: Verified all documentation Verification and Attestation of Medical Student E/M Service A medical student performed and documented this service in my presence. I reviewed and verified all information documented by the medical student and made modifications to such information, when appropriate. I personally performed the physical exam and medical decision making. Kerry Spencer, Dec 28, 2022,16:11 TARA HUI Dec 28, 2022 12:06 KERRY SPENCER MD Dec 28, 2022 16:14
[2022-12-28] MEDS: DULoxetine 30 MG CAPSULE PO SCH (18:15)
[2022-12-28] MEDS: warFARin 5 MG (COUMADIN) TAB PO SCH (18:15)
[2022-12-28] MEDS: LOSARTAN 100 MG TABLET PO SCH (18:15)
[2022-12-28] MEDS: ACETAMINOPHEN 500 MG TABLET PO PRN (18:22)
[2022-12-29] VITALS (8 sets, daily range): BP systolic 100–155; BP diastolic 48–80
[2022-12-29] MEDS: GABAPENTIN 100 MG CAPSULE PO SCH ×3 (05:23→14:24)
[2022-12-29] MEDS: PANTOPRAZOLE 40 MG TABLET PO SCH ×2 (05:23→17:22)
[2022-12-29] MEDS: FOLIC ACID 1 MG TAB PO SCH ×2 (05:23→17:27)
[2022-12-29] MEDS: DICLOFENAC 1% GEL 50 GM TUBE TP SCH ×3 (05:23→14:24)
[2022-12-29] MEDS: SENNOSIDES 8.6 MG TABLET PO SCH ×2 (05:23→17:22)
[2022-12-29 06:08] LABS: HEMATOCRIT 30 % (35-52); HEMOGLOBIN 10.2 g/dL (11.5-16.0); MEAN CORPUSCULAR HEMOGLOBIN 31 pg (25-34); MEAN CORPUSCULAR HGB CONC 34 g/dL (32-36); MEAN CORPUSCULAR VOLUME 91 fL (80-99); MEAN PLATELET VOLUME 9.2 fL (9.0-12.2); PLATELET COUNT 166 10^3/uL (130-400); WHITE BLOOD COUNT 6.6 10^3/uL (4.3-11.0)
[2022-12-29 06:26] LABS: INR 2.7 (0.8-1.4); PROTHROMBIN TIME PATIENT 28.4 SEC (12.2-14.7)
[2022-12-29 06:29] LABS: POTASSIUM 3.7 MMOL/L (3.6-5.0)
[2022-12-29 06:30] LABS: CALCIUM 8.8 MG/DL (8.5-10.1)
[2022-12-29 06:34] LABS: CREATININE SERUM 0.78 MG/DL (0.60-1.30)
[2022-12-29] MEDS: cefTRIAXone 1 GM/NS 50 ML IVPB IV SCH ×2 (08:15)
[2022-12-29] MEDS: LORATADINE 10 MG TABLET PO SCH (08:16)
[2022-12-29] MEDS: PHENAZOPYRIDINE 100 MG TABLET PO SCH ×3 (08:18→17:27)
[2022-12-29] MEDS: FLUTICASONE NASAL SPRAY (120 SPRAYS) NS SCH (08:19)
--- NOTE | 2022-12-29 11:26 | Progress Note - Hospitalist ---
TARA HUI 12/29/22 1126: Subjective HPI/CC On Admission Date Seen by Provider: Dec 29, 2022 Time Seen by Provider: 10:30 Akosua Koo is an 82 yo F with a history of Afib, DVT, HTN, and RA, here for evaluation of a fever. She lives in a shelter and started having a fever 1- 2 days ago. She has a history of frequent UTIs and has been experiencing dysuria for a few weeks as well. Her daughter reported she vomited yesterday evening but hasn't had any repeat episodes since. She is mildly confused but able to answer most questions clearly. She was given an unknown dose of tylenol yesterday at the shelter with little improvement of her symptoms. In the ED, her vitals were T 38.8, P 94, RR 24, and BP 144/80 with a WBC of 3.6. She had a lactic acid < 2 and a therapeutic INR (pt on warfarin). She had elevated liver enzymes (AST 1075, ALT 928, and total bilirubin 1.9). Given the suspected cystitis, she is septic and was given 500 ml IV NS and Ceftriaxone. A CXR and CT of abdomen/pelvis were unremarkable. A UA showed orange and cloudy urine, bacteruria, 2+ protein, + nitrite, TNTC WBC, and 2+ leukocyte esterase indicating cystitis. After admission, her vitals were T 36.5, P 70, RR 24, and BP 153/64. Currently, she is not experiencing SOB or n/v/d. She does not report any abdominal tenderness including RUQ. Gallbladder US was unremarkable. Pt reports feeling better today. She is less confused per daughter. Vital signs are now stable. Objective Exam Vital Signs Vital Signs Date Time Temp Pulse Resp B/P (MAP) Pulse Ox O2 Delivery O2 Flow Rate FiO2 12/29/22 07:46 36.6 70 17 141/66 (91) 92 Room Air 12/29/22 00:17 21 12/29/22 00:14 1.00 Capillary Refill : Less Than 3 Seconds General Appearance: No Apparent Distress, WD/WN, Obese HEENT: PERRL/EOMI Respiratory: Lungs Clear, No Respiratory Distress Cardiovascular: Regular Rate, Rhythm, No JVD, Normal Peripheral Pulses Gastrointestinal: Normal Bowel Sounds Extremity: No Calf Tenderness Neurologic/Psychiatric: Alert, Oriented x3, Normal Mood/Affect Skin: Normal Color, Warm/Dry Results/Procedures Lab Laboratory Tests 12/29/22 05:40 Patient resulted labs reviewed. Assessment/Plan Assessment and Plan Assess & Plan/Chief Complaint Sepsis Cystitis continue Ceftriaxone continue Pyridium improving Transaminitis liver enzymes improving INR therapeutic, monitor daily RA hold upadacitinib gabapentin decreased to 200 mg QD Afib Hx DVT PAF currently sinus continue warfarin HTN HLD hydralazine 5 mg Q 6hr for SBP > 180 continue home meds Diagnosis/Problems Diagnosis/Problems (1) Sepsis Status: Acute Qualifiers: (2) Cystitis Status: Acute (3) Transaminitis Status: Acute (4) Atrial fibrillation (5) HTN (hypertension) Status: Chronic Qualifiers: Qualified Codes: I10 - Essential (primary) hypertension (6) HLD (hyperlipidemia) Status: Chronic (7) Rheumatoid arthritis Status: Chronic (8) History of DVT (deep vein thrombosis) Status: Chronic KERRY BRAGA MD 12/29/22 1209: Assessment/Plan Assessment and Plan Assess & Plan/Chief Complaint Patient reports overall feeling better but having more nasal congestion. Just feels a lot of pressure on her face which is distant with her previous sinus is sues. She is scheduled to see Dr. Lees early next month. I did call and discussed this with Dr. Lees and he recommended salt water flushes and nasal gel at night. He also plans to call in a Decadron and gentamicin at [facility] for her daughter to pharmacy picking technician tomorrow. I returned to the room to discuss this with patient and family and daughter states she will be able to pick it up and bring it. Otherwise she is doing well and mentating better. Supervisory-Addendum Brief Verification & Attestation Participated in pt care: history, MDM, physical Personally performed: exam, history, MDM, supervision of care Care discussed with: Medical Student Procedures: n/a Results interpretation: Verified all documentation Verification and Attestation of Medical Student E/M Service A medical student performed and documented this service in my presence. I reviewed and verified all information documented by the medical student and made modifications to such information, when appropriate. I personally performed the physical exam and medical decision making. Kerry Braga, Dec 29, 2022,12:07 TARA HUI Dec 29, 2022 11:26 KERRY BRAGA MD Dec 29, 2022 12:09
[2022-12-29] MEDS ORDERED: SODIUM CHLORIDE TOP PRN (11:30)
[2022-12-29] MEDS ORDERED: BSS 15 ML IR PRN (11:30)
[2022-12-29] MEDS: ACETAMINOPHEN 500 MG TABLET PO PRN ×2 (11:39→21:04)
[2022-12-29] MEDS ORDERED: SALINE NASAL SPRAY 45 ML BTL PRN (13:45)
[2022-12-29] MEDS: LOSARTAN 100 MG TABLET PO SCH (17:22)
[2022-12-29] MEDS: DULoxetine 30 MG CAPSULE PO SCH (17:22)
[2022-12-29] MEDS: warFARin 5 MG (COUMADIN) TAB PO SCH (17:27)
[2022-12-30 03:43] VITALS: BP 159/74
[2022-12-30] MEDS: PANTOPRAZOLE 40 MG TABLET PO SCH (05:11)
[2022-12-30] MEDS: GABAPENTIN 100 MG CAPSULE PO SCH ×3 (05:11→14:19)
[2022-12-30] MEDS: FOLIC ACID 1 MG TAB PO SCH (05:11)
[2022-12-30] MEDS: SENNOSIDES 8.6 MG TABLET PO SCH (05:11)
[2022-12-30] MEDS: DICLOFENAC 1% GEL 50 GM TUBE TP SCH ×3 (05:12→14:19)
[2022-12-30 06:23] LABS: HEMATOCRIT 31 % (35-52); HEMOGLOBIN 10.3 g/dL (11.5-16.0); MEAN CORPUSCULAR HEMOGLOBIN 31 pg (25-34); MEAN CORPUSCULAR HGB CONC 33 g/dL (32-36); MEAN CORPUSCULAR VOLUME 93 fL (80-99); MEAN PLATELET VOLUME 9.5 fL (9.0-12.2); PLATELET COUNT 183 10^3/uL (130-400)
[2022-12-30 06:34] LABS: POTASSIUM 3.6 MMOL/L (3.6-5.0)
[2022-12-30 06:38] LABS: INR 2.7 (0.8-1.4); PROTHROMBIN TIME PATIENT 28.6 SEC (12.2-14.7)
[2022-12-30 06:40] LABS: CREATININE SERUM 1.03 MG/DL (0.60-1.30)
[2022-12-30 08:00] VITALS: BP 149/66
[2022-12-30] MEDS: FLUTICASONE NASAL SPRAY (120 SPRAYS) NS SCH (08:23)
[2022-12-30] MEDS: PHENAZOPYRIDINE 100 MG TABLET PO SCH ×2 (08:23→14:19)
[2022-12-30] MEDS: LORATADINE 10 MG TABLET PO SCH (08:23)
[2022-12-30] MEDS ORDERED: CEFDINIR 300 MG CAPSULE PO SCH (09:00)
[2022-12-30] MEDS ORDERED: CEFD300C3 PO (11:09)
[2022-12-30 11:37] VITALS: BP 147/65
--- NOTE | 2022-12-30 12:26 | Discharge Inst-Skilled Nursing ---
Discharge Inst-Skilled NF Consult/Follow Up/Orders Follow Up Appt.: Dr. Perez in about a week Skilled NF [facility]: [facility]) I certify that SNF services are required to be given on an inpatient basis because of the above named patient's need for penitentiary care on a continuing basis for the conditions(s) for which he/she was receiving inpatient hospital services prior to his/her transfer to the SNF. Long-Term Facility Order: Nursing Services, Dancing Teacher-Evaluate & Treat, Physical Therapy-Evaluate & Treat Oxygen Delivery Method: Nasal Cannula Discharge Diet: No Restrictions Daily Activity as Tolerated: Yes Resuscitation Status: Full Code New & Resume Previous Orders Bonnie Alanis Dec 30, 2022 12:25 BONNIE ALANIS MD Dec 30, 2022 12:26
--- NOTE | 2022-12-30 22:45 | Discharge Summary ---
Discharge Summary Hospital Course Problems/Dx: (1) Sepsis Status: Acute Qualifiers: (2) Cystitis Status: Acute (3) Transaminitis Status: Acute (4) Atrial fibrillation (5) HTN (hypertension) Status: Chronic Qualifiers: Qualified Codes: I10 - Essential (primary) hypertension (6) HLD (hyperlipidemia) Status: Chronic (7) Rheumatoid arthritis Status: Chronic (8) History of DVT (deep vein thrombosis) Status: Chronic Hospital Course Date of Admission: Dec 25, 2022 at 08:40 Admission Diagnosis : Family Physician/Provider: Hossein Perez DO Date of Discharge: 12/30/22 Discharge Diagnosis: [ ] Hospital Course: [ ] Labs and Pending Lab Test: Laboratory Tests 12/30/22 05:20: White Blood Count 6.0, Red Blood Count 3.36L, Hemoglobin 10.3L, Hematocrit 31L, Mean Corpuscular Volume 93, Mean Corpuscular Hemoglobin 31, Mean Corpuscular Hemoglobin Concent 33, Red Cell Distribution Width 14.5, Platelet Count 183, Mean Platelet Volume 9.5, Prothrombin Time 28.6H, INR Comment 2.7H, Sodium Level 134L, Potassium Level 3.6, Chloride Level 99, Carbon Dioxide Level 28, Anion Gap 7, Blood Urea Nitrogen 18, Creatinine 1.03, Estimat Glomerular Filtration Rate 55, BUN/Creatinine Ratio 17, Glucose Level 120H, Calcium Level 9.0 Microbiology 12/25/22 Blood Culture - Final, Complete Staphylococcus hominis Corynebacterium species No Susceptibility Performed See Comments 12/25/22 Urine Culture - Final, Complete Escherichia coli Home Meds Active Cefdinir 300 Mg Capsule 300 Mg PO BID 5 Days Reported Tylenol (Acetaminophen) 325 Mg Tablet 650 Mg PO Q6H PRN Mucinex (Guaifenesin) 600 Mg Tab.er.12h 600 Mg PO Q12H PRN Miralax (Polyethylene Glycol 3350) 17 Gram Powd.pack 17 Gm PO DAILY PRN Albuterol Sulfate 2.5 Mg/3 Ml (0.083 %) Vial.neb 3 Ml NEB Q6H PRN Warfarin Sodium 5 Mg Tablet 5 Mg PO 1700 Biotin 1 Mg Tablet 1 Mg PO DAILY Neurontin (Gabapentin) 300 Mg Capsule 300 Mg PO 0600,1000,1400 Diclofenac Sodium 1 % Gel..gram. 2-4 Gm TP 0600,1000,1400 APPPLY TO SHOULDER AND KNEES Tylenol 8 Hour (Acetaminophen) 650 Mg Tablet.er 650 Mg PO 0600,1400,2200 Coq-10 (Ubidecarenone) 100 Mg Capsule 100 Mg PO 1800 Fluticasone Propionate 50 Mcg/Actuation [place].susp 1 Spr NSEACH DAILY Fexofenadine HCl 180 Mg Tablet 180 Mg PO DAILY Duloxetine HCl 60 Mg Capsule.dr 120 Mg PO 1800 TAKES 2 (60MG) CAPS Losartan Potassium 100 Mg Tablet 100 Mg PO 1800 HOLD AND NOTIFY NURSE IF BP <80/50 OR >180/110 OR PULSE <50 OR >110 Hydrochlorothiazide 25 Mg Tablet 25 Mg PO 0600 Ocuvite with Lutein Tablet (Vit A,C & E/Lutein/Minerals) 300MCG-200 Tablet 1 Each PO 1800 Megared [place]-3 Krill 350 mg (Krill/Om-3/Dha/Epa/Phospho/Ast) 350MG-90MG Capsule 1 Each PO 1800 Lovastatin 20 Mg Tablet 20 Mg PO 1800 Vitamin D3 (Cholecalciferol (Vitamin D3)) 50 Mcg (2000 Unit) Capsule 50 Mcg PO 1800 Vitamin B Complex 1 Each Tablet 1 Each PO 1800 Rinvoq ER (Upadacitinib) 15 Mg Tab.er.24h 15 Mg PO 1800 Senna (Sennosides) 8.6 Mg Tablet 8.6 Mg PO 0600,1800 Pantoprazole Sodium 40 Mg Tablet.dr 40 Mg PO 0600,1800 Folic Acid 1 Mg Tablet 1 Mg PO 0600,1800 Discharge Instructions Discharge Diet: No Restrictions Discharge Physical Examination Vital Signs Vital Signs Date Time Temp Pulse Resp B/P (MAP) Pulse Ox O2 Delivery O2 Flow Rate FiO2 12/30/22 11:37 36.5 66 16 147/65 (92) 98 Nasal Cannula 2.00 12/29/22 00:17 21 Allergies: Coded Allergies: Penicillins (Verified Allergy, Unknown, 05/23/21) procaine (Verified Allergy, Unknown, 05/23/21) Discharge Summary Date of Admission Dec 25, 2022 at 08:40 Date of Discharge Dec 30, 2022 at 15:06 Discharge Date: Dec 30, 2022 Admission Diagnosis Sepsis Cystitis Transaminitis Discharge Diagnosis (1) Sepsis Status: Acute Qualifiers: (2) Cystitis Status: Acute (3) Transaminitis Status: Acute (4) Atrial fibrillation (5) HTN (hypertension) Status: Chronic Qualifiers: Qualified Codes: I10 - Essential (primary) hypertension (6) HLD (hyperlipidemia) Status: Chronic (7) Rheumatoid arthritis Status: Chronic (8) History of DVT (deep vein thrombosis) Status: Chronic TRISTEN ALANIS MD Dec 30, 2022 22:45
== END 2022-12-30 15:06 | disposition home or self-care (01) | DRG 872 ==
LOC: EDUNIT# 04:57 → ER 05:00 → 4TH 08:40
PROVIDERS: ADMIT Family Medicine; ATTEND Internal Medicine
DX: A41.51 Sepsis due to Escherichia coli [E. coli] (principal); Z68.43 Body mass index [BMI] 50.0-59.9, adult; N30.90 Cystitis, unspecified without hematuria; R74.01 Elevation of levels of liver transaminase levels; I48.91 Unspecified atrial fibrillation; I10 Essential (primary) hypertension; E78.5 Hyperlipidemia, unspecified; M06.9 Rheumatoid arthritis, unspecified; Z86.718 Personal history of other venous thrombosis and embolism; F03.90 Unspecified dementia, unspecified severity, without behavioral disturbance, psychotic disturbance, mood disturbance, and anxiety; Z20.822 Contact with and (suspected) exposure to COVID-19; R65.20 Severe sepsis without septic shock; E66.01 Morbid (severe) obesity due to excess calories
CPT/HCPCS: 36415; 51701; 71045; 74177; 76705; 80048; 80053; 80074; 80076; 80329; 81000; 83605; 85025; 85027; 85610; 85730; 87040; 87077; 87088; 87186; 87636; 94760

== ENCOUNTER → 2023-03-31 | Outpatient (CLI) | payer MEDICARE ==
[~2023-03-31] MED LIST changes: +ACET-2840 PO; +ACET325T38 PO; +ALBU2.5V4 NEB; +BIOT1TAB PO; +CEFD300C3 PO; +CHOL20002 PO; -DICL100G13 TOP; +DICL100G60 TOP; +DICL100G60 TP; +FLUT16SP22 NSEACH; +GUAI600T43 PO; +HYDR25TA4 PO; +NF-ALLE180 PO; +PANT40TA52 PO; +POLY17PO6 PO; +SENN-234 PO; +UBID100C17 PO; +WARF-48 PO
--- NOTE | 2023-03-31 10:06 | Diagnostic Imaging Report ---
PROCEDURE: CT sinuses without contrast TECHNIQUE: Multiple contiguous axial images were obtained through the sinuses without the use of intravenous contrast. Coronal and sagittal reformations were then performed. Auto Exposure Controls were utilized during the CT exam to meet ALARA standards for radiation dose reduction. INDICATION: Chronic sinusitis FINDINGS: There is almost complete opacification of the right maxillary sinus. There has been resection of the medial wall of the left maxillary sinus. There is opacification of the left sphenoid sinus. There is opacification of a few right ethmoid air cells. The posterior ethmoid air cells and frontal sinuses are clear. 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 The globes and intraorbital structures are unremarkable. The nasopharyngeal soft tissues are symmetric without mass effect. The parotid glands are unremarkable. The mastoid air cells are clear. IMPRESSION: Right ethmoid, left sphenoid and right maxillary sinus disease as described. Bilateral mary bullosa, left greater than right. Previous resection of the medial wall of the left maxillary sinus. Dictated by: Dictated on workstation # [id number]
== END ==
LOC: RAD 08:58
PROVIDERS: ATTEND Otolaryngology Otolaryngology/Facial Plastic Surgery
DX: J32.2 Chronic ethmoidal sinusitis (principal); J32.3 Chronic sphenoidal sinusitis; J32.0 Chronic maxillary sinusitis; R23.8 Other skin changes; J32.9 Chronic sinusitis, unspecified; Z98.890 Other specified postprocedural states
CPT/HCPCS: 70486